=== PATIENT | male | born 1945 | race Caucasian/White ===

== ENCOUNTER 2017-06-26 09:18 | Emergency (ER) | payer MEDICARE, OTHER, SELFPAY ==
[2017-06-26 09:19] VITALS: BP 124/71; PULSE 66; RESP 15; TEMP 36.3; O2SAT 97; BMI 23.1
--- NOTE | 2017-06-26 09:29 | RAD_ITS ---
STUDY: X-RAY - LEFT HAND, ATTENTION FOURTH FINGER REASON FOR EXAM: Male, 72 years old. Laceration injury. TECHNIQUE: 3 view(s) of the finger were obtained. COMPARISON: None. FINDINGS: Normal metacarpal head. Normal metacarpophalangeal joint. Normal proximal phalanx. Normal middle phalanx. Normal distal phalanx. Normal proximal interphalangeal joint. Normal distal interphalangeal joint. Soft tissue laceration overlying the distal phalanx of the fourth digit. RAD/Finger(s) Min 2 Views IMPRESSION: Soft tissue laceration overlying the distal phalanx of the fourth digit. No fracture is seen. Electronically Signed: Chidi Monroy MD at 10:18 EDT Tel [phone], Service support ,
[2017-06-26] MEDS: Cephalexin 250 MG Capsule 500 MG PO (09:53)
--- NOTE | 2017-06-26 09:53 | ED.DCSUM_ITS ---
- ER Visit Summary Date of Service: 06/26/17 Chief Complaint: [Laceration left index finger patient] History of Present Illness: The patient is a 72 M [presents with a laceration to his left index finger that occurred approximately 10:30 AM yesterday morning. Patient states that he irrigated it with water and peroxide however he can get the bleeding to stop as patient is on Plavix. Patient has a history of a cardiac stent which is the reason for the Plavix. Patient is right-hand dominant and he is up-to-date on tetanus.] Patient was cutting a piece of wood with a band saw when he injured his finger. Physical Examination: [Right index finger-there is a 2.5 cm laceration to the distal pulp of the distal phalanx inferior to the nail with just minimal nicking of the lateral edge of the nail. Patient neurovascular intact distally. Small amount of oozing noted from the lateral edge of the laceration. Patient has normal range of motion flexion extension at the DIP and PIP joints.] Test Results: [X-ray of the left index finger obtained read by myself as no acute fractures or foreign bodies noted.] Emergency Department Course and Treatment: [Due to the fact that the laceration is approximately 24 hours old it is not amenable to any type of repair. Patient did not want any further manipulation of the wound or irrigation. He will have a clean dressing applied with Steri-Strips and a cage splint over the distal phalanx.] Treatment Plan: [Patient was given a dose of Keflex in the emergency department and will be started on Keflex.] Disposition: [Discharged home in stable condition] Impression: [Laceration left index finger 2.5 cm-old not sutured] This note was generated with [employer] dictation software. It may contain incorrect words, spelling, and punctuation that were not noted in review of the chart prior to signing ED Disposition - Plan for ED Patient: Chief Complaint: Laceration Referrals: Constantino Davis DO [Primary Care Provider] -
--- NOTE | 2017-06-26 09:53 | ED.DEP ---
ED Disposition - Plan for ED Patient: Chief Complaint: Laceration Instructions: ED Laceration Old Not Sutr Prescriptions: Cephalexin [Keflex] 500 mg PO Q6 #40 cap Referrals: Constantino Davis DO [Primary Care Provider] - 3-5 Days
[2017-06-26 10:29] VITALS: RESP 16
--- NOTE | 2017-06-26 10:30 | ED.RN ---
REVIEWED D/C INSTRUCTIONS, FOLLOW UP CARE, AND S/S THAT WOULD WARRANT A RETURN TO THE ED WITH PT. PT VERBALIZED AN UNDERSTANDING AND DENIES FURTHER QUESTIONS FOR THIS RN.
== END 2017-06-26 10:30 | disposition home or self-care (01) ==
PROVIDERS: Emergency Provider Emergency Medicine; Family Provider Family Medicine; PCP Family Medicine
DX: S61.311A Laceration without foreign body of left index finger with damage to nail, initial encounter (principal); I25.10 Atherosclerotic heart disease of native coronary artery without angina pectoris; W31.2XXA Contact with powered woodworking and forming machines, initial encounter; Y93.9 Activity, unspecified; Y92.9 Unspecified place or not applicable; Z95.5 Presence of coronary angioplasty implant and graft; Z79.82 Long term (current) use of aspirin; Z79.02 Long term (current) use of antithrombotics/antiplatelets; Z79.899 Other long term (current) drug therapy
CPT/HCPCS: 73140; 99283

== ENCOUNTER 2017-09-26 22:32 | Emergency (ER) | payer MEDICARE, OTHER, SELFPAY ==
[2017-09-26 22:33] VITALS: BP 106/61; PULSE 77; RESP 18; TEMP 37.6; O2SAT 96; BMI 22.4
[2017-09-26 22:42] VITALS: BP 114/69; PULSE 71; RESP 18; O2SAT 96
--- NOTE | 2017-09-26 22:51 | EKG12_ITS ---
Test Reason : LOW BP Blood Pressure : / mmHG Vent. Rate : 071 BPM Atrial Rate : 071 BPM P-R Int : 170 ms QRS Dur : 082 ms QT Int : 398 ms P-R-T Axes : 042 -58 067 degrees QTc Int : 432 ms Normal sinus rhythm Left anterior fascicular block Abnormal ECG Confirmed by LIAN العراقي, GILMA ([id number]), editor index KASSANDRA PASCUAL ([id number]) on 10/02/2017 9:13:58 AM Referred By: LAURA Confirmed By:GILMA BEAL MD
--- NOTE | 2017-09-26 22:52 | ED.VISSUMM ---
- ER Visit Summary Date of Service: 09/26/17 Chief Complaint: [] Weakness with low blood pressures History of Present Illness: The patient is a 72 M patient's been feeling weak for the last 10 days. He just got the hospital 6 days ago for bilateral pneumonia with sepsis. He was admitted for 3 days in [place]. He said his normal blood pressures are 115 systolic but is barely in the low 100s. He finished his antibiotic Levaquin today. He is on aspirin and Plavix. History of CAD with 1 stent in his left anterior descending artery remotely. They discharged him on metoprolol. He was on this approximately 4 years ago and has been stopped since. He is unsure why they restarted it since he had sepsis. His tax representative Dr. Amaro stopped this yesterday. He feels slightly unsteady and generalized weak. No urinary symptoms. No chest pain. No shortness of breath. Physical Examination: [] Vital signs reviewed General: Well-nourished well-developed Head: Normocephalic atraumatic Eyes: Pupils equal round and reactive to light extraocular movements intact ENT: TMs clear no hemotympanum no trauma Neck: Nontender full range of motion Cardiovascular: Regular rate rhythm no murmurs normal S1-S2 Respiratory: No distress clear to auscultation bilaterally chest nontender Abdomen: Soft nontender nondistended normal bowel sounds no masses Back: Nontender no CVA tenderness Extremities: Nontender active range of motion ?4 extremities no trauma Skin: Normal color no trauma Neuro alert oriented cranial nerves II through XII intact normal strength sensation reflexes Test Results: [] Emergency Department Course and Treatment: [] Blood pressure 106 systolic followed by 114 systolic followed by 104 systolic on evaluation. No tachycardia. Pulse ox normal. He appears well. EKG lab work and chest x-ray obtained. Lab work shows nothing significant. Hemoglobin 12.9. No white count. Chemistries normal. Urine normal. Troponin negative. EKG shows sinus rhythm at 71 without ischemia. Chest x-ray shows a pleural plaque without any acute findings. At this time the patient is resting comfortably. Blood pressures have been 90s-100s. I do not think this is causing any symptoms. He will follow-up as an outpatient. Treatment Plan: [] Disposition: [] Impression: [] Generalized weakness This note was generated with [employer] software. It may contain incorrect words, spelling, and punctuation that were not noted in review of the chart prior to signing ED Disposition - Plan for ED Patient: Chief Complaint: Weakness Referrals: Constantino Davis DO [Primary Care Provider] -
[2017-09-26 23:20] LABS: Absolute Lymphocyte Count 1.13 X10^3/ul (0.83-4.51); Absolute Neutrophil Count 6.1 X10^3/uL (2.0-7.7); Basophil# 0.01 X10^3/uL; Basophil% 0.1 % (0-1); Eosinophil# 0.11 X10^3/uL; Eosinophils% 1.4 % (0-5); Hematocrit 39.7 % (40-54); Hemoglobin 12.9 g/dl (13.0-16.5); Lymphocyte # 1.13 X10^3/ul (4.0); Lymphocyte % 13.9 % (19-41); Mean Corp Hgb Conc 32.5 g/gl (32-36); Mean Corpuscular Hgb 29.7 pg (27.0-32.0); Mean Corpuscular Volume 91.5 fL (80-94); Mean Platelet Vol. 8.6 fl (6.2-12.0); Monocyte# 0.71 X10^3/uL; Monocyte% 8.7 % (0-10); Neutrophil # 6.14 X10^3/uL (2.7-7.7); Neutrophil % 75.5 % (47-70); Platelet Count 432 K/mm3 (150-450); RBC Distribution Width SD 46.7 fl (35.1-43.9); Red Blood Count 4.34 M/mm3 (4.6-6.2); White Blood Count 8.1 K/mm3 (4.4-11.0)
--- NOTE | 2017-09-26 23:20 | RAD_ITS ---
STUDY: X-RAY CHEST REASON FOR EXAM: Male, 72 years old. Weakness TECHNIQUE: Frontal and lateral views of the chest. COMPARISON: January 26, 2015 FINDINGS: Patchy ill-defined radiodensity appear unchanged and consistent with pleural plaques. There is no demonstrated pleural abnormality. Normal size heart. Normal mediastinum and colin. Normal visualized pulmonary arteries. Normal visualized aortic arch and descending thoracic aorta. Normal visualized thoracic spine. Multiple old rib fractures noted on the right. There is no demonstrated abnormality of the visualized soft tissue structures of the upper abdomen. RAD/Chest PA and Lateral IMPRESSION: Pleural plaques and old rib fractures. No acute disease. Electronically Signed: Faizan Huerta MD at 23:42 EDT , Service support ,
[2017-09-26 23:28] LABS: POSITIVE COUNT NO; POSITIVE DIFFERENTIAL NO; POSITIVE MORPHOLOGY NO
[2017-09-26 23:40] LABS: Anion Gap 7 (5-15); BUN 15 mg/dL (7-18); BUN/Creat Ratio 18.4 RATIO (10-20); Calcium,Total 8.2 mg/dL (8.5-10.1); Chloride 104 mmol/L (98-107); Creatinine, Serum 0.82 mg/dL (0.70-1.30); EST Glomerular Filtration Rate 99 mL/min (>60); Est Glom Filt Rate - Afr Amer 119 mL/min (>60); Estimated Creatinine Clearance 91.43 ml/min; Glucose 118 mg/dL (74-106); Potassium 3.8 mmol/L (3.5-5.1); Sodium Level 137 mmol/L (136-145)
[2017-09-26 23:53] LABS: Bacteria 0 SEEN /hpf (None Seen); Mucous, Urine 0 SEEN /hpf (<or=2+); Red Blood Cells-Urine 0 SEEN /hpf (0-5); White Blood Cells 0 SEEN /hpf (0-5)
[2017-09-26 23:54] LABS: Color, Urine Yellow (Yellow); Glucose, Dipstick Normal (Normal); Ketone-Dipstick Negative (Negative); Leukocyte Esterase-Dipstick Negative /ul (Negative); Nitrite-Dipstick Negative (Negative); Occult Blood-Urine Negative /ul (Negative); Protein-Dipstick Negative (Negative); Urine Bilirubin Dipstick Negative (Negative); Urine Clarity Sl. Cloudy (Clear); Urine Urobilinogen Normal (Normal)
[2017-09-27 00:28] LABS: Squamous Epithelial Cells - UA 0-5 SEEN /hpf (0-5)
--- NOTE | 2017-09-27 00:37 | ED.DEP ---
ED Disposition - Plan for ED Patient: Disposition: Home or Assisted Living Chief Complaint: Weakness Instructions: ED Weakness [facility] Referrals: Constantino Davis DO [Primary Care Provider] -
[2017-09-27 00:38] VITALS: BP 101/68; PULSE 69; RESP 16; O2SAT 96; O2SAT 98
== END 2017-09-27 00:47 | disposition home or self-care (01) ==
PROVIDERS: Emergency Provider Emergency Medicine; Family Provider Family Medicine; PCP Family Medicine
DX: R53.1 Weakness (principal); I25.10 Atherosclerotic heart disease of native coronary artery without angina pectoris; E78.00 Pure hypercholesterolemia, unspecified; I44.7 Left bundle-branch block, unspecified; Z87.01 Personal history of pneumonia (recurrent); Z86.19 Personal history of other infectious and parasitic diseases; Z87.19 Personal history of other diseases of the digestive system; Z90.89 Acquired absence of other organs; Z90.49 Acquired absence of other specified parts of digestive tract; Z95.5 Presence of coronary angioplasty implant and graft; Z79.82 Long term (current) use of aspirin; Z79.02 Long term (current) use of antithrombotics/antiplatelets; Z79.899 Other long term (current) drug therapy
CPT/HCPCS: 71046; 80048; 81001; 84484; 85025; 93005; 99284; A4216

== ENCOUNTER 2017-09-28 16:15 | Observation (INO) | payer MEDICARE, OTHER, SELFPAY ==
[2017-09-28] VITALS (7 sets, daily range): BP systolic 107–122; BP diastolic 60–85; PULSE 63–89; RESP 16–18; TEMP 37.1–37.3; O2SAT 95–97; BMI 22.3; BMI 23.1
--- NOTE | 2017-09-28 16:31 | EKG12_ITS ---
Test Reason : HYPOTENSION Blood Pressure : / mmHG Vent. Rate : 069 BPM Atrial Rate : 069 BPM P-R Int : 168 ms QRS Dur : 076 ms QT Int : 416 ms P-R-T Axes : 053 -61 070 degrees QTc Int : 445 ms Sinus rhythm with Premature atrial complexes in a pattern of bigeminy Left anterior fascicular block Abnormal ECG Confirmed by LIAN العراقي, GILMA ([id number]), science editor KASSANDRA PASCUAL ([id number]) on 10/01/2017 3:56:05 PM Referred By: YAMINI Confirmed By:GILMA BEAL MD
--- NOTE | 2017-09-28 16:34 | ED.DCSUM_ITS ---
- ER Visit Summary Date of Service: 09/28/17 Chief Complaint: Weakness, low blood pressure History of Present Illness: The patient is a 72 M who was recently admitted in [facility] to the ICU with septic shock from bilateral pneumonia. The patient was in the ICU for 3 days. He was discharged home. Upon discharge, he was resumed on metoprolol. He states he was on this 5 years ago after having a stent. He states that he was taking it, at that time, he was having low blood pressures. He called Dr. Amaro his transactional attorney upon discharge. He was told to stop the medication. The patient has since stopped, but is still having low blood pressures. Today, he had 2 blood pressures in the 80 systolic. When he stood and it was repeated by his , it was in the 70 systolic. He has been mildly lightheaded. He denies any fevers or chills. He denies any cough. He said no chest pain. He is still urinating without issue. The patient is unsure if he was placed on steroids at all during his hospitalization. Physical Examination: Vital signs reviewed General: Well-nourished, well-developed Head: Normocephalic, atraumatic Eyes: Pupils equal and reactive, extraocular muscles intact Neck, supple, no lymphadenopathy Heart: Regular rate and rhythm Respiratory: No distress, clear bilaterally Abdomen: Soft, nontender, nondistended, no peritoneal signs Back: Nontender Extremities: Nontender, no edema, no cords Skin: Normal color no rash Neuro: Alert and oriented, no focal or lateralizing deficits Test Results: [] Emergency Department Course and Treatment: Patient presents with low blood pressure. Studies were obtained were negative. I did obtain a chest x-ray. There is scant infiltrate, but I do not feel that this is likely new. The patient has already been treated with antibiotics. He has not had cough or dyspnea. Lactate was normal. Kidney functions normal. EKG is unremarkable. I do have concern that the patient is presyncopal with his hypotension. I am unsure if this is related to an adrenal insufficiency. I did order cortisol level which is pending. The patient has had blood pressures about 100 systolic. As long as he is laying, he is asymptomatic. Given his recurrent hypotension and presyncope, I do for the patient would benefit from admission for further evaluation. Patient was discussed with the hospitalist. Treatment Plan: [] Disposition: [place] Impression: 1. Hypotension 2. Near syncope This note was generated with [employer] dictation software. It may contain incorrect words, spelling, and punctuation that were not noted in review of the chart prior to signing ED Disposition - Plan for ED Patient: Chief Complaint: Hypotension Referrals: Constantino Davis DO [Primary Care Provider] -
--- NOTE | 2017-09-28 16:35 | RAD_ITS ---
STUDY: X-RAY CHEST REASON FOR EXAM: Male, 72 years old. Cough TECHNIQUE: Single AP portable view of the chest. COMPARISON: September 26, 2017 FINDINGS: There is new mild hazy opacity of the left perihilar region which could represent mild infiltrate. There is stable calcified left pleural plaque. Normal size heart. Normal mediastinum and colin. Normal visualized pulmonary arteries. Normal visualized aortic arch and descending thoracic aorta. Normal visualized thoracic spine. There are stable old bilateral rib fractures. There is no demonstrated abnormality of the visualized soft tissue structures of the upper abdomen. RAD/Chest 1 View (Portable) IMPRESSION: There is new mild hazy opacity of the left perihilar region which could represent mild infiltrate. Electronically Signed: Mima Davison MD at 17:26 EDT , Service support ,
[2017-09-28 17:12] LABS: Absolute Lymphocyte Count 1.02 X10^3/ul (0.83-4.51); Absolute Neutrophil Count 4.5 X10^3/uL (2.0-7.7); Basophil# 0.01 X10^3/uL; Basophil% 0.2 % (0-1); Eosinophil# 0.14 X10^3/uL; Eosinophils% 2.2 % (0-5); Hemoglobin 13.2 g/dl (13.0-16.5); Lymphocyte # 1.02 X10^3/ul (4.0); Lymphocyte % 15.8 % (19-41); Mean Corpuscular Hgb 30.1 pg (27.0-32.0); Mean Corpuscular Volume 91.1 fL (80-94); Mean Platelet Vol. 8.3 fl (6.2-12.0); Monocyte# 0.81 X10^3/uL; Monocyte% 12.6 % (0-10); Neutrophil # 4.46 X10^3/uL (2.7-7.7); Platelet Count 448 K/mm3 (150-450); RBC Distribution Width SD 45.9 fl (35.1-43.9); Red Blood Count 4.39 M/mm3 (4.6-6.2); White Blood Count 6.5 K/mm3 (4.4-11.0)
[2017-09-28 17:13] LABS: POSITIVE COUNT NO; POSITIVE DIFFERENTIAL NO; POSITIVE MORPHOLOGY NO
[2017-09-28] MEDS: 0.9% Normal Saline 1,000 ML 1000 ML IV (17:17)
[2017-09-28 17:18] LABS: Mucous, Urine 0 SEEN /hpf (<or=2+); Red Blood Cells-Urine 0 SEEN /hpf (0-5); Squamous Epithelial Cells - UA 0 SEEN /hpf (0-5)
[2017-09-28 17:19] LABS: Color, Urine Yellow (Yellow); Glucose, Dipstick Normal (Normal); Ketone-Dipstick Negative (Negative); Leukocyte Esterase-Dipstick Negative /ul (Negative); Nitrite-Dipstick Negative (Negative); Occult Blood-Urine Negative /ul (Negative); Protein-Dipstick Negative (Negative); Specific Gravity, Urine 1.015 (1.002-1.030); Urine Bilirubin Dipstick Negative (Negative); Urine Clarity Clear (Clear); Urine Urobilinogen Normal (Normal); Urine pH 6.5 (5.0 - 8.0)
[2017-09-28 17:33] LABS: Bacteria RARE /hpf (None Seen); White Blood Cells 0-5 SEEN /hpf (0-5)
[2017-09-28 17:38] LABS: ALB/GLOB Ratio 0.6 RATIO (0.9-2.4); AST(SGOT) 10 U/L (15-37); Alanine Aminotransfer ALT/SGPT 14 U/L (16-61); Albumin, Serum 2.9 g/dL (3.2-5.0); Alkaline Phosphatase 68 U/L (45-117); Anion Gap 4 (5-15); BUN 12 mg/dL (7-18); BUN/Creat Ratio 12.6 RATIO (10-20); Chloride 105 mmol/L (98-107); Creatinine, Serum 0.95 mg/dL (0.70-1.30); EST Glomerular Filtration Rate 83 mL/min (>60); Est Glom Filt Rate - Afr Amer 100 mL/min (>60); Estimated Creatinine Clearance 78.46 ml/min; Globulin 4.5 g/dL (2.2-4.2); Glucose 88 mg/dL (74-106); Potassium 3.8 mmol/L (3.5-5.1); Protein, Total 7.4 g/dL (6.4-8.2); Sodium Level 138 mmol/L (136-145); Thyroid Stim Hormone (TSH) 1.01 uIU/mL (0.358-3.74)
[2017-09-28 18:10] LABS: Lactic Acid 1.1 mmol/L (0.4-2.0)
--- NOTE | 2017-09-28 21:14 | PCM.HP.STD ---
Problem List (1) Near syncope Status: Acute (2) Hypotension Status: Acute (3) Atrial premature contractions Status: Chronic (4) Atherosclerotic heart disease of [place] coronary artery without angina pectoris Status: Chronic Qualifiers: [place] vs. transplanted heart: [place] heart Qualified Code(s): I25.10 - Atherosclerotic heart disease of [place] coronary artery without angina pectoris; I25.10 - Atherosclerotic heart disease of [place] coronary artery without angina pectoris; I25.10 - Atherosclerotic heart disease of [place] coronary artery without angina pectoris (5) Abnormal chest sounds Status: Chronic (6) HLD (hyperlipidemia) Status: Chronic Qualifiers: Hyperlipidemia type: pure hypercholesterolemia Qualified Code(s): E78.00 - Pure hypercholesterolemia, unspecified; E78.00 - Pure hypercholesterolemia, unspecified; E78.00 - Pure hypercholesterolemia, unspecified; E78.0 - Pure hypercholesterolemia (7) History of PTCA Status: Chronic Comment: PTCA and GAETANO to mid LAD (8) Diverticulitis Status: Acute History of Present Illness Date of Admission: 09/28/17 Chief Complaint: Near syncope The patient is a 72 year old male w/ h/o CAD, lipidemia and sepsis admitted for near syncope. He was recently admitted to the ICU at [facility] for septic shock from bilateral pneumonia. He was discharged and he resume metoprolol. However, he called his cardiology because he was experiencing hypotension. His cardiology told him to stop metoprolol 3 days prior to admission. However, he still feels fatigue and generalized weakness. Nothing appeared to make it better or worse. His SBP was in the 80s. His weakness is not associated with any other symptoms. Past Medical History Past Medical History (Chronic Problems): Chronic Problems (Last Updated 04/01/17 @ 09:56 by [employer]) Left anterior fascicular block (LAFB) (Chronic) Atrial premature contractions (Chronic) Atherosclerotic heart disease of [place] coronary artery without angina pectoris (Chronic) Abnormal chest sounds (Chronic) HLD (hyperlipidemia) (Chronic) History of PTCA (Chronic 03/02/13) PTCA and GAETANO to mid LAD Medical History: Medical History (Last Updated 04/01/17 @ 10:00 by [employer]) Left anterior fascicular block (LAFB) (Chronic) I44.4 Atrial premature contractions (Chronic) I49.1 Atherosclerotic heart disease of [place] coronary artery without angina pectoris (Chronic) I25.10 Abnormal chest sounds (Chronic) R09.89 HLD (hyperlipidemia) (Chronic) E78.5 Allergies No Known Allergies Allergy (Verified 09/28/17 16:21) Home Medications: Ambulatory Orders Medication Instructions Recorded Nitroglycerin [Nitrostat] 0.4 mg SUBLINGUAL Q5M PRN 04/12/13 Pravastatin Sodium [Pravachol] 10 mg PO QHS 01/03/15 Clopidogrel Bisulfate [Plavix] 75 mg PO DAILY #0 01/10/15 Aspirin [Aspirin, Baby] 81 mg PO DAILY@0800 06/26/17 Albuterol Sulfate [Ventolin Hfa] 1 puff IH Q4H 09/28/17 Benzonatate [Tessalon Perle] 100 mg PO TID PRN PRN 09/28/17 Surgical History: Surgical History (Last Updated 04/01/17 @ 09:56 by Sheridan Farooq) History of PTCA (Chronic) Onset Date: 03/02/13 Z98.61 PTCA and GAETANO to mid LAD H/O vasectomy Z98.52 History of appendectomy Z98.890, Z90.49 History of cholecystectomy Z98.890, Z90.49 Lives: Spouse/ Significant Other Smoking Status: Never smoker Alcohol: None Drugs: None Review of Systems Constitutional: Denies: Chills, Fever, Weight Change HEENT: Denies: Head Aches, Sinus Congestion, Sinus Drainage Cardiovascular: Denies: Chest Pain, Palpitations Respiratory: Denies: Cough, Shortness of breath at rest, Sputum production Gastrointestinal: Denies: Abdominal Pain, Nausea, Vomiting Genitourinary: Denies: Dysuria Musculoskeletal: Denies: Joint Pain, Joint Tenderness Skin: Denies: Rash, Wounds Neurological: Denies: Numbness, Tingling, Focal weakness Psychiatric: Denies: Anxiety, Depression, Homicidal Ideations, Suicidal Ideations Hematologic/ Lymphatic: Denies: Easy Bruising, Easy Bleeding VTE Information - Inpt Only VTE Present on Admission: No VTE Mechan Device Prophylaxis: SCD's VTE Pharm Prophylaxis ordered?: Yes Patient Problems: Active and Suspected Problems (Last Updated 04/01/17 @ 10:00 by Sheridan Farooq) Near syncope (Acute) Hypotension (Acute) - Physical Exam General: Alert, Oriented x3, Cooperative HEENT: Atraumatic, PERRLA, EOMI, Normocephalic Neck: Supple, No JVD, Negative Carotid Bruits Lungs: Clear to auscultation, Normal air movement Cardiovascular: Regular rate, No murmurs Abdomen: Bowel Sounds Present, Soft, Non Tender Extremities: No edema, Capillary Refill Less than 3 Seconds Skin: No rashes, No breakdown Musculoskeletal: No Tenderness to Palpation of Joints or Extremities Neurological: Cranial nerves II-XII grossly intact Psych/Mental Status: Normal Affect, Appropriate Vital Signs Temp Pulse Resp BP Pulse Ox 98.8 F 67 16 122/85 H 97 09/28/17 20:26 09/28/17 20:26 09/28/17 20:26 09/28/17 20:26 09/28/17 20:26 Oxygen Delivery Method Room Air Weight: 81.7 kg Body Mass Index (BMI) 23.1 Assessment/Plan All Active Problems (Last Updated 04/01/17 @ 10:00 by Sheridan Farooq) Near syncope (Acute) Hypotension (Acute) Diverticulitis (Acute) 72 year old male w/ h/o CAD, lipidemia and sepsis admitted for near syncope. 1) Near syncope: Probably orthostatic. Pt has generalized weakness. Hydration. Will get carotid US and ECHO. Will get trops. 2) Hypotension: Improved with hydration. No e/o sepsis. Hydration. Hold betablocker. 3) CAD: Resume home meds. Monitor. 4) Prophylaxis: SCD / heparin.
[2017-09-28] MEDS: Heparin Injection (Vial) 5,000 UNIT/ML VIAL 5000 UNIT SC (22:09)
[2017-09-28] MEDS: 0.9% Normal Saline 1,000 ML 125 ML IV (22:09)
[2017-09-29] VITALS (15 sets, daily range): BP systolic 98–123; BP diastolic 42–78; PULSE 51–80; RESP 14–18; TEMP 36.7–37.3; O2SAT 93–97
[2017-09-29] MEDS: Benzonatate 100 MG Capsule PO ×2 (00:41→22:52)
[2017-09-29] MEDS: Albuterol 2.5 MG/3 ML VIAL.NEB. INHALATION ×4 (01:04→21:29)
[2017-09-29] MEDS: 0.9% Normal Saline 1,000 ML 125 ML IV ×3 (03:26→19:32)
[2017-09-29 03:52] LABS: Absolute Lymphocyte Count 1.13 X10^3/ul (0.83-4.51); Basophil# 0.02 X10^3/uL; Basophil% 0.2 % (0-1); Eosinophil# 0.14 X10^3/uL; Eosinophils% 1.7 % (0-5); Hematocrit 37.1 % (40-54); Hemoglobin 12.3 g/dl (13.0-16.5); Lymphocyte # 1.13 X10^3/ul (4.0); Lymphocyte % 13.9 % (19-41); Mean Corp Hgb Conc 33.2 g/gl (32-36); Mean Corpuscular Hgb 30.1 pg (27.0-32.0); Mean Corpuscular Volume 90.9 fL (80-94); Mean Platelet Vol. 8.4 fl (6.2-12.0); Monocyte# 0.85 X10^3/uL; Monocyte% 10.4 % (0-10); Neutrophil # 5.99 X10^3/uL (2.7-7.7); Neutrophil % 73.6 % (47-70); Platelet Count 406 K/mm3 (150-450); RBC Distribution Width CV 13.9 % (11.6-14.6); RBC Distribution Width SD 46.1 fl (35.1-43.9); Red Blood Count 4.08 M/mm3 (4.6-6.2); White Blood Count 8.2 K/mm3 (4.4-11.0)
[2017-09-29 04:02] LABS: ALB/GLOB Ratio 0.6 RATIO (0.9-2.4); AST(SGOT) 9 U/L (15-37); Alanine Aminotransfer ALT/SGPT 12 U/L (16-61); Albumin, Serum 2.5 g/dL (3.2-5.0); Alkaline Phosphatase 60 U/L (45-117); Anion Gap 6 (5-15); BUN 11 mg/dL (7-18); Calcium,Total 7.6 mg/dL (8.5-10.1); Chloride 110 mmol/L (98-107); Creatinine, Serum 0.69 mg/dL (0.70-1.30); EST Glomerular Filtration Rate 120 mL/min (>60); Est Glom Filt Rate - Afr Amer 145 mL/min (>60); Estimated Creatinine Clearance 77.16 ml/min; Globulin 4.1 g/dL (2.2-4.2); Glucose 116 mg/dL (74-106); Potassium 3.8 mmol/L (3.5-5.1); Protein, Total 6.6 g/dL (6.4-8.2); Sodium Level 141 mmol/L (136-145)
[2017-09-29 04:16] LABS: POSITIVE COUNT NO; POSITIVE DIFFERENTIAL NO; POSITIVE MORPHOLOGY NO
[2017-09-29] MEDS: Heparin Injection (Vial) 5,000 UNIT/ML VIAL 5000 UNIT SC ×3 (06:08→21:08)
[2017-09-29] MEDS: Aspirin 81 MG TAB.CHEW PO (09:04)
[2017-09-29] MEDS: Clopidogrel Bisulfate 75 MG Tablet PO (09:04)
--- NOTE | 2017-09-29 09:56 | CDU_ITS ---
Reason For Study: SYNCOPE Rt. Velocities/BP Lt. Velocities/BP Prox CCA 104.0/15.2 cm/sec. Prox CCA 165.0/26.7 cm/sec. Mid CCA 111.0/18.8 cm/sec. Mid CCA 123.0/22.9 cm/sec. Dist CCA 111.0/24.6 cm/sec. Dist CCA 128.0/23.6 cm/sec. Prox ICA 89.7/22.9 cm/sec. Prox ICA 61.6/20.5 cm/sec. Mid ICA 85.0/25.8 cm/sec. Mid ICA 113.0/34.0 cm/sec. Dist ICA 89.1/22.3 cm/sec. Dist ICA 92.8/29.1 cm/sec. Rt. ICA/CCA = 89.7/111.0=0.80. Lt. ICA/CCA = 113.0/123.0=0.94. Prox ECA 120.0/18.2 cm/sec. Prox ECA 105.0/18.9 cm/sec. Rt. Vert. 63.9/18.2 cm/sec. Lt. Vert. 57.4/140.2 cm/sec. Right Extracranial There is homogeneous, smooth atherosclerotic plaque noted in the right common carotid artery. There is homogeneous, smooth atherosclerotic plaque noted in the right internal carotid artery. There is intimal thickening but no significant atherosclerotic plaque noted in the right external carotid artery. Antegrade flow is noted in the right vertebral artery. Left Extracranial There is intimal thickening but no significant atherosclerotic plaque noted in the left common carotid artery. There is homogeneous, smooth atherosclerotic plaque noted in the left internal carotid artery. There is intimal thickening but no significant atherosclerotic plaque noted in the left external carotid artery. Antegrade flow is noted in the left vertebral artery. Procedure Carotid Duplex [id number]. The exam was diagnostic. Exam performed in department. Interpretation Summary Mild (<50%) stenosis right extracranial internal carotid. Mild (<50%) stenosis left extracranial internal carotid. Flow within the vertebral arteries is antegrade bilaterally. Ordering Physician: Allan Bhat Referring Physician: Constantino Davis Performed By: Eva Hunter RDCS, RVT
[2017-09-29 10:10] LABS: D-Dimer Quantitative (DVT/PE) 1.24 FEU/ug/m (0.27-0.49)
--- NOTE | 2017-09-29 10:40 | CT_ITS ---
STUDY: CTA CHEST REASON FOR EXAM: Male, 72 years old. Elevated d-dimer. Near syncopal episode and hypotension. Recent septic shock. RADIATION DOSAGE (If Supplied By Facility): CTDIvol = ( 14.58 ) mGy, DLP = ( 473.96 ) mGycm TECHNIQUE: The examination was performed with the intravenous administration of 75mL ml of Isovue 370 contrast material. Post-processing of the angiographic images was performed, with multiplanar reformation and 3D reconstruction. Individualized dose optimization techniques were used for this CT. COMPARISON: Comparison is made with prior CT scan of the chest dated February 02, 2015. FINDINGS: Normal enhancement of the main pulmonary artery and right and left pulmonary arteries. Normal enhancement of the bilateral peripheral pulmonary arteries. There is no demonstrated pulmonary embolism. Normal thoracic aorta and visualized great vessels. There is no demonstrated aortic dissection. Normal heart and pericardium. There are visualized mediastinal lymph nodes, which are within normal size limits, and with normal morphology. Normal hilar regions. Normal visualized trachea and bronchi. The lungs are well expanded. Mild degree of increased linear markings at the lung bases worse on the right side suggestive of mild scarring and/or atelectasis. Focal calcified left pleural plaques. Normal chest wall structures. There are degenerative changes of thoracic spine. There is a there is a 4.4 cm x 4.1 cm cyst in the upper pole of the left kidney. Cyst in the upper pole of the left kidney. The patient is status post cholecystectomy. CT/CTA Chest W/WO Contrast IMPRESSION: No evidence of pulmonary embolism. Increased markings at the lung bases worse on the right side. Electronically Signed: Chidi Monroy MD at 12:30 EDT Tel [phone], Service support ,
--- NOTE | 2017-09-29 11:09 | PCM.PROGNOTE ---
Patient Problems: Active and Suspected Problems (Last Updated 09/29/17 @ 18:18 by Araceli Chu) Near syncope (Acute) Hypotension (Acute) Subjective: The patient is a 72-year-old male who presented to [facility] emergency room on 09/28/2017 complaining of lightheadedness, generalized weakness and low blood pressures at home. He recently was in a hospital in [facility] and treated for septic shock secondary to bilateral pneumonia. He was in the intensive care unit for 3 days. After the shock resolved he was started on metoprolol. He had previously been on metoprolol which was discontinued by Dr. Amaro for low blood pressures associated with weakness, lightheadedness and slurred speech. He had been in contact with Dr. Amaro since returning home from the hospital in [place] and the metoprolol was discontinued by Dr. Amaro 3 days prior to presenting to the emergency room. Signs of presentation to the emergency room 99.1, pulse rate 78, blood pressure 107/60, respiratory rate 16 and he was 95% saturated on room air. Orthostatic vital signs in the emergency room were negative. CBC was unremarkable at admission. BMP showed normal electrolytes and the BUN was 12 with a creatinine of 0.95. Telemetry shows - - Physical Exam General: Alert, Oriented x3, Cooperative, No apparent distress, Well developed, Well nourished HEENT: Atraumatic, PERRLA, EOMI, Normocephalic Oral: Dry Mucosa Neck: Supple, No JVD Lungs: Clear to auscultation, Normal air movement, No rhonchi, No wheeze, No rales Cardiovascular: Regular rate, Regular Rhythm, Normal S1, Normal S2, No murmurs, No Ectopic Activity, No rub noted, No Gallop Abdomen: Bowel Sounds Present, Soft, Non Tender, Non-Distended Extremities: No clubbing, No cyanosis, No edema, No Calf Tenderness Skin: No rashes, No breakdown Neurological: Cranial nerves II-XII grossly intact, Neuro grossly intact Vital Signs Temp Pulse Resp BP Pulse Ox 98.3 F 70 14 109/60 97 09/29/17 09:02 09/29/17 10:54 09/29/17 09:02 09/29/17 09:02 09/29/17 09:02 Oxygen Delivery Method Room Air Weight: 180 lb 1.883 oz Body Mass Index (BMI) 23.1 Orthostatic Vital Signs Start: 09/29/17 05:02 Freq: q24h Status: Active Protocol: Activity Type Activity Date Activity User E-Sign Co-Sign Detail Recorded Client Recorded Date Recorded By Document 09/29/17 06:19 [facility] [id number] 09/29/17 06:23 [facility] 09/29/17 06:19 Orthostatic Vitals Standing -Blood Pressure (90/60-120/80 mm Hg) 98/58 L -Extremity Use Left Arm -Pulse Rate (60-100 beats/min) 80 Sitting -Blood Pressure (90/60-120/80 mm Hg) 98/59 L -Extremity Use Left Arm -Pulse Rate (60-100 beats/min) 69 Lying -Blood Pressure (90/60-120/80 mm Hg) 113/56 L -Extremity Use Left Arm -Pulse Rate (60-100 beats/min) 51 L Intake and Output for Last 24 Hours 09/27/17 09/28/17 09/29/17 23:59 23:59 23:59 Intake Total 987 / 987 Output Total 975 / 975 Balance Laboratory Tests Past 24 Hrs 09/28/17 09/29/17 09/29/17 21:55 00:30 03:40 WBC 8.2 RBC 4.08 L Hgb 12.3 L Hct 37.1 L MCV 90.9 MCH 30.1 MCHC 33.2 RDW 13.9 RDW Differential 46.1 H Plt Count 406 MPV 8.4 Immature Gran % (Auto) 0.200 Neut % (Auto) 73.6 H Lymph % (Auto) 13.9 L [place] % (Auto) 10.4 H Eos % (Auto) 1.7 Baso % (Auto) 0.2 Absolute Neuts (auto) 6.0 Absolute Lymphs (auto) 1.13 Total Counted Not Reportable D-Dimer Quant (PE/DVT) Sodium Potassium Chloride Carbon Dioxide Anion Gap BUN Creatinine Estim Creat Clear Calc Est GFR (MDRD) Af Amer Est GFR (MDRD) Non-Af BUN/Creatinine Ratio Glucose Calcium Total Bilirubin AST ALT Alkaline Phosphatase Troponin I < 0.015 < 0.015 Total Protein Albumin Globulin Albumin/Globulin Ratio 09/29/17 09/29/17 09/29/17 03:40 03:40 09:25 WBC RBC Hgb Hct MCV MCH MCHC RDW RDW Differential Plt Count MPV Immature Gran % (Auto) Neut % (Auto) Lymph % (Auto) [place] % (Auto) Eos % (Auto) Baso % (Auto) Absolute Neuts (auto) Absolute Lymphs (auto) Total Counted D-Dimer Quant (PE/DVT) 1.24 H* Sodium 141 Potassium 3.8 Chloride 110 H Carbon Dioxide 25.0 Anion Gap 6 BUN 11 Creatinine 0.69 L Estim Creat Clear Calc 77.16 Est GFR (MDRD) Af Amer 145 Est GFR (MDRD) Non-Af 120 BUN/Creatinine Ratio 16.0 Glucose 116 H Calcium 7.6 L Total Bilirubin 0.20 AST 9 L ALT 12 L Alkaline Phosphatase 60 Troponin I < 0.015 Total Protein 6.6 Albumin 2.5 L Globulin 4.1 Albumin/Globulin Ratio 0.6 L Medical Necessity - Tobacco Use Smoking Status: Never smoker Assessment/Plan All Active Problems (Last Updated 09/29/17 @ 18:18 by Araceli Chu) History of recent pneumonia (Acute) Near syncope (Acute) Hypotension (Acute) Diverticulitis (Acute) Septic shock (Resolved) Impressions 1. Near syncope secondary to orthostatic hypotension secondary to dehydration plus beta-blockade 2. Recent septic shock secondary to bilateral pneumonia 3. Coronary artery disease The patient is still mildly symptomatic with positive orthostatic vital signs. Continue IV hydration and recheck orthostatics in the a.m.
--- NOTE | 2017-09-29 11:15 | PN_ITS ---
Patient Problems: Active and Suspected Problems (Last Updated 09/29/17 @ 18:18 by Araceli Chu) Near syncope (Acute) Hypotension (Acute) Subjective: The patient is a 72-year-old male who presented to [facility] emergency room on 09/28/2017 complaining of lightheadedness, generalized weakness and low blood pressures at home. He recently was in a hospital in [facility] and treated for septic shock secondary to bilateral pneumonia. He was in the intensive care unit for 3 days. After the shock resolved he was started on metoprolol. He had previously been on metoprolol which was discontinued by Dr. Amaro for low blood pressures associated with weakness, lightheadedness and slurred speech. He had been in contact with Dr. Amaro since returning home from the hospital in [place] and the metoprolol was discontinued by Dr. Amaro 3 days prior to presenting to the emergency room. Signs of presentation to the emergency room 99.1, pulse rate 78, blood pressure 107/60, respiratory rate 16 and he was 95% saturated on room air. Orthostatic vital signs in the emergency room were negative. CBC was unremarkable at admission. BMP showed normal electrolytes and the BUN was 12 with a creatinine of 0.95. Telemetry shows - - Physical Exam General: Alert, Oriented x3, Cooperative, No apparent distress, Well developed, Well nourished HEENT: Atraumatic, PERRLA, EOMI, Normocephalic Oral: Dry Mucosa Neck: Supple, No JVD Lungs: Clear to auscultation, Normal air movement, No rhonchi, No wheeze, No rales Cardiovascular: Regular rate, Regular Rhythm, Normal S1, Normal S2, No murmurs, No Ectopic Activity, No rub noted, No Gallop Abdomen: Bowel Sounds Present, Soft, Non Tender, Non-Distended Extremities: No clubbing, No cyanosis, No edema, No Calf Tenderness Skin: No rashes, No breakdown Neurological: Cranial nerves II-XII grossly intact, Neuro grossly intact Vital Signs Temp Pulse Resp BP Pulse Ox 98.3 F 70 14 109/60 97 09/29/17 09:02 09/29/17 10:54 09/29/17 09:02 09/29/17 09:02 09/29/17 09:02 Oxygen Delivery Method Room Air Weight: 180 lb 1.883 oz Body Mass Index (BMI) 23.1 Orthostatic Vital Signs Start: 09/29/17 05:02 Freq: q24h Status: Active Protocol: Activity Type Activity Date Activity User E-Sign Co-Sign Detail Recorded Client Recorded Date Recorded By Document 09/29/17 06:19 [facility] [id number] 09/29/17 06:23 [facility] 09/29/17 06:19 Orthostatic Vitals Standing -Blood Pressure (90/60-120/80 mm Hg) 98/58 L -Extremity Use Left Arm -Pulse Rate (60-100 beats/min) 80 Sitting -Blood Pressure (90/60-120/80 mm Hg) 98/59 L -Extremity Use Left Arm -Pulse Rate (60-100 beats/min) 69 Lying -Blood Pressure (90/60-120/80 mm Hg) 113/56 L -Extremity Use Left Arm -Pulse Rate (60-100 beats/min) 51 L Intake and Output for Last 24 Hours 09/27/17 09/28/17 09/29/17 23:59 23:59 23:59 Intake Total 987 / 987 Output Total 975 / 975 Balance Laboratory Tests Past 24 Hrs 09/28/17 09/29/17 09/29/17 21:55 00:30 03:40 WBC 8.2 RBC 4.08 L Hgb 12.3 L Hct 37.1 L MCV 90.9 MCH 30.1 MCHC 33.2 RDW 13.9 RDW Differential 46.1 H Plt Count 406 MPV 8.4 Immature Gran % (Auto) 0.200 Neut % (Auto) 73.6 H Lymph % (Auto) 13.9 L [place] % (Auto) 10.4 H Eos % (Auto) 1.7 Baso % (Auto) 0.2 Absolute Neuts (auto) 6.0 Absolute Lymphs (auto) 1.13 Total Counted Not Reportable D-Dimer Quant (PE/DVT) Sodium Potassium Chloride Carbon Dioxide Anion Gap BUN Creatinine Estim Creat Clear Calc Est GFR (MDRD) Af Amer Est GFR (MDRD) Non-Af BUN/Creatinine Ratio Glucose Calcium Total Bilirubin AST ALT Alkaline Phosphatase Troponin I < 0.015 < 0.015 Total Protein Albumin Globulin Albumin/Globulin Ratio 09/29/17 09/29/17 09/29/17 03:40 03:40 09:25 WBC RBC Hgb Hct MCV MCH MCHC RDW RDW Differential Plt Count MPV Immature Gran % (Auto) Neut % (Auto) Lymph % (Auto) [place] % (Auto) Eos % (Auto) Baso % (Auto) Absolute Neuts (auto) Absolute Lymphs (auto) Total Counted D-Dimer Quant (PE/DVT) 1.24 H* Sodium 141 Potassium 3.8 Chloride 110 H Carbon Dioxide 25.0 Anion Gap 6 BUN 11 Creatinine 0.69 L Estim Creat Clear Calc 77.16 Est GFR (MDRD) Af Amer 145 Est GFR (MDRD) Non-Af 120 BUN/Creatinine Ratio 16.0 Glucose 116 H Calcium 7.6 L Total Bilirubin 0.20 AST 9 L ALT 12 L Alkaline Phosphatase 60 Troponin I < 0.015 Total Protein 6.6 Albumin 2.5 L Globulin 4.1 Albumin/Globulin Ratio 0.6 L Medical Necessity - Tobacco Use Smoking Status: Never smoker Assessment/Plan All Active Problems (Last Updated 09/29/17 @ 18:18 by Araceli Chu) History of recent pneumonia (Acute) Near syncope (Acute) Hypotension (Acute) Diverticulitis (Acute) Septic shock (Resolved) Impressions 1. Near syncope secondary to orthostatic hypotension secondary to dehydration plus beta-blockade 2. Recent septic shock secondary to bilateral pneumonia 3. Coronary artery disease The patient is still mildly symptomatic with positive orthostatic vital signs. Continue IV hydration and recheck orthostatics in the a.m.
[2017-09-29] MEDS: Pravastatin 20 MG Tablet 10 MG PO (21:08)
[2017-09-30] VITALS (11 sets, daily range): BP systolic 97–133; BP diastolic 56–71; PULSE 56–82; RESP 12–19; TEMP 36.7–36.8; O2SAT 96–98
[2017-09-30] MEDS: 0.9% Normal Saline 1,000 ML 125 ML IV ×2 (03:31→10:42)
[2017-09-30] MEDS: Heparin Injection (Vial) 5,000 UNIT/ML VIAL 5000 UNIT SC (05:57)
[2017-09-30] MEDS: Benzonatate 100 MG Capsule PO (05:57)
[2017-09-30] MEDS: Albuterol 2.5 MG/3 ML VIAL.NEB. INHALATION ×2 (07:23→13:43)
[2017-09-30] MEDS: Clopidogrel Bisulfate 75 MG Tablet PO (09:18)
[2017-09-30] MEDS: Aspirin 81 MG TAB.CHEW PO (09:18)
--- NOTE | 2017-09-30 13:12 | CASEMGMT ---
Intro role of CM to patient in room. DIAS form explained, pt signed, copy to chart. Questions answered. Rissa OLMOSN RN ACM
--- NOTE | 2017-09-30 15:19 | DCINST_ITS ---
- Discharge Diagnoses Current Active Problems: Current Active and Chronic Problems (Last Updated 09/29/17 @ 18:18 by Araceli Chu ) Near syncope (Acute) Hypotension (Acute) You will use the following diet at home:: Other - resume previous diet Your food should be the consistency of: Regular Your liquids should be the consistency of: Regular/Thin Discharge Activity: Return to Normal Activity May resume sexual activity in: No Restrictions Weight Bearing Status: Full weight bearing Call your doctor if you observe: Fever of 101 or Higher, Shortness of breath, Dizziness, Fainting spells, Chest pain Additional Instructions: 1. You do not have any wheezing. You can use the inhaler every 4 hours as needed for shortness of breath and/or wheezing. 2. There were no blood clots in the lungs on the CT scan. 3. There has been no problem with the rhythm of the heart on the heart monitor. 4. The problem with the low blood pressure was a combination of the Atenolol and mild dehydration. Atenolol is a beta aleida. You should list beta blockers as an allergy in the future and list the reaction as syncope. 5. The ultrasound examination of the carotid arteries showed less than 50% stenosis on the right and less than 50% stenosis on the left. 6. You should drinnk enough water or non-caffeinated beverages daily to keep the urine a pale yellow. If the urine is orange or has a ammonia odor to it then you need to drink more. Allergies/Adverse Reactions: Allergies No Known Allergies Allergy (Verified 09/29/17 18:02) Medications to take at Discharge Nitroglycerin [Nitrostat] 0.4 mg SUBLINGUAL Q5M PRN 04/12/13 Pravastatin Sodium [Pravachol] 10 mg PO QHS 01/03/15 Clopidogrel Bisulfate [Plavix] 75 mg PO DAILY #0 01/10/15 Aspirin [Aspirin, Baby] 81 mg PO DAILY@0800 06/26/17 Albuterol Sulfate [Ventolin Hfa] 1 puff IH Q4H 09/28/17 Benzonatate [Tessalon Perle] 100 mg PO TID PRN PRN 09/28/17 Primary Care Physician: Constantino Davis DO [Primary Care Provider] - Please follow up with your Primary Care Physician in: 1-2 weeks Please Follow Up With: Thai Amaro MD When: As previously arranged Proposed Discharge Date: 09/30/17
--- NOTE | 2017-09-30 15:29 | PCM.DC.SUM ---
Discharge Date and Diagnosis - Problem List Patient Problems: Active and Suspected Problems (Last Updated 09/29/17 @ 18:18 by Araceli Chu) Near syncope (Acute) Hypotension (Acute) Date of Admission: 09/28/17 Date of Discharge: 09/30/17 - Primary Discharge Diagnosis Active and Suspected Problems (Last Updated 09/29/17 @ 18:18 by Araceli Chu) Near syncope (Acute) Orthostatic Hypotension (Acute) - Secondary Discharge Diagnosis Chronic Problems (Last Reviewed 09/29/17 @ 18:17 by Araceli Chu) Obstructive sleep apnea (Chronic) Left anterior fascicular block (LAFB) (Chronic) Atrial premature contractions (Chronic) Premature ventricular contractions 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 Electronically Signed: Mima Davison MD at 17:26 EDT cf, Service support , Chest CTA 09/29/17 10:40 IMPRESSION: No evidence of pulmonary embolism. Increased markings at the lung bases worse on the right side. Electronically Signed: Chidi Monroy MD at 12:30 EDT Tel [phone], Service support , Laboratory Tests 09/28/17 09/28/17 09/28/17 17:00 17:00 17:00 WBC 6.5 RBC 4.39 L Hgb 13.2 Hct 40.0 MCV 91.1 MCH 30.1 MCHC 33.0 RDW 14.0 RDW Differential 45.9 H Plt Count 448 MPV 8.3 Immature Gran % (Auto) 0.200 Neut % (Auto) 69.0 Lymph % (Auto) 15.8 L [place] % (Auto) 12.6 H Eos % (Auto) 2.2 Baso % (Auto) 0.2 Absolute Neuts (auto) 4.5 Absolute Lymphs (auto) 1.02 Total Counted Not Reportable D-Dimer Quant (PE/DVT) Sodium 138 Potassium 3.8 Chloride 105 Carbon Dioxide 29.0 Anion Gap 4 L BUN 12 Creatinine 0.95 Estim Creat Clear Calc 78.46 Est GFR (MDRD) Af Amer 100 Est GFR (MDRD) Non-Af 83 BUN/Creatinine Ratio 12.6 Glucose 88 Lactic Acid 1.1 Calcium 8.0 L Total Bilirubin 0.40 AST 10 L ALT 14 L Alkaline Phosphatase 68 Troponin I < 0.015 Total Protein 7.4 Albumin 2.9 L Globulin 4.5 H Albumin/Globulin Ratio 0.6 L TSH 1.01 Cortisol Urine Color Urine Clarity Urine pH Ur Specific [place] Urine Protein Urine Glucose (UA) Urine Ketones Urine Occult Blood Urine Nitrite Urine Bilirubin Urine Urobilinogen Ur Leukocyte Esterase Urine RBC Urine WBC Ur Squamous Epith Cells Urine Bacteria Urine Mucus 09/28/17 09/28/17 09/28/17 17:00 17:11 21:55 WBC RBC Hgb Hct MCV MCH MCHC RDW RDW Differential Plt Count MPV Immature Gran % (Auto) Neut % (Auto) Lymph % (Auto) [place] % (Auto) Eos % (Auto) Baso % (Auto) Absolute Neuts (auto) Absolute Lymphs (auto) Total Counted D-Dimer Quant (PE/DVT) Sodium Potassium Chloride Carbon Dioxide Anion Gap BUN Creatinine Estim Creat Clear Calc Est GFR (MDRD) Af Amer Est GFR (MDRD) Non-Af BUN/Creatinine Ratio Glucose Lactic Acid Calcium Total Bilirubin AST ALT Alkaline Phosphatase Troponin I < 0.015 Total Protein Albumin Globulin Albumin/Globulin Ratio TSH Cortisol 7.90 Urine Color Yellow Urine Clarity Clear Urine pH 6.5 Ur Specific [place] 1.015 Urine Protein Negative Urine Glucose (UA) Normal Urine Ketones Negative Urine Occult Blood Negative Urine Nitrite Negative Urine Bilirubin Negative Urine Urobilinogen Normal Ur Leukocyte Esterase Negative Urine RBC 0 SEEN Urine WBC 0-5 SEEN Ur Squamous Epith Cells 0 SEEN Urine Bacteria RARE Urine Mucus 0 SEEN 09/29/17 09/29/17 09/29/17 00:30 03:40 03:40 WBC 8.2 RBC 4.08 L Hgb 12.3 L Hct 37.1 L MCV 90.9 MCH 30.1 MCHC 33.2 RDW 13.9 RDW Differential 46.1 H Plt Count 406 MPV 8.4 Immature Gran % (Auto) 0.200 Neut % (Auto) 73.6 H Lymph % (Auto) 13.9 L [place] % (Auto) 10.4 H Eos % (Auto) 1.7 Baso % (Auto) 0.2 Absolute Neuts (auto) 6.0 Absolute Lymphs (auto) 1.13 Total Counted Not Reportable D-Dimer Quant (PE/DVT) Sodium 141 Potassium 3.8 Chloride 110 H Carbon Dioxide 25.0 Anion Gap 6 BUN 11 Creatinine 0.69 L Estim Creat Clear Calc 77.16 Est GFR (MDRD) Af Amer 145 Est GFR (MDRD) Non-Af 120 BUN/Creatinine Ratio 16.0 Glucose 116 H Lactic Acid Calcium 7.6 L Total Bilirubin 0.20 AST 9 L ALT 12 L Alkaline Phosphatase 60 Troponin I < 0.015 Total Protein 6.6 Albumin 2.5 L Globulin 4.1 Albumin/Globulin Ratio 0.6 L TSH Cortisol Urine Color Urine Clarity Urine pH Ur Specific [place] Urine Protein Urine Glucose (UA) Urine Ketones Urine Occult Blood Urine Nitrite Urine Bilirubin Urine Urobilinogen Ur Leukocyte Esterase Urine RBC Urine WBC Ur Squamous Epith Cells Urine Bacteria Urine Mucus 09/29/17 09/29/17 03:40 09:25 WBC RBC Hgb Hct MCV MCH MCHC RDW RDW Differential Plt Count MPV Immature Gran % (Auto) Neut % (Auto) Lymph % (Auto) [place] % (Auto) Eos % (Auto) Baso % (Auto) Absolute Neuts (auto) Absolute Lymphs (auto) Total Counted D-Dimer Quant (PE/DVT) 1.24 H* Sodium Potassium Chloride Carbon Dioxide Anion Gap BUN Creatinine Estim Creat Clear Calc Est GFR (MDRD) Af Amer Est GFR (MDRD) Non-Af BUN/Creatinine Ratio Glucose Lactic Acid Calcium Total Bilirubin AST ALT Alkaline Phosphatase Troponin I < 0.015 Total Protein Albumin Globulin Albumin/Globulin Ratio TSH Cortisol Urine Color Urine Clarity Urine pH Ur Specific [place] Urine Protein Urine Glucose (UA) Urine Ketones Urine Occult Blood Urine Nitrite Urine Bilirubin Urine Urobilinogen Ur Leukocyte Esterase Urine RBC Urine WBC Ur Squamous Epith Cells Urine Bacteria Urine Mucus none Operations: None Procedures: 2-D Echocardiogram Summary of Care Provided: The patient is a 72-year-old male who presented to [facility] emergency room on 09/28/2017 complaining of lightheadedness, generalized weakness and low blood pressures at home. He recently was in a hospital in [facility] and treated for septic shock secondary to bilateral pneumonia. He was in the intensive care unit for 3 days. After the shock resolved he was started on metoprolol. He had previously been on metoprolol which was discontinued by Dr. Amaro for low blood pressures associated with weakness, lightheadedness and slurred speech. He had been in contact with Dr. Amaro since returning home from the hospital in [place] and the metoprolol was discontinued by Dr. Amaro 3 days prior to presenting to the emergency room. Vital Signs at presentation to the emergency room were temp 99.1, pulse rate 78, blood pressure 107/60, respiratory rate 16 and he was 95% saturated on room air. Orthostatic vital signs in the emergency room were negative but + when taken on PCU. CBC was unremarkable at admission. BMP showed normal electrolytes and the BUN was 12 with a creatinine of 0.95. Since he had recently been in the hospital and had been mostly sedentary for the preceding 5-7 days a d-dimer was checked and was elevated at 1.24. CTA of the chest was negative for pulmonary emboli. He was admitted to the hospital with orthostatic hypotension and intravenous fluids were administered. On the morning of 09/29/2017 the pulse rate lying in bed was 51 and increased to 80 when standing. The lying blood pressure was 113/56 and decreased to 98/58 with standing. He continued to complain of some mild lightheadedness. Intravenous fluids were continued and orthostatic vital signs done on 09/30/2017 were negative. Carotid ultrasound showed less than 50% stenosis in the right and left carotids. Echocardiogram showed a normal left ventricular ejection fraction of 60% with no evidence of diastolic dysfunction. There was +1 TR. Telemetry showed normal sinus rhythm with occasional PACs and PVCs and no malignant dysrhythmias. Was discharged home on 09/30/2017 with a diagnosis of orthostatic hypotension secondary to mild dehydration and beta blockade. He has a follow-up appointment with Dr. Amaro on 10/02/2017 and will follow up with Dr. Davis in 1-2 weeks in the office. - Physical Exam General: Alert, Oriented x3, Cooperative, No apparent distress, Well developed, Well nourished HEENT: Atraumatic, PERRLA, EOMI, Normocephalic Oral: moist mucosa Neck: Supple, No JVD Lungs: Clear to auscultation, Normal air movement, No rhonchi, No wheeze, he had a few coarse crackles in the bases that resolved with several deep breaths. Cardiovascular: Regular rate, Regular Rhythm, Normal S1, Normal S2, No murmurs, No Ectopic Activity, No rub noted, No Gallop Abdomen: Bowel Sounds Present, Soft, Non Tender, Non-Distended Extremities: No clubbing, No cyanosis, No edema, No Calf Tenderness Skin: No rashes, No breakdown Neurological: Cranial nerves II-XII grossly intact, Neuro grossly intact Discharge Activity: Return to Normal Activity May resume sexual activity in: No Restrictions Weight Bearing Status: Full weight bearing Call your doctor if you observe: Fever of 101 or Higher, Shortness of breath, Dizziness, Fainting spells, Chest pain Home Medications: Medications to take at Discharge Nitroglycerin [Nitrostat] 0.4 mg SUBLINGUAL Q5M PRN 04/12/13 Pravastatin Sodium [Pravachol] 10 mg PO QHS 01/03/15 Clopidogrel Bisulfate [Plavix] 75 mg PO DAILY #0 01/10/15 Aspirin [Aspirin, Baby] 81 mg PO DAILY@0800 06/26/17 Albuterol Sulfate [Ventolin Hfa] 1 puff IH Q4H 09/28/17 Benzonatate [Tessalon Perle] 100 mg PO TID PRN PRN 09/28/17 Primary Care Physician: Constantino Davis DO [Primary Care Provider] - Please follow up with your Primary Care Physician in: 1-2 weeks Please Follow Up With: Thai Amaro MD When: As previously arranged Disposition: Home Minutes spent on discharge:: 30 Patient Condition:: Good Medical Necessity - Tobacco Use Smoking Status: Never smoker Meaningful Use Info Meaningful Use Diagnoses (Choose all that apply): None applicable Code Visit OBSV E&M: 85845 Observation care discharge
--- NOTE | 2017-09-30 15:42 | DS.PCM_ITS ---
Discharge Date and Diagnosis - Problem List Patient Problems: Active and Suspected Problems (Last Updated 09/29/17 @ 18:18 by Araceli Chu) Near syncope (Acute) Hypotension (Acute) Date of Admission: 09/28/17 Date of Discharge: 09/30/17 - Primary Discharge Diagnosis Active and Suspected Problems (Last Updated 09/29/17 @ 18:18 by Araceli Chu) Near syncope (Acute) Orthostatic Hypotension (Acute) - Secondary Discharge Diagnosis Chronic Problems (Last Reviewed 09/29/17 @ 18:17 by Araceli Chu) Obstructive sleep apnea (Chronic) Left anterior fascicular block (LAFB) (Chronic) Atrial premature contractions (Chronic) Premature ventricular contractions Atherosclerotic heart disease of [place] coronary artery without angina pectoris (Chronic) HLD (hyperlipidemia) (Chronic) History of PTCA (Chronic 03/02/13) PTCA and GAETANO to mid LAD Recent admission to a hospital in [facility] for septic shock secondary to pneumonia Hospital Course and Treatment Imaging Results: Clinical Impression(s) from Imaging Studies Chest X-Ray 09/28/17 16:35 IMPRESSION: There is new mild hazy opacity of the left perihilar region which could represent mild infiltrate. Electronically Signed: Mima Davison MD at 17:26 EDT cf, Service support , Chest CTA 09/29/17 10:40 IMPRESSION: No evidence of pulmonary embolism. Increased markings at the lung bases worse on the right side. Electronically Signed: Chidi Monroy MD at 12:30 EDT Tel [phone], Service support , Laboratory Tests 09/28/17 09/28/17 09/28/17 17:00 17:00 17:00 WBC 6.5 RBC 4.39 L Hgb 13.2 Hct 40.0 MCV 91.1 MCH 30.1 MCHC 33.0 RDW 14.0 RDW Differential 45.9 H Plt Count 448 MPV 8.3 Immature Gran % (Auto) 0.200 Neut % (Auto) 69.0 Lymph % (Auto) 15.8 L Gaines % (Auto) 12.6 H Eos % (Auto) 2.2 Baso % (Auto) 0.2 Absolute Neuts (auto) 4.5 Absolute Lymphs (auto) 1.02 Total Counted Not Reportable D-Dimer Quant (PE/DVT) Sodium 138 Potassium 3.8 Chloride 105 Carbon Dioxide 29.0 Anion Gap 4 L BUN 12 Creatinine 0.95 Estim Creat Clear Calc 78.46 Est GFR (MDRD) Af Amer 100 Est GFR (MDRD) Non-Af 83 BUN/Creatinine Ratio 12.6 Glucose 88 Lactic Acid 1.1 Calcium 8.0 L Total Bilirubin 0.40 AST 10 L ALT 14 L Alkaline Phosphatase 68 Troponin I < 0.015 Total Protein 7.4 Albumin 2.9 L Globulin 4.5 H Albumin/Globulin Ratio 0.6 L TSH 1.01 Cortisol Urine Color Urine Clarity Urine pH Ur Specific [place] Urine Protein Urine Glucose (UA) Urine Ketones Urine Occult Blood Urine Nitrite Urine Bilirubin Urine Urobilinogen Ur Leukocyte Esterase Urine RBC Urine WBC Ur Squamous Epith Cells Urine Bacteria Urine Mucus 09/28/17 09/28/17 09/28/17 17:00 17:11 21:55 WBC RBC Hgb Hct MCV MCH MCHC RDW RDW Differential Plt Count MPV Immature Gran % (Auto) Neut % (Auto) Lymph % (Auto) Gaines % (Auto) Eos % (Auto) Baso % (Auto) Absolute Neuts (auto) Absolute Lymphs (auto) Total Counted D-Dimer Quant (PE/DVT) Sodium Potassium Chloride Carbon Dioxide Anion Gap BUN Creatinine Estim Creat Clear Calc Est GFR (MDRD) Af Amer Est GFR (MDRD) Non-Af BUN/Creatinine Ratio Glucose Lactic Acid Calcium Total Bilirubin AST ALT Alkaline Phosphatase Troponin I < 0.015 Total Protein Albumin Globulin Albumin/Globulin Ratio TSH Cortisol 7.90 Urine Color Yellow Urine Clarity Clear Urine pH 6.5 Ur Specific [place] 1.015 Urine Protein Negative Urine Glucose (UA) Normal Urine Ketones Negative Urine Occult Blood Negative Urine Nitrite Negative Urine Bilirubin Negative Urine Urobilinogen Normal Ur Leukocyte Esterase Negative Urine RBC 0 SEEN Urine WBC 0-5 SEEN Ur Squamous Epith Cells 0 SEEN Urine Bacteria RARE Urine Mucus 0 SEEN 09/29/17 09/29/17 09/29/17 00:30 03:40 03:40 WBC 8.2 RBC 4.08 L Hgb 12.3 L Hct 37.1 L MCV 90.9 MCH 30.1 MCHC 33.2 RDW 13.9 RDW Differential 46.1 H Plt Count 406 MPV 8.4 Immature Gran % (Auto) 0.200 Neut % (Auto) 73.6 H Lymph % (Auto) 13.9 L Gaines % (Auto) 10.4 H Eos % (Auto) 1.7 Baso % (Auto) 0.2 Absolute Neuts (auto) 6.0 Absolute Lymphs (auto) 1.13 Total Counted Not Reportable D-Dimer Quant (PE/DVT) Sodium 141 Potassium 3.8 Chloride 110 H Carbon Dioxide 25.0 Anion Gap 6 BUN 11 Creatinine 0.69 L Estim Creat Clear Calc 77.16 Est GFR (MDRD) Af Amer 145 Est GFR (MDRD) Non-Af 120 BUN/Creatinine Ratio 16.0 Glucose 116 H Lactic Acid Calcium 7.6 L Total Bilirubin 0.20 AST 9 L ALT 12 L Alkaline Phosphatase 60 Troponin I < 0.015 Total Protein 6.6 Albumin 2.5 L Globulin 4.1 Albumin/Globulin Ratio 0.6 L TSH Cortisol Urine Color Urine Clarity Urine pH Ur Specific [place] Urine Protein Urine Glucose (UA) Urine Ketones Urine Occult Blood Urine Nitrite Urine Bilirubin Urine Urobilinogen Ur Leukocyte Esterase Urine RBC Urine WBC Ur Squamous Epith Cells Urine Bacteria Urine Mucus 09/29/17 09/29/17 03:40 09:25 WBC RBC Hgb Hct MCV MCH MCHC RDW RDW Differential Plt Count MPV Immature Gran % (Auto) Neut % (Auto) Lymph % (Auto) Gaines % (Auto) Eos % (Auto) Baso % (Auto) Absolute Neuts (auto) Absolute Lymphs (auto) Total Counted D-Dimer Quant (PE/DVT) 1.24 H* Sodium Potassium Chloride Carbon Dioxide Anion Gap BUN Creatinine Estim Creat Clear Calc Est GFR (MDRD) Af Amer Est GFR (MDRD) Non-Af BUN/Creatinine Ratio Glucose Lactic Acid Calcium Total Bilirubin AST ALT Alkaline Phosphatase Troponin I < 0.015 Total Protein Albumin Globulin Albumin/Globulin Ratio TSH Cortisol Urine Color Urine Clarity Urine pH Ur Specific [place] Urine Protein Urine Glucose (UA) Urine Ketones Urine Occult Blood Urine Nitrite Urine Bilirubin Urine Urobilinogen Ur Leukocyte Esterase Urine RBC Urine WBC Ur Squamous Epith Cells Urine Bacteria Urine Mucus none Operations: None Procedures: 2-D Echocardiogram Summary of Care Provided: The patient is a 72-year-old male who presented to [facility] emergency room on 09/28/2017 complaining of lightheadedness, generalized weakness and low blood pressures at home. He recently was in a hospital in [facility] and treated for septic shock secondary to bilateral pneumonia. He was in the intensive care unit for 3 days. After the shock resolved he was started on metoprolol. He had previously been on metoprolol which was discontinued by Dr. Amaro for low blood pressures associated with weakness, lightheadedness and slurred speech. He had been in contact with Dr. Amaro since returning home from the hospital in [place] and the metoprolol was discontinued by Dr. Amaro 3 days prior to presenting to the emergency room. Vital Signs at presentation to the emergency room were temp 99.1, pulse rate 78 , blood pressure 107/60, respiratory rate 16 and he was 95% saturated on room air. Orthostatic vital signs in the emergency room were negative but + when taken on PCU. CBC was unremarkable at admission. BMP showed normal electrolytes and the BUN was 12 with a creatinine of 0.95. Since he had recently been in the hospital and had been mostly sedentary for the preceding 5- 7 days a d-dimer was checked and was elevated at 1.24. CTA of the chest was negative for pulmonary emboli. He was admitted to the hospital with orthostatic hypotension and intravenous fluids were administered. On the morning of 09/29/2017 the pulse rate lying in bed was 51 and increased to 80 when standing. The lying blood pressure was 113/56 and decreased to 98/58 with standing. He continued to complain of some mild lightheadedness. Intravenous fluids were continued and orthostatic vital signs done on 09/30/2017 were negative. Carotid ultrasound showed less than 50% stenosis in the right and left carotids. Echocardiogram showed a normal left ventricular ejection fraction of 60% with no evidence of diastolic dysfunction. There was +1 TR. Telemetry showed normal sinus rhythm with occasional PACs and PVCs and no malignant dysrhythmias. Was discharged home on 09/30/2017 with a diagnosis of orthostatic hypotension secondary to mild dehydration and beta blockade. He has a follow-up appointment with Dr. Amaro on 10/02/2017 and will follow up with Dr. Davis in 1-2 weeks in the office. - Physical Exam General: Alert, Oriented x3, Cooperative, No apparent distress, Well developed, Well nourished HEENT: Atraumatic, PERRLA, EOMI, Normocephalic Oral: moist mucosa Neck: Supple, No JVD Lungs: Clear to auscultation, Normal air movement, No rhonchi, No wheeze, he had a few coarse crackles in the bases that resolved with several deep breaths. Cardiovascular: Regular rate, Regular Rhythm, Normal S1, Normal S2, No murmurs, No Ectopic Activity, No rub noted, No Gallop Abdomen: Bowel Sounds Present, Soft, Non Tender, Non-Distended Extremities: No clubbing, No cyanosis, No edema, No Calf Tenderness Skin: No rashes, No breakdown Neurological: Cranial nerves II-XII grossly intact, Neuro grossly intact Discharge Activity: Return to Normal Activity May resume sexual activity in: No Restrictions Weight Bearing Status: Full weight bearing Call your doctor if you observe: Fever of 101 or Higher, Shortness of breath, Dizziness, Fainting spells, Chest pain Home Medications: Medications to take at Discharge Nitroglycerin [Nitrostat] 0.4 mg SUBLINGUAL Q5M PRN 04/12/13 Pravastatin Sodium [Pravachol] 10 mg PO QHS 01/03/15 Clopidogrel Bisulfate [Plavix] 75 mg PO DAILY #0 01/10/15 Aspirin [Aspirin, Baby] 81 mg PO DAILY@0800 06/26/17 Albuterol Sulfate [Ventolin Hfa] 1 puff IH Q4H 09/28/17 Benzonatate [Tessalon Perle] 100 mg PO TID PRN PRN 09/28/17 Primary Care Physician: Constantino Davis DO [Primary Care Provider] - Please follow up with your Primary Care Physician in: 1-2 weeks Please Follow Up With: Thai Amaro MD When: As previously arranged Disposition: Home Minutes spent on discharge:: 30 Patient Condition:: Good Medical Necessity - Tobacco Use Smoking Status: Never smoker Meaningful Use Info Meaningful Use Diagnoses (Choose all that apply): None applicable Code Visit OBSV E&M: 82126 Observation care discharge
== END 2017-09-30 15:21 | disposition home or self-care (01) ==
LOC: ED 18:38 → PCU 19:42
PROVIDERS: Admitting Provider Internal Medicine; Emergency Provider Emergency Medicine; Family Provider Family Medicine; PCP Family Medicine; Visit Provider Internal Medicine
DX: I95.1 Orthostatic hypotension (principal); E86.0 Dehydration; I25.10 Atherosclerotic heart disease of native coronary artery without angina pectoris; E78.5 Hyperlipidemia, unspecified; Z95.5 Presence of coronary angioplasty implant and graft; Z79.02 Long term (current) use of antithrombotics/antiplatelets; Z79.899 Other long term (current) drug therapy; Z79.82 Long term (current) use of aspirin; G47.33 Obstructive sleep apnea (adult) (pediatric)
CPT/HCPCS: 36415; 71045; 71275; 80053; 81001; 82533; 83605; 84443; 84484; 85025; 85379; 93005; 93306; 93880; 94640; 96360; 96361; 96372; 99218; 99285; J7030; Q9967; A4216; G0378

== ENCOUNTER → 2018-01-05 07:25 | Outpatient (CLI) | payer MEDICARE, OTHER, SELFPAY ==
--- NOTE | 2018-01-05 07:27 | CT_ITS ---
STUDY: CT ABDOMEN AND PELVIS WITH CONTRAST REASON FOR EXAM: Male, 72 years old. 2 month history of left lower quadrant pain. RADIATION DOSAGE (If Supplied By Facility): CTDIvol = ( 14.86 ) mGy, DLP = ( 903.52 ) mGycm TECHNIQUE: Transaxial images were obtained from the dome of the diaphragm to the symphysis pubis with oral contrast. 100CC ml of Isovue 300 contrast was administered. Sagittal and coronal images were reconstructed. Individualized dose optimization techniques were used for this CT. COMPARISON: Comparison is made with prior examination dated February 19, 2013. FINDINGS: Calcified pleural plaques on the left side. Minimal increased markings at the lung bases suggestive of scarring. Coronary artery calcification. Normal liver. There are surgical clips in the gallbladder fossa consistent with a prior cholecystectomy. Normal spleen. Normal pancreas. There is symmetric enlargement of the adrenal glands suggesting adrenal hyperplasia. Normal right kidney. Stable 3.9 cm x 3.9 cm cyst in the upper pole of the left kidney. There is a retroaortic left renal vein. Normal visualized stomach. Normal small intestine. Large amount of fecal material is seen in the rectum and colon down to the midportion of the sigmoid. Focal narrowing is seen in the sigmoid colon distal to the large amount of fecal material. A neoplastic process should be ruled out. Scattered diverticula are also seen at that site. There is non-visualization of the appendix. Normal abdominal aorta. Normal inferior vena cava. Normal retroperitoneum. Normal urinary bladder. Normal abdominal wall. There are mild degenerative changes of the visualized lumbar spine. CT/Abdomen/Pelvis WITH Contrast IMPRESSION: Large amount of fecal material is seen in the colon down to a focal area of narrowing in the sigmoid colon. A neoplastic process should be ruled out. Scattered sigmoid diverticula. Electronically Signed: Chidi Monroy MD at 14:31 EDT Tel [phone], Service support ,
[2018-01-05 07:40] LABS: CREATININE FINGERSTICK 0.6 mg/dL (0.70-1.30); EGFR FINGERSTICK > 60.0000 mL/min (>60)
== END ==
PROVIDERS: Family Provider Family Medicine; PCP Family Medicine; Visit Provider Family Medicine
DX: R10.32 Left lower quadrant pain (principal)
CPT/HCPCS: 74177; Q9967

== ENCOUNTER 2018-01-05 13:37 | Emergency (ER) | payer MEDICARE, OTHER, SELFPAY ==
[2018-01-05 13:38] VITALS: BP 86/52; PULSE 69; RESP 14; TEMP 36.8; O2SAT 98; BMI 21.9
[2018-01-05 13:44] VITALS: BP 108/58; PULSE 73
[2018-01-05] MEDS: 0.9% Normal Saline 1,000 ML 1000 ML IV (14:27)
[2018-01-05] MEDS: Ondansetron 4 MG/2 ML Vial IV (14:27)
[2018-01-05] MEDS: Morphine 4 MG/ML Syringe IV (14:28)
[2018-01-05 14:41] LABS: Absolute Lymphocyte Count 0.88 X10^3/ul (0.83-4.51); Absolute Neutrophil Count 4.2 X10^3/uL (2.0-7.7); Basophil# 0.01 X10^3/uL; Basophil% 0.2 % (0-1); Eosinophil# 0.13 X10^3/uL; Eosinophils% 2.1 % (0-5); Hematocrit 39.4 % (40-54); Hemoglobin 12.6 g/dl (13.0-16.5); Lymphocyte # 0.88 X10^3/ul (4.0); Lymphocyte % 14.2 % (19-41); Mean Corpuscular Hgb 29.4 pg (27.0-32.0); Mean Corpuscular Volume 92.1 fL (80-94); Mean Platelet Vol. 8.9 fl (6.2-12.0); Monocyte# 0.96 X10^3/uL; Monocyte% 15.5 % (0-10); Neutrophil # 4.23 X10^3/uL (2.7-7.7); POSITIVE COUNT NO; POSITIVE DIFFERENTIAL NO; POSITIVE MORPHOLOGY NO; Platelet Count 267 K/mm3 (150-450); RBC Distribution Width CV 13.9 % (11.6-14.6); RBC Distribution Width SD 46.3 fl (35.1-43.9); Red Blood Count 4.28 M/mm3 (4.6-6.2); White Blood Count 6.2 K/mm3 (4.4-11.0)
[2018-01-05 14:52] LABS: Anion Gap 6 (5-15); BUN 9 mg/dL (7-18); BUN/Creat Ratio 11.3 RATIO (10-20); Chloride 106 mmol/L (98-107); EST Glomerular Filtration Rate 101 mL/min (>60); Est Glom Filt Rate - Afr Amer 123 mL/min (>60); Estimated Creatinine Clearance 91.57 ml/min; Glucose 107 mg/dL (74-106); Potassium 3.5 mmol/L (3.5-5.1); Sodium Level 140 mmol/L (136-145)
--- NOTE | 2018-01-05 14:58 | ED.VISSUMM ---
- ER Visit Summary Date of Service: 01/05/18 Chief Complaint: Abdominal pain History of Present Illness: The patient is a [address] Byers, Dr. Davis, and Dr. Amaro. He reports that he has had left lower quadrant abdominal pain intermittently for approximately 2 months. Reports pain comes on lasts 2-3 minutes. It is a cramping pain that is 8 out of 10 at worst and 3-10 currently. Is worsened by nothing. Is relieved by holding my breath. He denies any nausea or vomiting. No diarrhea. His last bowel was today. He has had no melena or hematochezia. He does report that typically he has 2-3 loose stools per day. No dysuria or frequency. Patient believes he may have had a colonoscopy approximately 1 year ago, but does not know this for certain. Physical Examination: Vitals: Stable. Afebrile. General: Well-nourished and well-developed. Head: Normocephalic atraumatic. Neck: Supple, no lymphadenopathy. No JVD. Nontender. Cardiovascular: Regular rate and rhythm. No murmurs. Respiratory: No respiratory distress. Clear to auscultation bilaterally. Abdominal: Soft, mild tenderness palpation left lower quadrant, nondistended, normal bowel sounds. No guarding, rebound, or peritoneal signs. Back: Nontender. Extremities: Nontender, no edema. Skin: Normal color, no rash. Neurologic: Alert and oriented ?3. Cranial nerves II through XII are intact. Normal strength and sensation. Psych: Normal affect. Test Results: CBC is remarkable for an H&H 12.6 39.4, lymphocytes 14, monocytes 16. Chem-7 is more for glucose [address] abdomen pelvis which was performed before he came over the emergency department shows a large amount of fecal material in the colon down to a focal area of narrowing in the sigmoid colon. Neoplastic process should be ruled out. Scattered sigmoid diverticuli. No diverticulitis. Emergency Department Course and Treatment: Patient was treated the dose of Zofran and morphine IV and is resting comfortably. Treatment Plan: Had a prolonged discussion with the patient and family about the results of the labs and CT scan. He understands that he needs to follow-up to have a colonoscopy soon as possible. He would like to see Dr. Byers, whom he seen in the past, for this. He is instructed to follow-up with him as soon as possible. I also had a prolonged discussion the patient that taking pain medications is not a good idea with this. In fact, he will be placed on Colace. Return to the emergency department for any worsening symptoms. Disposition: To home in improved and stable condition. Impression: 1. Sigmoid colon narrowing. This note was generated with [employer] dictation software. It may contain incorrect words, spelling, and punctuation that were not noted in review of the chart prior to signing ED Disposition - Plan for ED Patient: Disposition: Home or Assisted Living Chief Complaint: Abd Pain Instructions: Anatomy of the Digestive System Prescriptions: Docusate Sodium [Colace] 100 mg PO DAILY #30 cap Referrals: Gaston Byers MD [STAFF PHYSICIAN] - As soon as possible
[2018-01-05 15:24] VITALS: BP 110/74; PULSE 81; RESP 16; O2SAT 98
== END 2018-01-05 15:24 | disposition home or self-care (01) ==
PROVIDERS: Emergency Provider Emergency Medicine; Family Provider Family Medicine; PCP Family Medicine
DX: K56.699 Other intestinal obstruction unspecified as to partial versus complete obstruction (principal); K57.30 Diverticulosis of large intestine without perforation or abscess without bleeding; I25.10 Atherosclerotic heart disease of native coronary artery without angina pectoris; Z90.49 Acquired absence of other specified parts of digestive tract; Z95.5 Presence of coronary angioplasty implant and graft; Z79.82 Long term (current) use of aspirin; Z79.02 Long term (current) use of antithrombotics/antiplatelets; Z79.899 Other long term (current) drug therapy
CPT/HCPCS: 74177; 80048; 85025; 96361; 96374; 96375; 99283; J7030; Q9967; J2405

== ENCOUNTER 2018-01-18 15:23 | Emergency (ER) | payer MEDICARE, OTHER, SELFPAY ==
[2018-01-18] VITALS (8 sets, daily range): BP systolic 90–134; BP diastolic 52–84; PULSE 40–75; RESP 14–19; TEMP 37; O2SAT 95–98; BMI 21.8
--- NOTE | 2018-01-18 15:44 | RAD_ITS ---
STUDY: X-RAY - ACUTE ABDOMINAL SERIES REASON FOR EXAM: Male, 72 years old. Left lower quadrant pain. History of diverticulitis TECHNIQUE: Single view of the chest. Supine, 3 view(s) of the abdomen were obtained. COMPARISON: None. FINDINGS: No evidence for lung consolidation or pneumothorax. Slightly elevated right hemidiaphragm. There are likely pleural-based calcifications present. Chronic deformities of the right-sided posterior ribs. There are likely chronic deformities of the left-sided present. Mild dextro convex lumbar curvature. Prior cholecystectomy clips. Bowel gas pattern is nonobstructive and nonspecific. Fecal loading of colonic loops. IMPRESSION: No definite evidence for small bowel obstruction. No lung consolidation or pneumothorax. Electronically Signed: Lobito Butt, at 17:22 EDT Tel , Service support , RAD/Acute Abdomen Inc Chest
--- NOTE | 2018-01-18 15:48 | ED.DCSUM_ITS ---
- ER Visit Summary Date of Service: 01/18/18 Chief Complaint: Abdominal pain History of Present Illness: The patient is a 72 M who presents with left lower quadrant abdominal pain that has been off and on for the past couple weeks but became worse today. Patient states the pain is cramping and waxes and wanes. Patient states the pain is over the left lower quadrant. Patient denies any nausea or vomiting. Patient denies any melena or hematochezia. Patient states his last bowel movement was 2 days ago. Patient denies any dysuria, urgency, or frequency. Patient states his urine has been dark however. Patient denies any radiation of the pain. Patient denies any fevers or chills. Patient denies any other symptoms. Physical Examination: Vital signs are stable except for a mildly low blood pressure of 90/52. Patient is bradycardic at 40. Patient is in no acute distress. Oral mucosa is pink and moist. Neck is supple. Trachea is midline. There is no JVD noted. Heart was regular rate and rhythm. Lungs are clear and equal bilaterally. There is good respiratory effort noted. Abdomen is soft. Bowel sounds are normal. There is left lower quadrant tenderness. There is no rebound or guarding noted. Cranial nerves II through XII are intact. There are no focal motor or sensory deficits noted. The remaining physical exam is within normal limits. Test Results: CBC showed a normal white blood cell count. Hemoglobin was 12.4 and hematocrit 38.4. Comprehensive metabolic profile was essentially within normal limits. Urinalysis was normal. Abdominal x-ray showed nonspecific bowel gas pattern. There is a large amount of stool noted. Emergency Department Course and Treatment: Case was discussed with Dr. Byers. He recommended obtaining a CT scan of the abdomen and pelvis with oral and IV contrast. This was obtained. Again there is some luminal narrowing and focal thickening of the proximal sigmoid colon. This was unchanged compared to previous CT. Dr. Byers was in to evaluate the patient he recommended giving the patient a soapsuds enema. Patient felt better after this. Patient was instructed to follow-up with Dr. Byers as scheduled. Patient and his understood and were agreeable with the plan. All questions were answered. Disposition: Discharge home Impression: Left lower quadrant abdominal pain This note was generated with [employer] software. It may contain incorrect words, spelling, and punctuation that were not noted in review of the chart prior to signing ED Disposition - Plan for ED Patient: Disposition: Home or Assisted Living Chief Complaint: Abd Pain Diagnosis: Intermittent left lower quadrant abdominal pain Instructions: ED Abdominal Pain Unkn Cause Referrals: Constantino Davis DO [Primary Care Provider] -
[2018-01-18 16:08] LABS: Absolute Lymphocyte Count 1.13 X10^3/ul (0.83-4.51); Absolute Neutrophil Count 2.8 X10^3/uL (2.0-7.7); Basophil# 0.01 X10^3/uL; Basophil% 0.2 % (0-1); Eosinophils% 2.1 % (0-5); Hematocrit 38.4 % (40-54); Hemoglobin 12.4 g/dl (13.0-16.5); Lymphocyte # 1.13 X10^3/ul (4.0); Lymphocyte % 23.5 % (19-41); Mean Corp Hgb Conc 32.3 g/gl (32-36); Mean Corpuscular Volume 92.8 fL (80-94); Mean Platelet Vol. 8.8 fl (6.2-12.0); Monocyte# 0.77 X10^3/uL; Neutrophil # 2.79 X10^3/uL (2.7-7.7); Neutrophil % 58.2 % (47-70); Platelet Count 288 K/mm3 (150-450); RBC Distribution Width CV 14.4 % (11.6-14.6); RBC Distribution Width SD 49.1 fl (35.1-43.9); Red Blood Count 4.14 M/mm3 (4.6-6.2); White Blood Count 4.8 K/mm3 (4.4-11.0)
[2018-01-18] MEDS: 0.9% Normal Saline 1,000 ML 1000 ML IV (16:08)
[2018-01-18 16:10] LABS: POSITIVE COUNT NO; POSITIVE DIFFERENTIAL NO; POSITIVE MORPHOLOGY NO
[2018-01-18 16:23] LABS: ALB/GLOB Ratio 0.7 RATIO (0.9-2.4); AST(SGOT) 18 U/L (15-37); Alanine Aminotransfer ALT/SGPT 22 U/L (16-61); Albumin, Serum 2.9 g/dL (3.2-5.0); Alkaline Phosphatase 66 U/L (45-117); Anion Gap 7 (5-15); BUN 15 mg/dL (7-18); BUN/Creat Ratio 18.1 RATIO (10-20); Calcium,Total 7.9 mg/dL (8.5-10.1); Chloride 110 mmol/L (98-107); Creatinine, Serum 0.83 mg/dL (0.70-1.30); EST Glomerular Filtration Rate 97 mL/min (>60); Est Glom Filt Rate - Afr Amer 117 mL/min (>60); Estimated Creatinine Clearance 87.74 ml/min; Globulin 4.1 g/dL (2.2-4.2); Glucose 95 mg/dL (74-106); Lipase 173 U/L (73-393); Potassium 3.9 mmol/L (3.5-5.1); Sodium Level 141 mmol/L (136-145)
--- NOTE | 2018-01-18 18:29 | CT_ITS ---
STUDY: CT ABDOMEN AND PELVIS WITH CONTRAST REASON FOR EXAM: Male, 72 years old. Left lower quadrant pain, known stricture in the sigmoid RADIATION DOSAGE (If Supplied By Facility): CTDIvol = ( 17.06 ) mGy, DLP = ( 951.22 ) mGycm TECHNIQUE: Transaxial images were obtained from the lower chest to the upper thighs with oral contrast. 100 ml of Isovue 300 contrast was administered. Sagittal and coronal images were reconstructed. Individualized dose optimization techniques were used for this CT. COMPARISON: January 05, 2018 FINDINGS: There is minimal dependent atelectasis in both lung bases. There is no pleural effusion. The heart is normal in size. There are coronary artery calcifications. There are pleural plaques bilaterally. The liver is unremarkable. There are surgical clips in the gallbladder fossa consistent with a prior cholecystectomy. The spleen is unremarkable. The pancreas is unremarkable. The adrenal glands are unremarkable. The right kidney is unremarkable. There is no dilatation of the collecting system in the right kidney. There is a stable benign 4 cm cyst in the upper pole of the left kidney. There is no dilatation of the collecting system in the left kidney. The stomach is unremarkable. The small bowel is unremarkable. There are diverticula scattered throughout the colon without adjacent stranding. There is marked stool again seen throughout the colon. Again seen is severe luminal narrowing in the proximal sigmoid with surrounding wall thickening. There is focal fluid and air in the wall of the proximal sigmoid with the fluid collection measuring up to 3 cm in size. There is marked stool in the rectum. There is non-visualization of the appendix. There are minimal vascular calcifications. The inferior vena cava is unremarkable. The retroperitoneum is unremarkable. There is no free fluid in the abdomen. The urinary bladder is unremarkable. The prostate is normal in appearance. There are small phleboliths scattered in the lower pelvis. There is a small umbilical hernia containing fat. There are moderate degenerative changes in the visualized spine. CT/Abdomen/Pelvis WITH Contrast IMPRESSION: Again seen is marked luminal narrowing with focal wall thickening in the proximal sigmoid. The patient has a known stricture, however a mass is still not excluded based on the CT images. There is marked stool throughout the colon including within the rectum. A small amount of fluid and air have dissected into the inferior wall of the proximal sigmoid measuring up to 3 cm in size. There is no free ascites or free air. There is no abscess formation. There is diffuse diverticulosis of the colon. There is no significant lymphadenopathy. Electronically Signed: Alyssa Abarca MD at 21:33 EDT Tel Direct: [phone], Service support ,
[2018-01-18 18:47] LABS: Mucous, Urine 0 SEEN /hpf (<or=2+); White Blood Cells 0 SEEN /hpf (0-5)
[2018-01-18 18:53] LABS: Color, Urine Yellow (Yellow); Glucose, Dipstick Normal (Normal); Ketone-Dipstick Negative (Negative); Leukocyte Esterase-Dipstick Negative /ul (Negative); Nitrite-Dipstick Negative (Negative); Occult Blood-Urine Negative /ul (Negative); Protein-Dipstick 15 mg/dl (Negative); Urine Bilirubin Dipstick Negative (Negative); Urine Clarity Clear (Clear); Urine Urobilinogen 1 mg/dl (Normal)
[2018-01-18 19:04] LABS: Bacteria RARE /hpf (None Seen); Red Blood Cells-Urine 0-5 SEEN /hpf (0-5); Squamous Epithelial Cells - UA 0-5 SEEN /hpf (0-5)
--- NOTE | 2018-01-18 20:54 | PCM.CONS.GEN ---
Problem List (1) Sigmoid stricture Status: Acute (2) LLQ abdominal pain Status: Acute (3) Obstipation Status: Acute Reason for Consult Date of Consultation: 01/18/18 History of Present Illness: CAMRON OBRIEN, is a 72 M who I saw in the office last week for evaluation of left lower quadrant abdominal pain. The patient is well-known to me the last time I saw him was in September 2015. We were treating him conservatively for his diverticulitis that he had had and he had been doing quite well on a bland diet with no nuts and seeds. Over the last 2 months patient has developed intermittent left lower quadrant abdominal pain that is now on a daily basis. There are times that the cramping pain is an 8 out of 10 at its worse and most of the time resides right around a 3 out of 10. He has not noticed any melena or hematochezia. He reports typically 2-3 loose stools per day. He is not having any dysuria or frequency. CAT scan of the abdomen and pelvis was obtained on 01/05/2018. There is a large amount of fecal material seen in the rectum and colon down to the midportion of the sigmoid. At this area there was some focal narrowing seen in the sigmoid distal to the large amount of fecal material. His last colonoscopy was on 10/18/2013 which showed multiple medium mouth diverticula found in the sigmoid colon as well as some congested mucosa. Back in 2015 we seriously consider doing a laparoscopic sigmoid colectomy with the patient thought that he might be able to manage his symptoms by diet alone. And until recently he is done quite well but at this point his pain and discomfort are on a daily basis and he realizes that surgery is probably in his best interest. The patient did not have a bowel movement yesterday. Started to get significant left lower quadrant and lower abdominal crampy pain. And severe gurgling of his abdomen. He presented to the emergency department where he was noted to have a normal white count urinalysis was negative and most recently a CAT scan tonight that showed similar findings to his previous CAT scan with narrowing of the sigmoid colon as well as significant amount of stool throughout the colon as well as into the rectum. Patient is also been complaining of dark urine. Past Medical History Past Medical History (Chronic Problems): Chronic Problems (Last Reviewed 01/18/18 @ 20:58 by Gaston Byers MD) Atherosclerosis of coronary artery of [place] heart without angina pectoris (Chronic) PCI/GAETANO-LAD w/ 3.0 x 28 mm Promus Element Plus Rx 03/02/13 Personal history of skin cancer (Chronic) Neoplasm of unspecified behavior of bone, soft tissue, and skin (Chronic) 15 mm lesion right superomedial chest wall 3 mm lesion left volar distal forearm by wrist 1 cm lesion left mid dorsal ulnar forearm 5 mm pigmented lesion right outer arm 7 mm lesion left middle medial back Actinic keratosis (Chronic) actinic lesion left nasal tip actinic lesion left shoulder Benign keratosis (Chronic) 1 cm benign keratosis left lateral back 5 mm benign keratosis left outer arm 6 mm benign keratosis left lateral forehead 5 mm benign keratosis left outer shoulder Obstructive sleep apnea (Chronic) Left anterior fascicular block (LAFB) (Chronic) Atrial premature contractions (Chronic) HLD (hyperlipidemia) (Chronic) Medical History: Medical History (Last Reviewed 01/18/18 @ 20:58 by Gaston Byers MD) Obstructive sleep apnea (Chronic) G47.33 Left anterior fascicular block (LAFB) (Chronic) I44.4 Atrial premature contractions (Chronic) I49.1 HLD (hyperlipidemia) (Chronic) E78.5 Diverticulitis (Acute) K57.92 Abdominal pain R10.9 History of recent pneumonia (Resolved) Z87.01 Septic shock (Resolved) A41.9, R65.21 Allergies metoprolol Adverse Reaction (Verified 01/07/18 08:17) Other SYNCOPE Home Medications: Ambulatory Orders Medication Instructions Recorded Nitroglycerin [Nitrostat] 0.4 mg SUBLINGUAL Q5M PRN 04/12/13 Pravastatin Sodium [Pravachol] 5 mg PO QHS 01/03/15 Clopidogrel Bisulfate [Plavix] 75 mg PO DAILY #0 01/10/15 Aspirin [Aspirin, Baby] 81 mg PO DAILY 06/26/17 Albuterol Sulfate [Ventolin Hfa] 1 puff IH Q4H PRN 09/28/17 Docusate Sodium [Colace] 100 mg PO DAILY #30 cap 01/05/18 Surgical History: Surgical History (Last Reviewed 01/18/18 @ 20:58 by Gaston Byers MD) History of coronary artery stent placement (Resolved) Onset Date: 11/19/13 Z95.5 PCI/GAETANO-LAD w/ 3.0 x 28 mm Promus Element Plus Rx 03/02/13 History of colonoscopy Onset Date: ~2013 Z98.890 H/O vasectomy Z98.52 History of appendectomy Z98.890, Z90.49 History of cholecystectomy Z98.890, Z90.49 Smoking Status: Never smoker - *Family History Maternal Family History: Family History (Last Updated 01/13/18 @ 16:01 by Nanette Gardner) Father CVA (cerebral vascular accident) Hypertension HLD (hyperlipidemia) Cancer Mother HLD (hyperlipidemia) Hypertension Other Family history of skin cancer History Items: No pertinent history Review of Systems Constitutional: Denies: Chills, Fever, Weight Change Cardiovascular: Denies: Chest Pain, Chest Pressure, Chest Tightness, Palpitations Respiratory: Denies: Cough, Hemoptysis, Shortness of breath at rest, Shortness of breath upon exertion, Wheezing Gastrointestinal: Reports: Abdominal Pain, Constipation Genitourinary: Denies: Dysuria, Frequency, Hematuria, Urgency Musculoskeletal: Denies: Joint Pain Patient Problems: Active and Suspected Problems (Last Reviewed 01/18/18 @ 20:58 by Gaston Byers MD) Sigmoid stricture (Acute) LLQ abdominal pain (Acute) Obstipation (Acute) - Physical Exam General: Alert, Oriented x3 HEENT: Atraumatic, PERRLA, EOMI, Normocephalic Neck: Supple, No JVD Lungs: Clear to auscultation Cardiovascular: Regular rate, Regular Rhythm, No murmurs Abdomen: Bowel Sounds Present, Soft, Non Tender, Non-Distended Extremities: No clubbing, No cyanosis, No edema Skin: No rashes, No breakdown Musculoskeletal: No Tenderness to Palpation of Joints or Extremities Vital Signs Temp Pulse Resp BP Pulse Ox 98.6 F 55 L 19 H 105/65 95 01/18/18 15:24 01/18/18 19:41 01/18/18 19:41 01/18/18 17:05 01/18/18 19:41 Oxygen Delivery Method Room Air Weight: 170 lb Body Mass Index (BMI) 21.8 Laboratory Tests Past 24 Hrs 01/18/18 01/18/18 01/18/18 16:01 16:01 18:40 WBC 4.8 RBC 4.14 L Hgb 12.4 L Hct 38.4 L MCV 92.8 MCH 30.0 MCHC 32.3 RDW 14.4 RDW Differential 49.1 H Plt Count 288 MPV 8.8 Immature Gran % (Auto) 0.000 Neut % (Auto) 58.2 Lymph % (Auto) 23.5 [place] % (Auto) 16.0 H Eos % (Auto) 2.1 Baso % (Auto) 0.2 Absolute Neuts (auto) 2.8 Absolute Lymphs (auto) 1.13 Total Counted Not Reportable Sodium 141 Potassium 3.9 Chloride 110 H Carbon Dioxide 24.0 Anion Gap 7 BUN 15 Creatinine 0.83 Estim Creat Clear Calc 87.74 Est GFR (MDRD) Af Amer 117 Est GFR (MDRD) Non-Af 97 BUN/Creatinine Ratio 18.1 Glucose 95 Calcium 7.9 L Total Bilirubin 0.30 AST 18 ALT 22 Alkaline Phosphatase 66 Total Protein 7.0 Albumin 2.9 L Globulin 4.1 Albumin/Globulin Ratio 0.7 L Lipase 173 Urine Color Yellow Urine Clarity Clear Urine pH 6.0 Ur Specific [place] 1.020 Urine Protein 15 H Urine Glucose (UA) Normal Urine Ketones Negative Urine Occult Blood Negative Urine Nitrite Negative Urine Bilirubin Negative Urine Urobilinogen 1 H Ur Leukocyte Esterase Negative Urine RBC 0-5 SEEN Urine WBC 0 SEEN Ur Squamous Epith Cells 0-5 SEEN Urine Bacteria RARE Urine Mucus 0 SEEN Assessment/Plan All Active Problems (Last Reviewed 01/18/18 @ 20:58 by Gaston Byers MD) Sigmoid stricture (Acute) LLQ abdominal pain (Acute) Obstipation (Acute) History of coronary artery stent placement (Resolved 03/02/13) Near syncope (Acute) Hypotension (Acute) Diverticulitis (Acute) History of recent pneumonia (Resolved) Septic shock (Resolved) I think he would probably benefit from a enema here in the emergency department to evacuate everything that he has in his rectum. In addition he is already taking Colace I have educated he and his to add mineral oil as well as some magnesium citrate and increase his fluid intake significantly as well as back down on all foods at this point. He is originally scheduled to undergo a laparoscopic sigmoid colectomy on the of this month. Prior to that I was going to obtain a barium enema on him but I think we can forego that given the fact that I have a reasonably good CAT scan on him. I think that he is going to benefit from having that area of the sigmoid colon removed. I am going to see if we can move up his surgery date to alleviate his symptomatology. Will need to get off of his blood thinners which he will stop starting tomorrow
== END 2018-01-18 22:51 | disposition home or self-care (01) ==
PROVIDERS: Emergency Provider Emergency Medicine; Family Provider Family Medicine; PCP Family Medicine
DX: R10.32 Left lower quadrant pain (principal); R82.90 Unspecified abnormal findings in urine; I25.10 Atherosclerotic heart disease of native coronary artery without angina pectoris; E78.00 Pure hypercholesterolemia, unspecified; K57.90 Diverticulosis of intestine, part unspecified, without perforation or abscess without bleeding; Z90.49 Acquired absence of other specified parts of digestive tract; Z95.5 Presence of coronary angioplasty implant and graft; Z79.82 Long term (current) use of aspirin; Z79.899 Other long term (current) drug therapy
CPT/HCPCS: 74022; 74177; 80053; 81001; 83690; 85025; 96360; 96361; 99285; J7030; Q9967; A4216

== ENCOUNTER 2018-01-25 11:40 | Inpatient (IN) | payer MEDICARE, OTHER, SELFPAY ==
[2018-01-25 11:41] VITALS: BP 116/81; PULSE 80; RESP 18; TEMP 36.6; O2SAT 98; BMI 21.5
--- NOTE | 2018-01-25 11:41 | RAD_ITS ---
STUDY: X-RAY - ACUTE ABDOMINAL SERIES REASON FOR EXAM: Male, 72 years old. Preoperative exam for colorectal surgery TECHNIQUE: Single view of the chest. Supine, and erect view(s) of the abdomen were obtained. COMPARISON: 09/28/2017. FINDINGS: There is hyperinflation of the lungs consistent with chronic obstructive lung disease (COPD). No new infiltrate is seen. Normal size heart. Normal mediastinum and colin. Normal visualized pulmonary arteries. Normal visualized aortic arch and descending thoracic aorta. There are dilated small bowel loops and colon with multiple air-fluid levels. The soft tissue structures of the abdomen and pelvis are unremarkable. There are old fractures of the ribs bilaterally. RAD/Acute Abdomen Inc Chest IMPRESSION: 1. Dilated small bowel loops and colon with air-fluid levels spaces for distal colonic obstruction. 2. No active pulmonary disease. Electronically Signed: Attila Edmondson MD at 13:10 EDT Tel , Service support ,
--- NOTE | 2018-01-25 11:41 | EKG12_ITS ---
Test Reason : Blood Pressure : / mmHG Vent. Rate : 074 BPM Atrial Rate : 074 BPM P-R Int : 170 ms QRS Dur : 074 ms QT Int : 396 ms P-R-T Axes : -07 -55 060 degrees QTc Int : 439 ms Normal sinus rhythm Left anterior fascicular block Poor R wave progression Abnormal ECG Confirmed by JODI العراقي, ARLEN ([id number]), commissioning editor KASSANDRA PASCUAL ([id number]) on 01/29/2018 10:15:04 AM Referred By: JAQUAN Confirmed By:ARLEN ZAPATA MD
--- NOTE | 2018-01-25 11:53 | ED.DCSUM_ITS ---
- ER Visit Summary Date of Service: 01/25/18 Chief Complaint: Nausea and vomiting History of Present Illness: The patient is a 72 M nausea vomiting for 2 days, total of 5 emesis, no hematemesis. Last time was last evening. Reports had a distended belly yesterday, burping throughout the night, distention improved, his pain has improved. Patient sent in here by general surgery Dr. Salazar for IV fluids lab studies image studies and admission. Patient has plan for colectomy tomorrow by Dr. Byers for a sigmoid stricture. Diverticulitis in the past. Seen in the ED on the seventh for left lower quadrant pain and constipation. Denies fever. Urine has been dark in color. No chest pains or shortness of breath. Patient has history of coronary disease with stenting. Denies heart failure history. Denies any swelling the legs. No dyspnea. Physical Examination: General: Alert and oriented ?3, no acute distress HEENT: Normocephalic, atraumatic. Moist mucosa membranes Neck: supple, nontender. Cardiovascular: Regular rate and rhythm, no murmurs Respiratory: Normal breath sounds, symmetric, no distress Abdomen: Soft, nontender, nondistended, normal bowel sounds Extremities: Nontender, no edema, pulses intact ?4 Neuro: no focal neurological deficits. Test Results: WBC 9.2. Hemoglobin 14.3. Creatinine 0.96. Sodium 135, potassium 3.7. Liver and lipase normal. Abdominal series: Multiple dilated loops of small bowel with distended stomach. Emergency Department Course and Treatment: Patient had fluids started. Abdominal labs are stable. Given Zofran. Abdominal series reviewed discussed with surgeon Dr. Salazar notes there is dilated small bowel loops, will place NG tube. Will admit under surgery service. Treatment Plan: [] Disposition: Admission Impression: 1. Small bowel obstruction 2. Nausea and vomiting This note was generated with kooaba dictation software. It may contain incorrect words, spelling, and punctuation that were not noted in review of the chart prior to signing ED Disposition - Plan for ED Patient: Disposition: Acute Care Hospital [facility] Chief Complaint: Nausea/Vomiting Diagnosis: Small bowel obstruction, Nausea and vomiting Referrals: Constantino Davis DO [Primary Care Provider] -
[2018-01-25] MEDS: Lactated Ringers 2,000 ML 999 ML IV (12:14)
[2018-01-25] MEDS: Ondansetron 4 MG/2 ML Vial IV ×2 (12:14→20:30)
[2018-01-25 12:17] LABS: Absolute Lymphocyte Count 1.21 X10^3/ul (0.83-4.51); Absolute Neutrophil Count 6.9 X10^3/uL (2.0-7.7); Basophil# 0.01 X10^3/uL; Basophil% 0.1 % (0-1); Eosinophil# 0.07 X10^3/uL; Eosinophils% 0.8 % (0-5); Hematocrit 43.5 % (40-54); Hemoglobin 14.3 g/dl (13.0-16.5); Lymphocyte # 1.21 X10^3/ul (4.0); Lymphocyte % 13.2 % (19-41); Mean Corp Hgb Conc 32.9 g/gl (32-36); Mean Corpuscular Hgb 30.5 pg (27.0-32.0); Mean Corpuscular Volume 92.8 fL (80-94); Mean Platelet Vol. 8.9 fl (6.2-12.0); Monocyte# 0.98 X10^3/uL; Monocyte% 10.7 % (0-10); Neutrophil # 6.88 X10^3/uL (2.7-7.7); Neutrophil % 75.1 % (47-70); POSITIVE COUNT NO; POSITIVE DIFFERENTIAL NO; POSITIVE MORPHOLOGY NO; Platelet Count 363 K/mm3 (150-450); RBC Distribution Width CV 14.5 % (11.6-14.6); RBC Distribution Width SD 48.9 fl (35.1-43.9); Red Blood Count 4.69 M/mm3 (4.6-6.2); White Blood Count 9.2 K/mm3 (4.4-11.0)
[2018-01-25 12:22] LABS: International Normalized Ratio 1.1; Prothrombin Time (Protime)PT. 14.5 SECONDS (11.7-14.9)
[2018-01-25 12:23] LABS: Partial Thromboplast Time 30.4 Seconds (24.1-36.2)
[2018-01-25 12:41] LABS: ALB/GLOB Ratio 0.6 RATIO (0.9-2.4); AST(SGOT) 14 U/L (15-37); Alanine Aminotransfer ALT/SGPT 24 U/L (16-61); Alkaline Phosphatase 82 U/L (45-117); Anion Gap 7 (5-15); BUN 16 mg/dL (7-18); BUN/Creat Ratio 16.6 RATIO (10-20); Calcium,Total 8.1 mg/dL (8.5-10.1); Chloride 98 mmol/L (98-107); Creatinine, Serum 0.96 mg/dL (0.70-1.30); EST Glomerular Filtration Rate 82 mL/min (>60); Est Glom Filt Rate - Afr Amer 99 mL/min (>60); Estimated Creatinine Clearance 74.97 ml/min; Globulin 4.8 g/dL (2.2-4.2); Glucose 124 mg/dL (74-106); Lipase 69 U/L (73-393); Potassium 3.7 mmol/L (3.5-5.1); Protein, Total 7.8 g/dL (6.4-8.2); Sodium Level 135 mmol/L (136-145)
--- NOTE | 2018-01-25 12:56 | RAD_ITS ---
STUDY: X-RAY - ABDOMEN/PELVIS REASON FOR EXAM: Male, 72 years old. NG tube placement TECHNIQUE: Single view COMPARISON: None. FINDINGS: Pleural-based calcifications overlie the left hemidiaphragm. There is mild diffuse ileus pattern. There is no demonstrated free abdominal air. Surgical clips in the right upper quadrant. Discogenic tube extends into the stomach. Moderate degenerative vertebral changes. Degenerative vertebral changes. RAD/Abdomen Single View (Portable) IMPRESSION: Probable diffuse ileus. Nasogastric tube in the stomach. Electronically Signed: Todd Tomas DO at 14:03 EDT Tel [phone], Service support ,
[2018-01-25 13:22] VITALS: BP 142/70; PULSE 69; RESP 16; O2SAT 95
[2018-01-25 13:40] VITALS: BP 126/70; PULSE 74; RESP 16; O2SAT 96
--- NOTE | 2018-01-25 14:23 | PCM.HP.STD ---
History of Present Illness Date of Admission: 01/25/18 The patient is a 72 year old M presented to the ER due to nausea vomiting and unable to tolerate bowel prep. Patient has stricture in his sigmoid colon. He presented to the ER last week due to abdominal pain and he was able to be DC'd and his planned surgery for sigmoid colectomy was moved up from the to 26 of January. Patient was attempting to do a bowel prep as well as antibiotics preoperatively for his colectomy however he was unable to keep fluids down and only would have some flatus no bowel movements. Patient's acute abdominal series in the ER does show dilated large and small bowel with likely distal large bowel obstruction due to the stricture. Labs are within normal limits. Patient admits to passing a lot of gas on Friday a little bit on Friday and a little bit today but no bowel movement since where he took several enemas. He has had nausea and vomiting Friday and today. Past Medical History Past Medical History (Chronic Problems): Chronic Problems (Last Reviewed 01/22/18 @ 10:34 by Gaston Byers MD) Atherosclerosis of coronary artery of [place] heart without angina pectoris (Chronic) PCI/GAETANO-LAD w/ 3.0 x 28 mm Promus Element Plus Rx 03/02/13 Personal history of skin cancer (Chronic) Neoplasm of unspecified behavior of bone, soft tissue, and skin (Chronic) 15 mm lesion right superomedial chest wall 3 mm lesion left volar distal forearm by wrist 1 cm lesion left mid dorsal ulnar forearm 5 mm pigmented lesion right outer arm 7 mm lesion left middle medial back Actinic keratosis (Chronic) actinic lesion left nasal tip actinic lesion left shoulder Benign keratosis (Chronic) 1 cm benign keratosis left lateral back 5 mm benign keratosis left outer arm 6 mm benign keratosis left lateral forehead 5 mm benign keratosis left outer shoulder Obstructive sleep apnea (Chronic) Left anterior fascicular block (LAFB) (Chronic) Atrial premature contractions (Chronic) HLD (hyperlipidemia) (Chronic) Medical History: Medical History (Last Reviewed 01/22/18 @ 10:34 by Gaston Byers MD) Obstructive sleep apnea (Chronic) G47.33 Left anterior fascicular block (LAFB) (Chronic) I44.4 Atrial premature contractions (Chronic) I49.1 HLD (hyperlipidemia) (Chronic) E78.5 Diverticulitis (Acute) K57.92 Abdominal pain R10.9 History of recent pneumonia (Resolved) Z87.01 Septic shock (Resolved) A41.9, R65.21 Allergies metoprolol Adverse Reaction (Verified 01/25/18 11:40) Other SYNCOPE Home Medications: Ambulatory Orders Medication Instructions Recorded Nitroglycerin [Nitrostat] 0.4 mg SUBLINGUAL Q5M PRN 04/12/13 Aspirin [Aspirin, Baby] 81 mg PO DAILY 06/26/17 oxycodone-acetaminophen 5 mg-325 1 tab PO Q6H PRN 5 Days #30 tab 01/22/18 mg tablet Ciprofloxacin HCl 500 mg PO BID 01/23/18 Clopidogrel Bisulfate [Plavix] 75 mg PO DAILY 01/23/18 Docusate Sodium [Colace] 100 mg PO DAILY 01/23/18 Surgical History: Surgical History (Last Reviewed 01/22/18 @ 10:34 by Gaston Byers MD) History of coronary artery stent placement (Resolved) Onset Date: 03/02/13 Z95.5 PCI/GAETANO-LAD w/ 3.0 x 28 mm Promus Element Plus Rx 03/02/13 History of colonoscopy Onset Date: ~2013 Z98.890 H/O vasectomy Z98.52 History of appendectomy Z98.890, Z90.49 History of cholecystectomy Z98.890, Z90.49 Smoking Status: Never smoker - *Family History Maternal Family History: Family History (Last Reviewed 01/22/18 @ 10:34 by Gaston Byers MD) Father CVA (cerebral vascular accident) Hypertension HLD (hyperlipidemia) Cancer Mother HLD (hyperlipidemia) Hypertension Other Family history of skin cancer History Items: No pertinent history Review of Systems Constitutional: Reports: Anorexia. Denies: Fever Eyes: Denies: Blurred vision HEENT: Denies: Difficulty Swallowing Cardiovascular: Denies: Chest Pain Respiratory: Denies: Shortness of Breath Gastrointestinal: Reports: Nausea, Vomiting. Denies: Abdominal Pain Psychiatric: Denies: Anxiety, Depression VTE Information - Inpt Only VTE Present on Admission: Yes VTE Mechan Device Prophylaxis: SCD's VTE Pharm Prophylaxis ordered?: No Reason prophylaxis not ordered:: Medical Contraindication - Plan colectomy tomorrow Patient Problems: Active and Suspected Problems (Last Reviewed 01/22/18 @ 10:34 by Gaston Byers MD) Small bowel obstruction (Acute) Nausea and vomiting (Acute) - Physical Exam General: Alert, Oriented x3, Cooperative, No apparent distress HEENT: Atraumatic Lungs: Normal air movement Cardiovascular: Regular rate, Regular Rhythm Abdomen: Soft, Distended, Tender - Minimally tender in the right mid abdomen, no peritoneal signs Extremities: No clubbing, No cyanosis, No edema Neurological: Cranial nerves II-XII grossly intact Psych/Mental Status: Normal Affect Vital Signs Temp Pulse Resp BP Pulse Ox 97.9 F 74 16 126/70 H 96 01/25/18 11:41 01/25/18 13:40 01/25/18 13:40 01/25/18 13:40 01/25/18 13:40 Oxygen Delivery Method Room Air Weight: 168 lb Body Mass Index (BMI) 21.5 Laboratory Tests Past 24 Hrs 01/25/18 01/25/18 01/25/18 12:05 12:05 12:05 WBC 9.2 RBC 4.69 Hgb 14.3 Hct 43.5 MCV 92.8 MCH 30.5 MCHC 32.9 RDW 14.5 RDW Differential 48.9 H Plt Count 363 MPV 8.9 Immature Gran % (Auto) 0.100 Neut % (Auto) 75.1 H Lymph % (Auto) 13.2 L [place] % (Auto) 10.7 H Eos % (Auto) 0.8 Baso % (Auto) 0.1 Absolute Neuts (auto) 6.9 Absolute Lymphs (auto) 1.21 Total Counted Not Reportable PT 14.5 INR 1.1 APTT 30.4 Sodium 135 L Potassium 3.7 Chloride 98 Carbon Dioxide 30.0 Anion Gap 7 BUN 16 Creatinine 0.96 Estim Creat Clear Calc 74.97 Est GFR (MDRD) Af Amer 99 Est GFR (MDRD) Non-Af 82 BUN/Creatinine Ratio 16.6 Glucose 124 H Calcium 8.1 L Total Bilirubin 0.50 AST 14 L ALT 24 Alkaline Phosphatase 82 Total Protein 7.8 Albumin 3.0 L Globulin 4.8 H Albumin/Globulin Ratio 0.6 L Lipase 69 L Blood Type Antibody Screen 01/25/18 12:05 WBC RBC Hgb Hct MCV MCH MCHC RDW RDW Differential Plt Count MPV Immature Gran % (Auto) Neut % (Auto) Lymph % (Auto) [place] % (Auto) Eos % (Auto) Baso % (Auto) Absolute Neuts (auto) Absolute Lymphs (auto) Total Counted PT INR APTT Sodium Potassium Chloride Carbon Dioxide Anion Gap BUN Creatinine Estim Creat Clear Calc Est GFR (MDRD) Af Amer Est GFR (MDRD) Non-Af BUN/Creatinine Ratio Glucose Calcium Total Bilirubin AST ALT Alkaline Phosphatase Total Protein Albumin Globulin Albumin/Globulin Ratio Lipase Blood Type A POSITIVE Antibody Screen NEGATIVE Assessment/Plan All Active Problems (Last Reviewed 01/22/18 @ 10:34 by Gaston Byers MD) Sigmoid stricture (Acute) LLQ abdominal pain (Acute) Obstipation (Acute) Small bowel obstruction (Acute) Nausea and vomiting (Acute) History of coronary artery stent placement (Resolved 03/02/13) Near syncope (Acute) Hypotension (Acute) Diverticulitis (Acute) History of recent pneumonia (Resolved) Septic shock (Resolved) 72-year-old male with a history of sigmoid colon stricture causing distal large bowel obstruction, nausea and vomiting 1. Patient will be kept n.p.o. with IV fluids and NG to low intermittent wall suction. He has a planned colectomy tomorrow with Dr. Byers. Patient was given 2 L bolus in the ER and will continue IV fluids to rehydrate him. Did discuss with patient that due to his obstruction he would more likely require open versus laparoscopic surgery however Dr. Byers would decide at the time of surgery. Dr. Byers to see in the morning. Kenisha Salazar M.D. Pager: [phone] [facility] [address] [place] [address], [facility], [address] [place] [address] Office: [phone]
--- NOTE | 2018-01-25 14:28 | HP.PCM_ITS ---
History of Present Illness Date of Admission: 01/25/18 The patient is a 72 year old M presented to the ER due to nausea vomiting and unable to tolerate bowel prep. Patient has stricture in his sigmoid colon. He presented to the ER last week due to abdominal pain and he was able to be DC'd and his planned surgery for sigmoid colectomy was moved up from the to 26 of January. Patient was attempting to do a bowel prep as well as antibiotics preoperatively for his colectomy however he was unable to keep fluids down and only would have some flatus no bowel movements. Patient's acute abdominal series in the ER does show dilated large and small bowel with likely distal large bowel obstruction due to the stricture. Labs are within normal limits. Patient admits to passing a lot of gas on Friday a little bit on Friday and a little bit today but no bowel movement since where he took several enemas. He has had nausea and vomiting Friday and today. Past Medical History Past Medical History (Chronic Problems): Chronic Problems (Last Reviewed 01/22/18 @ 10:34 by Gaston Byers MD) Atherosclerosis of coronary artery of [place] heart without angina pectoris (Chronic) PCI/GAETANO-LAD w/ 3.0 x 28 mm Promus Element Plus Rx 03/02/13 Personal history of skin cancer (Chronic) Neoplasm of unspecified behavior of bone, soft tissue, and skin (Chronic) 15 mm lesion right superomedial chest wall 3 mm lesion left volar distal forearm by wrist 1 cm lesion left mid dorsal ulnar forearm 5 mm pigmented lesion right outer arm 7 mm lesion left middle medial back Actinic keratosis (Chronic) actinic lesion left nasal tip actinic lesion left shoulder Benign keratosis (Chronic) 1 cm benign keratosis left lateral back 5 mm benign keratosis left outer arm 6 mm benign keratosis left lateral forehead 5 mm benign keratosis left outer shoulder Obstructive sleep apnea (Chronic) Left anterior fascicular block (LAFB) (Chronic) Atrial premature contractions (Chronic) HLD (hyperlipidemia) (Chronic) Medical History: Medical History (Last Reviewed 01/22/18 @ 10:34 by Gaston Byers MD) Obstructive sleep apnea (Chronic) G47.33 Left anterior fascicular block (LAFB) (Chronic) I44.4 Atrial premature contractions (Chronic) I49.1 HLD (hyperlipidemia) (Chronic) E78.5 Diverticulitis (Acute) K57.92 Abdominal pain R10.9 History of recent pneumonia (Resolved) Z87.01 Septic shock (Resolved) A41.9, R65.21 Allergies metoprolol Adverse Reaction (Verified 01/25/18 11:40) Other SYNCOPE Home Medications: Ambulatory Orders Medication Instructions Recorded Nitroglycerin [Nitrostat] 0.4 mg SUBLINGUAL Q5M PRN 04/12/13 Aspirin [Aspirin, Baby] 81 mg PO DAILY 06/26/17 oxycodone-acetaminophen 5 mg-325 1 tab PO Q6H PRN 5 Days #30 tab 01/22/18 mg tablet Ciprofloxacin HCl 500 mg PO BID 01/23/18 Clopidogrel Bisulfate [Plavix] 75 mg PO DAILY 01/23/18 Docusate Sodium [Colace] 100 mg PO DAILY 01/23/18 Surgical History: Surgical History (Last Reviewed 01/22/18 @ 10:34 by Gaston Byers MD) History of coronary artery stent placement (Resolved) Onset Date: 03/02/13 Z95.5 PCI/GAETANO-LAD w/ 3.0 x 28 mm Promus Element Plus Rx 03/02/13 History of colonoscopy Onset Date: ~2013 Z98.890 H/O vasectomy Z98.52 History of appendectomy Z98.890, Z90.49 History of cholecystectomy Z98.890, Z90.49 Smoking Status: Never smoker - *Family History Maternal Family History: Family History (Last Reviewed 01/22/18 @ 10:34 by Gaston Byers MD) Father CVA (cerebral vascular accident) Hypertension HLD (hyperlipidemia) Cancer Mother HLD (hyperlipidemia) Hypertension Other Family history of skin cancer History Items: No pertinent history Review of Systems Constitutional: Reports: Anorexia. Denies: Fever Eyes: Denies: Blurred vision HEENT: Denies: Difficulty Swallowing Cardiovascular: Denies: Chest Pain Respiratory: Denies: Shortness of Breath Gastrointestinal: Reports: Nausea, Vomiting. Denies: Abdominal Pain Psychiatric: Denies: Anxiety, Depression VTE Information - Inpt Only VTE Present on Admission: Yes VTE Mechan Device Prophylaxis: SCD's VTE Pharm Prophylaxis ordered?: No Reason prophylaxis not ordered:: Medical Contraindication - Plan colectomy tomorrow Patient Problems: Active and Suspected Problems (Last Reviewed 01/22/18 @ 10:34 by Gaston Byers MD) Small bowel obstruction (Acute) Nausea and vomiting (Acute) - Physical Exam General: Alert, Oriented x3, Cooperative, No apparent distress HEENT: Atraumatic Lungs: Normal air movement Cardiovascular: Regular rate, Regular Rhythm Abdomen: Soft, Distended, Tender - Minimally tender in the right mid abdomen, no peritoneal signs Extremities: No clubbing, No cyanosis, No edema Neurological: Cranial nerves II-XII grossly intact Psych/Mental Status: Normal Affect Vital Signs Temp Pulse Resp BP Pulse Ox 97.9 F 74 16 126/70 H 96 01/25/18 11:41 01/25/18 13:40 01/25/18 13:40 01/25/18 13:40 01/25/18 13:40 Oxygen Delivery Method Room Air Weight: 168 lb Body Mass Index (BMI) 21.5 Laboratory Tests Past 24 Hrs 01/25/18 01/25/18 01/25/18 12:05 12:05 12:05 WBC 9.2 RBC 4.69 Hgb 14.3 Hct 43.5 MCV 92.8 MCH 30.5 MCHC 32.9 RDW 14.5 RDW Differential 48.9 H Plt Count 363 MPV 8.9 Immature Gran % (Auto) 0.100 Neut % (Auto) 75.1 H Lymph % (Auto) 13.2 L [place] % (Auto) 10.7 H Eos % (Auto) 0.8 Baso % (Auto) 0.1 Absolute Neuts (auto) 6.9 Absolute Lymphs (auto) 1.21 Total Counted Not Reportable PT 14.5 INR 1.1 APTT 30.4 Sodium 135 L Potassium 3.7 Chloride 98 Carbon Dioxide 30.0 Anion Gap 7 BUN 16 Creatinine 0.96 Estim Creat Clear Calc 74.97 Est GFR (MDRD) Af Amer 99 Est GFR (MDRD) Non-Af 82 BUN/Creatinine Ratio 16.6 Glucose 124 H Calcium 8.1 L Total Bilirubin 0.50 AST 14 L ALT 24 Alkaline Phosphatase 82 Total Protein 7.8 Albumin 3.0 L Globulin 4.8 H Albumin/Globulin Ratio 0.6 L Lipase 69 L Blood Type Antibody Screen 01/25/18 12:05 WBC RBC Hgb Hct MCV MCH MCHC RDW RDW Differential Plt Count MPV Immature Gran % (Auto) Neut % (Auto) Lymph % (Auto) [place] % (Auto) Eos % (Auto) Baso % (Auto) Absolute Neuts (auto) Absolute Lymphs (auto) Total Counted PT INR APTT Sodium Potassium Chloride Carbon Dioxide Anion Gap BUN Creatinine Estim Creat Clear Calc Est GFR (MDRD) Af Amer Est GFR (MDRD) Non-Af BUN/Creatinine Ratio Glucose Calcium Total Bilirubin AST ALT Alkaline Phosphatase Total Protein Albumin Globulin Albumin/Globulin Ratio Lipase Blood Type A POSITIVE Antibody Screen NEGATIVE Assessment/Plan All Active Problems (Last Reviewed 01/22/18 @ 10:34 by Gaston Byers MD) Sigmoid stricture (Acute) LLQ abdominal pain (Acute) Obstipation (Acute) Small bowel obstruction (Acute) Nausea and vomiting (Acute) History of coronary artery stent placement (Resolved 03/02/13) Near syncope (Acute) Hypotension (Acute) Diverticulitis (Acute) History of recent pneumonia (Resolved) Septic shock (Resolved) 72-year-old male with a history of sigmoid colon stricture causing distal large bowel obstruction, nausea and vomiting 1. Patient will be kept n.p.o. with IV fluids and NG to low intermittent wall suction. He has a planned colectomy tomorrow with Dr. Byers. Patient was given 2 L bolus in the ER and will continue IV fluids to rehydrate him. Did discuss with patient that due to his obstruction he would more likely require open versus laparoscopic surgery however Dr. Byers would decide at the time of surgery. Dr. Byers to see in the morning. Kenisha Salazar M.D. Pager: [phone] [facility] [address] [place] [address], [facility], [address] [place] [address] Office: [phone]
[2018-01-25 14:36] VITALS: BP 122/70; PULSE 73; RESP 16; TEMP 36.7; O2SAT 96; BMI 22.4; BMI 22.5
[2018-01-25] MEDS: BENZOCAINE/MENTHOL 1 LOZENGE MUCOUS MEM ×3 (15:16→19:10)
[2018-01-25 16:01] LABS: Bacteria 0 SEEN /hpf (None Seen); Mucous, Urine 0 SEEN /hpf (<or=2+); Red Blood Cells-Urine 0 SEEN /hpf (0-5); Squamous Epithelial Cells - UA 0 SEEN /hpf (0-5); White Blood Cells 0 SEEN /hpf (0-5)
[2018-01-25 16:02] LABS: Color, Urine Yellow (Yellow); Glucose, Dipstick Normal (Normal); Ketone-Dipstick Negative (Negative); Leukocyte Esterase-Dipstick Negative /ul (Negative); Nitrite-Dipstick Negative (Negative); Occult Blood-Urine Negative /ul (Negative); Protein-Dipstick 15 mg/dl (Negative); Urine Bilirubin Dipstick Negative (Negative); Urine Clarity Cloudy (Clear); Urine Urobilinogen Normal (Normal)
[2018-01-25 16:14] LABS: Amorphous Sediment 1+ PHOS
[2018-01-25 18:23] VITALS: BP 128/64; PULSE 69; RESP 16; TEMP 36.8; O2SAT 93
[2018-01-25] MEDS: Morphine 2 MG/ML Syringe IV ×2 (20:30→22:37)
[2018-01-25 22:00] VITALS: BP 140/78; PULSE 73; RESP 16; TEMP 38.1; O2SAT 97
[2018-01-26] VITALS (19 sets, daily range): BP systolic 102–136; BP diastolic 56–96; PULSE 63–104; RESP 15–22; TEMP 36.5–37.7; O2SAT 2–100; BMI 22.4; BMI 22.5
--- NOTE | 2018-01-26 | COL_PTH ---
PATIENT: CAMRON OBRIEN LOC: PCU U#:[id number] AGE/SX: 72/M ROOM: [facility] RE01/25/[address]: Dr. Saima Valverde MD : 1945 BED: 1 DIS: 02/04/2018 SPEC #: [id number] RECD: 01/26/18 14:38 STATUS: GERONIMO REQ #: [id number] PEMA: 01/26/18 00:[address]: Gaston Byers DEPT: SURGICAL PATHOLOGY RECD BY: Marlo Gong ENTERED: 01/26/18 14:39 SP TYPE: COLON OTHR DR: DO Dr. Kenisha Olmstead MD Tissues: A - Colon, NOS B - Colon Donuts C - Colon Donuts Procedures: Surgery Specimen Level III Surgery Specimen Level V HEADER OPERATION: Sigmoid colectomy, low anterior resection PRE-OP DIAGNOSIS: Sigmoid colon stricture TISSUE SUBMITTED: A - Sigmoid colon, B - Proximal donut, C - Distal donut MICROSCOPIC DIAGNOSIS A. Sigmoid colon, colectomy: Diverticulosis and diverticulitis. B. Proximal donut: Colonic donut, no pathologic diagnosis. C. Distal donut: Colonic donut, no pathologic diagnosis.. HANNAH:destiney 01/28/18 MICROSCOPIC DESCRIPTION Slides are reviewed. GROSS DESCRIPTION A - Received in fixative is one container labeled with the patient's name and designated sigmoid colon. The specimen consists of a segment of colon with attached pericolonic adipose tissue measuring 11 cm in length. The serosa shows a ragged area in the middle portion and inked black and both resection margins are stapled. No mucosal lesion is identified. Sections reveal multiple diverticula. A few of the diverticula appear to be ruptured. Some of the diverticula are filled with fecal material. Also present in the container is a piece of adipose tissue consistent with omentum measuring 15 x 3 x 0.3 cm. Also present in the container is a small segment of colon measuring 3 cm in length. Sections will be submitted after overnight fixation. / HANNAH:destiney 01/26/18 Also present in the container is a donut-shaped piece of colonic tissue measuring 3 x 0.6 x 0.6 cm. Multiple arely are noted. Sections of the omentum do not reveal any mass lesion. Sections of the smaller segment of colon also reveal multiple diverticula. Sections of pericolonic adipose tissue do not reveal any obviously large lymph node. Marketing Assistant Manager sections are submitted in ten cassettes as follows: 1 - donut-shaped tissue, 2 & 3 - smaller segment of colon, 4-10 - largest segment of colon (4 - resection margin, 5-7 - diverticula, 8 & 9 - stricture area of colon, 10 - pericolonic adipose tissue). / : 01/27/18 B - Received in fixative is one container labeled with the patient's name and designated proximal donut. The specimen consists of a donut-shaped piece of colonic tissue previously opened measuring 2 x 2 x 0.5 cm. Multiple sutures and a few arely are noted. Marketing Assistant Manager sections are submitted in one cassette. / :rg 01/26/18 C - Received in fixative is one container labeled with the patient's name and designated distal donut. The specimen consists of a donut-shaped piece of colonic tissue measuring 1.5 x 1.5 x 0.5 cm. Multiple arely are noted. Marketing Assistant Manager sections are submitted in one cassette. / : 01/26/18 TC:5 CPT: 99005, 52110 x2
[2018-01-26] MEDS: Morphine 2 MG/ML Syringe IV ×3 (01:09→07:38)
--- NOTE | 2018-01-26 03:37 | NURSING ---
pt c/o abd pain, prn morphine given. 08/21.
[2018-01-26 06:27] LABS: Absolute Lymphocyte Count 0.85 X10^3/ul (0.83-4.51); Absolute Neutrophil Count 5.4 X10^3/uL (2.0-7.7); Basophil# 0.01 X10^3/uL; Basophil% 0.1 % (0-1); Eosinophil# 0.08 X10^3/uL; Hematocrit 38.6 % (40-54); Hemoglobin 12.3 g/dl (13.0-16.5); Lymphocyte # 0.85 X10^3/ul (4.0); Lymphocyte % 10.9 % (19-41); Mean Corp Hgb Conc 31.9 g/gl (32-36); Mean Corpuscular Volume 94.1 fL (80-94); Mean Platelet Vol. 9.5 fl (6.2-12.0); Monocyte# 1.46 X10^3/uL; Monocyte% 18.7 % (0-10); Neutrophil % 69.2 % (47-70); Platelet Count 336 K/mm3 (150-450); RBC Distribution Width CV 14.4 % (11.6-14.6); RBC Distribution Width SD 47.4 fl (35.1-43.9); White Blood Count 7.8 K/mm3 (4.4-11.0)
[2018-01-26 06:43] LABS: Anion Gap 7 (5-15); BUN 11 mg/dL (7-18); BUN/Creat Ratio 16.9 RATIO (10-20); Calcium,Total 7.8 mg/dL (8.5-10.1); Chloride 105 mmol/L (98-107); Creatinine, Serum 0.65 mg/dL (0.70-1.30); EST Glomerular Filtration Rate 128 mL/min (>60); Est Glom Filt Rate - Afr Amer 154 mL/min (>60); Estimated Creatinine Clearance 75.08 ml/min; Glucose 90 mg/dL (74-106); Potassium 4.5 mmol/L (3.5-5.1); Sodium Level 140 mmol/L (136-145)
[2018-01-26 07:00] LABS: POSITIVE COUNT NO; POSITIVE DIFFERENTIAL NO; POSITIVE MORPHOLOGY NO
--- NOTE | 2018-01-26 07:43 | PCM.PN.SRG ---
Patient Problems: Active and Suspected Problems (Last Reviewed 01/22/18 @ 10:34 by Gaston Byers MD) Small bowel obstruction (Acute) Nausea and vomiting (Acute) Subjective: NG output 1400, denies n/v w NG, abd pain controlled with morphine - Physical Exam General: Alert, Oriented x3, Cooperative, No apparent distress HEENT: Atraumatic Lungs: Normal air movement Cardiovascular: Regular rate Abdomen: Soft, Distended, Tender - right abd and llq, no PS Extremities: No clubbing, No cyanosis, No edema Vital Signs Temp Pulse Resp BP Pulse Ox 98.7 F 74 16 124/70 H 96 01/26/18 01:15 01/26/18 04:00 01/26/18 04:00 01/26/18 01:15 01/26/18 04:00 Oxygen Flow Rate (L/min) 2 Oxygen Delivery Method Nasal Cannula Weight: 175 lb 4.28 oz Body Mass Index (BMI) 22.4 Intake and Output for Last 24 Hours 01/24/18 01/25/18 01/26/18 23:59 23:59 23:59 Intake Total 2236 / 2236 2108 / 2108 Output Total 470 / 470 1770 / 1770 Balance 1766 / 1766 338 / 338 Laboratory Tests Past 24 Hrs 01/25/18 01/25/18 01/25/18 12:05 12:05 12:05 WBC 9.2 RBC 4.69 Hgb 14.3 Hct 43.5 MCV 92.8 MCH 30.5 MCHC 32.9 RDW 14.5 RDW Differential 48.9 H Plt Count 363 MPV 8.9 Immature Gran % (Auto) 0.100 Neut % (Auto) 75.1 H Lymph % (Auto) 13.2 L [place] % (Auto) 10.7 H Eos % (Auto) 0.8 Baso % (Auto) 0.1 Absolute Neuts (auto) 6.9 Absolute Lymphs (auto) 1.21 Total Counted Not Reportable PT 14.5 INR 1.1 APTT 30.4 Sodium 135 L Potassium 3.7 Chloride 98 Carbon Dioxide 30.0 Anion Gap 7 BUN 16 Creatinine 0.96 Estim Creat Clear Calc 74.97 Est GFR (MDRD) Af Amer 99 Est GFR (MDRD) Non-Af 82 BUN/Creatinine Ratio 16.6 Glucose 124 H Calcium 8.1 L Total Bilirubin 0.50 AST 14 L ALT 24 Alkaline Phosphatase 82 Total Protein 7.8 Albumin 3.0 L Globulin 4.8 H Albumin/Globulin Ratio 0.6 L Lipase 69 L Urine Color Urine Clarity Urine pH Ur Specific [place] Urine Protein Urine Glucose (UA) Urine Ketones Urine Occult Blood Urine Nitrite Urine Bilirubin Urine Urobilinogen Ur Leukocyte Esterase Urine RBC Urine WBC Ur Squamous Epith Cells Amorphous Sediment Urine Bacteria Urine Mucus Blood Type Antibody Screen 01/25/18 01/25/18 01/26/18 12:05 15:50 05:34 WBC 7.8 RBC 4.10 L Hgb 12.3 L Hct 38.6 L MCV 94.1 H MCH 30.0 MCHC 31.9 L RDW 14.4 RDW Differential 47.4 H Plt Count 336 MPV 9.5 Immature Gran % (Auto) 0.100 Neut % (Auto) 69.2 Lymph % (Auto) 10.9 L [place] % (Auto) 18.7 H Eos % (Auto) 1.0 Baso % (Auto) 0.1 Absolute Neuts (auto) 5.4 Absolute Lymphs (auto) 0.85 Total Counted Not Reportable PT INR APTT Sodium Potassium Chloride Carbon Dioxide Anion Gap BUN Creatinine Estim Creat Clear Calc Est GFR (MDRD) Af Amer Est GFR (MDRD) Non-Af BUN/Creatinine Ratio Glucose Calcium Total Bilirubin AST ALT Alkaline Phosphatase Total Protein Albumin Globulin Albumin/Globulin Ratio Lipase Urine Color Yellow Urine Clarity Cloudy Urine pH 7.0 Ur Specific [place] 1.010 Urine Protein 15 H Urine Glucose (UA) Normal Urine Ketones Negative Urine Occult Blood Negative Urine Nitrite Negative Urine Bilirubin Negative Urine Urobilinogen Normal Ur Leukocyte Esterase Negative Urine RBC 0 SEEN Urine WBC 0 SEEN Ur Squamous Epith Cells 0 SEEN Amorphous Sediment 1+ PHOS Urine Bacteria 0 SEEN Urine Mucus 0 SEEN Blood Type A POSITIVE Antibody Screen NEGATIVE 01/26/18 05:34 WBC RBC Hgb Hct MCV MCH MCHC RDW RDW Differential Plt Count MPV Immature Gran % (Auto) Neut % (Auto) Lymph % (Auto) [place] % (Auto) Eos % (Auto) Baso % (Auto) Absolute Neuts (auto) Absolute Lymphs (auto) Total Counted PT INR APTT Sodium 140 Potassium 4.5 Chloride 105 Carbon Dioxide 28.0 Anion Gap 7 BUN 11 Creatinine 0.65 L Estim Creat Clear Calc 75.08 Est GFR (MDRD) Af Amer 154 Est GFR (MDRD) Non-Af 128 BUN/Creatinine Ratio 16.9 Glucose 90 Calcium 7.8 L Total Bilirubin AST ALT Alkaline Phosphatase Total Protein Albumin Globulin Albumin/Globulin Ratio Lipase Urine Color Urine Clarity Urine pH Ur Specific [place] Urine Protein Urine Glucose (UA) Urine Ketones Urine Occult Blood Urine Nitrite Urine Bilirubin Urine Urobilinogen Ur Leukocyte Esterase Urine RBC Urine WBC Ur Squamous Epith Cells Amorphous Sediment Urine Bacteria Urine Mucus Blood Type Antibody Screen Medical Necessity - Tobacco Use Smoking Status: Never smoker Assessment/Plan All Active Problems (Last Reviewed 01/22/18 @ 10:34 by Gaston Byers MD) Sigmoid stricture (Acute) LLQ abdominal pain (Acute) Obstipation (Acute) Small bowel obstruction (Acute) Nausea and vomiting (Acute) History of coronary artery stent placement (Resolved 03/02/13) Near syncope (Acute) Hypotension (Acute) Diverticulitis (Acute) History of recent pneumonia (Resolved) Septic shock (Resolved) 72-year-old male with a history of sigmoid colon stricture causing distal large bowel obstruction, nausea and vomiting 1. continue NPO/NG/IVF. OR today at 11:[address] Byers for sigmoid colectomy. Kenisha Salazar M.D. Pager: [phone] [facility] [address] [place] [address], [facility], [address] [place] [id number] Office: [phone]
--- NOTE | 2018-01-26 07:46 | PN.SURG_ITS ---
Patient Problems: Active and Suspected Problems (Last Reviewed 01/22/18 @ 10:34 by Gaston Byers MD) Small bowel obstruction (Acute) Nausea and vomiting (Acute) Subjective: NG output 1400, denies n/v w NG, abd pain controlled with morphine - Physical Exam General: Alert, Oriented x3, Cooperative, No apparent distress HEENT: Atraumatic Lungs: Normal air movement Cardiovascular: Regular rate Abdomen: Soft, Distended, Tender - right abd and llq, no PS Extremities: No clubbing, No cyanosis, No edema Vital Signs Temp Pulse Resp BP Pulse Ox 98.7 F 74 16 124/70 H 96 01/26/18 01:15 01/26/18 04:00 01/26/18 04:00 01/26/18 01:15 01/26/18 04:00 Oxygen Flow Rate (L/min) 2 Oxygen Delivery Method Nasal Cannula Weight: 175 lb 4.28 oz Body Mass Index (BMI) 22.4 Intake and Output for Last 24 Hours 01/24/18 01/25/18 01/26/18 23:59 23:59 23:59 Intake Total 2236 / 2236 2108 / 2108 Output Total 470 / 470 1770 / 1770 Balance 1766 / 1766 338 / 338 Laboratory Tests Past 24 Hrs 01/25/18 01/25/18 01/25/18 12:05 12:05 12:05 WBC 9.2 RBC 4.69 Hgb 14.3 Hct 43.5 MCV 92.8 MCH 30.5 MCHC 32.9 RDW 14.5 RDW Differential 48.9 H Plt Count 363 MPV 8.9 Immature Gran % (Auto) 0.100 Neut % (Auto) 75.1 H Lymph % (Auto) 13.2 L [place] % (Auto) 10.7 H Eos % (Auto) 0.8 Baso % (Auto) 0.1 Absolute Neuts (auto) 6.9 Absolute Lymphs (auto) 1.21 Total Counted Not Reportable PT 14.5 INR 1.1 APTT 30.4 Sodium 135 L Potassium 3.7 Chloride 98 Carbon Dioxide 30.0 Anion Gap 7 BUN 16 Creatinine 0.96 Estim Creat Clear Calc 74.97 Est GFR (MDRD) Af Amer 99 Est GFR (MDRD) Non-Af 82 BUN/Creatinine Ratio 16.6 Glucose 124 H Calcium 8.1 L Total Bilirubin 0.50 AST 14 L ALT 24 Alkaline Phosphatase 82 Total Protein 7.8 Albumin 3.0 L Globulin 4.8 H Albumin/Globulin Ratio 0.6 L Lipase 69 L Urine Color Urine Clarity Urine pH Ur Specific [place] Urine Protein Urine Glucose (UA) Urine Ketones Urine Occult Blood Urine Nitrite Urine Bilirubin Urine Urobilinogen Ur Leukocyte Esterase Urine RBC Urine WBC Ur Squamous Epith Cells Amorphous Sediment Urine Bacteria Urine Mucus Blood Type Antibody Screen 01/25/18 01/25/18 01/26/18 12:05 15:50 05:34 WBC 7.8 RBC 4.10 L Hgb 12.3 L Hct 38.6 L MCV 94.1 H MCH 30.0 MCHC 31.9 L RDW 14.4 RDW Differential 47.4 H Plt Count 336 MPV 9.5 Immature Gran % (Auto) 0.100 Neut % (Auto) 69.2 Lymph % (Auto) 10.9 L [place] % (Auto) 18.7 H Eos % (Auto) 1.0 Baso % (Auto) 0.1 Absolute Neuts (auto) 5.4 Absolute Lymphs (auto) 0.85 Total Counted Not Reportable PT INR APTT Sodium Potassium Chloride Carbon Dioxide Anion Gap BUN Creatinine Estim Creat Clear Calc Est GFR (MDRD) Af Amer Est GFR (MDRD) Non-Af BUN/Creatinine Ratio Glucose Calcium Total Bilirubin AST ALT Alkaline Phosphatase Total Protein Albumin Globulin Albumin/Globulin Ratio Lipase Urine Color Yellow Urine Clarity Cloudy Urine pH 7.0 Ur Specific [place] 1.010 Urine Protein 15 H Urine Glucose (UA) Normal Urine Ketones Negative Urine Occult Blood Negative Urine Nitrite Negative Urine Bilirubin Negative Urine Urobilinogen Normal Ur Leukocyte Esterase Negative Urine RBC 0 SEEN Urine WBC 0 SEEN Ur Squamous Epith Cells 0 SEEN Amorphous Sediment 1+ PHOS Urine Bacteria 0 SEEN Urine Mucus 0 SEEN Blood Type A POSITIVE Antibody Screen NEGATIVE 01/26/18 05:34 WBC RBC Hgb Hct MCV MCH MCHC RDW RDW Differential Plt Count MPV Immature Gran % (Auto) Neut % (Auto) Lymph % (Auto) [place] % (Auto) Eos % (Auto) Baso % (Auto) Absolute Neuts (auto) Absolute Lymphs (auto) Total Counted PT INR APTT Sodium 140 Potassium 4.5 Chloride 105 Carbon Dioxide 28.0 Anion Gap 7 BUN 11 Creatinine 0.65 L Estim Creat Clear Calc 75.08 Est GFR (MDRD) Af Amer 154 Est GFR (MDRD) Non-Af 128 BUN/Creatinine Ratio 16.9 Glucose 90 Calcium 7.8 L Total Bilirubin AST ALT Alkaline Phosphatase Total Protein Albumin Globulin Albumin/Globulin Ratio Lipase Urine Color Urine Clarity Urine pH Ur Specific [place] Urine Protein Urine Glucose (UA) Urine Ketones Urine Occult Blood Urine Nitrite Urine Bilirubin Urine Urobilinogen Ur Leukocyte Esterase Urine RBC Urine WBC Ur Squamous Epith Cells Amorphous Sediment Urine Bacteria Urine Mucus Blood Type Antibody Screen Medical Necessity - Tobacco Use Smoking Status: Never smoker Assessment/Plan All Active Problems (Last Reviewed 01/22/18 @ 10:34 by Gaston Byers MD) Sigmoid stricture (Acute) LLQ abdominal pain (Acute) Obstipation (Acute) Small bowel obstruction (Acute) Nausea and vomiting (Acute) History of coronary artery stent placement (Resolved 03/02/13) Near syncope (Acute) Hypotension (Acute) Diverticulitis (Acute) History of recent pneumonia (Resolved) Septic shock (Resolved) 72-year-old male with a history of sigmoid colon stricture causing distal large bowel obstruction, nausea and vomiting 1. continue NPO/NG/IVF. OR today at 11:[address] Byers for sigmoid colectomy. Kenisha Salazar M.D. Pager: [phone] [facility] [address] [place] [address], [facility], [address] [place] [id number] Office: [phone]
--- NOTE | 2018-01-26 10:17 | NURSING ---
PT DOWN TO SURGERY, FAMILY AT BEDSIDE. REPORT CALLED TO PATO MALCOLM
--- NOTE | 2018-01-26 11:39 | PCM.OPRPT ---
Problem List (1) Sigmoid stricture Status: Acute Report of Operation Date of Procedure: 01/26/18 Pre-Operative Diagnosis: sigmoid stricture Post-Operative Diagnosis: same Surgery/Procedure Performed:: Low anterior resection sigmoid and rectosigmoid junction Type of Anesthesia:: General Anesthesiologist: Richy Evans Drains: #15 round Estimated Blood Loss (mL): 100 cc Fluids Replaced: 2.5 L LR Description of Procedure: Patient was brought into the operating room. Placed in the supine position. Under excellent general endotracheal intubation [place] catheter was placed his legs were placed up in stirrups and the abdomen was sterilely prepped and draped in the usual fashion. A lower midline incision was made. Electric. Large wound protector was placed into the wound. I packed the small bowel into the upper abdomen. Patient was noted to have a significant diverticular stricture at the sigmoid colon. I sharply dissected the white line of [place] and it took quite a bit of time to mobilize the entire sigmoid colon and descending colon. Once I had this completely dissected free I created a window in the mesentery and transected the rectosigmoid junction with a 75 linear cutter. I came down on the mesentery with the committee and monopolar device. I had excellent hemostasis. Once I got to the proximal sigmoid colon I transected this with a 75 linear cutter. There was significant swelling of the sigmoid colon as well as the rectum for that matter. I cut the sigmoid colon on a Fior clamp to ensure that everything was properly padded so that I would not lose any stool. Placed a pursestring suture around the sigmoid colon and then a 29 anvil into this tying the pursestring suture down. We irrigated out the rectum. We sequentially dilated the rectum. The 29 EEA stapler was then placed up to the distal stump. The spike came out anterior to the suture line. I placed the anvil onto the spike and then brought the 2 down. We fired the stapler and then checked and we had an airtight anastomosis. I irrigated out the pelvis quite extensively. Given that this was a diverticular stricture I felt that it was important to place a 15 round Alfred-Min drain into the wound. Sutured to the skin with a 3-0 nylon. I got an accurate needle and sponge count. I injected Exparel L into the muscle. And then brought the fascia together with #1 PDS. Subcu was brought together with deep dermal stitches of 3-0 Vicryl in a running 4-0 Monocryl. Steri-Strips were applied sterile dressings were applied and the patient tolerated the procedure well. At the end he had probably made roughly about 175 cc of urine it was not bloody. - Admit VTE Documentation VTE Present on Admission: No VTE Mechan Device Prophylaxis: None VTE Pharm Prophylaxis ordered?: No Reason prophylaxis not ordered:: Treatment Not Indicated
[2018-01-26] MEDS: BUPIVACAINE LIPOSOME/PF 20 ML VIAL OPERA.SITE (13:45)
[2018-01-26] MEDS: HYDROmorphone PCA 0.2 MG/ML 100 ML BAG 20 MG IV (15:43)
[2018-01-26] MEDS: Lactated Ringers 1,000 ML 100 ML IV (16:48)
[2018-01-27] VITALS (29 sets, daily range): BP systolic 94–135; BP diastolic 56–74; PULSE 88–115; RESP 16–28; TEMP 36.7–38.6; O2SAT 90–100
[2018-01-27] MEDS: Lactated Ringers 1,000 ML 100 ML IV ×2 (01:47→11:01)
--- NOTE | 2018-01-27 08:38 | PN.SURG_ITS ---
Patient Problems: Active and Suspected Problems (Last Reviewed 01/22/18 @ 10:34 by Gaston Byers MD) Small bowel obstruction (Acute) Nausea and vomiting (Acute) Subjective: Patient evaluated resting comfortably in bed. He noted to be lethargic this morning. He denies nausea, vomiting. He denies flatus. He notes minimal amount o f abdominal discomfort. He was diaphoretic this morning. - Physical Exam General: Alert, Oriented x3, Cooperative Abdomen: Hypoactive Bowel Sounds, Tender - generalized mild tenderness Vital Signs Temp Pulse Resp BP Pulse Ox 99.3 F H 90 20 H 112/67 90 01/27/18 07:45 01/27/18 07:45 01/27/18 07:45 01/27/18 07:45 01/27/18 07:45 Oxygen Flow Rate (L/min) 1 Oxygen Delivery Method Nasal Cannula Weight: 175 lb 4.28 oz Body Mass Index (BMI) 22.4 Intake and Output for Last 24 Hours 01/25/18 01/26/18 01/27/18 23:59 23:59 23:59 Intake Total 2236 / 2236 5735 / 5735 817 / 817 Output Total 470 / 470 4010 / 4010 600 / 600 Balance 1766 / 1766 1725 / 1725 217 / 217 Medical Necessity - Tobacco Use Smoking Status: Never smoker Assessment/Plan All Active Problems (Last Reviewed 01/22/18 @ 10:34 by Gaston Byers MD) Sigmoid stricture (Acute) LLQ abdominal pain (Acute) Obstipation (Acute) Small bowel obstruction (Acute) Nausea and vomiting (Acute) History of coronary artery stent placement (Resolved 03/02/13) Near syncope (Acute) Hypotension (Acute) Diverticulitis (Acute) History of recent pneumonia (Resolved) Septic shock (Resolved) I am following this patient in conjunction with Dr. Byers S/p open sigmoid colectomy Labs reviewed Encourage ambulation and I.S. Sips and chips Continue NG tube Continue antibiotics Hold PO medication We will continue to monitor this patient Code Visit Inpatient E&M: 52874 Subs Hosp L1 - POST-OP
--- NOTE | 2018-01-27 08:50 | NURSING ---
Dilaudid MAINTENANCE PLUMBER dose decreased to 0.1 mg/ml as ordered.
[2018-01-27 10:04] LABS: Absolute Lymphocyte Count 0.63 X10^3/ul (0.83-4.51); Basophil# 0.01 X10^3/uL; Basophil% 0.1 % (0-1); Differential Indicated SCAN CRITERIA MET; Hematocrit 40.6 % (40-54); Hemoglobin 13.1 g/dl (13.0-16.5); Lymphocyte # 0.63 X10^3/ul (4.0); Lymphocyte % 6.5 % (19-41); Mean Corp Hgb Conc 32.3 g/gl (32-36); Mean Corpuscular Volume 92.9 fL (80-94); Mean Platelet Vol. 8.8 fl (6.2-12.0); Monocyte# 1.08 X10^3/uL; Monocyte% 11.2 % (0-10); Neutrophil # 7.95 X10^3/uL (2.7-7.7); Neutrophil % 82.1 % (47-70); POSITIVE COUNT NO; POSITIVE DIFFERENTIAL NO; POSITIVE MORPHOLOGY YES; Platelet Count 298 K/mm3 (150-450); RBC Distribution Width CV 14.4 % (11.6-14.6); RBC Distribution Width SD 49.2 fl (35.1-43.9); Red Blood Count 4.37 M/mm3 (4.6-6.2); White Blood Count 9.7 K/mm3 (4.4-11.0)
--- NOTE | 2018-01-27 10:35 | CASEMGMT ---
YUN JACKSON Face to Face with patient for initial transition planning/care coordination assessment. RN MANUEL introduced self and role at [facility]. Patient sitting in chair, alert and oriented. Patient willing to participate in assessment and is able to answer all questions appropriately. Care providers, pharmacy, and demographics verified. Patient wishes to discharge home with possible HHC if needed. Patient states he has no further needs or concerns at this time. CM to follow for discharge planning needs that may arise. PCP: Dr. Constantino Davis Specialists: Prem, route salesperson Preferred Pharmacy: [facility] Insurance: [employer] [facility] supplement Prescription Benefit: [employer] Living Will/HPOA: Yes, Paloma Cedeno HPOA LNOK: Paloma Cedeno Living Arrangements: Currently living in home, but will be selling at [employer] Feb 12 then pruchasing new home. Have class A motor home that can stay in while transitioning to new home. Transportation: DME/HHC: Patient has WC and raised toilet. Will monitor for need for FWW. PT/OT to be ordered. May possibly need HHC with preferred HHC with [facility]. Has had [facility] HHC in the past Disposition Plan: Patient to discharge home with family support and follow-up plans in place. Will monitor for need for HHC. Liliana HILLIARD, RN, CM
[2018-01-27 10:43] LABS: Anion Gap 8 (5-15); BUN 12 mg/dL (7-18); BUN/Creat Ratio 17.2 RATIO (10-20); Calcium,Total 7.9 mg/dL (8.5-10.1); Chloride 100 mmol/L (98-107); EST Glomerular Filtration Rate 118 mL/min (>60); Est Glom Filt Rate - Afr Amer 143 mL/min (>60); Estimated Creatinine Clearance 75.08 ml/min; Glucose 108 mg/dL (74-106); Potassium 4.3 mmol/L (3.5-5.1); Sodium Level 136 mmol/L (136-145)
--- NOTE | 2018-01-27 11:00 | COL_PTH ---
PATIENT: CAMRON OBRIEN LOC: PCU U#:[id number] AGE/SX: 72/M ROOM: [facility] RE01/25/[address]: Dr. Saima Valverde MD : 1945 BED: 1 DIS: 02/04/2018 SPEC #: [id number] RECD: 01/28/18 09:27 STATUS: GERONIMO REHaile #: [id number] PEMA: 01/27/18 11:[address]: Gaston Byers DEPT: SURGICAL PATHOLOGY RECD BY: Jaleel Ortiz ENTERED: 01/28/18 09:51 SP TYPE: COLON OTHR DR: DO Dr. Kenisha Olmstead MD Tissues: Colon, NOS Procedures: Surgery Specimen Level V HEADER OPERATION: Exploratory laparotomy, revision of colonic anastomosis PRE-OP DIAGNOSIS: Anastomosis leak TISSUE SUBMITTED: Proximal distal remnants colon MICROSCOPIC DIAGNOSIS Proximal and distal remnants, revision of colonic anastomosis: Pieces of colonic tissue with focal ulceration, associated acute and chronic inflammation, mucosal congestion and hemorrhage. Two pericolonic lymph nodes with reactive changes. HANNAH:destiney 01/29/18 MICROSCOPIC DESCRIPTION Slides are reviewed. GROSS DESCRIPTION Received in fixative is one container labeled with the patient's name and designated proximal distal remnants colon. The specimen consists of a donut-shaped piece of colonic tissue measuring 5.5 x 4 x 2 cm. Also present in the container are two detached pieces of colonic tissue measuring 2.5 x 1.5 x 1 cm and 2 x 1 x 0.5 cm. Multiple arely are noted in all three pieces. No mass lesion is identified. Gas Furnace Installer sections are submitted in four cassettes as follows: 1 - smaller and intermediate size piece of tissue, 2-4 - largest piece of tissue. / Catie 01/28/18 TC:5 CPT: 38865
--- NOTE | 2018-01-27 13:46 | PCM.PN.SRG ---
Patient Problems: Active and Suspected Problems (Last Reviewed 01/22/18 @ 10:34 by Gaston Byers MD) Small bowel obstruction (Acute) Nausea and vomiting (Acute) Subjective: Pain has been controlled with his AUTHORIZATION REPRESENTATIVE. RODRIGUEZ drainage has significantly decreased however the color of it has significantly changed. Objective: Appropriately distended. - Physical Exam Vital Signs Temp Pulse Resp BP Pulse Ox 99.2 F H 102 H 16 135/74 H 94 01/27/18 13:44 01/27/18 13:44 01/27/18 13:44 01/27/18 13:44 01/27/18 13:44 Oxygen Flow Rate (L/min) 2 Oxygen Delivery Method Nasal Cannula Weight: 175 lb 4.28 oz Body Mass Index (BMI) 22.4 Intake and Output for Last 24 Hours 01/25/18 01/26/18 01/27/18 23:59 23:59 23:59 Intake Total 2236 / 2236 5735 / 5735 1660 / 1660 Output Total 470 / 470 4010 / 4010 750 / 750 Balance 1766 / 1766 1725 / 1725 910 / 910 Laboratory Tests Past 24 Hrs 01/27/18 01/27/18 09:43 09:43 WBC 9.7 RBC 4.37 L Hgb 13.1 Hct 40.6 MCV 92.9 MCH 30.0 MCHC 32.3 RDW 14.4 RDW Differential 49.2 H Plt Count 298 MPV 8.8 Immature Gran % (Auto) 0.100 Neut % (Auto) 82.1 H Lymph % (Auto) 6.5 L [place] % (Auto) 11.2 H Eos % (Auto) 0.0 Baso % (Auto) 0.1 Absolute Neuts (auto) 8.0 H Absolute Lymphs (auto) 0.63 L Total Counted Not Reportable Sodium 136 Potassium 4.3 Chloride 100 Carbon Dioxide 28.0 Anion Gap 8 BUN 12 Creatinine 0.70 Estim Creat Clear Calc 75.08 Est GFR (MDRD) Af Amer 143 Est GFR (MDRD) Non-Af 118 BUN/Creatinine Ratio 17.2 Glucose 108 H Calcium 7.9 L Medical Necessity - Tobacco Use Smoking Status: Never smoker Assessment/Plan All Active Problems (Last Reviewed 01/22/18 @ 10:34 by Gaston Byers MD) Sigmoid stricture (Acute) LLQ abdominal pain (Acute) Obstipation (Acute) Small bowel obstruction (Acute) Nausea and vomiting (Acute) History of coronary artery stent placement (Resolved 03/02/13) Near syncope (Acute) Hypotension (Acute) Diverticulitis (Acute) History of recent pneumonia (Resolved) Septic shock (Resolved) I believe his RODRIGUEZ drainage smells like stool. I am concerned that there is a leak. I am going to take him back to surgery and retest the anastomosis and possibly redo the anastomosis.
--- NOTE | 2018-01-27 13:58 | NURSING ---
Report called to YUN Borja, in [place] at [phone]. Pt. transported to A.. via hospital bed on heart monitor with NG clamped and on 2 l/min oxygen via NC. Alert and oriented x3. at bedside.
[2018-01-27] MEDS: Lubricating Jelly 60 GM Tube 30 GM TOPICAL (15:35)
--- NOTE | 2018-01-27 16:48 | PCM.OPRPT ---
Problem List (1) Anastomotic leak of intestine Status: Acute Report of Operation Date of Procedure: 01/26/18 Pre-Operative Diagnosis: k91.81 anastomotic leak of the colorectal juncture Post-Operative Diagnosis: same Surgery/Procedure Performed:: Revision of anastomotic leak of the colorectal junction with a handsewn end-to-end anastomosis Type of Anesthesia:: General Anesthesiologist: Daniel Whitley Drains: #15 round Estimated Blood Loss (mL): <25cc Fluids Replaced: 2.0 L LR Description of Procedure: Patient was brought in the operating room. Placed in the supine position. Under excellent general endotracheal sedation a Hernandez catheter was placed in the legs were placed up in the stirrups. The abdomen and perineum were sterilely prepped and draped in the usual fashion. I opened the midline incision came down to the fascia The PDS suture gain access into the abdominal cavity. I walled off the small intestine came down to the anastomosis as I rotated it from a lateral to medial standpoint identified the leak. The leak was on the posterior aspect of the bowel here look as if it had necrosis at the suture line and I did have some local spillage in this area. I was able to place a shotted clamp and walled off the area. I cut the Alfred-Min drain and removed it. It was clear that I was going to have to redo this anastomosis completely. I lengthen my incision proximally mobilized the colon at the splenic flexure to give me a little bit more room so I could do a handsewn anastomosis. I cut the anastomosis completely free removing all of the arely that had been previously been in the area. I then trimmed the proximal bowel to I had excellent bleeding. The rectal stump had superb bleeding. I cleaned out as much of the stools I could see both the rectum and the descending colon. After this was done I did a handsewn 2 layer anastomosis with 3-0 silk. This was done in an interrupted fashion. The bowel was under no tension. Once I had completed the anastomosis we checked for airtightness by placing water into the pelvis and air was inserted into the rectum via a rigid sigmoidoscope he air went all the way through the anastomosis there was absolutely no air bubbles. We then irrigated out the rectum with some Betadine. Once this was completed I got an accurate needle and sponge count. I then irrigated the entire abdomen with 9 L of irrigation focusing on the left upper quadrant and in the pelvis. Once this was completed I irrigated out where the RODRIGUEZ drain had been placed and placed a new 15 round Alfred-Min drain in the right lower quadrant down to the anastomosis and extending up along the left gutter.. Once again obtained an accurate sponge count I then closed the fascia with #1 PDS irrigated out the subcu incision was then closed with interrupted 3-0 Vicryl then arely in the skin. Iodoform wick was then placed into the previous RODRIGUEZ site in an interrupted fashion along the entire incision. Sterile dressings were applied the patient tolerated the procedure well. At the end of the case he made approximately 125 cc of urine. And he was given approximately 2 L of fluid.
[2018-01-27 17:41] LABS: Absolute Lymphocyte Count 0.38 X10^3/ul (0.83-4.51); Absolute Neutrophil Count 1.8 X10^3/uL (2.0-7.7); Hematocrit 42.2 % (40-54); Hemoglobin 13.8 g/dl (13.0-16.5); Lymphocyte # 0.38 X10^3/ul (4.0); Lymphocyte % 15.8 % (19-41); Mean Corp Hgb Conc 32.7 g/gl (32-36); Mean Corpuscular Hgb 30.4 pg (27.0-32.0); Mean Platelet Vol. 8.7 fl (6.2-12.0); Monocyte# 0.27 X10^3/uL; Monocyte% 11.2 % (0-10); Neutrophil # 1.76 X10^3/uL (2.7-7.7); Platelet Count 367 K/mm3 (150-450); RBC Distribution Width CV 14.6 % (11.6-14.6); RBC Distribution Width SD 47.7 fl (35.1-43.9); Red Blood Count 4.54 M/mm3 (4.6-6.2); White Blood Count 2.4 K/mm3 (4.4-11.0)
[2018-01-27 17:42] LABS: Differential Indicated SCAN CRITERIA MET; POSITIVE COUNT NO; POSITIVE DIFFERENTIAL YES; POSITIVE MORPHOLOGY YES
[2018-01-27 18:00] LABS: Differential Comment SCANNED
[2018-01-27] MEDS: Ciprofloxacin 400 MG/200 ML BAG 200 MG IV (18:24)
[2018-01-27 18:26] LABS: ALB/GLOB Ratio 0.4 RATIO (0.9-2.4); AST(SGOT) 8 U/L (15-37); Alanine Aminotransfer ALT/SGPT 12 U/L (16-61); Albumin, Serum 1.7 g/dL (3.2-5.0); Alkaline Phosphatase 51 U/L (45-117); Anion Gap 6 (5-15); BUN 14 mg/dL (7-18); BUN/Creat Ratio 13.5 RATIO (10-20); Calcium,Total 7.5 mg/dL (8.5-10.1); Chloride 103 mmol/L (98-107); Creatinine, Serum 1.04 mg/dL (0.70-1.30); EST Glomerular Filtration Rate 74 mL/min (>60); Est Glom Filt Rate - Afr Amer 90 mL/min (>60); Globulin 3.8 g/dL (2.2-4.2); Glucose 132 mg/dL (74-106); Potassium 3.9 mmol/L (3.5-5.1); Protein, Total 5.5 g/dL (6.4-8.2); Sodium Level 136 mmol/L (136-145)
[2018-01-27] MEDS: Lactated Ringers 1,000 ML 150 ML IV (18:26)
[2018-01-27] MEDS: 0.9% Normal Saline 1,000 ML 999 ML IV (19:52)
[2018-01-28] VITALS (25 sets, daily range): BP systolic 94–110; BP diastolic 57–72; PULSE 77–112; RESP 18–25; TEMP 36.4–37.1; O2SAT 92–95
[2018-01-28] MEDS: Lactated Ringers 1,000 ML 150 ML IV ×4 (02:00→23:10)
[2018-01-28 06:41] LABS: Hematocrit 39.2 % (40-54); Hemoglobin 12.6 g/dl (13.0-16.5); Mean Corp Hgb Conc 32.1 g/gl (32-36); Mean Corpuscular Hgb 29.7 pg (27.0-32.0); Mean Corpuscular Volume 92.5 fL (80-94); Mean Platelet Vol. 9.4 fl (6.2-12.0); POSITIVE COUNT NO; POSITIVE DIFFERENTIAL YES; POSITIVE MORPHOLOGY YES; Platelet Count 278 K/mm3 (150-450); RBC Distribution Width CV 14.6 % (11.6-14.6); RBC Distribution Width SD 49.6 fl (35.1-43.9); Red Blood Count 4.24 M/mm3 (4.6-6.2); White Blood Count 11.5 K/mm3 (4.4-11.0)
[2018-01-28 06:56] LABS: ALB/GLOB Ratio 0.4 RATIO (0.9-2.4); AST(SGOT) 8 U/L (15-37); Alanine Aminotransfer ALT/SGPT 10 U/L (16-61); Albumin, Serum 1.4 g/dL (3.2-5.0); Alkaline Phosphatase 40 U/L (45-117); Anion Gap 9 (5-15); BUN 17 mg/dL (7-18); BUN/Creat Ratio 22.5 RATIO (10-20); Calcium,Total 7.6 mg/dL (8.5-10.1); Chloride 105 mmol/L (98-107); Creatinine, Serum 0.76 mg/dL (0.70-1.30); EST Glomerular Filtration Rate 107 mL/min (>60); Est Glom Filt Rate - Afr Amer 130 mL/min (>60); Estimated Creatinine Clearance 75.08 ml/min; Globulin 3.6 g/dL (2.2-4.2); Glucose 114 mg/dL (74-106); Potassium 4.3 mmol/L (3.5-5.1); Sodium Level 139 mmol/L (136-145)
[2018-01-28 07:07] LABS: Blast 1 % (0-0); Lymphocyte 1 % (19-41); Monocyte 9 % (0-10); Neutrophil-Band 25 % (0-5); Neutrophil-Segmented 64 % (47-70)
[2018-01-28 07:08] LABS: Differential Indicated MANUAL DIFF; Platelet Estimate ADEQUATE (ADEQ); Red Cell Morphology NORM C+C NORMAL (NORM C&C); Scan Smear per Review Criteria MANUAL DIFF
[2018-01-28 07:09] LABS: Absolute Lymphocyte Count 0.12 X10^3/ul (0.83-4.51); Absolute Neutrophil Count 10.2 X10^3/uL (2.0-7.7); Lymphocyte # 0.12 X10^3/ul (4.0); Neutrophil # 10.24 X10^3/uL (2.7-7.7)
--- NOTE | 2018-01-28 07:50 | PCM.PN.SRG ---
Patient Problems: Active and Suspected Problems (Last Reviewed 01/22/18 @ 10:34 by Gaston Byers MD) Small bowel obstruction (Acute) Nausea and vomiting (Acute) Anastomotic leak of intestine (Acute) Subjective: Patient evaluated resting comfortably in bed. He notes generalized abdominal discomfort. He denies ines pain. He denies nausea, vomiting, fever. Negative flatus, BM. NG drain has been little to none output. RODRIGUEZ drain with SA fluid/clear fluid. Hernandez catheter intact. Patient returned to surgery yesterday for anastomotic leak. Stool noted in RODRIGUEZ drain yesterday afternoon. Patient became tachycardiac. Patient had a revision of the anastomosis. - Physical Exam General: Alert, Oriented x3, Cooperative Lungs: Clear to auscultation, Normal air movement Cardiovascular: Regular rate, No murmurs Abdomen: Soft, Hypoactive Bowel Sounds, Distended - slightly, Tender - generalized, - - Incisions with dressing intact. RODRIGUEZ drain intact with SA fluid Vital Signs Temp Pulse Resp BP Pulse Ox 98.8 F 95 20 H 104/60 93 01/28/18 06:00 01/28/18 06:00 01/28/18 06:00 01/28/18 06:00 01/28/18 07:16 Oxygen Flow Rate (L/min) 2 Oxygen Delivery Method Nasal Cannula Weight: 175 lb 4.28 oz Body Mass Index (BMI) 22.4 Intake and Output for Last 24 Hours 01/26/18 01/27/18 01/28/18 23:59 23:59 23:59 Intake Total 5735 / 5735 4597 / 4597 1469.5 / 1469.5 Output Total 4010 / 4010 1670 / 1670 350 / 350 Balance 1725 / 1725 2927 / 2927 1119.5 / 1119.5 Laboratory Tests Past 24 Hrs 01/27/18 01/27/18 01/27/18 09:43 09:43 17:30 WBC 9.7 2.4 L RBC 4.37 L 4.54 L Hgb 13.1 13.8 Hct 40.6 42.2 MCV 92.9 93.0 MCH 30.0 30.4 MCHC 32.3 32.7 RDW 14.4 14.6 RDW Differential 49.2 H 47.7 H Plt Count 298 367 MPV 8.8 8.7 Immature Gran % (Auto) 0.100 0.000 Neut % (Auto) 82.1 H 73.0 H Lymph % (Auto) 6.[address] [place] % (Auto) 11.2 H 11.2 H Eos % (Auto) 0.0 0.0 Baso % (Auto) 0.1 0.0 Absolute Neuts (auto) 8.0 H 1.8 L Absolute Lymphs (auto) 0.63 L 0.38 L Total Counted Not Reportable Not Reportable Neutrophils % (Manual) Band Neutrophils % Lymphocytes % (Manual) Monocytes % (Manual) Blast Cells % Differential Comment SCANNED Diff Path Review Platelet Estimate RBC Morphology Sodium 136 Potassium 4.3 Chloride 100 Carbon Dioxide 28.0 Anion Gap 8 BUN 12 Creatinine 0.70 Estim Creat Clear Calc 75.08 Est GFR (MDRD) Af Amer 143 Est GFR (MDRD) Non-Af 118 BUN/Creatinine Ratio 17.2 Glucose 108 H Calcium 7.9 L Total Bilirubin AST ALT Alkaline Phosphatase Total Protein Albumin Globulin Albumin/Globulin Ratio 01/27/18 01/28/18 01/28/18 17:30 05:12 05:12 WBC 11.5 H RBC 4.24 L Hgb 12.6 L Hct 39.2 L MCV 92.5 MCH 29.7 MCHC 32.1 RDW 14.6 RDW Differential 49.6 H Plt Count 278 MPV 9.4 Immature Gran % (Auto) FINE ARTIST Neut % (Auto) FINE ARTIST Lymph % (Auto) FINE ARTIST [place] % (Auto) FINE ARTIST Eos % (Auto) FINE ARTIST Baso % (Auto) FINE ARTIST Absolute Neuts (auto) 10.2 H Absolute Lymphs (auto) 0.12 L Total Counted Not Reportable Neutrophils % (Manual) 64 Band Neutrophils % 25 H Lymphocytes % (Manual) 1 L Monocytes % (Manual) 9 Blast Cells % 1 H* Differential Comment Diff Path Review May foll Platelet Estimate ADEQUATE RBC Morphology NORM C+C Sodium 136 139 Potassium 3.9 4.3 Chloride 103 105 Carbon Dioxide 27.0 25.0 Anion Gap 6 9 BUN 14 17 Creatinine 1.04 0.76 Estim Creat Clear Calc 72.20 75.08 Est GFR (MDRD) Af Amer 90 130 Est GFR (MDRD) Non-Af 74 107 BUN/Creatinine Ratio 13.5 22.5 H Glucose 132 H 114 H Calcium 7.5 L 7.6 L Total Bilirubin 0.70 0.50 AST 8 L 8 L ALT 12 L 10 L Alkaline Phosphatase 51 40 L Total Protein 5.5 L 5.0 L Albumin 1.7 L 1.4 L Globulin 3.8 3.6 Albumin/Globulin Ratio 0.4 L 0.4 L Medical Necessity - Tobacco Use Smoking Status: Never smoker Assessment/Plan All Active Problems (Last Reviewed 01/22/18 @ 10:34 by Gaston Byers MD) Sigmoid stricture (Acute) LLQ abdominal pain (Acute) Obstipation (Acute) Small bowel obstruction (Acute) Nausea and vomiting (Acute) Anastomotic leak of intestine (Acute) History of coronary artery stent placement (Resolved 03/02/13) Near syncope (Acute) Hypotension (Acute) Diverticulitis (Acute) History of recent pneumonia (Resolved) Septic shock (Resolved) I am following this patient in conjunction with Dr. Byers S/p open sigmoid colectomy Labs reviewed Encourage ambulation and I.S. Continue NG tube Continue antibiotics PT/OT ordered Hold PO medication We will continue to monitor this patient Code Visit Inpatient E&M: 70574 Subs Hosp L1 - POST-OP
--- NOTE | 2018-01-28 07:54 | PN.SURG_ITS ---
Patient Problems: Active and Suspected Problems (Last Reviewed 01/22/18 @ 10:34 by Gaston Byers MD) Small bowel obstruction (Acute) Nausea and vomiting (Acute) Anastomotic leak of intestine (Acute) Subjective: Patient evaluated resting comfortably in bed. He notes generalized abdominal discomfort. He denies ines pain. He denies nausea, vomiting, fever. Negative flatus, BM. NG drain has been little to none output. RODRIGUEZ drain with SA fluid/clear fluid. Hernandez catheter intact. Patient returned to surgery yesterday for anastomotic leak. Stool noted in RODRIGUEZ drain yesterday afternoon. Patient became tachycardiac. Patient had a revision of the anastomosis. - Physical Exam General: Alert, Oriented x3, Cooperative Lungs: Clear to auscultation, Normal air movement Cardiovascular: Regular rate, No murmurs Abdomen: Soft, Hypoactive Bowel Sounds, Distended - slightly, Tender - generalized, - - Incisions with dressing intact. RODRIGUEZ drain intact with SA fluid Vital Signs Temp Pulse Resp BP Pulse Ox 98.8 F 95 20 H 104/60 93 01/28/18 06:00 01/28/18 06:00 01/28/18 06:00 01/28/18 06:00 01/28/18 07:16 Oxygen Flow Rate (L/min) 2 Oxygen Delivery Method Nasal Cannula Weight: 175 lb 4.28 oz Body Mass Index (BMI) 22.4 Intake and Output for Last 24 Hours 01/26/18 01/27/18 01/28/18 23:59 23:59 23:59 Intake Total 5735 / 5735 4597 / 4597 1469.5 / 1469.5 Output Total 4010 / 4010 1670 / 1670 350 / 350 Balance 1725 / 1725 2927 / 2927 1119.5 / 1119.5 Laboratory Tests Past 24 Hrs 01/27/18 01/27/18 01/27/18 09:43 09:43 17:30 WBC 9.7 2.4 L RBC 4.37 L 4.54 L Hgb 13.1 13.8 Hct 40.6 42.2 MCV 92.9 93.0 MCH 30.0 30.4 MCHC 32.3 32.7 RDW 14.4 14.6 RDW Differential 49.2 H 47.7 H Plt Count 298 367 MPV 8.8 8.7 Immature Gran % (Auto) 0.100 0.000 Neut % (Auto) 82.1 H 73.0 H Lymph % (Auto) 6.5 L 15.8 L [place] % (Auto) 11.2 H 11.2 H Eos % (Auto) 0.0 0.0 Baso % (Auto) 0.1 0.0 Absolute Neuts (auto) 8.0 H 1.8 L Absolute Lymphs (auto) 0.63 L 0.38 L Total Counted Not Reportable Not Reportable Neutrophils % (Manual) Band Neutrophils % Lymphocytes % (Manual) Monocytes % (Manual) Blast Cells % Differential Comment SCANNED Diff Path Review Platelet Estimate RBC Morphology Sodium 136 Potassium 4.3 Chloride 100 Carbon Dioxide 28.0 Anion Gap 8 BUN 12 Creatinine 0.70 Estim Creat Clear Calc 75.08 Est GFR (MDRD) Af Amer 143 Est GFR (MDRD) Non-Af 118 BUN/Creatinine Ratio 17.2 Glucose 108 H Calcium 7.9 L Total Bilirubin AST ALT Alkaline Phosphatase Total Protein Albumin Globulin Albumin/Globulin Ratio 01/27/18 01/28/18 01/28/18 17:30 05:12 05:12 WBC 11.5 H RBC 4.24 L Hgb 12.6 L Hct 39.2 L MCV 92.5 MCH 29.7 MCHC 32.1 RDW 14.6 RDW Differential 49.6 H Plt Count 278 MPV 9.4 Immature Gran % (Auto) STAFF DEVELOPER Neut % (Auto) STAFF DEVELOPER Lymph % (Auto) STAFF DEVELOPER [place] % (Auto) STAFF DEVELOPER Eos % (Auto) STAFF DEVELOPER Baso % (Auto) STAFF DEVELOPER Absolute Neuts (auto) 10.2 H Absolute Lymphs (auto) 0.12 L Total Counted Not Reportable Neutrophils % (Manual) 64 Band Neutrophils % 25 H Lymphocytes % (Manual) 1 L Monocytes % (Manual) 9 Blast Cells % 1 H* Differential Comment Diff Path Review May foll Platelet Estimate ADEQUATE RBC Morphology NORM C+C Sodium 136 139 Potassium 3.9 4.3 Chloride 103 105 Carbon Dioxide 27.0 25.0 Anion Gap 6 9 BUN 14 17 Creatinine 1.04 0.76 Estim Creat Clear Calc 72.20 75.08 Est GFR (MDRD) Af Amer 90 130 Est GFR (MDRD) Non-Af 74 107 BUN/Creatinine Ratio 13.5 22.5 H Glucose 132 H 114 H Calcium 7.5 L 7.6 L Total Bilirubin 0.70 0.50 AST 8 L 8 L ALT 12 L 10 L Alkaline Phosphatase 51 40 L Total Protein 5.5 L 5.0 L Albumin 1.7 L 1.4 L Globulin 3.8 3.6 Albumin/Globulin Ratio 0.4 L 0.4 L Medical Necessity - Tobacco Use Smoking Status: Never smoker Assessment/Plan All Active Problems (Last Reviewed 01/22/18 @ 10:34 by Gaston Byers MD) Sigmoid stricture (Acute) LLQ abdominal pain (Acute) Obstipation (Acute) Small bowel obstruction (Acute) Nausea and vomiting (Acute) Anastomotic leak of intestine (Acute) History of coronary artery stent placement (Resolved 03/02/13) Near syncope (Acute) Hypotension (Acute) Diverticulitis (Acute) History of recent pneumonia (Resolved) Septic shock (Resolved) I am following this patient in conjunction with Dr. Byers S/p open sigmoid colectomy Labs reviewed Encourage ambulation and I.S. Continue NG tube Continue antibiotics PT/OT ordered Hold PO medication We will continue to monitor this patient Code Visit Inpatient E&M: 17464 Subs Hosp L1 - POST-OP
[2018-01-28] MEDS: Ciprofloxacin 400 MG/200 ML BAG 200 MG IV ×2 (10:15→21:02)
[2018-01-28] MEDS: BENZOCAINE/MENTHOL 1 LOZENGE MUCOUS MEM ×2 (10:15→23:02)
[2018-01-28] MEDS: Ondansetron 4 MG/2 ML Vial IV (12:19)
[2018-01-28 12:38] LABS: Pathologist Review Reviewed
[2018-01-29] VITALS (11 sets, daily range): BP systolic 104–118; BP diastolic 59–69; PULSE 74–95; RESP 16–18; TEMP 36.6–37.2; O2SAT 93–95
--- NOTE | 2018-01-29 06:35 | PCM.PN.SRG ---
Patient Problems: Active and Suspected Problems (Last Reviewed 01/22/18 @ 10:34 by Gaston Byers MD) Small bowel obstruction (Acute) Nausea and vomiting (Acute) Anastomotic leak of intestine (Acute) Subjective: Patient evaluated resting comfortably in bed. He notes feeling much improved. He had stated there was someone eating cereal behind him. He denies nausea, vomiting. He noted drinking Dr. Pepper yesterday evening. He stated he was up in the chair for 2 hours. He noted passing multiple bouts of flatus. No BM. - Physical Exam General: Alert, Oriented x3, Cooperative Abdomen: Bowel Sounds Present, Distended - slightly, Tender - generalized, - - Incision- c/d/i. No erythema or infection noted. Vital Signs Temp Pulse Resp BP Pulse Ox 98.5 F 80 17 104/59 L 95 01/29/18 04:10 01/29/18 04:10 01/29/18 05:32 01/29/18 04:10 01/29/18 05:32 Oxygen Flow Rate (L/min) 2 Oxygen Delivery Method Nasal Cannula Weight: 175 lb 4.28 oz Body Mass Index (BMI) 22.4 Intake and Output for Last 24 Hours 01/27/18 01/28/18 01/29/18 23:59 23:59 23:59 Intake Total 4597 / 4597 4688.5 / 4688.5 800 / 800 Output Total 1670 / 1670 1410 / 1410 352 / 352 Balance 2927 / 2927 3278.5 / 3278.5 448 / 448 Laboratory Tests Past 24 Hrs 01/28/18 01/28/18 05:12 05:12 WBC 11.5 H RBC 4.24 L Hgb 12.6 L Hct 39.2 L MCV 92.5 MCH 29.7 MCHC 32.1 RDW 14.6 RDW Differential 49.6 H Plt Count 278 MPV 9.4 Immature Gran % (Auto) ULTRASONIC SEAMING MACHINE OPERATOR Neut % (Auto) ULTRASONIC SEAMING MACHINE OPERATOR Lymph % (Auto) ULTRASONIC SEAMING MACHINE OPERATOR [place] % (Auto) ULTRASONIC SEAMING MACHINE OPERATOR Eos % (Auto) ULTRASONIC SEAMING MACHINE OPERATOR Baso % (Auto) ULTRASONIC SEAMING MACHINE OPERATOR Absolute Neuts (auto) 10.2 H Absolute Lymphs (auto) 0.12 L Total Counted Not Reportable Neutrophils % (Manual) 64 Band Neutrophils % 25 H Lymphocytes % (Manual) 1 L Monocytes % (Manual) 9 Blast Cells % 1 H* Diff Path Review Reviewed Platelet Estimate ADEQUATE RBC Morphology NORM C+C Sodium 139 Potassium 4.3 Chloride 105 Carbon Dioxide 25.0 Anion Gap 9 BUN 17 Creatinine 0.76 Estim Creat Clear Calc 75.08 Est GFR (MDRD) Af Amer 130 Est GFR (MDRD) Non-Af 107 BUN/Creatinine Ratio 22.5 H Glucose 114 H Calcium 7.6 L Total Bilirubin 0.50 AST 8 L ALT 10 L Alkaline Phosphatase 40 L Total Protein 5.0 L Albumin 1.4 L Globulin 3.6 Albumin/Globulin Ratio 0.4 L Medical Necessity - Tobacco Use Smoking Status: Never smoker Assessment/Plan All Active Problems (Last Reviewed 01/22/18 @ 10:34 by Gaston Byers MD) Sigmoid stricture (Acute) LLQ abdominal pain (Acute) Obstipation (Acute) Small bowel obstruction (Acute) Nausea and vomiting (Acute) Anastomotic leak of intestine (Acute) History of coronary artery stent placement (Resolved 03/02/13) Near syncope (Acute) Hypotension (Acute) Diverticulitis (Acute) History of recent pneumonia (Resolved) Septic shock (Resolved) I am following this patient in conjunction with Dr. Byers S/p open sigmoid colectomy Labs reviewed Encourage ambulation and I.S. Continue antibiotics Possible removal of NG tube and mireles catheter later today We will continue to monitor this patient. Code Visit Inpatient E&M: 20021 Subs Hosp L1 - POST-OP
[2018-01-29] MEDS: Lactated Ringers 1,000 ML 150 ML IV (07:08)
[2018-01-29 08:00] LABS: Hematocrit 32.2 % (40-54); Hemoglobin 10.4 g/dl (13.0-16.5); Mean Corp Hgb Conc 32.3 g/gl (32-36); Mean Corpuscular Hgb 30.3 pg (27.0-32.0); Mean Corpuscular Volume 93.9 fL (80-94); Mean Platelet Vol. 9.1 fl (6.2-12.0); Platelet Count 249 K/mm3 (150-450); RBC Distribution Width CV 14.6 % (11.6-14.6); RBC Distribution Width SD 47.8 fl (35.1-43.9); Red Blood Count 3.43 M/mm3 (4.6-6.2); Scan Indicated on CBC? Y/N NO; White Blood Count 13.3 K/mm3 (4.4-11.0)
[2018-01-29 08:12] LABS: BUN 15 mg/dL (7-18); BUN/Creat Ratio 31.6 RATIO (10-20); Calcium,Total 7.8 mg/dL (8.5-10.1); Chloride 105 mmol/L (98-107); Creatinine, Serum 0.47 mg/dL (0.70-1.30); EST Glomerular Filtration Rate 184 mL/min (>60); Est Glom Filt Rate - Afr Amer 223 mL/min (>60); Estimated Creatinine Clearance 75.08 ml/min; Glucose 119 mg/dL (74-106); Potassium 4.1 mmol/L (3.5-5.1); Sodium Level 140 mmol/L (136-145)
[2018-01-29 08:13] LABS: Anion Gap 3 (5-15)
[2018-01-29] MEDS: Ciprofloxacin 400 MG/200 ML BAG 200 MG IV ×2 (10:02→21:44)
--- NOTE | 2018-01-29 10:20 | NURSING ---
RAE REMOVED, PT TOLERATED WELL. AUTOMATION OPERATOR D/C'D, WASTED WITH DANITZA RN. NG TUBE ALSO D/C'D.
[2018-01-29] MEDS: Morphine 2 MG/ML Syringe 1 MG IV ×2 (12:48→21:43)
--- NOTE | 2018-01-29 20:19 | NURSING ---
Pt's came to desk a short while ago and stated that her had quit breathing for a very short time. Her nurse and I went back to see pt and he has been having hiccups for most of the day. When this situation happens it almost seems as if his hiccups are occasionally interfering when he tries to take a breath. His pulse ox was 88-89% on 2L and we increased his oxygen to 3L. This RN also called CPS for an evaluation and she checked the pt out as well with no acute findings. Pt has been placed on a continuous pulse ox so that we can more closely monitor him. At the current time, he does not appear to be in any distress.
[2018-01-29] MEDS: Lactated Ringers 1,000 ML 75 ML IV ×2 (20:32→22:30)
[2018-01-29] MEDS: Pravastatin 20 MG Tablet 10 MG PO (21:42)
[2018-01-29] MEDS: Senna/Docusate Sodium 1 Tablet 2 TABLET PO (21:42)
--- NOTE | 2018-01-29 23:13 | NURSING ---
Georgie TELEVISION SERVICER advised me that when they got pt up to side of the bed his RODRIGUEZ drain was just laying on the bed and was no longer attached to the pt. This RN removed the dressings around the RODRIGUEZ site and noted that the suture was still in place and there was no active drainage. 2x2s placed over the site and secured with medipore tape.
[2018-01-29] MEDS: LORazepam 2 MG/ML Syringe 1 MG IV (23:39)
[2018-01-30] VITALS (8 sets, daily range): BP systolic 102–128; BP diastolic 52–81; PULSE 77–94; RESP 16–24; TEMP 36.4–37.2; O2SAT 90–98
--- NOTE | 2018-01-30 01:57 | NURSING ---
When entering room pt was attempting to get OOB. sleeping in chair. Pt appeared more confused and restless. This nurse gave a dose of Ativan at 2339, pt was A&Ox3 prior to administering. On this round pt was A&Ox2 to self and year and wasn't able to put into sentence what he was attempting to do in getting OOB. Informed charge nurse Demetria of pts change in behavior. She came in to assess, r/o any visible signs of a stroke which included facial paralysis, hand drift and bilateral strength x4 extremities. No visible signs present. VS wnl's. O2 still satting around 89-90%, Increased O2 up to 4L NC from 3L. Will continue to monitor.
--- NOTE | 2018-01-30 03:23 | NURSING ---
Pt had removed his oxygen as well as his finger probe. Both were reapplied. asleep in the room.
[2018-01-30 06:24] LABS: Hematocrit 29.9 % (40-54); Hemoglobin 9.7 g/dl (13.0-16.5); Mean Corp Hgb Conc 32.4 g/gl (32-36); Mean Corpuscular Hgb 29.7 pg (27.0-32.0); Mean Corpuscular Volume 91.4 fL (80-94); Mean Platelet Vol. 8.7 fl (6.2-12.0); Platelet Count 242 K/mm3 (150-450); RBC Distribution Width CV 14.8 % (11.6-14.6); RBC Distribution Width SD 49.5 fl (35.1-43.9); Red Blood Count 3.27 M/mm3 (4.6-6.2); White Blood Count 14.3 K/mm3 (4.4-11.0)
[2018-01-30 06:25] LABS: Scan Indicated on CBC? Y/N NO
[2018-01-30 06:42] LABS: Anion Gap 5 (5-15); BUN 12 mg/dL (7-18); BUN/Creat Ratio 24.7 RATIO (10-20); Chloride 105 mmol/L (98-107); Creatinine, Serum 0.48 mg/dL (0.70-1.30); EST Glomerular Filtration Rate 180 mL/min (>60); Est Glom Filt Rate - Afr Amer 217 mL/min (>60); Estimated Creatinine Clearance 75.08 ml/min; Glucose 102 mg/dL (74-106); Potassium 3.4 mmol/L (3.5-5.1); Sodium Level 139 mmol/L (136-145)
[2018-01-30] MEDS: Ciprofloxacin 400 MG/200 ML BAG 200 MG IV ×2 (10:07→21:58)
--- NOTE | 2018-01-30 11:14 | PCM.PN.SRG ---
Patient Problems: Active and Suspected Problems (Last Reviewed 01/22/18 @ 10:34 by Gaston Byers MD) Small bowel obstruction (Acute) Nausea and vomiting (Acute) Anastomotic leak of intestine (Acute) Subjective: Patient was able to get into the shower this morning. He is having bowel movements. He is remarkably weak and his diet is extremely poor at this point. Patient pulled out his RODRIGUEZ drain last night. He is not complaining of any nausea or vomiting. Objective: All of the addi are out of his incision. His incision does look clean. - Physical Exam Vital Signs Temp Pulse Resp BP Pulse Ox 98.8 F 80 18 113/67 93 01/30/18 09:27 01/30/18 09:27 01/30/18 09:27 01/30/18 09:27 01/30/18 09:27 Oxygen Flow Rate (L/min) 4 Oxygen Delivery Method Nasal Cannula Weight: 175 lb 4.28 oz Body Mass Index (BMI) 22.4 Intake and Output for Last 24 Hours 01/28/18 01/29/18 01/30/18 23:59 23:59 23:59 Intake Total 4688.5 / 4688.5 1248 / 1248 2660 / 2660 Output Total 1410 / 1410 969 / 969 500 / 500 Balance 3278.5 / 3278.5 279 / 279 2160 / 2160 Laboratory Tests Past 24 Hrs 01/30/18 01/30/18 05:50 05:50 WBC 14.3 H RBC 3.27 L Hgb 9.7 L Hct 29.9 L MCV 91.4 MCH 29.7 MCHC 32.4 RDW 14.8 H RDW Differential 49.5 H Plt Count 242 MPV 8.7 Sodium 139 Potassium 3.4 L Chloride 105 Carbon Dioxide 29.0 Anion Gap 5 BUN 12 Creatinine 0.48 L Estim Creat Clear Calc 75.08 Est GFR (MDRD) Af Amer 217 Est GFR (MDRD) Non-Af 180 BUN/Creatinine Ratio 24.7 H Glucose 102 Calcium 7.0 L Medical Necessity - Tobacco Use Smoking Status: Never smoker Assessment/Plan All Active Problems (Last Reviewed 01/22/18 @ 10:34 by Gaston Byers MD) Sigmoid stricture (Acute) LLQ abdominal pain (Acute) Obstipation (Acute) Small bowel obstruction (Acute) Nausea and vomiting (Acute) Anastomotic leak of intestine (Acute) History of coronary artery stent placement (Resolved 03/02/13) Near syncope (Acute) Hypotension (Acute) Diverticulitis (Acute) History of recent pneumonia (Resolved) Septic shock (Resolved) At this point we are going to try to advance his diet. I believe are going to have to get him to a rehab facility for some extended rehab. In working up his white count as we speak he will remain on antibiotics and if it continues to elevate I will need to start to obtain some cultures of both his blood urine and possibly sputum.
[2018-01-30] MEDS: Morphine 2 MG/ML Syringe 1 MG IV ×2 (11:47→16:34)
[2018-01-30] MEDS: Lactated Ringers 1,000 ML 75 ML IV (11:53)
--- NOTE | 2018-01-30 11:55 | CASEMGMT ---
Social Work Note RN MANUEL Bennett informed this worker that pt's is interested in sending referrals to either [facility] or [facility] [place] [place] for pt. Pt's states she will be visiting the facilities today and informing this worker which facility she would like pt to go to at discharge. SW lloyd Scott, quality management to send referrals to both [facility] and [facility] and to let both facilities know the will be visiting multiple facilities and making a decision. Plan: SNF pending acceptance and medically cleared Liliana Beltran WING SCORER, RIPRAP PLACER
--- NOTE | 2018-01-30 12:16 | CASEMGMT ---
Per TANA Aj, referral needs sent to [facility] and [facility]. Called and left a voicemail for Laura at [facility] and left a voicemail for Khushbu at [facility] letting them know that the referral would be faxed. Meg Scott LPN Clinical Support
--- NOTE | 2018-01-30 14:07 | CASEMGMT ---
Addendum entered by Liliana Beltran 01/30/18 15:22: SW placed a call to Laura at [facility] [place] and informed her that pt's has decided on pt going to [facility]. Original Note: Social Work Note Machine Setup Operator Bob updated this worker that pt's is running late but has decided on [facility] and has begun admission paperwork with [facility]. TANA placed a call to Khushbu at [facility] and she is able to accept pt. SW completed convalescent [facility] in [facility]. Original in pt's chart. Green sheet on pt's chart in the event pt is medically cleared to be discharged over the weekend. Transfer to extended care facility form on pt's chart. Plan: Discharge to [facility] when medically cleared Liliana Beltran DIRECTOR OF PRODUCT MARKETING, AUTOMATION ENGINEERING TECHNICIAN
[2018-01-30] MEDS: Senna/Docusate Sodium 1 Tablet 2 TABLET PO (21:58)
[2018-01-30] MEDS: Pravastatin 20 MG Tablet 10 MG PO (21:58)
[2018-01-30] MEDS: oxyCODONE 5 MG Tablet PO (22:00)
[2018-01-31] VITALS (37 sets, daily range): BP systolic 91–123; BP diastolic 60–79; PULSE 70–113; RESP 16–36; TEMP 36.8–37.4; O2SAT 90–97
[2018-01-31] MEDS: Morphine 2 MG/ML Syringe 1 MG IV (01:26)
--- NOTE | 2018-01-31 02:15 | RAD_ITS ---
STUDY: X-RAY CHEST REASON FOR EXAM: Male, 72 years old. Tachypnea TECHNIQUE: Single AP portable view of the chest. # of Images: 1 COMPARISON: None. FINDINGS: Ill-defined airspace opacities are seen in the right and left lung bases suggesting bilateral pneumonia. There is a small left pleural effusion. Normal size heart. Normal mediastinum and colin. Normal visualized pulmonary arteries. Normal visualized aortic arch and descending thoracic aorta. Normal visualized thoracic spine. 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 There is no demonstrated abnormality of the visualized soft tissue structures of the upper abdomen. RAD/Chest 1 View (Portable) IMPRESSION: Bilateral pneumonia. Electronically Signed: Marion Vargas MD at 3:00 EDT Tel , Service support ,
--- NOTE | 2018-01-31 04:06 | ECHOD_ITS ---
Reason For Study: Dyspnea/SOB Procedure This was a 2D Doppler, Color Flow transthoracic echocardiogram. Patient was unable to tolerate probe for subcostal images. The study was technically difficult. Exam performed portable in patient room. Left Ventricle Normal LV size. Left ventricular systolic function is normal. The estimated ejection fraction is 55 %. Diastolic function is indeterminate. No regional wall motion abnormalities noted. Right Ventricle Normal RV size. Normal systolic function. Atria Normal left atrium. Normal right atrium. No doppler evidence for ASD. Mitral Valve There is no mitral annular calcification. Normal mitral valve. Mild (1+) mitral valve insufficiency. Tricuspid Valve Normal tricuspid valve. Mild tricuspid valve insufficiency. Right ventricular systolic pressure estimated to be 34 mmHg. Aortic Valve Trisinus/trileaflet aortic valve. Normal aortic valve. Trivial aortic valve insufficiency. Pulmonic Valve The pulmonic valve is not well visualized. Trivial pulmonic valve insufficiency. Great Vessels Borderline enlarged aortic root. Pericardium/Pleural No pericardial effusion. MMode/2D Measurements & Calculations LVIDd: 4.3 cm IVSd: 0.91 cm Ao root diam: 3.7 cm LVIDs: 3.0 cm LVPWd: 1.0 cm LA dimension: 3.9 cm RVDd: 3.8 cm FS: 30.4 % RA A4 area: 16.7 cm2 Time Measurements MV dec time: 0.30 sec Doppler Measurements & Calculations MV E max nathan: 57.9 cm/sec Lat Peak E' Nathan: 10.2 cm/sec Med Peak E' Nathan: 8.6 cm/sec MV A max nathan: 80.5 cm/sec E/E' lat: 5.7 E/E' med: 6.7 MV E/A: 0.72 MV V2 max: 106.9 cm/sec MV P1/2t max nathan: 78.0 cm/sec PA V2 max: 99.2 cm/sec MV max P.6 mmHg MV P1/2t: 103.2 msec MV V2 mean: 57.5 cm/sec MV dec slope: 221.3 cm/sec2 MV mean P.5 mmHg MVA(P1/2t): 2.1 cm2 MV V2 VTI: 25.0 cm TR max nathan: 277.8 cm/sec TR max P.9 mmHg Interpretation Summary The study was technically difficult. Left ventricular systolic function is normal. The estimated ejection fraction is 55 %. Mild (1+) mitral valve insufficiency. Mild tricuspid valve insufficiency. Trivial aortic valve insufficiency. Trivial pulmonic valve insufficiency. Borderline enlarged aortic root. Right ventricular systolic pressure estimated to be 34 mmHg. Diastolic function is indeterminate. Ordering Physician: Theodore Pastrana Referring Physician: Gaston Byers Performed By: Rod Tinajero RCS
[2018-01-31] MEDS: Piperacil/Tazobactam 3.375 GM/50 ML ML IV ×3 (04:38→21:14)
[2018-01-31] MEDS: Lactated Ringers 1,000 ML 75 ML IV (04:38)
--- NOTE | 2018-01-31 04:58 | PCM.RX.CS ---
Consult Pharmacy has been consulted to manage selected antiobiotic: Vancomycin Type of Consult: New start Suspected Infection: Other Prior Doses of Antibiotics Received/Current Regimen: Medications Vancomycin HCl (Vancomycin) 1,000 mg in 200 mls @ 200 mls/hr IV Q12H MERRICK Vancomycin HCl 1,250 mg/ (Sodium Chloride) 275 mls @ 167 mls/hr IV X1 ONE Stop: 01/31/18 06:08 Last Admin: 01/31/18 04:38 Dose: 167 mls/hr Labs: Sodium 139 mmol/L (136-145) 01/30/18 05:50 Potassium 3.4 mmol/L (3.5-5.1) L 01/30/18 05:50 Chloride 105 mmol/L (98-107) 01/30/18 05:50 Carbon Dioxide 29.0 mmol/L (21.0-32.0) 01/30/18 05:50 Anion Gap 5 (5-15) 01/30/18 05:50 BUN 12 mg/dL (7-18) 01/30/18 05:50 Creatinine 0.48 mg/dL (0.70-1.30) L 01/30/18 05:50 Est GFR (MDRD) Af Amer 217 mL/min (>60) 01/30/18 05:50 Est GFR (MDRD) Non-Af 180 mL/min (>60) 01/30/18 05:50 BUN/Creatinine Ratio 24.7 RATIO (10-20) H 01/30/18 05:50 Glucose 102 mg/dL (74-106) 01/30/18 05:50 Weight used for dosin.5 kg Estimated Creatinine Clearance: 75 Goal Trough: 15-20 mcg/mL Pharmacy Plan for Drug Dosing: Pharmacy Service will continue to monitor and adjust dosing as required. Follow-Up Labs: Trough Vancomycin Labs to be done on [date and time ordered]: 02/01/18 @1600
[2018-01-31] MEDS: Ondansetron 4 MG/2 ML Vial IV (05:06)
--- NOTE | 2018-01-31 05:28 | PCM.PN.HOSP ---
Patient Problems: Active and Suspected Problems (Last Reviewed 01/22/18 @ 10:34 by Gaston Byers MD) Small bowel obstruction (Acute) Nausea and vomiting (Acute) Anastomotic leak of intestine (Acute) Subjective: Internal medicine consult note Patient with a history of CAD status post stent; hyperlipidemia; previous history of traumatic brain injury about 20 years ago who was admitted for nausea and vomiting and found to have a sigmoid structure for which reason a colectomy was done. Internal medicine was consulted because patient was having acute respiratory distress requiring increased amounts of oxygen prompting a chest x-ray which showed bilateral infiltrates. Patient to be placed on 4 L of nasal cannula. And on the 4 L his oxygen saturation was around 91%. The patient reports shortness of breath. He denies any cough, subjective fever or chills. Next reported low-grade fever of 99.3 which subsided by itself to 98.5. Patient reports hiccups times 2 days. Patient complain of bilateral pain at the lateral sides of his abdomen. Importantly, patient and family thinks he has undiagnosed sleep apnea. Patient could not follow through with outpatient sleep study. Surgical history: Before this colectomy on this admission the patient had appendectomy and cholecystectomy. Social history: patient denies ever smoking. He denies any alcohol use. Family history; His father had prostate cancer, hypertension and hyperlipidemia. His mother had hypertension and hyperlipidemia. Vitals/I&O's: Vital Signs Temp Pulse Resp BP Pulse Ox 98.9 F 80 24 H 111/61 90 01/31/18 04:42 01/31/18 04:42 01/31/18 04:42 01/31/18 04:42 01/31/18 04:42 Oxygen Flow Rate (L/min) 4 Oxygen Delivery Method Nasal Cannula Weight: 79.5 kg Body Mass Index (BMI) 22.4 Intake and Output for Last 24 Hours 01/29/18 01/30/18 01/31/18 23:59 23:59 23:59 Intake Total 1248 / 1248 3759 / 3759 980 / 980 Output Total 969 / 969 1250 / 1250 403 / 403 Balance 279 / 279 2509 / 2509 577 / 577 General: Alert, Oriented x3, Cooperative HEENT: Atraumatic, PERRLA, EOMI, Normocephalic Neck: Supple, No JVD, Negative Carotid Bruits Lungs: Clear to auscultation, Diminished Cardiovascular: Regular rate, No murmurs Abdomen: Bowel Sounds Present - Hypoactive, Distended, Tender, - - Midline incision dry and intact Extremities: Capillary Refill Less than 3 Seconds, Edema - 2+ lateral sides of bilateral legs. Skin: No rashes, No breakdown Musculoskeletal: No Tenderness to Palpation of Joints or Extremities Neurological: Cranial nerves II-XII grossly intact Psych/Mental Status: Normal Affect, Appropriate Laboratory Results 01/30/18 05:50: WBC 14.3 H, RBC 3.27 L, Hgb 9.7 L, Hct 29.9 L, MCV 91.4, MCH 29.7, MCHC 32.4, RDW 14.8 H, RDW Differential 49.5 H, Plt Count 242, MPV 8.7 01/30/18 05:50: Sodium 139, Potassium 3.4 L, Chloride 105, Carbon Dioxide 29.0, Anion Gap 5, BUN 12, Creatinine 0.48 L, Estim Creat Clear Calc 75.08, Est GFR (MDRD) Af Amer 217, Est GFR (MDRD) Non-Af 180, BUN/Creatinine Ratio 24.7 H, Glucose 102, Calcium 7.0 L Current Medications Bisacodyl (Dulcolax) 10 mg RECTAL .X1 PRN PRN PRN Reason: See label comments Bisacodyl (Dulcolax) 10 mg PO .X1 PRN PRN PRN Reason: See label comments Diphenhydramine HCl (Benadryl) 12.5 - 25 mg IV Q6H PRN PRN PRN Reason: ITCHING Naloxone HCl 4 mg/ Dextrose 504 mls @ 0 mls/hr IV .Q0M PRN; Protocol PRN Reason: To maintain Resp. rate >10 Lactated Ringer's () 1,000 mls @ 75 mls/hr IV .[id number] [facility] Last Admin: 01/31/18 04:38 Dose: 75 mls/hr Piperacillin Sod/Tazobactam Sod (Zosyn) 3.375 gm in 50 mls @ 12.5 mls/hr IV Q8 [facility] Last Admin: 01/31/18 04:38 Dose: 12.5 mls/hr Vancomycin IV Pharmacy to Dose (1,250 ea/ Sodium Chloride) 500 mls @ 250 mls/hr IV PRN PRN; Protocol Vancomycin HCl 1,250 mg/ (Sodium Chloride) 275 mls @ 167 mls/hr IV X1 ONE Stop: 01/31/18 06:08 Last Admin: 01/31/18 04:38 Dose: 167 mls/hr Vancomycin HCl (Vancomycin) 1,000 mg in 200 mls @ 200 mls/hr IV Q12H [facility] Ibuprofen (Motrin) 800 mg PO BID PRN PRN PRN Reason: FEVER Morphine Sulfate () 1 mg IV Q3H PRN PRN PRN Reason: SEVERE PAIN (6-10/10) Last Admin: 01/31/18 01:26 Dose: 1 mg Naloxone HCl (Narcan) 0.02 mg IV Q1M PRN PRN Reason: RR <10 and pt unresponsive Nitroglycerin (Nitrostat) 0.4 mg SUBLINGUAL Q5M PRN PRN Reason: Chest Pain Nutritional Formula (Lactose Free) (Ensure Clear) 120 ml PO 4X/DAY [facility] Last Admin: 01/30/18 21:59 Dose: Not Given Ondansetron HCl (Zofran) 4 mg IV Q6H PRN PRN PRN Reason: NAUSEA/VOMITING Last Admin: 01/31/18 05:06 Dose: 4 mg Oxycodone HCl (Oxyir) 5 mg PO Q6H PRN PRN PRN Reason: SEVERE PAIN (6-10/10) Last Admin: 01/30/18 22:00 Dose: 5 mg Pravastatin Sodium (Pravachol) 10 mg PO QHS [facility] Last Admin: 01/30/18 21:58 Dose: 10 mg Senna/Docusate Sodium (Senokot-S, Emily-Colace) 2 tablet PO QHS [facility] Last Admin: 01/30/18 21:58 Dose: 2 tablet Throat Lozenges (Cepacol Sore Throat Lozenge) 1 lozenge MUCOUS MEM Q2H PRN PRN PRN Reason: SORE THROAT Last Admin: 01/28/18 23:02 Dose: 1 lozenge Medical Necessity - Tobacco Use Smoking Status: Never smoker Assessment/Plan All Active Problems (Last Reviewed 01/22/18 @ 10:34 by Gaston Byers MD) Sigmoid stricture (Acute) LLQ abdominal pain (Acute) Obstipation (Acute) Small bowel obstruction (Acute) Nausea and vomiting (Acute) Anastomotic leak of intestine (Acute) History of coronary artery stent placement (Resolved 03/02/13) Near syncope (Acute) Hypotension (Acute) Diverticulitis (Acute) History of recent pneumonia (Resolved) Septic shock (Resolved) Patient is 72-year-old male who had colectomy for sigmoid stricture now with acute hypoxemic respiratory failure. Acute hypoxemic respiratory failure. His white count has been trending up while on antibiotics (ciprofloxacin; Flagyl). Nurse reported a low-grade temperature of 99.3. Chest x-ray showed bilateral infiltrates. Hospital associated pneumonia is likely. Patient transition from current antibiotics to vancomycin and Zosyn. Patient is not coughing up anything for sputum culture. Blood culture x2 has already been ordered. Patient was encouraged to use incentive spirometer that was already in his room. Acapella ordered. DuoNeb scheduled and as needed albuterol. Chlorpromazine for cups. Zofran discontinued due to increased risk of QTc prolongation with concomitant use of chlorpromazine. Phenergan ordered. Less likely diagnosis is heart failure. BNP and echocardiogram ordered. Trend CBC and BMP. Sigmoid stricture status post colectomy. Surgery is following. DVT prophylaxis Patient with SCD. Code Visit Inpatient E&M: 54137 Init Hosp L3
--- NOTE | 2018-01-31 05:39 | PN_ITS ---
Patient Problems: Active and Suspected Problems (Last Reviewed 01/22/18 @ 10:34 by Gaston Byers MD) Small bowel obstruction (Acute) Nausea and vomiting (Acute) Anastomotic leak of intestine (Acute) Subjective: Internal medicine consult note Patient with a history of CAD status post stent; hyperlipidemia; previous history of traumatic brain injury about 20 years ago who was admitted for nausea and vomiting and found to have a sigmoid structure for which reason a colectomy was done. Internal medicine was consulted because patient was having acute respiratory distress requiring increased amounts of oxygen prompting a chest x- ray which showed bilateral infiltrates. Patient to be placed on 4 L of nasal cannula. And on the 4 L his oxygen saturation was around 91%. The patient reports shortness of breath. He denies any cough, subjective fever or chills. Next reported low-grade fever of 99.3 which subsided by itself to 98.5. Patient reports hiccups times 2 days. Patient complain of bilateral pain at the lateral sides of his abdomen. Importantly, patient and family thinks he has undiagnosed sleep apnea. Patient could not follow through with outpatient sleep study. Surgical history: Before this colectomy on this admission the patient had appendectomy and cholecystectomy. Social history: patient denies ever smoking. He denies any alcohol use. Family history; His father had prostate cancer, hypertension and hyperlipidemia. His mother had hypertension and hyperlipidemia. Vitals/I&O's: Vital Signs Temp Pulse Resp BP Pulse Ox 98.9 F 80 24 H 111/61 90 01/31/18 04:42 01/31/18 04:42 01/31/18 04:42 01/31/18 04:42 01/31/18 04:42 Oxygen Flow Rate (L/min) 4 Oxygen Delivery Method Nasal Cannula Weight: 79.5 kg Body Mass Index (BMI) 22.4 Intake and Output for Last 24 Hours 01/29/18 01/30/18 01/31/18 23:59 23:59 23:59 Intake Total 1248 / 1248 3759 / 3759 980 / 980 Output Total 969 / 969 1250 / 1250 403 / 403 Balance 279 / 279 2509 / 2509 577 / 577 General: Alert, Oriented x3, Cooperative HEENT: Atraumatic, PERRLA, EOMI, Normocephalic Neck: Supple, No JVD, Negative Carotid Bruits Lungs: Clear to auscultation, Diminished Cardiovascular: Regular rate, No murmurs Abdomen: Bowel Sounds Present - Hypoactive, Distended, Tender, - - Midline incision dry and intact Extremities: Capillary Refill Less than 3 Seconds, Edema - 2+ lateral sides of bilateral legs. Skin: No rashes, No breakdown Musculoskeletal: No Tenderness to Palpation of Joints or Extremities Neurological: Cranial nerves II-XII grossly intact Psych/Mental Status: Normal Affect, Appropriate Laboratory Results 01/30/18 05:50: WBC 14.3 H, RBC 3.27 L, Hgb 9.7 L, Hct 29.9 L, MCV 91.4, MCH 29.7, MCHC 32.4, RDW 14.8 H, RDW Differential 49.5 H, Plt Count 242, MPV 8.7 01/30/18 05:50: Sodium 139, Potassium 3.4 L, Chloride 105, Carbon Dioxide 29.0, Anion Gap 5, BUN 12, Creatinine 0.48 L, Estim Creat Clear Calc 75.08, Est GFR (MDRD) Af Amer 217, Est GFR (MDRD) Non-Af 180, BUN/Creatinine Ratio 24.7 H, Glucose 102, Calcium 7.0 L Current Medications Bisacodyl (Dulcolax) 10 mg RECTAL .X1 PRN PRN PRN Reason: See label comments Bisacodyl (Dulcolax) 10 mg PO .X1 PRN PRN PRN Reason: See label comments Diphenhydramine HCl (Benadryl) 12.5 - 25 mg IV Q6H PRN PRN PRN Reason: ITCHING Naloxone HCl 4 mg/ Dextrose 504 mls @ 0 mls/hr IV .Q0M PRN; Protocol PRN Reason: To maintain Resp. rate >10 Lactated Ringer's () 1,000 mls @ 75 mls/hr IV .[id number] [facility] Last Admin: 01/31/18 04:38 Dose: 75 mls/hr Piperacillin Sod/Tazobactam Sod (Zosyn) 3.375 gm in 50 mls @ 12.5 mls/hr IV Q8 [facility] Last Admin: 01/31/18 04:38 Dose: 12.5 mls/hr Vancomycin IV Pharmacy to Dose (1,250 ea/ Sodium Chloride) 500 mls @ 250 mls/hr IV PRN PRN; Protocol Vancomycin HCl 1,250 mg/ (Sodium Chloride) 275 mls @ 167 mls/hr IV X1 ONE Stop: 01/31/18 06:08 Last Admin: 01/31/18 04:38 Dose: 167 mls/hr Vancomycin HCl (Vancomycin) 1,000 mg in 200 mls @ 200 mls/hr IV Q12H [facility] Ibuprofen (Motrin) 800 mg PO BID PRN PRN PRN Reason: FEVER Morphine Sulfate () 1 mg IV Q3H PRN PRN PRN Reason: SEVERE PAIN (6-10/10) Last Admin: 01/31/18 01:26 Dose: 1 mg Naloxone HCl (Narcan) 0.02 mg IV Q1M PRN PRN Reason: RR <10 and pt unresponsive Nitroglycerin (Nitrostat) 0.4 mg SUBLINGUAL Q5M PRN PRN Reason: Chest Pain Nutritional Formula (Lactose Free) (Ensure Clear) 120 ml PO 4X/DAY [facility] Last Admin: 01/30/18 21:59 Dose: Not Given Ondansetron HCl (Zofran) 4 mg IV Q6H PRN PRN PRN Reason: NAUSEA/VOMITING Last Admin: 01/31/18 05:06 Dose: 4 mg Oxycodone HCl (Oxyir) 5 mg PO Q6H PRN PRN PRN Reason: SEVERE PAIN (6-10/10) Last Admin: 01/30/18 22:00 Dose: 5 mg Pravastatin Sodium (Pravachol) 10 mg PO QHS [facility] Last Admin: 01/30/18 21:58 Dose: 10 mg Senna/Docusate Sodium (Senokot-S, Emily-Colace) 2 tablet PO QHS [facility] Last Admin: 01/30/18 21:58 Dose: 2 tablet Throat Lozenges (Cepacol Sore Throat Lozenge) 1 lozenge MUCOUS MEM Q2H PRN PRN PRN Reason: SORE THROAT Last Admin: 01/28/18 23:02 Dose: 1 lozenge Medical Necessity - Tobacco Use Smoking Status: Never smoker Assessment/Plan All Active Problems (Last Reviewed 01/22/18 @ 10:34 by Gaston Byers MD) Sigmoid stricture (Acute) LLQ abdominal pain (Acute) Obstipation (Acute) Small bowel obstruction (Acute) Nausea and vomiting (Acute) Anastomotic leak of intestine (Acute) History of coronary artery stent placement (Resolved 03/02/13) Near syncope (Acute) Hypotension (Acute) Diverticulitis (Acute) History of recent pneumonia (Resolved) Septic shock (Resolved) Patient is 72-year-old male who had colectomy for sigmoid stricture now with acute hypoxemic respiratory failure. Acute hypoxemic respiratory failure. His white count has been trending up while on antibiotics (ciprofloxacin; Flagyl). Nurse reported a low-grade temperature of 99.3. Chest x-ray showed bilateral infiltrates. Hospital associated pneumonia is likely. Patient transition from current antibiotics to vancomycin and Zosyn. Patient is not coughing up anything for sputum culture. Blood culture x2 has already been ordered. Patient was encouraged to use incentive spirometer that was already in his room. Acapella ordered. DuoNeb scheduled and as needed albuterol. Chlorpromazine for cups. Zofran discontinued due to increased risk of QTc prolongation with concomitant use of chlorpromazine. Phenergan ordered. Less likely diagnosis is heart failure. BNP and echocardiogram ordered. Trend CBC and BMP. Sigmoid stricture status post colectomy. Surgery is following. DVT prophylaxis Patient with SCD. Code Visit Inpatient E&M: 68231 Init Hosp L3
[2018-01-31 06:28] LABS: Hematocrit 32.1 % (40-54); Hemoglobin 10.5 g/dl (13.0-16.5); Mean Corp Hgb Conc 32.7 g/gl (32-36); Mean Corpuscular Hgb 30.1 pg (27.0-32.0); Platelet Count 288 K/mm3 (150-450); RBC Distribution Width CV 14.9 % (11.6-14.6); RBC Distribution Width SD 48.6 fl (35.1-43.9); Red Blood Count 3.49 M/mm3 (4.6-6.2); White Blood Count 13.5 K/mm3 (4.4-11.0)
[2018-01-31 06:29] LABS: Scan Indicated on CBC? Y/N NO
[2018-01-31 06:52] LABS: Anion Gap 5 (5-15); BUN 11 mg/dL (7-18); BUN/Creat Ratio 26.9 RATIO (10-20); Calcium,Total 7.4 mg/dL (8.5-10.1); Chloride 106 mmol/L (98-107); Creatinine, Serum 0.41 mg/dL (0.70-1.30); EST Glomerular Filtration Rate 219 mL/min (>60); Est Glom Filt Rate - Afr Amer 265 mL/min (>60); Estimated Creatinine Clearance 75.08 ml/min; Glucose 117 mg/dL (74-106); Potassium 3.4 mmol/L (3.5-5.1); Sodium Level 141 mmol/L (136-145)
[2018-01-31] MEDS: Ipratropium/Albuterol Sulfate 3 ML AMPUL.NEB INHALATION ×3 (07:10→18:51)
--- NOTE | 2018-01-31 07:40 | NURSING ---
Report called to Mohit in ICU
--- NOTE | 2018-01-31 07:45 | PCM.CON.CC ---
Problem List (1) Acute respiratory failure with hypoxia Status: Acute (2) Sigmoid stricture Status: Acute (3) Anastomotic leak of intestine Status: Acute (4) Atherosclerosis of coronary artery of [place] heart without angina pectoris Status: Chronic Comment: PCI/GAETANO-LAD w/ 3.0 x 28 mm Promus Element Plus Rx 03/02/13 (5) History of coronary artery stent placement Status: Resolved Comment: PCI/GAETANO-LAD w/ 3.0 x 28 mm Promus Element Plus Rx 03/02/13 (6) Personal history of skin cancer Status: Chronic (7) Neoplasm of unspecified behavior of bone, soft tissue, and skin Status: Chronic Comment: 15 mm lesion right superomedial chest wall 3 mm lesion left volar distal forearm by wrist 1 cm lesion left mid dorsal ulnar forearm 5 mm pigmented lesion right outer arm 7 mm lesion left middle medial back (8) Actinic keratosis Status: Chronic Comment: actinic lesion left nasal tip actinic lesion left shoulder (9) Obstructive sleep apnea Status: Chronic (10) Left anterior fascicular block (LAFB) Status: Chronic (11) HLD (hyperlipidemia) Status: Chronic Qualifiers: Hyperlipidemia type: pure hypercholesterolemia Qualified Code(s): E78.00 - Pure hypercholesterolemia, unspecified; E78.00 - Pure hypercholesterolemia, unspecified; E78.00 - Pure hypercholesterolemia, unspecified; E78.0 - Pure hypercholesterolemia Reason for Consult Date of Consultation: 01/31/18 Reason for Consultation: Acute hypoxic respiratory failure History of Present Illness: The patient is a 72 year old M with past medical history listed below, who presented to [facility] on 01/25/2018 secondary to nausea and vomiting with an inability to tolerate bowel prep. Patient had a known stricture of the sigmoid colon and had a planned surgery for a sigmoid colectomy. Patient has had a complicated surgical course with a leaking anastomosis requiring repeat surgery. Patient has been on the medical surgical floor and doing okay over the last 3 days on antibiotics for anastomotic leak. However, patient's respiratory status has continued to decline, requiring increased FiO2 to maintain saturations, so patient will be transferred to the intensive care unit. On evaluation, patient reports hiccups as his major complaint. Patient has noted some conversational dyspnea, but believes his abdominal pain is improving. Patient did have a bowel movement overnight and has tolerated p.o. No emesis has been reported. Patient denies any history of respiratory complaints. 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 Patient denies any history of smoking and is never seen a manager statistical or required inhalers previously. Patient does have a history of coronary artery disease with a stent placed to his LAD. Patient had an echocardiogram in September showing preserved ejection fraction of 60% with mild TR and a pulmonary artery systolic pressure of 30 mmHg. Patient follows with Dr. Amaro at baseline. Did discuss with patient's at the bedside. She reports of relatively good health prior to surgery. Patient does have a history of skin cancer and actinic keratosis. Review of systems otherwise negative x10 systems. Past Medical History Past Medical History (Chronic Problems): Chronic Problems (Last Reviewed 01/22/18 @ 10:34 by Gaston Byers MD) Atherosclerosis of coronary artery of [place] heart without angina pectoris (Chronic) PCI/GAETANO-LAD w/ 3.0 x 28 mm Promus Element Plus Rx 03/02/13 Personal history of skin cancer (Chronic) Neoplasm of unspecified behavior of bone, soft tissue, and skin (Chronic) 15 mm lesion right superomedial chest wall 3 mm lesion left volar distal forearm by wrist 1 cm lesion left mid dorsal ulnar forearm 5 mm pigmented lesion right outer arm 7 mm lesion left middle medial back Actinic keratosis (Chronic) actinic lesion left nasal tip actinic lesion left shoulder Benign keratosis (Chronic) 1 cm benign keratosis left lateral back 5 mm benign keratosis left outer arm 6 mm benign keratosis left lateral forehead 5 mm benign keratosis left outer shoulder Obstructive sleep apnea (Chronic) Left anterior fascicular block (LAFB) (Chronic) Atrial premature contractions (Chronic) HLD (hyperlipidemia) (Chronic) Medical History: Medical History (Last Reviewed 01/22/18 @ 10:34 by Gaston Byers MD) Obstructive sleep apnea (Chronic) G47.33 Left anterior fascicular block (LAFB) (Chronic) I44.4 Atrial premature contractions (Chronic) I49.1 HLD (hyperlipidemia) (Chronic) E78.5 Diverticulitis (Acute) K57.92 Abdominal pain R10.9 History of recent pneumonia (Resolved) Z87.01 Septic shock (Resolved) A41.9, R65.21 Allergies metoprolol Adverse Reaction (Verified 01/25/18 11:40) Other SYNCOPE Home Medications: Ambulatory Orders Medication Instructions Recorded Nitroglycerin [Nitrostat] 0.4 mg SUBLINGUAL Q5M PRN 04/12/13 Aspirin [Aspirin, Baby] 81 mg PO DAILY 06/26/17 Ciprofloxacin HCl 500 mg PO BID 01/23/18 Clopidogrel Bisulfate [Plavix] 75 mg PO DAILY 01/23/18 Docusate Sodium [Colace] 100 mg PO DAILY 01/23/18 Cyanocobalamin (Vitamin B-12) 2,000 mcg PO DAILY 01/25/18 [Vitamin B-12] Pravastatin Sodium [Pravachol] 10 mg PO DAILY 01/25/18 Surgical History: Surgical History (Last Reviewed 01/22/18 @ 10:34 by Gaston Byers MD) History of coronary artery stent placement (Resolved) Onset Date: 03/02/13 Z95.5 PCI/GAETANO-LAD w/ 3.0 x 28 mm Promus Element Plus Rx 03/02/13 History of colonoscopy Onset Date: ~2013 Z98.890 H/O vasectomy Z98.52 History of appendectomy Z98.890, Z90.49 History of cholecystectomy Z98.890, Z90.49 Smoking Status: Never smoker - *Family History Maternal Family History: Family History (Last Reviewed 01/22/18 @ 10:34 by Gaston Byers MD) Father CVA (cerebral vascular accident) Hypertension HLD (hyperlipidemia) Cancer Mother HLD (hyperlipidemia) Hypertension Other Family history of skin cancer History Items: No pertinent history Review of Systems Comment: See HPI Patient Problems: Active and Suspected Problems (Last Reviewed 01/22/18 @ 10:34 by Gaston Byers MD) Small bowel obstruction (Acute) Nausea and vomiting (Acute) Anastomotic leak of intestine (Acute) Acute respiratory failure with hypoxia (Acute) Objective: Imaging was personally reviewed. Chest x-ray completed this morning shows bilateral alveolar infiltrates with fluid in the fissure. KUB on 01/25/2018 showed significant bowel gas, but only a small air bubble is noted on chest x-ray. CT scan from September showed no hilar lymphadenopathy with mild scarring and/or atelectasis at the lung bases. Left-sided pleural plaques appreciated. Previous echocardiogram described in HPI - Physical Exam General: Alert, Oriented x3, Cooperative, - - Mild to moderate respiratory distress. Appears stated age. HEENT: Atraumatic, PERRLA, EOMI, Normocephalic, - - No scleral icterus or injection noted. Oral: Moist Mucosa, No Gingival or Mucosal Lesions/ Ulcerations Neck: Supple, No Nodes, Trachea Midline, JVD, Right Lungs: No rhonchi, No wheeze, Rales - Left greater than right, - - Symmetric expansion. No dullness to percussion. Cardiovascular: Regular rate, Regular Rhythm, Normal S1, Normal S2, No murmurs, No rub noted, No Gallop Abdomen: Bowel Sounds Present, Soft, Distended - Mildly, Tender - Only to deep palpation Extremities: No clubbing, No cyanosis, Capillary Refill Less than 3 Seconds, Edema - Trace to 1+ lower extremity Skin: Incision - Healing well. Musculoskeletal: No Tenderness to Palpation of Joints or Extremities, No Muscle Wasting Lymphatic: No Cervical, Supraclavicular, or Inguinal Adenopathy Neurological: Cranial nerves II-XII grossly intact, Neuro grossly intact, Motor Exam 5/5 strength throughout Psych/Mental Status: Alert and oriented to time, place, person, mood and affect Vital Signs Temp Pulse Resp BP Pulse Ox 36.8 C 76 18 112/60 94 01/31/18 06:45 01/31/18 07:11 01/31/18 07:11 01/31/18 06:45 01/31/18 07:11 Oxygen Flow Rate (L/min) 4 Oxygen Delivery Method Nasal Cannula Weight: 79.5 kg Body Mass Index (BMI) 22.4 Intake and Output for Last 24 Hours 01/29/18 01/30/18 01/31/18 23:59 23:59 23:59 Intake Total 1248 / 1248 3759 / 3759 1588 / 1588 Output Total 969 / 969 1250 / 1250 703 / 703 Balance 279 / 279 2509 / 2509 885 / 885 Laboratory Tests Past 24 Hrs 01/31/18 01/31/18 01/31/18 05:29 05:29 05:29 WBC 13.5 H RBC 3.49 L Hgb 10.5 L Hct 32.1 L MCV 92.0 MCH 30.1 MCHC 32.7 RDW 14.9 H RDW Differential 48.6 H Plt Count 288 MPV 9.0 Sodium 141 Potassium 3.4 L Chloride 106 Carbon Dioxide 30.0 Anion Gap 5 BUN 11 Creatinine 0.41 L Estim Creat Clear Calc 75.08 Est GFR (MDRD) Af Amer 265 Est GFR (MDRD) Non-Af 219 BUN/Creatinine Ratio 26.9 H Glucose 117 H Calcium 7.4 L B-Natriuretic Peptide Pending Clinical Impression(s) from Imaging Studies Acute Abdomen Series 01/25/18 11:41 IMPRESSION: 1. Dilated small bowel loops and colon with air-fluid levels spaces for distal colonic obstruction. 2. No active pulmonary disease. Electronically Signed: Attila Edmondson MD at 13:10 EDT Tel , Service support , KUB X-Ray 01/25/18 12:56 IMPRESSION: Probable diffuse ileus. Nasogastric tube in the stomach. Electronically Signed: Todd Tomas DO at 14:03 EDT Tel [phone], Service support , Chest X-Ray 01/31/18 02:15 IMPRESSION: Bilateral pneumonia. Electronically Signed: Marion Vargas MD at 3:00 EDT Tel , Service support , Assessment/Plan Active and Suspected Problems (Last Reviewed 01/22/18 @ 10:34 by Gaston Byers MD) Small bowel obstruction (Acute) Nausea and vomiting (Acute) Anastomotic leak of intestine (Acute) Acute respiratory failure with hypoxia (Acute) RECOMMENDATIONS: 1. Discontinue IV fluids 2. Add Lasix therapy 3. Agree with empiric antibiotics for now 4. Obtain nasal MRSA swab, discontinue vancomycin if negative 5. Wean oxygen as tolerated, continue incentive spirometer IMPRESSIONS: 1. Acute hypoxic respiratory failure secondary to suspected acute diastolic CHF Patient is +13 L over the course of the hospitalization. Hypoxemia has developed slowly over the past 3 days. Patient does have an elevated white blood cell count, but is postsurgical. Patient is not reporting any productive cough at this time. Patient does have a history of diastolic dysfunction and coronary artery disease. We will treat empirically with antibiotics for 48 hours. Sputum culture will be ordered. Patient will also receive diuretic therapy and have IV fluids discontinued. Wean oxygen as tolerated. Stressed to the patient that continued use of incentive spirometer is important. 2. 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 Anastomosis appears normal at this time. Patient does continue to have a persistent elevation of WBC. Sputum culture blood cultures have been ordered. Patient has tolerated p.o. diet and respiratory rate should not restrict this from continuing. Okay to continue diet from a respiratory standpoint, but defer to surgery. 3. History of skin cancer/coronary artery disease/hyperlipidemia/left anterior fascicular block/advanced age Complicates care, management, recovery and prognosis. Okay to continue with baseline medications from my perspective. Code Visit Inpatient E&M: 17371 Init Hosp L3
--- NOTE | 2018-01-31 07:52 | CON.PCM_ITS ---
Problem List (1) Acute respiratory failure with hypoxia Status: Acute (2) Sigmoid stricture Status: Acute (3) Anastomotic leak of intestine Status: Acute (4) Atherosclerosis of coronary artery of [place] heart without angina pectoris Status: Chronic Comment: PCI/GAETANO-LAD w/ 3.0 x 28 mm Promus Element Plus Rx 03/02/13 (5) History of coronary artery stent placement Status: Resolved Comment: PCI/GAETANO-LAD w/ 3.0 x 28 mm Promus Element Plus Rx 03/02/13 (6) Personal history of skin cancer Status: Chronic (7) Neoplasm of unspecified behavior of bone, soft tissue, and skin Status: Chronic Comment: 15 mm lesion right superomedial chest wall 3 mm lesion left volar distal forearm by wrist 1 cm lesion left mid dorsal ulnar forearm 5 mm pigmented lesion right outer arm 7 mm lesion left middle medial back (8) Actinic keratosis Status: Chronic Comment: actinic lesion left nasal tip actinic lesion left shoulder (9) Obstructive sleep apnea Status: Chronic (10) Left anterior fascicular block (LAFB) Status: Chronic (11) HLD (hyperlipidemia) Status: Chronic Qualifiers: Hyperlipidemia type: pure hypercholesterolemia Qualified Code(s): E78.00 - Pure hypercholesterolemia, unspecified; E78.00 - Pure hypercholesterolemia, unspecified; E78.00 - Pure hypercholesterolemia, unspecified; E78.0 - Pure hypercholesterolemia Reason for Consult Date of Consultation: 01/31/18 Reason for Consultation: Acute hypoxic respiratory failure History of Present Illness: The patient is a 72 year old M with past medical history listed below, who presented to [facility] on 01/25/2018 secondary to nausea and vomiting with an inability to tolerate bowel prep. Patient had a known stricture of the sigmoid colon and had a planned surgery for a sigmoid colectomy. Patient has had a complicated surgical course with a leaking anastomosis requiring repeat surgery. Patient has been on the medical surgical floor and doing okay over the last 3 days on antibiotics for anastomotic leak. However, patient's respiratory status has continued to decline, requiring increased FiO2 to maintain saturations, so patient will be transferred to the intensive care unit. On evaluation, patient reports hiccups as his major complaint. Patient has noted some conversational dyspnea, but believes his abdominal pain is improving. Patient did have a bowel movement overnight and has tolerated p.o. No emesis has been reported. Patient denies any history of respiratory complaints. 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 Patient denies any history of smoking and is never seen a director case management or required inhalers previously. Patient does have a history of coronary artery disease with a stent placed to his LAD. Patient had an echocardiogram in September showing preserved ejection fraction of 60% with mild TR and a pulmonary artery systolic pressure of 30 mmHg. Patient follows with Dr. Amaro at baseline. Did discuss with patient's at the bedside. She reports of relatively good health prior to surgery. Patient does have a history of skin cancer and actinic keratosis. Review of systems otherwise negative x10 systems. Past Medical History Past Medical History (Chronic Problems): Chronic Problems (Last Reviewed 01/22/18 @ 10:34 by Gaston Byers MD) Atherosclerosis of coronary artery of [place] heart without angina pectoris (Chronic) PCI/GAETANO-LAD w/ 3.0 x 28 mm Promus Element Plus Rx 03/02/13 Personal history of skin cancer (Chronic) Neoplasm of unspecified behavior of bone, soft tissue, and skin (Chronic) 15 mm lesion right superomedial chest wall 3 mm lesion left volar distal forearm by wrist 1 cm lesion left mid dorsal ulnar forearm 5 mm pigmented lesion right outer arm 7 mm lesion left middle medial back Actinic keratosis (Chronic) actinic lesion left nasal tip actinic lesion left shoulder Benign keratosis (Chronic) 1 cm benign keratosis left lateral back 5 mm benign keratosis left outer arm 6 mm benign keratosis left lateral forehead 5 mm benign keratosis left outer shoulder Obstructive sleep apnea (Chronic) Left anterior fascicular block (LAFB) (Chronic) Atrial premature contractions (Chronic) HLD (hyperlipidemia) (Chronic) Medical History: Medical History (Last Reviewed 01/22/18 @ 10:34 by Gaston Byers MD) Obstructive sleep apnea (Chronic) G47.33 Left anterior fascicular block (LAFB) (Chronic) I44.4 Atrial premature contractions (Chronic) I49.1 HLD (hyperlipidemia) (Chronic) E78.5 Diverticulitis (Acute) K57.92 Abdominal pain R10.9 History of recent pneumonia (Resolved) Z87.01 Septic shock (Resolved) A41.9, R65.21 Allergies metoprolol Adverse Reaction (Verified 01/25/18 11:40) Other [facility] Home Medications: Ambulatory Orders Medication Instructions Recorded Nitroglycerin [Nitrostat] 0.4 mg SUBLINGUAL Q5M PRN 04/12/13 Aspirin [Aspirin, Baby] 81 mg PO DAILY 06/26/17 Ciprofloxacin HCl 500 mg PO BID 01/23/18 Clopidogrel Bisulfate [Plavix] 75 mg PO DAILY 01/23/18 Docusate Sodium [Colace] 100 mg PO DAILY 01/23/18 Cyanocobalamin (Vitamin B-12) 2,000 mcg PO DAILY 01/25/18 [Vitamin B-12] Pravastatin Sodium [Pravachol] 10 mg PO DAILY 01/25/18 Surgical History: Surgical History (Last Reviewed 01/22/18 @ 10:34 by Gaston Byers MD) History of coronary artery stent placement (Resolved) Onset Date: 03/02/13 Z95.5 PCI/GAETANO-LAD w/ 3.0 x 28 mm Promus Element Plus Rx 03/02/13 History of colonoscopy Onset Date: ~2013 Z98.890 H/O vasectomy Z98.52 History of appendectomy Z98.890, Z90.49 History of cholecystectomy Z98.890, Z90.49 Smoking Status: Never smoker - *Family History Maternal Family History: Family History (Last Reviewed 01/22/18 @ 10:34 by Gaston Byers MD) Father CVA (cerebral vascular accident) Hypertension HLD (hyperlipidemia) Cancer Mother HLD (hyperlipidemia) Hypertension Other Family history of skin cancer History Items: No pertinent history Review of Systems Comment: See HPI Patient Problems: Active and Suspected Problems (Last Reviewed 01/22/18 @ 10:34 by Gaston Byers MD) Small bowel obstruction (Acute) Nausea and vomiting (Acute) Anastomotic leak of intestine (Acute) Acute respiratory failure with hypoxia (Acute) Objective: Imaging was personally reviewed. Chest x-ray completed this morning shows bilateral alveolar infiltrates with fluid in the fissure. KUB on 01/25/2018 showed significant bowel gas, but only a small air bubble is noted on chest x- ray. CT scan from September showed no hilar lymphadenopathy with mild scarring and/or atelectasis at the lung bases. Left-sided pleural plaques appreciated. Previous echocardiogram described in HPI - Physical Exam General: Alert, Oriented x3, Cooperative, - - Mild to moderate respiratory distress. Appears stated age. HEENT: Atraumatic, PERRLA, EOMI, Normocephalic, - - No scleral icterus or injection noted. Oral: Moist Mucosa, No Gingival or Mucosal Lesions/ Ulcerations Neck: Supple, No Nodes, Trachea Midline, JVD, Right Lungs: No rhonchi, No wheeze, Rales - Left greater than right, - - Symmetric expansion. No dullness to percussion. Cardiovascular: Regular rate, Regular Rhythm, Normal S1, Normal S2, No murmurs, No rub noted, No Gallop Abdomen: Bowel Sounds Present, Soft, Distended - Mildly, Tender - Only to deep palpation Extremities: No clubbing, No cyanosis, Capillary Refill Less than 3 Seconds, Edema - Trace to 1+ lower extremity Skin: Incision - Healing well. Musculoskeletal: No Tenderness to Palpation of Joints or Extremities, No Muscle Wasting Lymphatic: No Cervical, Supraclavicular, or Inguinal Adenopathy Neurological: Cranial nerves II-XII grossly intact, Neuro grossly intact, Motor Exam 5/5 strength throughout Psych/Mental Status: Alert and oriented to time, place, person, mood and affect Vital Signs Temp Pulse Resp BP Pulse Ox 36.8 C 76 18 112/60 94 01/31/18 06:45 01/31/18 07:11 01/31/18 07:11 01/31/18 06:45 01/31/18 07:11 Oxygen Flow Rate (L/min) 4 Oxygen Delivery Method Nasal Cannula Weight: 79.5 kg Body Mass Index (BMI) 22.4 Intake and Output for Last 24 Hours 01/29/18 01/30/18 01/31/18 23:59 23:59 23:59 Intake Total 1248 / 1248 3759 / 3759 1588 / 1588 Output Total 969 / 969 1250 / 1250 703 / 703 Balance 279 / 279 2509 / 2509 885 / 885 Laboratory Tests Past 24 Hrs 01/31/18 01/31/18 01/31/18 05:29 05:29 05:29 WBC 13.5 H RBC 3.49 L Hgb 10.5 L Hct 32.1 L MCV 92.0 MCH 30.1 MCHC 32.7 RDW 14.9 H RDW Differential 48.6 H Plt Count 288 MPV 9.0 Sodium 141 Potassium 3.4 L Chloride 106 Carbon Dioxide 30.0 Anion Gap 5 BUN 11 Creatinine 0.41 L Estim Creat Clear Calc 75.08 Est GFR (MDRD) Af Amer 265 Est GFR (MDRD) Non-Af 219 BUN/Creatinine Ratio 26.9 H Glucose 117 H Calcium 7.4 L B-Natriuretic Peptide Pending Clinical Impression(s) from Imaging Studies Acute Abdomen Series 01/25/18 11:41 IMPRESSION: 1. Dilated small bowel loops and colon with air-fluid levels spaces for distal colonic obstruction. 2. No active pulmonary disease. Electronically Signed: Attila Edmondson MD at 13:10 EDT Tel , Service support , KUB X-Ray 01/25/18 12:56 IMPRESSION: Probable diffuse ileus. Nasogastric tube in the stomach. Electronically Signed: Todd Tomas DO at 14:03 EDT Tel [phone], Service support , Chest X-Ray 01/31/18 02:15 IMPRESSION: Bilateral pneumonia. Electronically Signed: Marion Vargas MD at 3:00 EDT Tel , Service support , Assessment/Plan Active and Suspected Problems (Last Reviewed 01/22/18 @ 10:34 by Gaston Byers MD) Small bowel obstruction (Acute) Nausea and vomiting (Acute) Anastomotic leak of intestine (Acute) Acute respiratory failure with hypoxia (Acute) RECOMMENDATIONS: 1. Discontinue IV fluids 2. Add Lasix therapy 3. Agree with empiric antibiotics for now 4. Obtain nasal MRSA swab, discontinue vancomycin if negative 5. Wean oxygen as tolerated, continue incentive spirometer IMPRESSIONS: 1. Acute hypoxic respiratory failure secondary to suspected acute diastolic CHF Patient is +13 L over the course of the hospitalization. Hypoxemia has developed slowly over the past 3 days. Patient does have an elevated white blood cell count, but is postsurgical. Patient is not reporting any productive cough at this time. Patient does have a history of diastolic dysfunction and coronary artery disease. We will treat empirically with antibiotics for 48 hours. Sputum culture will be ordered. Patient will also receive diuretic therapy and have IV fluids discontinued. Wean oxygen as tolerated. Stressed to the patient that continued use of incentive spirometer is important. 2. 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 Anastomosis appears normal at this time. Patient does continue to have a persistent elevation of WBC. Sputum culture blood cultures have been ordered. Patient has tolerated p.o. diet and respiratory rate should not restrict this from continuing. Okay to continue diet from a respiratory standpoint, but defer to surgery. 3. History of skin cancer/coronary artery disease/hyperlipidemia/left anterior fascicular block/advanced age Complicates care, management, recovery and prognosis. Okay to continue with baseline medications from my perspective. Code Visit Inpatient E&M: 97230 Init Hosp L3
--- NOTE | 2018-01-31 07:57 | PN.SURG_ITS ---
Patient Problems: Active and Suspected Problems (Last Reviewed 01/22/18 @ 10:34 by Gaston Byers MD) Small bowel obstruction (Acute) Nausea and vomiting (Acute) Anastomotic leak of intestine (Acute) Subjective: Patient developed a fever early this morning. Chest x-ray was obtained which showed possible bilateral pneumonias. I consulted the hospitalist. Patient is still complaining of intractable hiccups. In speaking to the he did not have any hiccups at all when he was eating but they came on at night and they just persisted throughout the night. As I speak to him this morning while he is laying down is pretty clear that the hiccups probably are causing some form of regurgitation as well. Patient was able to cough and really was not complaining of significant abdominal pain. Overall though he looks very ill! Objective: His abdomen is soft it is distended he has hypoactive bowel sounds. The incisions particularly the drain sites as well as his midline incision look relatively clean. There is some redness identified. But not a significant amount of discharge and nothing that looks purulent. He has no peritoneal signs identified. - Physical Exam Vital Signs Temp Pulse Resp BP Pulse Ox 98.2 F 76 18 112/60 94 01/31/18 06:45 01/31/18 07:11 01/31/18 07:11 01/31/18 06:45 01/31/18 07:11 Oxygen Flow Rate (L/min) 4 Oxygen Delivery Method Nasal Cannula Weight: 175 lb 4.28 oz Body Mass Index (BMI) 22.4 Intake and Output for Last 24 Hours 01/29/18 01/30/18 01/31/18 23:59 23:59 23:59 Intake Total 1248 / 1248 3759 / 3759 1588 / 1588 Output Total 969 / 969 1250 / 1250 703 / 703 Balance 279 / 279 2509 / 2509 885 / 885 Laboratory Tests Past 24 Hrs 01/31/18 01/31/18 01/31/18 05:29 05:29 05:29 WBC 13.5 H RBC 3.49 L Hgb 10.5 L Hct 32.1 L MCV 92.0 MCH 30.1 MCHC 32.7 RDW 14.9 H RDW Differential 48.6 H Plt Count 288 MPV 9.0 Sodium 141 Potassium 3.4 L Chloride 106 Carbon Dioxide 30.0 Anion Gap 5 BUN 11 Creatinine 0.41 L Estim Creat Clear Calc 75.08 Est GFR (MDRD) Af Amer 265 Est GFR (MDRD) Non-Af 219 BUN/Creatinine Ratio 26.9 H Glucose 117 H Calcium 7.4 L B-Natriuretic Peptide Pending Medical Necessity - Tobacco Use Smoking Status: Never smoker Assessment/Plan All Active Problems (Last Reviewed 01/22/18 @ 10:34 by Gaston Byers MD) Sigmoid stricture (Acute) LLQ abdominal pain (Acute) Obstipation (Acute) Small bowel obstruction (Acute) Nausea and vomiting (Acute) Anastomotic leak of intestine (Acute) History of coronary artery stent placement (Resolved 03/02/13) Near syncope (Acute) Hypotension (Acute) Diverticulitis (Acute) History of recent pneumonia (Resolved) Septic shock (Resolved) With the development of the bilateral pneumonias and the fact that he is going to need a significant amount of attention I believe it is in the best interest of the patient to transfer him down to the intensive care unit. I have spoken to Dr. Ahn who is going to see the patient in consultation. Initially the patient was going to be given IV Thorazine and I am reluctant to give a significant dose of Thorazine at this time. I would like to just try 12- 1/2 mg p.o. to see if this works. His antibiotics have been changed to vancomycin and Zosyn. He is expected to obtain an echo of the heart today. And he may require a Hernandez catheter to be placed again so that we can diurese him to get a significant amount of the fluid off of him.
[2018-01-31] MEDS: Furosemide 40 MG/4 ML Vial IV ×3 (08:16→21:01)
[2018-01-31] MEDS: ChlorproMAZINE 25 MG Tablet 12.5 MG PO (08:41)
[2018-01-31] MEDS: 0.9% NaCl Peripheral Flush Adult/Peds IV ×4 (09:00→21:01)
[2018-01-31 09:10] LABS: BNP,B-Type NATRIURETIC PEPTIDE 291.2 pg/mL (0-100)
[2018-01-31] MEDS: proMETHazine 25 MG/ML Syringe 12.5 MG IV (11:25)
[2018-01-31] MEDS: Albuterol 2.5 MG/3 ML VIAL.NEB. INHALATION (12:05)
--- NOTE | 2018-01-31 12:12 | PN_ITS ---
Patient Problems: Active and Suspected Problems (Last Reviewed 01/22/18 @ 10:34 by Gaston Byers MD) Anastomotic leak of intestine (Acute) Acute respiratory failure with hypoxia (Acute) Subjective: Patient was seen and examined today in the ICU, he appears comfortable and does not appear dyspneic. Pulmonary medicine feels that the patient's acute respiratory failure was probably secondary to acute diastolic CHF. Patient remains on vancomycin and Zosyn for now for coverage of possible healthcare- acquired pneumonia - Physical Exam General: Alert, Oriented x3, Cooperative, No apparent distress, Well developed HEENT: Atraumatic, PERRLA, EOMI, Normocephalic Oral: Moist Mucosa Neck: Supple, No Nuchal Rigidity, Trachea Midline, Thyroid Normal Size and Texture Lungs: Clear to auscultation, Normal air movement, No rhonchi, No wheeze, No rales Cardiovascular: Regular rate, Regular Rhythm, Normal S1, No murmurs Abdomen: Bowel Sounds Present, Soft Extremities: No edema, Capillary Refill Less than 3 Seconds Skin: No rashes, No breakdown Neurological: Cranial nerves II-XII grossly intact, Neuro grossly intact, Sensory exam intact to light touch and pain, Coordination normal Psych/Mental Status: Normal Affect, Appropriate, Alert and oriented to time, place, person, mood and affect Vital Signs Temp Pulse Resp BP Pulse Ox 98.7 F 90 28 H 123/79 H 96 01/31/18 11:00 01/31/18 12:05 01/31/18 12:05 01/31/18 12:00 01/31/18 12:05 Oxygen Flow Rate (L/min) 4 Oxygen Delivery Method Nasal Cannula Weight: 79.5 kg Body Mass Index (BMI) 22.4 Intake and Output for Last 24 Hours 01/29/18 01/30/18 01/31/18 23:59 23:59 23:59 Intake Total 1248 / 1248 3759 / 3759 2151.4 / 2151.4 Output Total 969 / 969 1250 / 1250 2553 / 2553 Balance 279 / 279 2509 / 2509 -401.6 / -401.6 Laboratory Tests Past 24 Hrs 01/31/18 01/31/18 01/31/18 05:29 05:29 05:29 WBC 13.5 H RBC 3.49 L Hgb 10.5 L Hct 32.1 L MCV 92.0 MCH 30.1 MCHC 32.7 RDW 14.9 H RDW Differential 48.6 H Plt Count 288 MPV 9.0 Sodium 141 Potassium 3.4 L Chloride 106 Carbon Dioxide 30.0 Anion Gap 5 BUN 11 Creatinine 0.41 L Estim Creat Clear Calc 75.08 Est GFR (MDRD) Af Amer 265 Est GFR (MDRD) Non-Af 219 BUN/Creatinine Ratio 26.9 H Glucose 117 H Calcium 7.4 L B-Natriuretic Peptide 291.2 H Medical Necessity - Tobacco Use Smoking Status: Never smoker Assessment/Plan All Active Problems (Last Reviewed 01/22/18 @ 10:34 by Gaston Byers MD) Sigmoid stricture (Acute) LLQ abdominal pain (Acute) Obstipation (Resolved) Small bowel obstruction (Resolved) Nausea and vomiting (Resolved) Anastomotic leak of intestine (Acute) Acute respiratory failure with hypoxia (Acute) History of coronary artery stent placement (Resolved 03/02/13) Near syncope (Resolved) Hypotension (Resolved) Diverticulitis (Resolved) History of recent pneumonia (Resolved) Septic shock (Resolved) #1 acute hypoxic respiratory failure probably secondary to diastolic congestive heart failure, patient will continue on IV diuresis, patient is currently on 4 L via nasal cannula #2 acute on chronic diastolic congestive heart failure-ejection fraction 55% #3 bilateral pulmonary infiltrates-possible pneumonia, continue IV Zosyn and vancomycin, pulmonary medicine has ordered a nasal swab for MRSA and if it is negative pulmonary medicine recommends discontinuing vancomycin. Patient is also on antibiotics due to anastomotic leak in the colon. #4 hypokalemia-replacement potassium was ordered by pulmonary medicine #5 coronary artery disease #6 postop day #5 low anterior resection sigmoid and rectosigmoid junction, postop day #4 revision of anastomotic leak of the colorectal region Code Visit Inpatient E&M: 68088 Subs Hosp L2
[2018-01-31] MEDS: Ketorolac 15 MG/ML Vial IV ×2 (13:10→21:01)
[2018-01-31] MEDS: BENZOCAINE/MENTHOL 1 LOZENGE MUCOUS MEM (13:17)
[2018-01-31 14:48] LABS: M R Staph aureus DNA By PCR POSITIVE (Negative); Probe Check PASS
[2018-01-31] MEDS: oxyCODONE 5 MG Tablet PO (15:19)
[2018-01-31] MEDS: Lidocaine Jelly 2% 20 ML Syringe (URO-JET) 20 APPLIC TOPICAL (15:20)
[2018-01-31] MEDS: Vancomycin IV 1,000 MG/200 ML BAG 200 MG IV (16:02)
--- NOTE | 2018-01-31 16:19 | CPS ---
Patient just vomited, did not have patient work on PEP therapy at this time.
--- NOTE | 2018-01-31 16:20 | CPS ---
Patient resting quietly, PEP therapy not done.
[2018-01-31 16:32] LABS: Anion Gap 7 (5-15); BUN 11 mg/dL (7-18); BUN/Creat Ratio 25.3 RATIO (10-20); Calcium,Total 6.5 mg/dL (8.5-10.1); Chloride 107 mmol/L (98-107); Creatinine, Serum 0.44 mg/dL (0.70-1.30); EST Glomerular Filtration Rate 204 mL/min (>60); Est Glom Filt Rate - Afr Amer 246 mL/min (>60); Estimated Creatinine Clearance 77.63 ml/min; Glucose 108 mg/dL (74-106); Magnesium 1.7 mg/dL (1.6-2.6); Sodium Level 142 mmol/L (136-145)
[2018-01-31] MEDS: Pravastatin 20 MG Tablet 10 MG PO (21:00)
[2018-01-31] MEDS: Menthol/Lanolin/Calamine/Znox 113 GM Tube 1 APPLIC TOPICAL (22:29)
[2018-02-01] VITALS (30 sets, daily range): BP systolic 92–120; BP diastolic 53–77; PULSE 76–119; RESP 17–26; TEMP 36.6–38.4; O2SAT 91–97
[2018-02-01] MEDS: Ipratropium/Albuterol Sulfate 3 ML AMPUL.NEB INHALATION ×4 (00:41→18:52)
[2018-02-01] MEDS: oxyCODONE 5 MG Tablet PO ×3 (02:30→22:00)
[2018-02-01] MEDS: CHLORHEXIDINE GLUC 2% CLOTH 1 EACH TOWELETTE TOPICAL (02:44)
[2018-02-01 04:43] LABS: Absolute Lymphocyte Count 0.57 X10^3/ul (0.83-4.51); Basophil# 0.02 X10^3/uL; Basophil% 0.2 % (0-1); Eosinophil# 0.05 X10^3/uL; Eosinophils% 0.4 % (0-5); Hematocrit 34.6 % (40-54); Hemoglobin 11.7 g/dl (13.0-16.5); Lymphocyte # 0.57 X10^3/ul (4.0); Lymphocyte % 4.5 % (19-41); Mean Corp Hgb Conc 33.8 g/gl (32-36); Mean Corpuscular Hgb 30.5 pg (27.0-32.0); Mean Corpuscular Volume 90.1 fL (80-94); Monocyte% 7.9 % (0-10); Neutrophil # 10.96 X10^3/uL (2.7-7.7); Neutrophil % 86.1 % (47-70); Platelet Count 339 K/mm3 (150-450); RBC Distribution Width CV 14.9 % (11.6-14.6); RBC Distribution Width SD 48.4 fl (35.1-43.9); Red Blood Count 3.84 M/mm3 (4.6-6.2); White Blood Count 12.7 K/mm3 (4.4-11.0)
[2018-02-01] MEDS: Vancomycin IV 1,000 MG/200 ML BAG 200 MG IV ×2 (04:50→16:20)
[2018-02-01] MEDS: 0.9% NaCl Peripheral Flush Adult/Peds IV ×5 (04:51→21:59)
[2018-02-01 05:22] LABS: ALB/GLOB Ratio 0.4 RATIO (0.9-2.4); AST(SGOT) 15 U/L (15-37); Alanine Aminotransfer ALT/SGPT 13 U/L (16-61); Albumin, Serum 1.6 g/dL (3.2-5.0); Alkaline Phosphatase 51 U/L (45-117); Anion Gap 8 (5-15); BUN 14 mg/dL (7-18); BUN/Creat Ratio 26.5 RATIO (10-20); Calcium,Total 7.5 mg/dL (8.5-10.1); Chloride 103 mmol/L (98-107); Creatinine, Serum 0.53 mg/dL (0.70-1.30); EST Glomerular Filtration Rate 162 mL/min (>60); Est Glom Filt Rate - Afr Amer 197 mL/min (>60); Estimated Creatinine Clearance 77.63 ml/min; Globulin 4.2 g/dL (2.2-4.2); Glucose 108 mg/dL (74-106); Phosphorus 2.6 mg/dL (2.5-4.9); Potassium 4.5 mmol/L (3.5-5.1); Protein, Total 5.8 g/dL (6.4-8.2); Sodium Level 139 mmol/L (136-145)
[2018-02-01] MEDS: Ketorolac 15 MG/ML Vial IV ×3 (05:30→21:57)
[2018-02-01] MEDS: Furosemide 40 MG/4 ML Vial IV ×3 (05:30→21:40)
[2018-02-01] MEDS: Ibuprofen 400 MG Tablet 800 MG PO (05:46)
[2018-02-01 06:07] LABS: Differential Indicated SCAN CRITERIA MET; POSITIVE COUNT NO; POSITIVE DIFFERENTIAL YES; POSITIVE MORPHOLOGY NO
[2018-02-01] MEDS: Piperacil/Tazobactam 3.375 GM/50 ML ML IV ×3 (06:07→21:40)
[2018-02-01] MEDS: proMETHazine 25 MG/ML Syringe 12.5 MG IV (06:16)
[2018-02-01 06:30] LABS: Differential Comment SCANNED
--- NOTE | 2018-02-01 06:54 | CPS ---
Patient states he can't now does not feel well enough.
--- NOTE | 2018-02-01 07:36 | PCM.PN.INT ---
Subjective: Patient did well overnight. No acute issues were reported for much of the evening, however this morning patient was noted to have a fever and tachycardia. Patient has continued to have hiccups despite Thorazine therapy. Patient has had good urine output, but overall fluid balance was minimal secondary to potassium repletion. Patient is reporting some nausea this morning. General: Alert, Oriented x3, Cooperative, - - No conversational dyspnea appreciated. Pickups noted. HEENT: Atraumatic, PERRLA, EOMI, Normocephalic, - - No scleral icterus or injection noted. Oral: Moist Mucosa, No Gingival or Mucosal Lesions/ Ulcerations Neck: Supple, No Nodes, No Nuchal Rigidity, Trachea Midline, JVD, Right Lungs: No rhonchi, No wheeze, Diminished, Rales, - Cardiovascular: Normal S1, Normal S2, No murmurs, No rub noted, No Gallop, Tachycardic Abdomen: Bowel Sounds Present, Soft, Tender - Mild, - - Incision is clean, dry and intact. Extremities: No clubbing, No cyanosis, Edema Skin: Incision - Clean, dry and intact. Musculoskeletal: No Tenderness to Palpation of Joints or Extremities, No Muscle Wasting Lymphatic: No Cervical, Supraclavicular, or Inguinal Adenopathy Neurological: Cranial nerves II-XII grossly intact, Neuro grossly intact, Motor Exam 5/5 strength throughout Psych/Mental Status: Alert and oriented to time, place, person, mood and affect Vital Signs Temp Pulse Resp BP Pulse Ox 38.4 C H 109 H 25 H 107/62 93 02/01/18 05:56 02/01/18 07:26 02/01/18 07:00 02/01/18 07:00 02/01/18 07:00 Oxygen Flow Rate (L/min) 2 Oxygen Delivery Method Nasal Cannula Weight: 81.5 kg Body Mass Index (BMI) 22.4 Intake and Output for Last 24 Hours 01/30/18 01/31/18 02/01/18 23:59 23:59 23:59 Intake Total 3759 / 3759 3447.5 / 3447.5 966.7 / 966.7 Output Total 1250 / 1250 4303 / 4303 550 / 550 Balance 2509 / 2509 -855.5 / -855.5 416.7 / 416.7 Labs (Last 48 Hours) 01/31/18 01/31/18 01/31/18 05:29 05:29 05:29 WBC 13.5 H RBC 3.49 L Hgb 10.5 L Hct 32.1 L MCV 92.0 MCH 30.1 MCHC 32.7 RDW 14.9 H RDW Differential 48.6 H Plt Count 288 MPV 9.0 Immature Gran % (Auto) Neut % (Auto) Lymph % (Auto) [place] % (Auto) Eos % (Auto) Baso % (Auto) Absolute Neuts (auto) Absolute Lymphs (auto) Total Counted Differential Comment Sodium 141 Potassium 3.4 L Chloride 106 Carbon Dioxide 30.0 Anion Gap 5 BUN 11 Creatinine 0.41 L Estim Creat Clear Calc 75.08 Est GFR (MDRD) Af Amer 265 Est GFR (MDRD) Non-Af 219 BUN/Creatinine Ratio 26.9 H Glucose 117 H Calcium 7.4 L Phosphorus Magnesium Total Bilirubin AST ALT Alkaline Phosphatase B-Natriuretic Peptide 291.2 H Total Protein Albumin Globulin Albumin/Globulin Ratio MRSA (PCR) 01/31/18 01/31/18 02/01/18 13:10 16:00 04:32 WBC 12.7 H RBC 3.84 L Hgb 11.7 L Hct 34.6 L MCV 90.1 MCH 30.5 MCHC 33.8 RDW 14.9 H RDW Differential 48.4 H Plt Count 339 MPV 9.0 Immature Gran % (Auto) 0.900 Neut % (Auto) 86.1 H Lymph % (Auto) 4.5 L [place] % (Auto) 7.9 Eos % (Auto) 0.4 Baso % (Auto) 0.2 Absolute Neuts (auto) 11.0 H Absolute Lymphs (auto) 0.57 L Total Counted Not Reportable Differential Comment SCANNED Sodium 142 Potassium 3.0 L Chloride 107 Carbon Dioxide 28.0 Anion Gap 7 BUN 11 Creatinine 0.44 L Estim Creat Clear Calc 77.63 Est GFR (MDRD) Af Amer 246 Est GFR (MDRD) Non-Af 204 BUN/Creatinine Ratio 25.3 H Glucose 108 H Calcium 6.5 L* Phosphorus Magnesium 1.7 Total Bilirubin AST ALT Alkaline Phosphatase B-Natriuretic Peptide Total Protein Albumin Globulin Albumin/Globulin Ratio MRSA (PCR) POSITIVE H 02/01/18 04:32 WBC RBC Hgb Hct MCV MCH MCHC RDW RDW Differential Plt Count MPV Immature Gran % (Auto) Neut % (Auto) Lymph % (Auto) [place] % (Auto) Eos % (Auto) Baso % (Auto) Absolute Neuts (auto) Absolute Lymphs (auto) Total Counted Differential Comment Sodium 139 Potassium 4.5 Chloride 103 Carbon Dioxide 28.0 Anion Gap 8 BUN 14 Creatinine 0.53 L Estim Creat Clear Calc 77.63 Est GFR (MDRD) Af Amer 197 Est GFR (MDRD) Non-Af 162 BUN/Creatinine Ratio 26.5 H Glucose 108 H Calcium 7.5 L Phosphorus 2.6 Magnesium 2.0 Total Bilirubin 0.50 AST 15 ALT 13 L Alkaline Phosphatase 51 B-Natriuretic Peptide Total Protein 5.8 L Albumin 1.6 L Globulin 4.2 Albumin/Globulin Ratio 0.4 L MRSA (PCR) Medical Necessity - Tobacco Use Smoking Status: Never smoker Assessment/Plan All Active Problems (Last Updated 01/31/18 @ 12:14 by Teodoro Suazo DO) Sigmoid stricture (Acute) LLQ abdominal pain (Acute) Obstipation (Resolved) Small bowel obstruction (Resolved) Nausea and vomiting (Resolved) Anastomotic leak of intestine (Acute) Acute respiratory failure with hypoxia (Acute) History of coronary artery stent placement (Resolved 03/02/13) Near syncope (Resolved) Hypotension (Resolved) Diverticulitis (Resolved) History of recent pneumonia (Resolved) Septic shock (Resolved) RECOMMENDATIONS: 1. Continue diuretic and antibiotic therapy 2. Repeat blood cultures 3. Reinitiate Zofran therapy 4. Consider discontinuation of Thorazine 5. Wean oxygen as tolerated, continue incentive spirometer IMPRESSIONS: 1. Acute hypoxic respiratory failure secondary to suspected acute diastolic CHF Patient is +13 L over the course of the hospitalization. Hypoxemia has developed slowly over the past 3 days. Attempts to diurese yesterday were marginally effective given patient's significant need for potassium repletion. Patient will be continued on diuretic and antibiotic therapy. Will repeat blood cultures. Possibility of drug fever secondary to Thorazine. Consider discontinuation of Thorazine. Patient has remained hemodynamically stable otherwise. 2. 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 Anastomosis appears normal at this time. Patient does continue to have a persistent elevation of WBC. Sputum culture blood cultures have been ordered. Patient has tolerated p.o. diet and respiratory rate should not restrict this from continuing. Okay to continue diet from a respiratory standpoint, but defer to surgery. 3. History of skin cancer/coronary artery disease/hyperlipidemia/left anterior fascicular block/advanced age Complicates care, management, recovery and prognosis. Okay to continue with baseline medications from my perspective. Code Visit Inpatient E&M: 64803 [facility] Hosp L3
[2018-02-01] MEDS: BENZOCAINE/MENTHOL 1 LOZENGE MUCOUS MEM (08:35)
[2018-02-01] MEDS: Ondansetron 4 MG/2 ML Vial IV (09:37)
[2018-02-01] MEDS: Menthol/Lanolin/Calamine/Znox 113 GM Tube 1 APPLIC TOPICAL ×4 (09:40→21:48)
--- NOTE | 2018-02-01 10:08 | PN.SURG_ITS ---
Patient Problems: Active and Suspected Problems (Last Updated 01/31/18 @ 12:14 by Teodoro Suazo DO) Anastomotic leak of intestine (Acute) Acute respiratory failure with hypoxia (Acute) Subjective: Slightly nauseated this morning. Still having bowel movements. Complaining of pain on his costal margins bilaterally which I think is probably related to his hiccups. Had a spike in temperature today. Objective: Abdomen is slightly distended bowel sounds are present incision looks clean slight serous discharge from the center of the wound but there is no redness associated with it. Slightly distended. - Physical Exam Vital Signs Temp Pulse Resp BP Pulse Ox 101.1 F H 109 H 25 H 107/62 93 02/01/18 05:56 02/01/18 07:26 02/01/18 07:00 02/01/18 07:00 02/01/18 07:00 Oxygen Flow Rate (L/min) 2 Oxygen Delivery Method Nasal Cannula Weight: 179 lb 10.828 oz Body Mass Index (BMI) 22.4 Intake and Output for Last 24 Hours 01/30/18 01/31/18 02/01/18 23:59 23:59 23:59 Intake Total 3759 / 3759 3447.5 / 3447.5 966.7 / 966.7 Output Total 1250 / 1250 4303 / 4303 550 / 550 Balance 2509 / 2509 -855.5 / -855.5 416.7 / 416.7 Laboratory Tests Past 24 Hrs 01/31/18 01/31/18 02/01/18 13:10 16:00 04:32 WBC 12.7 H RBC 3.84 L Hgb 11.7 L Hct 34.6 L MCV 90.1 MCH 30.5 MCHC 33.8 RDW 14.9 H RDW Differential 48.4 H Plt Count 339 MPV 9.0 Immature Gran % (Auto) 0.900 Neut % (Auto) 86.1 H Lymph % (Auto) 4.5 L [place] % (Auto) 7.9 Eos % (Auto) 0.4 Baso % (Auto) 0.2 Absolute Neuts (auto) 11.0 H Absolute Lymphs (auto) 0.57 L Total Counted Not Reportable Differential Comment SCANNED Sodium 142 Potassium 3.0 L Chloride 107 Carbon Dioxide 28.0 Anion Gap 7 BUN 11 Creatinine 0.44 L Estim Creat Clear Calc 77.63 Est GFR (MDRD) Af Amer 246 Est GFR (MDRD) Non-Af 204 BUN/Creatinine Ratio 25.3 H Glucose 108 H Calcium 6.5 L* Phosphorus Magnesium 1.7 Total Bilirubin AST ALT Alkaline Phosphatase Total Protein Albumin Globulin Albumin/Globulin Ratio MRSA (PCR) POSITIVE H 02/01/18 04:32 WBC RBC Hgb Hct MCV MCH MCHC RDW RDW Differential Plt Count MPV Immature Gran % (Auto) Neut % (Auto) Lymph % (Auto) [place] % (Auto) Eos % (Auto) Baso % (Auto) Absolute Neuts (auto) Absolute Lymphs (auto) Total Counted Differential Comment Sodium 139 Potassium 4.5 Chloride 103 Carbon Dioxide 28.0 Anion Gap 8 BUN 14 Creatinine 0.53 L Estim Creat Clear Calc 77.63 Est GFR (MDRD) Af Amer 197 Est GFR (MDRD) Non-Af 162 BUN/Creatinine Ratio 26.5 H Glucose 108 H Calcium 7.5 L Phosphorus 2.6 Magnesium 2.0 Total Bilirubin 0.50 AST 15 ALT 13 L Alkaline Phosphatase 51 Total Protein 5.8 L Albumin 1.6 L Globulin 4.2 Albumin/Globulin Ratio 0.4 L MRSA (PCR) Medical Necessity - Tobacco Use Smoking Status: Never smoker Assessment/Plan All Active Problems (Last Updated 01/31/18 @ 12:14 by Teodoro Suazo DO) Sigmoid stricture (Acute) LLQ abdominal pain (Acute) Obstipation (Resolved) Small bowel obstruction (Resolved) Nausea and vomiting (Resolved) Anastomotic leak of intestine (Acute) Acute respiratory failure with hypoxia (Acute) History of coronary artery stent placement (Resolved 03/02/13) Near syncope (Resolved) Hypotension (Resolved) Diverticulitis (Resolved) History of recent pneumonia (Resolved) Septic shock (Resolved) Will probably need a PICC line today. If still nauseated tomorrow more more and likely initiate TPN therapy. Abdomen does not seem to be the source of the infection at this time. But if he has further spikes in temperature he will need a CAT scan of his abdomen and pelvis.
[2018-02-01 16:39] LABS: Vancomycin, Trough Level 6.4 ug/mL (5.0-15.0)
--- NOTE | 2018-02-01 17:09 | PCM.PROGNOTE ---
Patient Problems: Active and Suspected Problems (Last Updated 01/31/18 @ 12:14 by Teodoro Suazo DO) Anastomotic leak of intestine (Acute) Acute respiratory failure with hypoxia (Acute) Subjective: Patient was seen and examined today in the ICU, he is currently on nasal cannula oxygen, patient's white blood cell count today was 12.7, he appears in no respiratory distress at this time. Patient spiked a temp of 101.1 early this morning. - Physical Exam General: Alert, Oriented x3, Cooperative, No apparent distress, Well developed HEENT: Atraumatic, PERRLA, EOMI, Normocephalic Oral: Moist Mucosa Neck: Supple, No Nuchal Rigidity, Trachea Midline, Thyroid Normal Size and Texture Lungs: Clear to auscultation, Normal air movement, No rhonchi, No wheeze, No rales Cardiovascular: Regular rate, Regular Rhythm, Normal S1, Normal S2, No murmurs, No Ectopic Activity, PMI Normal, No rub noted, No Gallop Abdomen: Bowel Sounds Present, Soft, Non-Distended Extremities: No edema, Capillary Refill Less than 3 Seconds Skin: No rashes, No breakdown Neurological: Cranial nerves II-XII grossly intact, Neuro grossly intact, Sensory exam intact to light touch and pain, Coordination normal Psych/Mental Status: Normal Affect, Appropriate, Alert and oriented to time, place, person, mood and affect Vital Signs Temp Pulse Resp BP Pulse Ox 98.5 F 86 20 H 109/64 97 02/01/18 15:00 02/01/18 16:00 02/01/18 16:00 02/01/18 16:00 02/01/18 16:00 Oxygen Flow Rate (L/min) 2 Oxygen Delivery Method Nasal Cannula Weight: 81.5 kg Body Mass Index (BMI) 22.4 Intake and Output for Last 24 Hours 01/30/18 01/31/18 02/01/18 23:59 23:59 23:59 Intake Total 3759 / 3759 3447.5 / 3447.5 1266.7 / 1266.7 Output Total 1250 / 1250 4303 / 4303 1300 / 1300 Balance 2509 / 2509 -855.5 / -855.5 -33.3 / -33.3 Laboratory Tests Past 24 Hrs 02/01/18 02/01/18 02/01/18 04:32 04:32 16:00 WBC 12.7 H RBC 3.84 L Hgb 11.7 L Hct 34.6 L MCV 90.1 MCH 30.5 MCHC 33.8 RDW 14.9 H RDW Differential 48.4 H Plt Count 339 MPV 9.0 Immature Gran % (Auto) 0.900 Neut % (Auto) 86.1 H Lymph % (Auto) 4.5 L [place] % (Auto) 7.9 Eos % (Auto) 0.4 Baso % (Auto) 0.2 Absolute Neuts (auto) 11.0 H Absolute Lymphs (auto) 0.57 L Total Counted Not Reportable Differential Comment SCANNED Sodium 139 Potassium 4.5 Chloride 103 Carbon Dioxide 28.0 Anion Gap 8 BUN 14 Creatinine 0.53 L Estim Creat Clear Calc 77.63 Est GFR (MDRD) Af Amer 197 Est GFR (MDRD) Non-Af 162 BUN/Creatinine Ratio 26.5 H Glucose 108 H Calcium 7.5 L Phosphorus 2.6 Magnesium 2.0 Total Bilirubin 0.50 AST 15 ALT 13 L Alkaline Phosphatase 51 Total Protein 5.8 L Albumin 1.6 L Globulin 4.2 Albumin/Globulin Ratio 0.4 L Vancomycin Trough 6.4 Medical Necessity - Tobacco Use Smoking Status: Never smoker Assessment/Plan All Active Problems (Last Updated 01/31/18 @ 12:14 by Teodoro Suazo DO) Sigmoid stricture (Acute) LLQ abdominal pain (Acute) Obstipation (Resolved) Small bowel obstruction (Resolved) Nausea and vomiting (Resolved) Anastomotic leak of intestine (Acute) Acute respiratory failure with hypoxia (Acute) History of coronary artery stent placement (Resolved 03/02/13) Near syncope (Resolved) Hypotension (Resolved) Diverticulitis (Resolved) History of recent pneumonia (Resolved) Septic shock (Resolved) #1 acute hypoxic respiratory failure probably secondary to diastolic congestive heart failure, patient will continue on IV diuresis, patient is currently on 2 L via nasal cannula, I will repeat a chest x-ray in the morning. Patient appears stable for transfer to PCU, he will remain in ICU for the present time under PCU status. #2 acute on chronic diastolic congestive heart failure-ejection fraction 55% #3 bilateral pulmonary infiltrates-possible pneumonia, continue IV Zosyn and vancomycin #4 hypokalemia-corrected at this time #5 coronary artery disease #6 postop day #6 low anterior resection sigmoid and rectosigmoid junction, postop day #5 revision of anastomotic leak of the colorectal region Code Visit Inpatient E&M: 46080 Subs Hosp L2
--- NOTE | 2018-02-01 19:46 | PCM.RX.CS ---
Consult Pharmacy has been consulted to manage selected antiobiotic: Vancomycin Type of Consult: Follow-up Suspected Infection: Pneumonia Prior Doses of Antibiotics Received/Current Regimen: Medications Vancomycin HCl 1,250 mg/ (Sodium Chloride) 275 mls @ 167 mls/hr IV Q8H MERRICK Discontinued Medications Vancomycin HCl (Vancomycin) 1,000 mg in 200 mls @ 200 mls/hr IV Q12H MERRCIK Last Admin: 02/01/18 16:20 Dose: 200 mls/hr Labs: Sodium 139 mmol/L (136-145) 02/01/18 04:32 Potassium 4.5 mmol/L (3.5-5.1) 02/01/18 04:32 Chloride 103 mmol/L (98-107) 02/01/18 04:32 Carbon Dioxide 28.0 mmol/L (21.0-32.0) 02/01/18 04:32 Anion Gap 8 (5-15) 02/01/18 04:32 BUN 14 mg/dL (7-18) 02/01/18 04:32 Creatinine 0.53 mg/dL (0.70-1.30) L 02/01/18 04:32 Est GFR (MDRD) Af Amer 197 mL/min (>60) 02/01/18 04:32 Est GFR (MDRD) Non-Af 162 mL/min (>60) 02/01/18 04:32 BUN/Creatinine Ratio 26.5 RATIO (10-20) H 02/01/18 04:32 Glucose 108 mg/dL (74-106) H 02/01/18 04:32 Vancomycin Trough 6.4 ug/mL (5.0-15.0) 02/01/18 16:00 Weight used for dosin.5 kg Estimated Creatinine Clearance: 78 Goal Trough: 15-20 mcg/mL Pharmacy Plan for Drug Dosing: Trough level of 6.4 was received. Target range is 15-20, so dosing was increased. Dosing calculators indicated that q 12 hour dosing would still be insufficient, so new regimen of 1250mg q 8 hours was added. Trough will again be measured with fourth dose. Pharmacy Service will continue to monitor and adjust dosing as required. Follow-Up Labs: Trough Vancomycin Labs to be done on [date and time ordered]: 02/03/18 @0000.
[2018-02-01] MEDS: Pravastatin 20 MG Tablet 10 MG PO (21:40)
[2018-02-01] MEDS: Senna/Docusate Sodium 1 Tablet 2 TABLET PO (21:40)
[2018-02-02] VITALS (21 sets, daily range): BP systolic 91–133; BP diastolic 50–75; PULSE 67–190; RESP 13–22; TEMP 36.6–37.2; O2SAT 93–98
[2018-02-02] MEDS: Ipratropium/Albuterol Sulfate 3 ML AMPUL.NEB INHALATION ×4 (00:47→18:24)
[2018-02-02 04:43] LABS: Absolute Lymphocyte Count 0.94 X10^3/ul (0.83-4.51); Absolute Neutrophil Count 9.6 X10^3/uL (2.0-7.7); Basophil# 0.02 X10^3/uL; Basophil% 0.2 % (0-1); Eosinophils% 1.7 % (0-5); Hemoglobin 9.4 g/dl (13.0-16.5); Lymphocyte # 0.94 X10^3/ul (4.0); Lymphocyte % 7.9 % (19-41); Mean Corp Hgb Conc 32.4 g/gl (32-36); Mean Corpuscular Hgb 29.4 pg (27.0-32.0); Mean Corpuscular Volume 90.6 fL (80-94); Mean Platelet Vol. 8.7 fl (6.2-12.0); Monocyte# 1.03 X10^3/uL; Monocyte% 8.7 % (0-10); Neutrophil # 9.57 X10^3/uL (2.7-7.7); Neutrophil % 80.8 % (47-70); Platelet Count 328 K/mm3 (150-450); RBC Distribution Width CV 14.9 % (11.6-14.6); White Blood Count 11.8 K/mm3 (4.4-11.0)
[2018-02-02 04:44] LABS: POSITIVE COUNT NO; POSITIVE DIFFERENTIAL NO; POSITIVE MORPHOLOGY NO
[2018-02-02 04:53] LABS: Anion Gap 6 (5-15); BUN 15 mg/dL (7-18); BUN/Creat Ratio 29.5 RATIO (10-20); Calcium,Total 7.3 mg/dL (8.5-10.1); Chloride 102 mmol/L (98-107); Creatinine, Serum 0.51 mg/dL (0.70-1.30); EST Glomerular Filtration Rate 170 mL/min (>60); Est Glom Filt Rate - Afr Amer 206 mL/min (>60); Estimated Creatinine Clearance 75.74 ml/min; Glucose 117 mg/dL (74-106); Potassium 3.8 mmol/L (3.5-5.1); Sodium Level 141 mmol/L (136-145)
[2018-02-02] MEDS: Piperacil/Tazobactam 3.375 GM/50 ML ML IV (05:17)
[2018-02-02] MEDS: Furosemide 40 MG/4 ML Vial IV ×2 (05:18→14:02)
[2018-02-02] MEDS: 0.9% NaCl Peripheral Flush Adult/Peds IV ×12 (05:22→22:49)
[2018-02-02] MEDS: oxyCODONE 5 MG Tablet PO ×3 (06:30→20:59)
[2018-02-02] MEDS: Ketorolac 15 MG/ML Vial IV ×2 (06:30→18:54)
--- NOTE | 2018-02-02 06:41 | PCM.PN.INT ---
Subjective: The patient was seen and examined at the bedside this morning. Events from the last 24 hours have been reviewed. The patient is currently afebrile, hemodynamically stable and maintaining appropriate oxygen saturations on 2 L/min via nasal cannula. The patient is currently overall net +11 L for the admission. He remains on scheduled Lasix every 8 hours. The patient was overall net -873 mL's yesterday. He remains on broad-spectrum antibiotics with vancomycin and Zosyn. Main complaint this morning is for that of continued hiccups. Objective: The patient's most recent lab work, culture data and imaging studies have all been personally reviewed. Blood and urine cultures are currently pending. Surface echocardiogram dated January 31 revealed normal LV size and function with an ejection fraction of 55% and indeterminate diastolic dysfunction. Right ventricular systolic pressure was estimated to be 34 mmHg. General: Alert, Cooperative, No apparent distress HEENT: Atraumatic, PERRLA, Normocephalic Oral: No Gingival or Mucosal Lesions/ Ulcerations Neck: Supple, No Nodes, Trachea Midline Lungs: No rhonchi, No wheeze, No rales, Diminished Cardiovascular: Regular rate, Regular Rhythm, Normal S1, Normal S2, No murmurs Abdomen: Bowel Sounds Present, Soft Extremities: No clubbing, No cyanosis, No edema Skin: Incision - C/D/I Musculoskeletal: No Tenderness to Palpation of Joints or Extremities Lymphatic: No Cervical, Supraclavicular, or Inguinal Adenopathy Neurological: Neuro grossly intact Psych/Mental Status: Normal Affect, Appropriate Vital Signs Temp Pulse Resp BP Pulse Ox 98.4 F 72 13 91/57 L 98 02/02/18 04:00 02/02/18 04:00 02/02/18 04:00 02/02/18 04:00 02/02/18 04:00 Oxygen Flow Rate (L/min) 2 Oxygen Delivery Method Nasal Cannula Weight: 176 lb 12.972 oz Body Mass Index (BMI) 22.4 Intake and Output for Last 24 Hours 01/31/18 02/01/18 02/02/18 23:59 23:59 23:59 Intake Total 3447.5 / 3447.5 2276.1 / 2276.1 467.5 / 467.5 Output Total 4303 / 4303 3150 / 3150 275 / 275 Balance -855.5 / -855.5 -873.9 / -873.9 192.5 / 192.5 Labs (Last 48 Hours) 01/31/18 01/31/18 01/31/18 05:29 05:29 13:10 WBC RBC Hgb Hct MCV MCH MCHC RDW RDW Differential Plt Count MPV Immature Gran % (Auto) Neut % (Auto) Lymph % (Auto) [place] % (Auto) Eos % (Auto) Baso % (Auto) Absolute Neuts (auto) Absolute Lymphs (auto) Total Counted Differential Comment Sodium 141 Potassium 3.4 L Chloride 106 Carbon Dioxide 30.0 Anion Gap 5 BUN 11 Creatinine 0.41 L Estim Creat Clear Calc 75.08 Est GFR (MDRD) Af Amer 265 Est GFR (MDRD) Non-Af 219 BUN/Creatinine Ratio 26.9 H Glucose 117 H Calcium 7.4 L Phosphorus Magnesium Total Bilirubin AST ALT Alkaline Phosphatase B-Natriuretic Peptide 291.2 H Total Protein Albumin Globulin Albumin/Globulin Ratio Vancomycin Trough MRSA (PCR) POSITIVE H 01/31/18 02/01/18 02/01/18 16:00 04:32 04:32 WBC 12.7 H RBC 3.84 L Hgb 11.7 L Hct 34.6 L MCV 90.1 MCH 30.5 MCHC 33.8 RDW 14.9 H RDW Differential 48.4 H Plt Count 339 MPV 9.0 Immature Gran % (Auto) 0.900 Neut % (Auto) 86.1 H Lymph % (Auto) 4.5 L [place] % (Auto) 7.9 Eos % (Auto) 0.4 Baso % (Auto) 0.2 Absolute Neuts (auto) 11.0 H Absolute Lymphs (auto) 0.57 L Total Counted Not Reportable Differential Comment SCANNED Sodium 142 139 Potassium 3.0 L 4.5 Chloride 107 103 Carbon Dioxide 28.0 28.0 Anion Gap 7 8 BUN 11 14 Creatinine 0.44 L 0.53 L Estim Creat Clear Calc 77.63 77.63 Est GFR (MDRD) Af Amer 246 197 Est GFR (MDRD) Non-Af 204 162 BUN/Creatinine Ratio 25.3 H 26.5 H Glucose 108 H 108 H Calcium 6.5 L* 7.5 L Phosphorus 2.6 Magnesium 1.7 2.0 Total Bilirubin 0.50 AST 15 ALT 13 L Alkaline Phosphatase 51 B-Natriuretic Peptide Total Protein 5.8 L Albumin 1.6 L Globulin 4.2 Albumin/Globulin Ratio 0.4 L Vancomycin Trough MRSA (PCR) 02/01/18 02/02/18 02/02/18 16:00 04:30 04:30 WBC 11.8 H RBC 3.20 L Hgb 9.4 L Hct 29.0 L MCV 90.6 MCH 29.4 MCHC 32.4 RDW 14.9 H RDW Differential 49.0 H Plt Count 328 MPV 8.7 Immature Gran % (Auto) 0.700 Neut % (Auto) 80.8 H Lymph % (Auto) 7.9 L [place] % (Auto) 8.7 Eos % (Auto) 1.7 Baso % (Auto) 0.2 Absolute Neuts (auto) 9.6 H Absolute Lymphs (auto) 0.94 Total Counted Not Reportable Differential Comment Sodium 141 Potassium 3.8 Chloride 102 Carbon Dioxide 33.0 H Anion Gap 6 BUN 15 Creatinine 0.51 L Estim Creat Clear Calc 75.74 Est GFR (MDRD) Af Amer 206 Est GFR (MDRD) Non-Af 170 BUN/Creatinine Ratio 29.5 H Glucose 117 H Calcium 7.3 L Phosphorus Magnesium Total Bilirubin AST ALT Alkaline Phosphatase B-Natriuretic Peptide Total Protein Albumin Globulin Albumin/Globulin Ratio Vancomycin Trough 6.4 MRSA (PCR) Clinical Impression(s) from Imaging Studies Acute Abdomen Series 01/25/18 11:41 IMPRESSION: 1. Dilated small bowel loops and colon with air-fluid levels spaces for distal colonic obstruction. 2. No active pulmonary disease. Electronically Signed: Attila Edmnodson MD at 13:10 EDT Tel , Service support , KUB X-Ray 01/25/18 12:56 IMPRESSION: Probable diffuse ileus. Nasogastric tube in the stomach. Electronically Signed: Todd Tomas DO at 14:03 EDT Tel [phone], Service support , Chest X-Ray 01/31/18 02:15 IMPRESSION: Bilateral pneumonia. Electronically Signed: Marion Vargas MD at 3:00 EDT Tel , Service support , Medical Necessity - Tobacco Use Smoking Status: Never smoker Assessment/Plan All Active Problems (Last Updated 01/31/18 @ 12:14 by Teodoro Suazo, ) Sigmoid stricture (Acute) LLQ abdominal pain (Acute) Obstipation (Resolved) Small bowel obstruction (Resolved) Nausea and vomiting (Resolved) Anastomotic leak of intestine (Acute) Acute respiratory failure with hypoxia (Acute) History of coronary artery stent placement (Resolved 03/02/13) Near syncope (Resolved) Hypotension (Resolved) Diverticulitis (Resolved) History of recent pneumonia (Resolved) Septic shock (Resolved) RECOMMENDATIONS: 1. Continue Antibiotics 2. Continue Lasix as ordered. 3. Wean supplemental oxygen to maintain saturations at or above 90%. 4. Encourage incentive spirometer use and mobilize patient as tolerated. IMPRESSIONS: 1. Acute hypoxic respiratory failure secondary to suspected acute diastolic CHF The patient remains overall net positive for the hospitalization. The patient's oxygenation appears to be slowing improving with attempts at volume optimization with diuretics, which will be continued. Antibiotics can be continued, pending finalized infectious workup. Patient has remained hemodynamically stable otherwise. Wean supplemental oxygen as tolerated and encourage IS use. 2. 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 Anastomosis appears normal at this time. Okay to continue diet from a respiratory standpoint, but defer to surgery. 3. History of skin cancer/coronary artery disease/hyperlipidemia/left anterior fascicular block/advanced age Complicates care, management, recovery and prognosis. Okay to continue with baseline medications from my perspective. This note was generated with [employer] software. It may contain incorrect words, spelling, and punctuation that were not noted in checking the note before signing. Code Visit Inpatient E&M: 15435 Subs Hosp L3
--- NOTE | 2018-02-02 06:46 | PN_ITS ---
Subjective: The patient was seen and examined at the bedside this morning. Events from the last 24 hours have been reviewed. The patient is currently afebrile, hemodynamically stable and maintaining appropriate oxygen saturations on 2 L/min via nasal cannula. The patient is currently overall net +11 L for the admission. He remains on scheduled Lasix every 8 hours. The patient was overall net -873 mL's yesterday. He remains on broad-spectrum antibiotics with vancomycin and Zosyn. Main complaint this morning is for that of continued hiccups. Objective: The patient's most recent lab work, culture data and imaging studies have all been personally reviewed. Blood and urine cultures are currently pending. Surface echocardiogram dated January 31 revealed normal LV size and function with an ejection fraction of 55% and indeterminate diastolic dysfunction. Right ventricular systolic pressure was estimated to be 34 mmHg. General: Alert, Cooperative, No apparent distress HEENT: Atraumatic, PERRLA, Normocephalic Oral: No Gingival or Mucosal Lesions/ Ulcerations Neck: Supple, No Nodes, Trachea Midline Lungs: No rhonchi, No wheeze, No rales, Diminished Cardiovascular: Regular rate, Regular Rhythm, Normal S1, Normal S2, No murmurs Abdomen: Bowel Sounds Present, Soft Extremities: No clubbing, No cyanosis, No edema Skin: Incision - C/D/I Musculoskeletal: No Tenderness to Palpation of Joints or Extremities Lymphatic: No Cervical, Supraclavicular, or Inguinal Adenopathy Neurological: Neuro grossly intact Psych/Mental Status: Normal Affect, Appropriate Vital Signs Temp Pulse Resp BP Pulse Ox 98.4 F 72 13 91/57 L 98 02/02/18 04:00 02/02/18 04:00 02/02/18 04:00 02/02/18 04:00 02/02/18 04:00 Oxygen Flow Rate (L/min) 2 Oxygen Delivery Method Nasal Cannula Weight: 176 lb 12.972 oz Body Mass Index (BMI) 22.4 Intake and Output for Last 24 Hours 01/31/18 02/01/18 02/02/18 23:59 23:59 23:59 Intake Total 3447.5 / 3447.5 2276.1 / 2276.1 467.5 / 467.5 Output Total 4303 / 4303 3150 / 3150 275 / 275 Balance -855.5 / -855.5 -873.9 / -873.9 192.5 / 192.5 Labs (Last 48 Hours) 01/31/18 01/31/18 01/31/18 05:29 05:29 13:10 WBC RBC Hgb Hct MCV MCH MCHC RDW RDW Differential Plt Count MPV Immature Gran % (Auto) Neut % (Auto) Lymph % (Auto) [place] % (Auto) Eos % (Auto) Baso % (Auto) Absolute Neuts (auto) Absolute Lymphs (auto) Total Counted Differential Comment Sodium 141 Potassium 3.4 L Chloride 106 Carbon Dioxide 30.0 Anion Gap 5 BUN 11 Creatinine 0.41 L Estim Creat Clear Calc 75.08 Est GFR (MDRD) Af Amer 265 Est GFR (MDRD) Non-Af 219 BUN/Creatinine Ratio 26.9 H Glucose 117 H Calcium 7.4 L Phosphorus Magnesium Total Bilirubin AST ALT Alkaline Phosphatase B-Natriuretic Peptide 291.2 H Total Protein Albumin Globulin Albumin/Globulin Ratio Vancomycin Trough MRSA (PCR) POSITIVE H 01/31/18 02/01/18 02/01/18 16:00 04:32 04:32 WBC 12.7 H RBC 3.84 L Hgb 11.7 L Hct 34.6 L MCV 90.1 MCH 30.5 MCHC 33.8 RDW 14.9 H RDW Differential 48.4 H Plt Count 339 MPV 9.0 Immature Gran % (Auto) 0.900 Neut % (Auto) 86.1 H Lymph % (Auto) 4.5 L [place] % (Auto) 7.9 Eos % (Auto) 0.4 Baso % (Auto) 0.2 Absolute Neuts (auto) 11.0 H Absolute Lymphs (auto) 0.57 L Total Counted Not Reportable Differential Comment SCANNED Sodium 142 139 Potassium 3.0 L 4.5 Chloride 107 103 Carbon Dioxide 28.0 28.0 Anion Gap 7 8 BUN 11 14 Creatinine 0.44 L 0.53 L Estim Creat Clear Calc 77.63 77.63 Est GFR (MDRD) Af Amer 246 197 Est GFR (MDRD) Non-Af 204 162 BUN/Creatinine Ratio 25.3 H 26.5 H Glucose 108 H 108 H Calcium 6.5 L* 7.5 L Phosphorus 2.6 Magnesium 1.7 2.0 Total Bilirubin 0.50 AST 15 ALT 13 L Alkaline Phosphatase 51 B-Natriuretic Peptide Total Protein 5.8 L Albumin 1.6 L Globulin 4.2 Albumin/Globulin Ratio 0.4 L Vancomycin Trough MRSA (PCR) 02/01/18 02/02/18 02/02/18 16:00 04:30 04:30 WBC 11.8 H RBC 3.20 L Hgb 9.4 L Hct 29.0 L MCV 90.6 MCH 29.4 MCHC 32.4 RDW 14.9 H RDW Differential 49.0 H Plt Count 328 MPV 8.7 Immature Gran % (Auto) 0.700 Neut % (Auto) 80.8 H Lymph % (Auto) 7.9 L [place] % (Auto) 8.7 Eos % (Auto) 1.7 Baso % (Auto) 0.2 Absolute Neuts (auto) 9.6 H Absolute Lymphs (auto) 0.94 Total Counted Not Reportable Differential Comment Sodium 141 Potassium 3.8 Chloride 102 Carbon Dioxide 33.0 H Anion Gap 6 BUN 15 Creatinine 0.51 L Estim Creat Clear Calc 75.74 Est GFR (MDRD) Af Amer 206 Est GFR (MDRD) Non-Af 170 BUN/Creatinine Ratio 29.5 H Glucose 117 H Calcium 7.3 L Phosphorus Magnesium Total Bilirubin AST ALT Alkaline Phosphatase B-Natriuretic Peptide Total Protein Albumin Globulin Albumin/Globulin Ratio Vancomycin Trough 6.4 MRSA (PCR) Clinical Impression(s) from Imaging Studies Acute Abdomen Series 01/25/18 11:41 IMPRESSION: 1. Dilated small bowel loops and colon with air-fluid levels spaces for distal colonic obstruction. 2. No active pulmonary disease. Electronically Signed: Attila Edmondson MD at 13:10 EDT Tel , Service support , KUB X-Ray 01/25/18 12:56 IMPRESSION: Probable diffuse ileus. Nasogastric tube in the stomach. Electronically Signed: Todd Tomas DO at 14:03 EDT Tel [phone], Service support , Chest X-Ray 01/31/18 02:15 IMPRESSION: Bilateral pneumonia. Electronically Signed: Marion Vargas MD at 3:00 EDT Tel , Service support , Medical Necessity - Tobacco Use Smoking Status: Never smoker Assessment/Plan All Active Problems (Last Updated 01/31/18 @ 12:14 by Teodoro Suazo, ) Sigmoid stricture (Acute) LLQ abdominal pain (Acute) Obstipation (Resolved) Small bowel obstruction (Resolved) Nausea and vomiting (Resolved) Anastomotic leak of intestine (Acute) Acute respiratory failure with hypoxia (Acute) History of coronary artery stent placement (Resolved 03/02/13) Near syncope (Resolved) Hypotension (Resolved) Diverticulitis (Resolved) History of recent pneumonia (Resolved) Septic shock (Resolved) RECOMMENDATIONS: 1. Continue Antibiotics 2. Continue Lasix as ordered. 3. Wean supplemental oxygen to maintain saturations at or above 90%. 4. Encourage incentive spirometer use and mobilize patient as tolerated. IMPRESSIONS: 1. Acute hypoxic respiratory failure secondary to suspected acute diastolic CHF The patient remains overall net positive for the hospitalization. The patient's oxygenation appears to be slowing improving with attempts at volume optimization with diuretics, which will be continued. Antibiotics can be continued, pending finalized infectious workup. Patient has remained hemodynamically stable otherwise. Wean supplemental oxygen as tolerated and encourage IS use. 2. 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 Anastomosis appears normal at this time. Okay to continue diet from a respiratory standpoint, but defer to surgery. 3. History of skin cancer/coronary artery disease/hyperlipidemia/left anterior fascicular block/advanced age Complicates care, management, recovery and prognosis. Okay to continue with baseline medications from my perspective. This note was generated with [employer] software. It may contain incorrect words, spelling, and punctuation that were not noted in checking the note before signing. Code Visit Inpatient E&M: 56217 Subs Hosp L3
--- NOTE | 2018-02-02 08:53 | PCM.PN.SRG ---
Patient Problems: Active and Suspected Problems (Last Updated 01/31/18 @ 12:14 by Teodoro Suazo DO) Anastomotic leak of intestine (Acute) Acute respiratory failure with hypoxia (Acute) Subjective: Patient evaluated resting comfortably in bed. He is not lethargic or confused this morning. He is answering questions appropriately. He notes very minimal abdominal discomfort. He notes flatus and loose BM's. He is tolerating solid food well. He has clear/light yellowish urine. He denies nausea, vomiting. He continues to note hiccups. - Physical Exam General: Alert, Oriented x3, Cooperative Lungs: Clear to auscultation, Normal air movement Cardiovascular: Regular rate, No murmurs Abdomen: Soft, Distended - slightly, Tender - generalized mild tenderness, - - Incision c/d/i. No erythema or infection noted. Judith intact Vital Signs Temp Pulse Resp BP Pulse Ox 98.1 F 79 18 97/59 L 94 02/02/18 07:58 02/02/18 07:58 02/02/18 07:58 02/02/18 07:58 02/02/18 08:00 Oxygen Flow Rate (L/min) 1 Oxygen Delivery Method Nasal Cannula Weight: 176 lb 12.972 oz Body Mass Index (BMI) 22.4 Intake and Output for Last 24 Hours 01/31/18 02/01/18 02/02/18 23:59 23:59 23:59 Intake Total 3447.5 / 3447.5 2276.1 / 2276.1 467.5 / 467.5 Output Total 4303 / 4303 3150 / 3150 275 / 275 Balance -855.5 / -855.5 -873.9 / -873.9 192.5 / 192.5 Microbiology Past 72 Hours 01/31/18 02:35 Blood Culture - Preliminary Blood Culture (Wb) - Right Hand No growth in 48 hours. 01/31/18 02:32 Blood Culture - Preliminary Blood Culture (Wb) - Anticubital Right No growth in 48 hours. Laboratory Tests Past 24 Hrs 02/01/18 02/02/18 02/02/18 16:00 04:30 04:30 WBC 11.8 H RBC 3.20 L Hgb 9.4 L Hct 29.0 L MCV 90.6 MCH 29.4 MCHC 32.4 RDW 14.9 H RDW Differential 49.0 H Plt Count 328 MPV 8.7 Immature Gran % (Auto) 0.700 Neut % (Auto) 80.8 H Lymph % (Auto) 7.9 L [place] % (Auto) 8.7 Eos % (Auto) 1.7 Baso % (Auto) 0.2 Absolute Neuts (auto) 9.6 H Absolute Lymphs (auto) 0.94 Total Counted Not Reportable Sodium 141 Potassium 3.8 Chloride 102 Carbon Dioxide 33.0 H Anion Gap 6 BUN 15 Creatinine 0.51 L Estim Creat Clear Calc 75.74 Est GFR (MDRD) Af Amer 206 Est GFR (MDRD) Non-Af 170 BUN/Creatinine Ratio 29.5 H Glucose 117 H Calcium 7.3 L Vancomycin Trough 6.4 Medical Necessity - Tobacco Use Smoking Status: Never smoker Assessment/Plan All Active Problems (Last Updated 01/31/18 @ 12:14 by Teodoro Suazo DO) Sigmoid stricture (Acute) LLQ abdominal pain (Acute) Obstipation (Resolved) Small bowel obstruction (Resolved) Nausea and vomiting (Resolved) Anastomotic leak of intestine (Acute) Acute respiratory failure with hypoxia (Acute) History of coronary artery stent placement (Resolved 03/02/13) Near syncope (Resolved) Hypotension (Resolved) Diverticulitis (Resolved) History of recent pneumonia (Resolved) Septic shock (Resolved) I am following this patient in conjunction with Dr. Byers S/p open sigmoid colectomy Labs reviewed Encourage ambulation and I.S. Tolerating diet well Plan for short term rehab facility at discharged We will continue to monitor this patient. Code Visit Inpatient E&M: 81334 Subs Hosp L1 - POST-OP
[2018-02-02] MEDS: Morphine 2 MG/ML Syringe 1 MG IV ×3 (09:38→22:46)
--- NOTE | 2018-02-02 10:02 | EKG12_ITS ---
Test Reason : RUN OFSVT ONMONITOR Blood Pressure : / mmHG Vent. Rate : 126 BPM Atrial Rate : 126 BPM P-R Int : 140 ms QRS Dur : 084 ms QT Int : 322 ms P-R-T Axes : 044 -64 058 degrees QTc Int : 466 ms Sinus tachycardia with Premature atrial complexes Left anterior fascicular block Abnormal ECG When compared with ECG of 02-FEB-2018 09:35, MANUAL COMPARISON REQUIRED, DATA IS UNCONFIRMED Confirmed by LUIS MANUEL GAYLE ([id number]), acquisitions editor KASSANDRA PASCUAL ([id number] on 02/10/2018 11:42:52 AM Referred By: Luis Manuel Byers Confirmed By:LUIS MANUEL GAYLE
[2018-02-02] MEDS: Menthol/Lanolin/Calamine/Znox 113 GM Tube 1 APPLIC TOPICAL ×4 (10:28→20:56)
[2018-02-02] MEDS: CHLORHEXIDINE GLUC 2% CLOTH 1 EACH TOWELETTE TOPICAL (10:28)
[2018-02-02] MEDS: Ciprofloxacin 500 MG Tablet PO ×2 (10:29→20:57)
--- NOTE | 2018-02-02 13:08 | NURSING ---
Called pt's [facility] and informed her of transfer to PCU 112. Also given update regarding troponin, EKG, and start of PPI. She verbalizes understanding.
[2018-02-02] MEDS: Pantoprazole Sodium 20 MG Tablet PO (13:53)
[2018-02-02] MEDS: metroNIDAZOLE 500 MG Tablet PO ×2 (14:01→20:57)
[2018-02-02] MEDS: proMETHazine 25 MG/ML Syringe 12.5 MG IV (14:13)
[2018-02-02] MEDS: Ondansetron 4 MG/2 ML Vial IV (15:45)
[2018-02-02] MEDS: Albuterol 2.5 MG/3 ML VIAL.NEB. INHALATION (16:02)
--- NOTE | 2018-02-02 17:28 | EKG12_ITS ---
Test Reason : CHEST PAIN Blood Pressure : / mmHG Vent. Rate : 076 BPM Atrial Rate : 076 BPM P-R Int : 160 ms QRS Dur : 088 ms QT Int : 418 ms P-R-T Axes : 005 -44 064 degrees QTc Int : 470 ms Normal sinus rhythm Left axis deviation Abnormal ECG When compared with ECG of 25-JAN-2018 11:55, No significant change was found Confirmed by LUIS MANUEL GAYLE ([id number]), editor book KASSANDRA PASCUAL ([id number] on 02/10/2018 11:45:26 AM Referred By: Luis Manuel Byers Confirmed By:LUIS MANUEL GAYLE
[2018-02-02] MEDS: Digoxin 250 MCG/ML Ampul 500 MCG IV (17:42)
--- NOTE | 2018-02-02 18:17 | PN_ITS ---
Patient Problems: Active and Suspected Problems (Last Updated 01/31/18 @ 12:14 by Teodoro Suazo DO) Anastomotic leak of intestine (Acute) Acute respiratory failure with hypoxia (Acute) Subjective: Patient seen and examined today, his was at the bedside. He states that he was unable to eat breakfast or lunch today, when I asked him why he is not able to eat, patient held his breath for about 5 seconds and stated he could not breathe. Patient states he will try to eat dinner tonight. It was noted on telemetry late this afternoon if patient had runs of SVT, he was asymptomatic with this but I have decided to place him on medication. I read through his forest fire control officer notes at his last office visit, patient had been on metoprolol at one time but complained of fatigue and tiredness and he was taken off this medication. I decided to place him on Coreg and give him a dose of IV digoxin and place him on digoxin 0.125 mg daily starting tomorrow. Patient had these short episodes of SVT while he was in the ICU. I discussed his care with Dr. Byers-surgery. - Physical Exam General: Alert, Oriented x3, Cooperative, No apparent distress, Well developed HEENT: Atraumatic, PERRLA, EOMI, Normocephalic Oral: Moist Mucosa Neck: Supple, No Nuchal Rigidity, Trachea Midline, Thyroid Normal Size and Texture Lungs: Clear to auscultation, Normal air movement, No rhonchi, No wheeze, No rales Cardiovascular: Regular rate, Regular Rhythm, Normal S1, Normal S2, No murmurs, No Ectopic Activity, PMI Normal, No rub noted, No Gallop Abdomen: Bowel Sounds Present, Soft, Non Tender, Non-Distended Extremities: No edema, Capillary Refill Less than 3 Seconds Neurological: Cranial nerves II-XII grossly intact, Neuro grossly intact, Sensory exam intact to light touch and pain, Coordination normal Psych/Mental Status: Normal Affect, Appropriate, Alert and oriented to time, place, person, mood and affect Vital Signs Temp Pulse Resp BP Pulse Ox 98.9 F 190 H 16 133/75 H 93 02/02/18 13:25 02/02/18 17:42 02/02/18 16:02 02/02/18 13:25 02/02/18 13:25 Oxygen Flow Rate (L/min) 1 Oxygen Delivery Method Nasal Cannula Weight: 80.2 kg Body Mass Index (BMI) 22.4 Intake and Output for Last 24 Hours 01/31/18 02/01/18 02/02/18 23:59 23:59 23:59 Intake Total 3447.5 / 3447.5 2276.1 / 2276.1 798.5 / 798.5 Output Total 4303 / 4303 3150 / 3150 1375 / 1375 Balance -855.5 / -855.5 -873.9 / -873.9 -576.5 / -576.5 Microbiology Past 72 Hours 02/01/18 07:45 Urine Culture - Preliminary Urine Catheter - Hernandez Culture exhibits no growth. 01/31/18 02:35 Blood Culture - Preliminary Blood Culture (Wb) - Right Hand No growth in 48 hours. 01/31/18 02:32 Blood Culture - Preliminary Blood Culture (Wb) - Anticubital Right No growth in 48 hours. Laboratory Tests Past 24 Hrs 02/02/18 02/02/18 02/02/18 04:30 04:30 10:35 WBC 11.8 H RBC 3.20 L Hgb 9.4 L Hct 29.0 L MCV 90.6 MCH 29.4 MCHC 32.4 RDW 14.9 H RDW Differential 49.0 H Plt Count 328 MPV 8.7 Immature Gran % (Auto) 0.700 Neut % (Auto) 80.8 H Lymph % (Auto) 7.9 L [place] % (Auto) 8.7 Eos % (Auto) 1.7 Baso % (Auto) 0.2 Absolute Neuts (auto) 9.6 H Absolute Lymphs (auto) 0.94 Total Counted Not Reportable Sodium 141 Potassium 3.8 Chloride 102 Carbon Dioxide 33.0 H Anion Gap 6 BUN 15 Creatinine 0.51 L Estim Creat Clear Calc 75.74 Est GFR (MDRD) Af Amer 206 Est GFR (MDRD) Non-Af 170 BUN/Creatinine Ratio 29.5 H Glucose 117 H Calcium 7.3 L Magnesium Troponin I < 0.015 02/02/18 02/02/18 17:44 17:44 WBC RBC Hgb Hct MCV MCH MCHC RDW RDW Differential Plt Count MPV Immature Gran % (Auto) Neut % (Auto) Lymph % (Auto) [place] % (Auto) Eos % (Auto) Baso % (Auto) Absolute Neuts (auto) Absolute Lymphs (auto) Total Counted Sodium Potassium Chloride Carbon Dioxide Anion Gap BUN Creatinine Estim Creat Clear Calc Est GFR (MDRD) Af Amer Est GFR (MDRD) Non-Af BUN/Creatinine Ratio Glucose Calcium Magnesium Pending Troponin I Pending Medical Necessity - Tobacco Use Smoking Status: Never smoker Assessment/Plan All Active Problems (Last Updated 01/31/18 @ 12:14 by Teodoro Suazo, ) Sigmoid stricture (Acute) LLQ abdominal pain (Acute) Obstipation (Resolved) Small bowel obstruction (Resolved) Nausea and vomiting (Resolved) Anastomotic leak of intestine (Acute) Acute respiratory failure with hypoxia (Acute) History of coronary artery stent placement (Resolved 03/02/13) Near syncope (Resolved) Hypotension (Resolved) Diverticulitis (Resolved) History of recent pneumonia (Resolved) Septic shock (Resolved) #1 acute hypoxic respiratory failure probably secondary to diastolic congestive heart failure-patient will be converted to oral Lasix starting tomorrow, he has had very little intake orally and I am hesitant to continue IV Lasix on the patient. #2 acute on chronic diastolic congestive heart failure-ejection fraction 55% #3 bilateral pulmonary infiltrates-possible pneumonia, continue Cipro and Flagyl #4 hypokalemia-corrected at this time #5 coronary artery disease #6 postop day #7 low anterior resection sigmoid and rectosigmoid junction, postop day #6 revision of anastomotic leak of the colorectal region #7 SVT-patient is having short runs of SVT, I have given the patient Lanoxin 500 mcg IV today, and magnesium level was drawn, patient will start on Lanoxin 0.125 mg daily starting tomorrow, and I have placed the patient on Coreg 6.25 mg twice daily. If patient continues to have episodes of SVT and they are not controlled with adjustments of these medications, he may need to see cardiology in the hospital. Patient's forest fire control officer is Dr. Amaro Code Visit Inpatient E&M: 67170 Subs Hosp L2
[2018-02-02 18:30] LABS: Magnesium 1.9 mg/dL (1.6-2.6)
[2018-02-02] MEDS: Pravastatin 20 MG Tablet 10 MG PO (20:57)
[2018-02-02] MEDS: Senna/Docusate Sodium 1 Tablet 2 TABLET PO (20:57)
[2018-02-03] VITALS (18 sets, daily range): BP systolic 92–112; BP diastolic 48–61; PULSE 63–92; RESP 16–20; TEMP 36.7–37.4; O2SAT 92–94
[2018-02-03] MEDS: Ipratropium/Albuterol Sulfate 3 ML AMPUL.NEB INHALATION ×4 (01:03→18:38)
[2018-02-03] MEDS: Ketorolac 15 MG/ML Vial IV ×2 (02:55→14:35)
[2018-02-03] MEDS: 0.9% NaCl Peripheral Flush Adult/Peds IV ×7 (02:55→18:20)
[2018-02-03 05:00] LABS: Absolute Lymphocyte Count 0.89 X10^3/ul (0.83-4.51); Absolute Neutrophil Count 10.7 X10^3/uL (2.0-7.7); Basophil# 0.02 X10^3/uL; Basophil% 0.2 % (0-1); Eosinophil# 0.19 X10^3/uL; Eosinophils% 1.5 % (0-5); Hematocrit 30.5 % (40-54); Hemoglobin 9.8 g/dl (13.0-16.5); Lymphocyte # 0.89 X10^3/ul (4.0); Lymphocyte % 6.9 % (19-41); Mean Corp Hgb Conc 32.1 g/gl (32-36); Mean Corpuscular Hgb 29.3 pg (27.0-32.0); Mean Corpuscular Volume 91.3 fL (80-94); Mean Platelet Vol. 8.7 fl (6.2-12.0); Monocyte# 1.04 X10^3/uL; Monocyte% 8.1 % (0-10); Neutrophil # 10.65 X10^3/uL (2.7-7.7); Neutrophil % 82.8 % (47-70); Platelet Count 418 K/mm3 (150-450); RBC Distribution Width SD 49.8 fl (35.1-43.9); Red Blood Count 3.34 M/mm3 (4.6-6.2); White Blood Count 12.9 K/mm3 (4.4-11.0)
[2018-02-03 05:09] LABS: Anion Gap 5 (5-15); BUN 17 mg/dL (7-18); BUN/Creat Ratio 34.2 RATIO (10-20); Calcium,Total 7.4 mg/dL (8.5-10.1); Chloride 104 mmol/L (98-107); EST Glomerular Filtration Rate 175 mL/min (>60); Est Glom Filt Rate - Afr Amer 211 mL/min (>60); Estimated Creatinine Clearance 75.74 ml/min; Glucose 124 mg/dL (74-106); POSITIVE COUNT NO; POSITIVE DIFFERENTIAL NO; POSITIVE MORPHOLOGY NO; Potassium 3.9 mmol/L (3.5-5.1); Sodium Level 142 mmol/L (136-145)
[2018-02-03] MEDS: metroNIDAZOLE 500 MG Tablet PO ×3 (05:47→21:22)
[2018-02-03] MEDS: Metoclopramide 10 MG/2 ML Vial 2.5 MG IV ×3 (05:51→18:19)
--- NOTE | 2018-02-03 07:09 | PCM.PROGNOTE ---
Patient Problems: Active and Suspected Problems (Last Updated 01/31/18 @ 12:14 by Teodoro Suazo DO) Anastomotic leak of intestine (Acute) Acute respiratory failure with hypoxia (Acute) Subjective: The patient was seen and examined at the bedside this morning. Events from the last 24 hours have been reviewed. The patient is currently afebrile, hemodynamically stable and maintaining appropriate oxygen saturations on 1 L/min via nasal cannula. The patient remains on p.o. scheduled Lasix. He has been intermittently confused, but denies shortness of breath or cough. Objective: The patient's most recent lab work, culture data and imaging studies have all been personally reviewed. Blood and urine cultures are currently pending. Surface echocardiogram dated January 31 revealed normal LV size and function with an ejection fraction of 55% and indeterminate diastolic dysfunction. Right ventricular systolic pressure was estimated to be 34 mmHg. - Physical Exam General: Alert, Cooperative, No apparent distress HEENT: Atraumatic, PERRLA, Normocephalic Oral: No Gingival or Mucosal Lesions/ Ulcerations Neck: Supple, No Nodes, Trachea Midline Lungs: No rhonchi, No wheeze, No rales, Diminished Cardiovascular: Regular rate, Regular Rhythm, Normal S1, Normal S2, No murmurs Abdomen: Bowel Sounds Present, Soft, Non Tender Extremities: No clubbing, No cyanosis, No edema Skin: Incision - C/D/I Musculoskeletal: No Tenderness to Palpation of Joints or Extremities Lymphatic: No Cervical, Supraclavicular, or Inguinal Adenopathy Neurological: Neuro grossly intact Psych/Mental Status: Normal Affect, Appropriate Vital Signs Temp Pulse Resp BP Pulse Ox 98.0 F 78 18 100/59 L 94 02/03/18 06:40 02/03/18 06:40 02/03/18 06:40 02/03/18 06:40 02/03/18 06:40 Oxygen Flow Rate (L/min) 1 Oxygen Delivery Method Nasal Cannula Weight: 175 lb 4.28 oz Body Mass Index (BMI) 22.4 Intake and Output for Last 24 Hours 02/01/18 02/02/18 02/03/18 23:59 23:59 23:59 Intake Total 2276.1 / 2276.1 1423.5 / 1423.5 Output Total 3150 / 3150 3400 / 3400 200 / 200 Balance -873.9 / -873.9 -1976.5 / -1976.5 -200 / -200 Microbiology Past 72 Hours 02/01/18 07:45 Urine Culture - Preliminary Urine Catheter - Hernandez Culture exhibits no growth. 01/31/18 02:35 Blood Culture - Preliminary Blood Culture (Wb) - Right Hand No growth in 48 hours. 01/31/18 02:32 Blood Culture - Preliminary Blood Culture (Wb) - Anticubital Right No growth in 48 hours. Laboratory Tests Past 24 Hrs 02/02/18 02/02/18 02/02/18 10:35 17:44 17:44 WBC RBC Hgb Hct MCV MCH MCHC RDW RDW Differential Plt Count MPV Immature Gran % (Auto) Neut % (Auto) Lymph % (Auto) [place] % (Auto) Eos % (Auto) Baso % (Auto) Absolute Neuts (auto) Absolute Lymphs (auto) Total Counted Sodium Potassium Chloride Carbon Dioxide Anion Gap BUN Creatinine Estim Creat Clear Calc Est GFR (MDRD) Af Amer Est GFR (MDRD) Non-Af BUN/Creatinine Ratio Glucose Calcium Magnesium 1.9 Troponin I < 0.015 < 0.015 02/02/18 02/03/18 02/03/18 20:30 04:40 04:40 WBC 12.9 H RBC 3.34 L Hgb 9.8 L Hct 30.5 L MCV 91.3 MCH 29.3 MCHC 32.1 RDW 15.0 H RDW Differential 49.8 H Plt Count 418 MPV 8.7 Immature Gran % (Auto) 0.500 Neut % (Auto) 82.8 H Lymph % (Auto) 6.9 L [place] % (Auto) 8.1 Eos % (Auto) 1.5 Baso % (Auto) 0.2 Absolute Neuts (auto) 10.7 H Absolute Lymphs (auto) 0.89 Total Counted Not Reportable Sodium 142 Potassium 3.9 Chloride 104 Carbon Dioxide 33.0 H Anion Gap 5 BUN 17 Creatinine 0.50 L Estim Creat Clear Calc 75.74 Est GFR (MDRD) Af Amer 211 Est GFR (MDRD) Non-Af 175 BUN/Creatinine Ratio 34.2 H Glucose 124 H Calcium 7.4 L Magnesium Troponin I < 0.015 Clinical Impression(s) from Imaging Studies Acute Abdomen Series 01/25/18 11:41 IMPRESSION: 1. Dilated small bowel loops and colon with air-fluid levels spaces for distal colonic obstruction. 2. No active pulmonary disease. Electronically Signed: Attila Edmondson MD at 13:10 EDT Tel , Service support , KUB X-Ray 01/25/18 12:56 IMPRESSION: Probable diffuse ileus. Nasogastric tube in the stomach. Electronically Signed: Todd Tomas DO at 14:03 EDT Tel [phone], Service support , Chest X-Ray 01/31/18 02:15 IMPRESSION: Bilateral pneumonia. Electronically Signed: Marion Vargas MD at 3:00 EDT Tel , Service support , Medical Necessity - Tobacco Use Smoking Status: Never smoker Assessment/Plan All Active Problems (Last Updated 01/31/18 @ 12:14 by Teodoro Suazo DO) Sigmoid stricture (Acute) LLQ abdominal pain (Acute) Obstipation (Resolved) Small bowel obstruction (Resolved) Nausea and vomiting (Resolved) Anastomotic leak of intestine (Acute) Acute respiratory failure with hypoxia (Acute) History of coronary artery stent placement (Resolved 03/02/13) Near syncope (Resolved) Hypotension (Resolved) Diverticulitis (Resolved) History of recent pneumonia (Resolved) Septic shock (Resolved) RECOMMENDATIONS: 1. Continue Antibiotics per surgery recommendations 2. Continue Lasix as ordered. 3. Wean supplemental oxygen to maintain saturations at or above 90%. 4. Encourage incentive spirometer use and mobilize patient as tolerated. IMPRESSIONS: 1. Acute hypoxic respiratory failure secondary to suspected acute diastolic CHF The patient remains overall net positive for the hospitalization. The patient's oxygenation appears to be slowing improving with attempts at volume optimization with diuretics, which will be continued. Antibiotics can be continued, pending finalized infectious workup. Patient has remained hemodynamically stable otherwise. Wean supplemental oxygen as tolerated and encourage IS use. 2. 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 Anastomosis appears normal at this time. Okay to continue diet from a respiratory standpoint, but defer to surgery. 3. History of skin cancer/coronary artery disease/hyperlipidemia/left anterior fascicular block/advanced age Complicates care, management, recovery and prognosis. Okay to continue with baseline medications from my perspective. This note was generated with [employer] software. It may contain incorrect words, spelling, and punctuation that were not noted in checking the note before signing. DISPOSITION: Given the patient's lack of ongoing ICU/pulmonary needs, will sign off. Please call with any additional questions. Code Visit Inpatient E&M: 55426 Subs Hosp L2
--- NOTE | 2018-02-03 07:17 | PN_ITS ---
Patient Problems: Active and Suspected Problems (Last Updated 01/31/18 @ 12:14 by Teodoro Suazo DO) Anastomotic leak of intestine (Acute) Acute respiratory failure with hypoxia (Acute) Subjective: The patient was seen and examined at the bedside this morning. Events from the last 24 hours have been reviewed. The patient is currently afebrile, hemodynamically stable and maintaining appropriate oxygen saturations on 1 L/min via nasal cannula. The patient remains on p.o. scheduled Lasix. He has been intermittently confused, but denies shortness of breath or cough. Objective: The patient's most recent lab work, culture data and imaging studies have all been personally reviewed. Blood and urine cultures are currently pending. Surface echocardiogram dated January 31 revealed normal LV size and function with an ejection fraction of 55% and indeterminate diastolic dysfunction. Right ventricular systolic pressure was estimated to be 34 mmHg. - Physical Exam General: Alert, Cooperative, No apparent distress HEENT: Atraumatic, PERRLA, Normocephalic Oral: No Gingival or Mucosal Lesions/ Ulcerations Neck: Supple, No Nodes, Trachea Midline Lungs: No rhonchi, No wheeze, No rales, Diminished Cardiovascular: Regular rate, Regular Rhythm, Normal S1, Normal S2, No murmurs Abdomen: Bowel Sounds Present, Soft, Non Tender Extremities: No clubbing, No cyanosis, No edema Skin: Incision - C/D/I Musculoskeletal: No Tenderness to Palpation of Joints or Extremities Lymphatic: No Cervical, Supraclavicular, or Inguinal Adenopathy Neurological: Neuro grossly intact Psych/Mental Status: Normal Affect, Appropriate Vital Signs Temp Pulse Resp BP Pulse Ox 98.0 F 78 18 100/59 L 94 02/03/18 06:40 02/03/18 06:40 02/03/18 06:40 02/03/18 06:40 02/03/18 06:40 Oxygen Flow Rate (L/min) 1 Oxygen Delivery Method Nasal Cannula Weight: 175 lb 4.28 oz Body Mass Index (BMI) 22.4 Intake and Output for Last 24 Hours 02/01/18 02/02/18 02/03/18 23:59 23:59 23:59 Intake Total 2276.1 / 2276.1 1423.5 / 1423.5 Output Total 3150 / 3150 3400 / 3400 200 / 200 Balance -873.9 / -873.9 -1976.5 / -1976.5 -200 / -200 Microbiology Past 72 Hours 02/01/18 07:45 Urine Culture - Preliminary Urine Catheter - Hernandez Culture exhibits no growth. 01/31/18 02:35 Blood Culture - Preliminary Blood Culture (Wb) - Right Hand No growth in 48 hours. 01/31/18 02:32 Blood Culture - Preliminary Blood Culture (Wb) - Anticubital Right No growth in 48 hours. Laboratory Tests Past 24 Hrs 02/02/18 02/02/18 02/02/18 10:35 17:44 17:44 WBC RBC Hgb Hct MCV MCH MCHC RDW RDW Differential Plt Count MPV Immature Gran % (Auto) Neut % (Auto) Lymph % (Auto) [place] % (Auto) Eos % (Auto) Baso % (Auto) Absolute Neuts (auto) Absolute Lymphs (auto) Total Counted Sodium Potassium Chloride Carbon Dioxide Anion Gap BUN Creatinine Estim Creat Clear Calc Est GFR (MDRD) Af Amer Est GFR (MDRD) Non-Af BUN/Creatinine Ratio Glucose Calcium Magnesium 1.9 Troponin I < 0.015 < 0.015 02/02/18 02/03/18 02/03/18 20:30 04:40 04:40 WBC 12.9 H RBC 3.34 L Hgb 9.8 L Hct 30.5 L MCV 91.3 MCH 29.3 MCHC 32.1 RDW 15.0 H RDW Differential 49.8 H Plt Count 418 MPV 8.7 Immature Gran % (Auto) 0.500 Neut % (Auto) 82.8 H Lymph % (Auto) 6.9 L [place] % (Auto) 8.1 Eos % (Auto) 1.5 Baso % (Auto) 0.2 Absolute Neuts (auto) 10.7 H Absolute Lymphs (auto) 0.89 Total Counted Not Reportable Sodium 142 Potassium 3.9 Chloride 104 Carbon Dioxide 33.0 H Anion Gap 5 BUN 17 Creatinine 0.50 L Estim Creat Clear Calc 75.74 Est GFR (MDRD) Af Amer 211 Est GFR (MDRD) Non-Af 175 BUN/Creatinine Ratio 34.2 H Glucose 124 H Calcium 7.4 L Magnesium Troponin I < 0.015 Clinical Impression(s) from Imaging Studies Acute Abdomen Series 01/25/18 11:41 IMPRESSION: 1. Dilated small bowel loops and colon with air-fluid levels spaces for distal colonic obstruction. 2. No active pulmonary disease. Electronically Signed: Attila Edmondson MD at 13:10 EDT Tel , Service support , KUB X-Ray 01/25/18 12:56 IMPRESSION: Probable diffuse ileus. Nasogastric tube in the stomach. Electronically Signed: Todd Tomas DO at 14:03 EDT Tel [phone], Service support , Chest X-Ray 01/31/18 02:15 IMPRESSION: Bilateral pneumonia. Electronically Signed: Marion Vargas MD at 3:00 EDT Tel , Service support , Medical Necessity - Tobacco Use Smoking Status: Never smoker Assessment/Plan All Active Problems (Last Updated 01/31/18 @ 12:14 by Teodoro Suazo DO) Sigmoid stricture (Acute) LLQ abdominal pain (Acute) Obstipation (Resolved) Small bowel obstruction (Resolved) Nausea and vomiting (Resolved) Anastomotic leak of intestine (Acute) Acute respiratory failure with hypoxia (Acute) History of coronary artery stent placement (Resolved 03/02/13) Near syncope (Resolved) Hypotension (Resolved) Diverticulitis (Resolved) History of recent pneumonia (Resolved) Septic shock (Resolved) RECOMMENDATIONS: 1. Continue Antibiotics per surgery recommendations 2. Continue Lasix as ordered. 3. Wean supplemental oxygen to maintain saturations at or above 90%. 4. Encourage incentive spirometer use and mobilize patient as tolerated. IMPRESSIONS: 1. Acute hypoxic respiratory failure secondary to suspected acute diastolic CHF The patient remains overall net positive for the hospitalization. The patient's oxygenation appears to be slowing improving with attempts at volume optimization with diuretics, which will be continued. Antibiotics can be continued, pending finalized infectious workup. Patient has remained hemodynamically stable otherwise. Wean supplemental oxygen as tolerated and encourage IS use. 2. 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 Anastomosis appears normal at this time. Okay to continue diet from a respiratory standpoint, but defer to surgery. 3. History of skin cancer/coronary artery disease/hyperlipidemia/left anterior fascicular block/advanced age Complicates care, management, recovery and prognosis. Okay to continue with baseline medications from my perspective. This note was generated with [employer] software. It may contain incorrect words, spelling, and punctuation that were not noted in checking the note before signing. DISPOSITION: Given the patient's lack of ongoing ICU/pulmonary needs, will sign off. Please call with any additional questions. Code Visit Inpatient E&M: 07373 Subs Hosp L2
--- NOTE | 2018-02-03 08:25 | PN.SURG_ITS ---
Patient Problems: Active and Suspected Problems (Last Updated 01/31/18 @ 12:14 by Teodoro Suazo DO) Anastomotic leak of intestine (Acute) Acute respiratory failure with hypoxia (Acute) Subjective: Patient evaluated resting comfortably in bed. He goes in and out of confusion. Answers questions appropriately. Continues to have loose stools. Positive flatus, Negative nausea, vomiting. No fever. Continue to have hiccups intermittently. Ate dinner late night. He had peaches, half of his mashed potatoes, and milk. Mireles catheter intact. Denies chest pain and shortness of breath. Holds his breath and counts to 9 seconds and then notes he can't breath. New cardiacs medication introduced yesterday. - Physical Exam General: Alert, Cooperative, No apparent distress, Confused - in and out of confusion. Knows day and place of where he is at. Lungs: Clear to auscultation, Normal air movement Cardiovascular: Regular rate, No murmurs Abdomen: Bowel Sounds Present, Soft, Non Tender, Distended - slightly distended. No more than he has been., - - Incision c/d/i. No purulent drainage noted. Wheeler intact. Dried blood noted between the arely. Adaptic in place and ABD over top Extremities: - - Edema of the hands has appeared to resolve Vital Signs Temp Pulse Resp BP Pulse Ox 98.0 F 76 20 H 100/59 L 92 02/03/18 06:40 02/03/18 07:30 02/03/18 06:44 02/03/18 06:40 02/03/18 06:44 Oxygen Flow Rate (L/min) 2 Oxygen Delivery Method Nasal Cannula Weight: 175 lb 4.28 oz Body Mass Index (BMI) 22.4 Intake and Output for Last 24 Hours 02/01/18 02/02/18 02/03/18 23:59 23:59 23:59 Intake Total 2276.1 / 2276.1 1423.5 / 1423.5 Output Total 3150 / 3150 3400 / 3400 200 / 200 Balance -873.9 / -873.9 -1976.5 / -1976.5 -200 / -200 Microbiology Past 72 Hours 02/01/18 07:45 Urine Culture - Final Urine Catheter - Mireles Culture exhibits no growth. 01/31/18 02:35 Blood Culture - Preliminary Blood Culture (Wb) - Right Hand No growth in 48 hours. 01/31/18 02:32 Blood Culture - Preliminary Blood Culture (Wb) - Anticubital Right No growth in 48 hours. Laboratory Tests Past 24 Hrs 02/02/18 02/02/18 02/02/18 10:35 17:44 17:44 WBC RBC Hgb Hct MCV MCH MCHC RDW RDW Differential Plt Count MPV Immature Gran % (Auto) Neut % (Auto) Lymph % (Auto) [place] % (Auto) Eos % (Auto) Baso % (Auto) Absolute Neuts (auto) Absolute Lymphs (auto) Total Counted Sodium Potassium Chloride Carbon Dioxide Anion Gap BUN Creatinine Estim Creat Clear Calc Est GFR (MDRD) Af Amer Est GFR (MDRD) Non-Af BUN/Creatinine Ratio Glucose Calcium Magnesium 1.9 Troponin I < 0.015 < 0.015 02/02/18 02/03/18 02/03/18 20:30 04:40 04:40 WBC 12.9 H RBC 3.34 L Hgb 9.8 L Hct 30.5 L MCV 91.3 MCH 29.3 MCHC 32.1 RDW 15.0 H RDW Differential 49.8 H Plt Count 418 MPV 8.7 Immature Gran % (Auto) 0.500 Neut % (Auto) 82.8 H Lymph % (Auto) 6.9 L [place] % (Auto) 8.1 Eos % (Auto) 1.5 Baso % (Auto) 0.2 Absolute Neuts (auto) 10.7 H Absolute Lymphs (auto) 0.89 Total Counted Not Reportable Sodium 142 Potassium 3.9 Chloride 104 Carbon Dioxide 33.0 H Anion Gap 5 BUN 17 Creatinine 0.50 L Estim Creat Clear Calc 75.74 Est GFR (MDRD) Af Amer 211 Est GFR (MDRD) Non-Af 175 BUN/Creatinine Ratio 34.2 H Glucose 124 H Calcium 7.4 L Magnesium Troponin I < 0.015 Medical Necessity - Tobacco Use Smoking Status: Never smoker Assessment/Plan All Active Problems (Last Updated 01/31/18 @ 12:14 by Teodoro Suazo DO) Sigmoid stricture (Acute) LLQ abdominal pain (Acute) Obstipation (Resolved) Small bowel obstruction (Resolved) Nausea and vomiting (Resolved) Anastomotic leak of intestine (Acute) Acute respiratory failure with hypoxia (Acute) History of coronary artery stent placement (Resolved 11/19/13) Near syncope (Resolved) Hypotension (Resolved) Diverticulitis (Resolved) History of recent pneumonia (Resolved) Septic shock (Resolved) I am following this patient in conjunction with Dr. Byers S/p open sigmoid colectomy Labs reviewed Encourage ambulation and I.S. Patient needs to be up and walking out in the hallway today at least 3 times. Tolerated dinner without concerns. Has ordered well rounded breakfast this morning. Please track to see how much patient is eating. Patient to eat each meal sitting in the chair Hep lock IV D/C mireles catheter. Encourage patient to get up and go to the bathroom Consult cardiology to evaluate low blood pressure/SVT/new cardiac medications started yesterday. Plan for short term rehab facility at discharged. Would like to plan for discharge to residential tomorrow pending medicine and cardiology are on board. Check for C Diff today We will continue to monitor this patient. Code Visit Inpatient E&M: 24453 Subs Hosp L1 - POST-OP
[2018-02-03] MEDS: Ciprofloxacin 500 MG Tablet PO ×2 (09:53→21:21)
[2018-02-03] MEDS: Digoxin 125 MCG Tablet PO (09:53)
[2018-02-03] MEDS: Furosemide 40 MG Tablet PO ×2 (09:54→18:19)
[2018-02-03] MEDS: Pantoprazole Sodium 20 MG Tablet PO (09:54)
[2018-02-03] MEDS: Carvedilol 6.25 MG Tablet PO ×2 (09:54→21:22)
[2018-02-03] MEDS: Menthol/Lanolin/Calamine/Znox 113 GM Tube 1 APPLIC TOPICAL ×2 (09:55→12:40)
[2018-02-03] MEDS: oxyCODONE 5 MG Tablet PO (12:39)
--- NOTE | 2018-02-03 13:33 | PCM.CONS.C ---
Problem List (1) SVT (supraventricular tachycardia) Status: Acute (2) Atherosclerosis of coronary artery of [place] heart without angina pectoris Status: Chronic Comment: PCI/GAETANO-LAD w/ 3.0 x 28 mm Promus Element Plus Rx 03/02/13 (3) S/P PTCA (percutaneous transluminal coronary angioplasty) Status: Chronic (4) HLD (hyperlipidemia) Status: Chronic Qualifiers: Hyperlipidemia type: pure hypercholesterolemia Qualified Code(s): E78.00 - Pure hypercholesterolemia, unspecified; E78.00 - Pure hypercholesterolemia, unspecified; E78.00 - Pure hypercholesterolemia, unspecified; E78.0 - Pure hypercholesterolemia (5) Sigmoid stricture Status: Acute Reason for Consult Date of Consultation: 02/03/18 History of Present Illness: The patient is a 72 year old white male with a past cardiovascular history which has included underlying CAD, PCI, hyperlipidemia, and hypotension who is referred for evaluation of postoperative paroxysmal supraventricular tachycardia. He has been undergoing operative evaluation care for concerns of a sigmoid stricture. He was noted yesterday to have episodes appearing compatible with PSVT with ventricular rates of approximately 180-210 bpm being both narrow complex and wide complex/bundle branch block pattern. He apparently had no acute symptomatic or hemodynamic compromise related to this. He denies the sensation of palpitations or rapid rates. He denies ongoing chest discomfort or worsening shortness of breath or dyspnea. There has been no report of near syncope or syncope. It appears in the past as part of his cardiovascular condition he has been treated with a beta-aleida. Based upon his outpatient cardiovascular records available for review there were concerns of a variety of issues including weakness, lightheadedness, slurred speech, low blood pressures, and orthostasis, and in the around the time of his previous vouf-khdjgto-tccwlpyvac-being discontinued. This was following an episode at an outside hospital where he had been evaluated and cared for for a report of bilateral pneumonia associated septic shock . He apparently was treated during this time with IV hydration and eventually had improvement in his symptoms and hemodynamics. He has not returned to beta-aleida therapy. He is now status post his general surgical procedure. He has been noted to have episodes of the aforementioned PSVT. He was evaluated by internal medicine. It appears he was treated with additional rate limiting therapy including an alternative cyhq-ztlclxi-aoopfsfqzq-as well as digitalis. At the present time he appears to be tolerating the medication without obvious symptoms or adverse hemodynamic response. He has not had recurrent episodes of the PSVT. He is also undergoing evaluation care for frequent loose bowel movements. He is being evaluated for possible C. difficile toxin. According to general surgery the hope is that he will be able to demonstrate improvement/stability and be released to an extended care facility for continued rehabilitation in the near future. [] Past Medical History Allergies/Adverse Reactions: Allergies metoprolol Adverse Reaction (Verified 01/25/18 11:40) Other [facility] Home Medications: Ambulatory Orders Medication Instructions Recorded Nitroglycerin [Nitrostat] 0.4 mg SUBLINGUAL Q5M PRN 04/12/13 Aspirin [Aspirin, Baby] 81 mg PO DAILY 06/26/17 Ciprofloxacin HCl 500 mg PO BID 01/23/18 Clopidogrel Bisulfate [Plavix] 75 mg PO DAILY 01/23/18 Docusate Sodium [Colace] 100 mg PO DAILY 01/23/18 Cyanocobalamin (Vitamin B-12) 2,000 mcg PO DAILY 01/25/18 [Vitamin B-12] Pravastatin Sodium [Pravachol] 10 mg PO DAILY 01/25/18 Past Medical History (Chronic Problems): Chronic Problems (Last Updated 01/31/18 @ 12:14 by Teodoro Suazo DO) S/P PTCA (percutaneous transluminal coronary angioplasty) (Chronic) Atherosclerosis of coronary artery of [place] heart without angina pectoris (Chronic) PCI/GAETANO-LAD w/ 3.0 x 28 mm Promus Element Plus Rx 03/02/13 Personal history of skin cancer (Chronic) Neoplasm of unspecified behavior of bone, soft tissue, and skin (Chronic) 15 mm lesion right superomedial chest wall 3 mm lesion left volar distal forearm by wrist 1 cm lesion left mid dorsal ulnar forearm 5 mm pigmented lesion right outer arm 7 mm lesion left middle medial back Actinic keratosis (Chronic) actinic lesion left nasal tip actinic lesion left shoulder Benign keratosis (Chronic) 1 cm benign keratosis left lateral back 5 mm benign keratosis left outer arm 6 mm benign keratosis left lateral forehead 5 mm benign keratosis left outer shoulder Obstructive sleep apnea (Chronic) Left anterior fascicular block (LAFB) (Chronic) Atrial premature contractions (Chronic) HLD (hyperlipidemia) (Chronic) Surgical History: angioplasty - *Family History Maternal Family History: Family History (Last Reviewed 01/22/18 @ 10:34 by Gaston Byers MD) Father CVA (cerebral vascular accident) Hypertension HLD (hyperlipidemia) Cancer Mother HLD (hyperlipidemia) Hypertension Other Family history of skin cancer History Items: No pertinent history Lives: Spouse/ Significant Other Smoking Status: Never smoker Alcohol: None Drugs: None Review of Systems - Review of Systems General: Denies: Fever, Night Sweats, Fatigue Cardiovascular: Denies: Chest Discomfort, Orthopnea, PND, Peripheral Edema, Palpitations, Lightheadedness, Dizziness, Near Syncope, Syncope Respiratory: Denies: Cough, Sputum Production, Hemoptysis Gastrointestinal: Reports: Abdominal Discomfort, Diarrhea. Denies: Hematemesis, Hematochezia, Melena Genitourinary: Denies: Dysuria, Hematuria Skin: Denies: Rash Subjectve: This is a 72-year-old white male who appears to be resting reasonably comfortably at the moment in no acute distress. Objective: Vital Signs Temp Pulse Resp BP Pulse Ox 99.0 F 81 18 112/61 94 02/03/18 08:31 02/03/18 11:11 02/03/18 08:31 02/03/18 08:31 02/03/18 08:56 Oxygen Flow Rate (L/min) 1 Oxygen Delivery Method Room Air Weight: 175 lb 4.28 oz Body Mass Index (BMI) 22.4 Intake and Output for Last 24 Hours 02/01/18 02/02/18 02/03/18 23:59 23:59 23:59 Intake Total 2276.1 / 2276.1 1423.5 / 1423.5 300 / 300 Output Total 3150 / 3150 3400 / 3400 675 / 675 Balance -873.9 / -873.9 -1976.5 / -1976.5 -375 / -375 General: Awake, Alert, Oriented x 3, Cooperative, No Acute Distress HEENT: Atraumatic, Normocephalic, PERRL, EOMI, Sclera Non Icteric Oral: Moist Mucosa Neck: Supple, Good ROM, No JVD Lungs: - - Diminished inspiratory effort Cardiovascular: Regular Rhythm, Normal S1, Normal S2 Abdomen: Bowel Sounds Present, Soft, - - Positive tenderness to palpation Extremities: No edema Neurological: No Focal Motor or Sensory Deficit Psych/Mental Status: Appropriate, Normal Affect 02/02/18 17:44: Troponin I < 0.015 02/02/18 17:44: Magnesium 1.9 02/02/18 20:30: Troponin I < 0.015 02/03/18 04:40: WBC 12.9 H, RBC 3.34 L, Hgb 9.8 L, Hct 30.5 L, MCV 91.3, MCH 29.3, MCHC 32.1, RDW 15.0 H, RDW Differential 49.8 H, Plt Count 418, MPV 8.7, Immature Gran % (Auto) 0.500, Neut % (Auto) 82.8 H, Lymph % (Auto) 6.9 L, [place] % (Auto) 8.1, Eos % (Auto) 1.5, Baso % (Auto) 0.2, Absolute Neuts (auto) 10.7 H, Total Counted Not Reportable 02/03/18 04:40: Sodium 142, Potassium 3.9, Chloride 104, Carbon Dioxide 33.0 H, Anion Gap 5, BUN 17, Creatinine 0.50 L, Est GFR (MDRD) Af Amer 211, Est GFR (MDRD) Non-Af 175, BUN/Creatinine Ratio 34.2 H, Glucose 124 H, Calcium 7.4 L Rhythm: Sinus rhythm EKG: Sinus rhythm; left axis deviation; low voltage QRS in the limb leads; poor R wave progression; possible left anterior fascicular block ECHO: 01/31/2018 Interpretation Summary The study was technically difficult. Left ventricular systolic function is normal. The estimated ejection fraction is 55 %. Mild (1+) mitral valve insufficiency. Mild tricuspid valve insufficiency. Trivial aortic valve insufficiency. Trivial pulmonic valve insufficiency. Borderline enlarged aortic root. Right ventricular systolic pressure estimated to be 34 mmHg. Diastolic function is indeterminate. Cardiac Cath: According to outpatient cardiovascular records the patient underwent diagnostic cardiac catheterization in 2013 at which time the left main coronary artery is normal, the LAD was stented and patent, the LCx and RCA had no significant disease. Chest x-ray: 01/31/2018: Concern of bilateral infiltrates: Please see official report Assessment/Plan 1. PSVT The patient has had episodes of PSVT. He has had both narrow and wide complex tachycardia dysrhythmias. The wide complex tachydysrhythmia appeared compatible with an underlying bundle branch block pattern. Thus there is concern that this may be a rate related bundle branch block pattern. At the present time he appears to be without recurrent acute symptoms or hemodynamic compromise. He is already been placed on an alternative beta-aleida therapy with carvedilol as well as additional medical therapy with digitalis. He appears to be tolerating these medications well without obvious symptomatic or hemodynamic compromise. Ideally beta-aleida may be beneficial for him with respect to his postoperative state, increased adrenaline levels , that may be driving his PSVT. Hopefully he can tolerate his beta-aleida without obvious adverse events. He may not necessarily need ongoing digitalis therapy. Ideally, based upon the appearance of his PSVT, when he is able, he may need to be considered for EP consultation for EPS/RFA. 2. CAD status post LAD PCI-remote The patient is without acute symptoms. He is without acute enzyme change or elective cardiographic change. Ideally he would continue medications such as aspirin, nitrates as needed, beta-blockers, and lipid-lowering agents. It does not appear he requires further cardiac diagnostic studies or therapeutic intervention, other than medication adjustment, with respect to his CAD status. 3. Hyperlipidemia He should continue risk factor evaluation and care and medical management when able. With respect to medical management this would include his statin therapy. 4. Sigmoid stricture Is status post general surgical evaluation/intervention. He will continue to be followed by internal medicine and general surgery.
--- NOTE | 2018-02-03 16:04 | PCM.PN.HOSP ---
Patient Problems: Active and Suspected Problems (Last Updated 01/31/18 @ 12:14 by Teodoro Suazo DO) SVT (supraventricular tachycardia) (Acute) Anastomotic leak of intestine (Acute) Acute respiratory failure with hypoxia (Acute) Subjective: Patient is a 72-year-old male with a history of CAD, hypertension, dyslipidemia, CHRISTA and remote history of skin cancer who was admitted for intractable nausea and vomiting secondary to sigmoid colon stricture. Patient is status post Low anterior resection sigmoid and rectosigmoid junction and Revision of anastomotic leak of the colorectal junction with a handsewn end-to-end anastomosis (01/26/18, 01/27/18 Respectively). At this time, patient is without any complaints. States he has intermittently had episodes of shortness of breath which only last for a few seconds. Denies any chest pain or palpitations. Currently without any shortness of breath. Denies any PND or orthopnea. With occasional nonproductive cough. Denies any lower extremity swelling or calf tenderness. States he has been able to tolerate a diet without any problems. Has had several bowel movements since yesterday but appears to be slowing down. 2D echocardiogram on 01/31/18: EF 55%, mild mitral/tricuspid/aortic/pulmonary insufficiency. RVSP 34 mmHg. Diastolic dysfunction indeterminate. Vitals/I&O's: Vital Signs Temp Pulse Resp BP Pulse Ox 99.3 F H 76 19 H 108/57 L 92 02/03/18 14:31 02/03/18 14:35 02/03/18 14:35 02/03/18 14:31 02/03/18 14:31 Oxygen Flow Rate (L/min) 1 Oxygen Delivery Method Room Air Weight: 79.5 kg Body Mass Index (BMI) 22.4 Intake and Output for Last 24 Hours 02/01/18 02/02/18 02/03/18 23:59 23:59 23:59 Intake Total 2276.1 / 2276.1 1423.5 / 1423.5 300 / 300 Output Total 3150 / 3150 3400 / 3400 675 / 675 Balance -873.9 / -873.9 -1976.5 / -1976.5 -375 / -375 General: Alert, Oriented x3, Cooperative HEENT: Normocephalic Oral: Moist Mucosa Neck: Supple, No JVD Lungs: Clear to auscultation, No wheeze, Diminished Cardiovascular: Regular rate, No murmurs Abdomen: Bowel Sounds Present, Soft, - - Abdominal dressing noted, nontender Extremities: No edema, Capillary Refill Less than 3 Seconds Skin: No rashes, No breakdown Musculoskeletal: No Tenderness to Palpation of Joints or Extremities Neurological: Cranial nerves II-XII grossly intact Psych/Mental Status: Normal Affect, Appropriate Microbiology Past 72 Hours 02/01/18 08:15 Blood Culture (Wb) - Right Forearm Blood Culture - Preliminary No growth in 48 hours. 02/01/18 07:55 Blood Culture (Wb) - Anticubital Left Blood Culture - Preliminary No growth in 48 hours. 02/03/18 08:45 Stool C. difficile DNA Amplification - Final 02/01/18 07:45 Urine Catheter - Hernandez Urine Culture - Final Culture exhibits no growth. 01/31/18 02:35 Blood Culture (Wb) - Right Hand Blood Culture - Preliminary No growth in 48 hours. 01/31/18 02:32 Blood Culture (Wb) - Anticubital Right Blood Culture - Preliminary No growth in 48 hours. Laboratory Results 02/02/18 17:44: Troponin I < 0.015 02/02/18 17:44: Magnesium 1.9 02/02/18 20:30: Troponin I < 0.015 02/03/18 04:40: WBC 12.9 H, RBC 3.34 L, Hgb 9.8 L, Hct 30.5 L, MCV 91.3, MCH 29.3, MCHC 32.1, RDW 15.0 H, RDW Differential 49.8 H, Plt Count 418, MPV 8.7, Immature Gran % (Auto) 0.500, Neut % (Auto) 82.8 H, Lymph % (Auto) 6.9 L, [place] % (Auto) 8.1, Eos % (Auto) 1.5, Baso % (Auto) 0.2, Absolute Neuts (auto) 10.7 H, Absolute Lymphs (auto) 0.89, Total Counted Not Reportable 02/03/18 04:40: Sodium 142, Potassium 3.9, Chloride 104, Carbon Dioxide 33.0 H, Anion Gap 5, BUN 17, Creatinine 0.50 L, Estim Creat Clear Calc 75.74, Est GFR (MDRD) Af Amer 211, Est GFR (MDRD) Non-Af 175, BUN/Creatinine Ratio 34.2 H, Glucose 124 H, Calcium 7.4 L Current Medications Albuterol Sulfate (Ventolin Aerosols) 2.5 mg INHALATION Q2H PRN PRN PRN Reason: sob/wheezing Last Admin: 02/02/18 16:02 Dose: 2.5 mg Albuterol/Ipratropium (Duoneb) 3 ml INHALATION Q6H.RT [facility] Last Admin: 02/03/18 14:03 Dose: 3 ml Calamine/Phenol (Calmoseptine Ointment) 1 applic TOPICAL 4X/DAY [facility]; Protocol Last Admin: 02/03/18 12:40 Dose: 1 applicatio Carvedilol (Coreg) 6.25 mg PO BID [facility] Last Admin: 02/03/18 09:54 Dose: 6.25 mg Ciprofloxacin HCl (Cipro) 500 mg PO BID [facility] Stop: 02/06/18 10:01 Last Admin: 02/03/18 09:53 Dose: 500 mg Diphenhydramine HCl (Benadryl) 12.5 - 25 mg IV Q6H PRN PRN PRN Reason: ITCHING Furosemide (Lasix) 40 mg PO BID@1000,1800 [facility] Last Admin: 02/03/18 09:54 Dose: 40 mg Ketorolac Tromethamine (Toradol) 15 mg IV Q8H PRN PRN PRN Reason: hiccups Stop: 02/06/18 09:42 Last Admin: 02/03/18 14:35 Dose: 15 mg Metoclopramide HCl (Reglan) 2.5 mg IV Q6 [facility] Last Admin: 02/03/18 12:39 Dose: 2.5 mg Metronidazole (Flagyl) 500 mg PO TID [facility] Stop: 02/06/18 06:01 Last Admin: 02/03/18 12:39 Dose: 500 mg Morphine Sulfate () 1 mg IV Q3H PRN PRN PRN Reason: SEVERE PAIN (6-10/10) Last Admin: 02/02/18 22:46 Dose: 1 mg Nitroglycerin (Nitrostat) 0.4 mg SUBLINGUAL Q5M PRN PRN Reason: Chest Pain Ondansetron HCl (Zofran) 4 mg IV Q6H PRN PRN PRN Reason: NAUSEA Last Admin: 02/02/18 15:45 Dose: 4 mg Oxycodone HCl (Oxyir) 5 mg PO Q6H PRN PRN PRN Reason: SEVERE PAIN (6-1010) Last Admin: 02/03/18 12:39 Dose: 5 mg Pantoprazole Sodium (Protonix) 20 mg PO DAILY [facility] Last Admin: 02/03/18 09:54 Dose: 20 mg Potassium Chloride (K-Dur) 40 meq PO BIDCM [facility] Last Admin: 02/03/18 08:44 Dose: 40 meq Pravastatin Sodium (Pravachol) 10 mg PO QHS [facility] Last Admin: 02/02/18 20:57 Dose: 10 mg Senna/Docusate Sodium (Senokot-S, Emily-Colace) 2 tablet PO QHS [facility] Last Admin: 02/02/18 20:57 Dose: 2 tablet Sodium Chloride () 5 - 30 ml IV UD PRN PRN Reason: SALINE FLUSH Last Admin: 02/03/18 14:35 Dose: 10 ml Throat Lozenges (Cepacol Sore Throat Lozenge) 1 lozenge MUCOUS MEM Q2H PRN PRN PRN Reason: SORE THROAT Last Admin: 02/01/18 08:35 Dose: 1 lozenge Medical Necessity - Tobacco Use Smoking Status: Never smoker Assessment/Plan All Active Problems (Last Updated 01/31/18 @ 12:14 by Teodoro Suazo DO) SVT (supraventricular tachycardia) (Acute) Sigmoid stricture (Acute) LLQ abdominal pain (Acute) Obstipation (Resolved) Small bowel obstruction (Resolved) Nausea and vomiting (Resolved) Anastomotic leak of intestine (Acute) Acute respiratory failure with hypoxia (Acute) History of coronary artery stent placement (Resolved 03/02/13) Near syncope (Resolved) Hypotension (Resolved) Diverticulitis (Resolved) History of recent pneumonia (Resolved) Septic shock (Resolved) Patient is a 72-year-old male with a history of CAD, hypertension, dyslipidemia, CHRISTA and remote history of skin cancer who was admitted for intractable nausea and vomiting secondary to sigmoid colon stricture. Patient is postop day #8 of low anterior resection sigmoid and rectosigmoid junction, postop day #7 revision of anastomotic leak of colorectal region. 1. Sigmoid stricture status post low anterior resection sigmoid and rectosigmoid junction and revision of anastomotic leak of colorectal region Appears to be tolerating a regular diet. Surgery following and appreciate their assistance. 2. PSVT, postop Resolved. Currently on beta-aleida, in sinus rhythm. Was given 1 dose of digoxin yesterday. This is been discontinued. Continue with telemetry monitoring. Optimize electrolytes. 3. Shortness of breath Appear to be paroxysmal and transient, possibly related to PSVT? Reviewed chest x-ray on 01/31/18 with suspicion for possible bilateral infiltrates. Was started empirically on antibiotics with Flagyl and Cipro (?). Blood cultures drawn on 02/01/18 and are noted to be negative. We will recheck chest x-ray, check BNP. If with continued episodes of shortness of breath, evaluate for possible PE, i.e. check a CTA of the chest. D-dimer will be elevated given recent surgery. Patient currently asymptomatic and does not require supplemental O2. Was started empirically on oral Lasix yesterday. 4. Hypertension Blood pressure is adequate at this time, on beta-aleida. 5. Dyslipidemia On statin 6. CAD Aware. Currently asymptomatic. Will need to restart his aspirin, nitrates as needed and continue current statin. 7. Remote history of skin cancer 8. DVT prophylaxis Heparin when okay with surgery. Anticipate likely discharge to rehab later this week. Continue with PT/OT. Await results of chest x-ray, BNP and resolution of transient and paroxysmal shortness of breath. Code Visit Inpatient E&M: 39552 Subs Hosp L3
--- NOTE | 2018-02-03 16:10 | PN_ITS ---
Patient Problems: Active and Suspected Problems (Last Updated 01/31/18 @ 12:14 by Teodoro Suazo DO) SVT (supraventricular tachycardia) (Acute) Anastomotic leak of intestine (Acute) Acute respiratory failure with hypoxia (Acute) Subjective: Patient is a 72-year-old male with a history of CAD, hypertension, dyslipidemia, CHRISTA and remote history of skin cancer who was admitted for intractable nausea and vomiting secondary to sigmoid colon stricture. Patient is status post Low anterior resection sigmoid and rectosigmoid junction and Revision of anastomotic leak of the colorectal junction with a handsewn end-to-end anastomosis (01/26/18, 01/27/18 Respectively). At this time, patient is without any complaints. States he has intermittently had episodes of shortness of breath which only last for a few seconds. Denies any chest pain or palpitations. Currently without any shortness of breath. Denies any PND or orthopnea. With occasional nonproductive cough. Denies any lower extremity swelling or calf tenderness. States he has been able to tolerate a diet without any problems. Has had several bowel movements since yesterday but appears to be slowing down. 2D echocardiogram on 01/31/18: EF 55%, mild mitral/tricuspid/aortic/pulmonary insufficiency. RVSP 34 mmHg. Diastolic dysfunction indeterminate. Vitals/I&O's: Vital Signs Temp Pulse Resp BP Pulse Ox 99.3 F H 76 19 H 108/57 L 92 02/03/18 14:31 02/03/18 14:35 02/03/18 14:35 02/03/18 14:31 02/03/18 14:31 Oxygen Flow Rate (L/min) 1 Oxygen Delivery Method Room Air Weight: 79.5 kg Body Mass Index (BMI) 22.4 Intake and Output for Last 24 Hours 02/01/18 02/02/18 02/03/18 23:59 23:59 23:59 Intake Total 2276.1 / 2276.1 1423.5 / 1423.5 300 / 300 Output Total 3150 / 3150 3400 / 3400 675 / 675 Balance -873.9 / -873.9 -1976.5 / -1976.5 -375 / -375 General: Alert, Oriented x3, Cooperative HEENT: Normocephalic Oral: Moist Mucosa Neck: Supple, No JVD Lungs: Clear to auscultation, No wheeze, Diminished Cardiovascular: Regular rate, No murmurs Abdomen: Bowel Sounds Present, Soft, - - Abdominal dressing noted, nontender Extremities: No edema, Capillary Refill Less than 3 Seconds Skin: No rashes, No breakdown Musculoskeletal: No Tenderness to Palpation of Joints or Extremities Neurological: Cranial nerves II-XII grossly intact Psych/Mental Status: Normal Affect, Appropriate Microbiology Past 72 Hours 02/01/18 08:15 Blood Culture (Wb) - Right Forearm Blood Culture - Preliminary No growth in 48 hours. 02/01/18 07:55 Blood Culture (Wb) - Anticubital Left Blood Culture - Preliminary No growth in 48 hours. 02/03/18 08:45 Stool C. difficile DNA Amplification - Final 02/01/18 07:45 Urine Catheter - Hernandez Urine Culture - Final Culture exhibits no growth. 01/31/18 02:35 Blood Culture (Wb) - Right Hand Blood Culture - Preliminary No growth in 48 hours. 01/31/18 02:32 Blood Culture (Wb) - Anticubital Right Blood Culture - Preliminary No growth in 48 hours. Laboratory Results 02/02/18 17:44: Troponin I < 0.015 02/02/18 17:44: Magnesium 1.9 02/02/18 20:30: Troponin I < 0.015 02/03/18 04:40: WBC 12.9 H, RBC 3.34 L, Hgb 9.8 L, Hct 30.5 L, MCV 91.3, MCH 29.3, MCHC 32.1, RDW 15.0 H, RDW Differential 49.8 H, Plt Count 418, MPV 8.7, Immature Gran % (Auto) 0.500, Neut % (Auto) 82.8 H, Lymph % (Auto) 6.9 L, Evangeline % (Auto) 8.1, Eos % (Auto) 1.5, Baso % (Auto) 0.2, Absolute Neuts (auto) 10.7 H, Absolute Lymphs (auto) 0.89, Total Counted Not Reportable 02/03/18 04:40: Sodium 142, Potassium 3.9, Chloride 104, Carbon Dioxide 33.0 H, Anion Gap 5, BUN 17, Creatinine 0.50 L, Estim Creat Clear Calc 75.74, Est GFR (MDRD) Af Amer 211, Est GFR (MDRD) Non-Af 175, BUN/Creatinine Ratio 34.2 H, Glucose 124 H, Calcium 7.4 L Current Medications Albuterol Sulfate (Ventolin Aerosols) 2.5 mg INHALATION Q2H PRN PRN PRN Reason: sob/wheezing Last Admin: 02/02/18 16:02 Dose: 2.5 mg Albuterol/Ipratropium (Duoneb) 3 ml INHALATION Q6H.RT [facility] Last Admin: 02/03/18 14:03 Dose: 3 ml Calamine/Phenol (Calmoseptine Ointment) 1 applic TOPICAL 4X/DAY [facility]; Protocol Last Admin: 02/03/18 12:40 Dose: 1 applicatio Carvedilol (Coreg) 6.25 mg PO BID [facility] Last Admin: 02/03/18 09:54 Dose: 6.25 mg Ciprofloxacin HCl (Cipro) 500 mg PO BID [facility] Stop: 02/06/18 10:01 Last Admin: 02/03/18 09:53 Dose: 500 mg Diphenhydramine HCl (Benadryl) 12.5 - 25 mg IV Q6H PRN PRN PRN Reason: ITCHING Furosemide (Lasix) 40 mg PO BID@1000,1800 [facility] Last Admin: 02/03/18 09:54 Dose: 40 mg Ketorolac Tromethamine (Toradol) 15 mg IV Q8H PRN PRN PRN Reason: hiccups Stop: 02/06/18 09:42 Last Admin: 02/03/18 14:35 Dose: 15 mg Metoclopramide HCl (Reglan) 2.5 mg IV Q6 [facility] Last Admin: 02/03/18 12:39 Dose: 2.5 mg Metronidazole (Flagyl) 500 mg PO TID [facility] Stop: 02/06/18 06:01 Last Admin: 02/03/18 12:39 Dose: 500 mg Morphine Sulfate () 1 mg IV Q3H PRN PRN PRN Reason: SEVERE PAIN (6-10/10) Last Admin: 02/02/18 22:46 Dose: 1 mg Nitroglycerin (Nitrostat) 0.4 mg SUBLINGUAL Q5M PRN PRN Reason: Chest Pain Ondansetron HCl (Zofran) 4 mg IV Q6H PRN PRN PRN Reason: NAUSEA Last Admin: 02/02/18 15:45 Dose: 4 mg Oxycodone HCl (Oxyir) 5 mg PO Q6H PRN PRN PRN Reason: SEVERE PAIN (6-1010) Last Admin: 02/03/18 12:39 Dose: 5 mg Pantoprazole Sodium (Protonix) 20 mg PO DAILY [facility] Last Admin: 02/03/18 09:54 Dose: 20 mg Potassium Chloride (K-Dur) 40 meq PO BIDCM [facility] Last Admin: 02/03/18 08:44 Dose: 40 meq Pravastatin Sodium (Pravachol) 10 mg PO QHS [facility] Last Admin: 02/02/18 20:57 Dose: 10 mg Senna/Docusate Sodium (Senokot-S, Emily-Colace) 2 tablet PO QHS [facility] Last Admin: 02/02/18 20:57 Dose: 2 tablet Sodium Chloride () 5 - 30 ml IV UD PRN PRN Reason: SALINE FLUSH Last Admin: 02/03/18 14:35 Dose: 10 ml Throat Lozenges (Cepacol Sore Throat Lozenge) 1 lozenge MUCOUS MEM Q2H PRN PRN PRN Reason: SORE THROAT Last Admin: 02/01/18 08:35 Dose: 1 lozenge Medical Necessity - Tobacco Use Smoking Status: Never smoker Assessment/Plan All Active Problems (Last Updated 01/31/18 @ 12:14 by Teodoro Suazo DO) SVT (supraventricular tachycardia) (Acute) Sigmoid stricture (Acute) LLQ abdominal pain (Acute) Obstipation (Resolved) Small bowel obstruction (Resolved) Nausea and vomiting (Resolved) Anastomotic leak of intestine (Acute) Acute respiratory failure with hypoxia (Acute) History of coronary artery stent placement (Resolved 03/02/13) Near syncope (Resolved) Hypotension (Resolved) Diverticulitis (Resolved) History of recent pneumonia (Resolved) Septic shock (Resolved) Patient is a 72-year-old male with a history of CAD, hypertension, dyslipidemia, CHRISTA and remote history of skin cancer who was admitted for intractable nausea and vomiting secondary to sigmoid colon stricture. Patient is postop day #8 of low anterior resection sigmoid and rectosigmoid junction, postop day #7 revision of anastomotic leak of colorectal region. 1. Sigmoid stricture status post low anterior resection sigmoid and rectosigmoid junction and revision of anastomotic leak of colorectal region * Appears to be tolerating a regular diet. Surgery following and appreciate their assistance. 2. PSVT, postop * Resolved. Currently on beta-aleida, in sinus rhythm. Was given 1 dose of digoxin yesterday. This is been discontinued. Continue with telemetry monitoring. Optimize electrolytes. 3. Shortness of breath * Appear to be paroxysmal and transient, possibly related to PSVT? Reviewed chest x-ray on 01/31/18 with suspicion for possible bilateral infiltrates. Was started empirically on antibiotics with Flagyl and Cipro (?). Blood cultures drawn on 02/01/18 and are noted to be negative. We will recheck chest x-ray, check BNP. If with continued episodes of shortness of breath, evaluate for possible PE, i.e. check a CTA of the chest. D-dimer will be elevated given recent surgery. Patient currently asymptomatic and does not require supplemental O2. Was started empirically on oral Lasix yesterday. 4. Hypertension * Blood pressure is adequate at this time, on beta-aleida. 5. Dyslipidemia * On statin 6. CAD * Aware. Currently asymptomatic. Will need to restart his aspirin, nitrates as needed and continue current statin. 7. Remote history of skin cancer 8. DVT prophylaxis * Heparin when okay with surgery. * Anticipate likely discharge to rehab later this week. Continue with PT/OT. Await results of chest x-ray, BNP and resolution of transient and paroxysmal shortness of breath. Code Visit Inpatient E&M: 13425 [facility] Hosp L3
--- NOTE | 2018-02-03 16:45 | RAD_ITS ---
STUDY: X-RAY CHEST REASON FOR EXAM: Male, 72 years old. Shortness of breath, recent abdominal surgery TECHNIQUE: Frontal and lateral views of the chest were obtained. COMPARISON: January 31, 2018 FINDINGS: A right arm PICC is present terminating in the expected location of the distal SVC. There are minimal residual patchy airspace opacities in the right lung base and mid left lung. There are coarse linear opacities in the left lung base. There is minimal blunting of the left costophrenic angle. The cardiac silhouette is normal in size. The mediastinum and hilar regions are unremarkable. Normal visualized pulmonary arteries. There is atherosclerotic calcification of the thoracic aorta. A stent projects over the left heart. There are diffuse degenerative changes of the visualized spine. There are degenerative changes in both shoulders. There are old rib fractures on the right. There is an old fracture in the mid right clavicle. There is air under the right diaphragm. Cholecystectomy clips are present. RAD/Chest PA and Lateral IMPRESSION: There are no significant new findings. There are improved areas of consolidation in the right lung base and mid left lung. There is minimal residual atelectasis in the left lung base. There is a small residual left pleural effusion. There is air under the right diaphragm consistent with the history of recent bowel surgery. Electronically Signed: Alyssa Abarca MD at 19:30 EDT Tel Direct: [phone], Service support ,
[2018-02-03] MEDS: Pravastatin 20 MG Tablet 10 MG PO (21:22)
[2018-02-03] MEDS: Calcium Carbonate 500 MG Tablet 1000 MG PO (21:24)
[2018-02-04] VITALS (12 sets, daily range): BP systolic 80–106; BP diastolic 46–56; PULSE 69–90; RESP 12–18; TEMP 36.9–37.2; O2SAT 89–95
[2018-02-04] MEDS: 0.9% NaCl Peripheral Flush Adult/Peds IV ×9 (00:06→11:20)
[2018-02-04] MEDS: Metoclopramide 10 MG/2 ML Vial 2.5 MG IV ×3 (00:06→11:20)
[2018-02-04] MEDS: Ipratropium/Albuterol Sulfate 3 ML AMPUL.NEB INHALATION ×3 (00:29→13:17)
[2018-02-04 05:30] LABS: Absolute Lymphocyte Count 0.93 X10^3/ul (0.83-4.51); Absolute Neutrophil Count 10.7 X10^3/uL (2.0-7.7); Basophil# 0.02 X10^3/uL; Basophil% 0.2 % (0-1); Eosinophil# 0.18 X10^3/uL; Eosinophils% 1.4 % (0-5); Hematocrit 29.9 % (40-54); Hemoglobin 9.6 g/dl (13.0-16.5); Lymphocyte # 0.93 X10^3/ul (4.0); Lymphocyte % 7.3 % (19-41); Mean Corp Hgb Conc 32.1 g/gl (32-36); Mean Corpuscular Hgb 29.4 pg (27.0-32.0); Mean Corpuscular Volume 91.7 fL (80-94); Mean Platelet Vol. 8.7 fl (6.2-12.0); Monocyte# 0.77 X10^3/uL; Monocyte% 6.1 % (0-10); Neutrophil % 84.5 % (47-70); Platelet Count 501 K/mm3 (150-450); RBC Distribution Width CV 15.2 % (11.6-14.6); RBC Distribution Width SD 50.9 fl (35.1-43.9); Red Blood Count 3.26 M/mm3 (4.6-6.2); White Blood Count 12.7 K/mm3 (4.4-11.0)
[2018-02-04 05:32] LABS: POSITIVE COUNT NO; POSITIVE DIFFERENTIAL NO; POSITIVE MORPHOLOGY NO
[2018-02-04 05:39] LABS: ALB/GLOB Ratio 0.4 RATIO (0.9-2.4); AST(SGOT) 12 U/L (15-37); Alanine Aminotransfer ALT/SGPT 11 U/L (16-61); Albumin, Serum 1.4 g/dL (3.2-5.0); Alkaline Phosphatase 45 U/L (45-117); Anion Gap 7 (5-15); BUN 15 mg/dL (7-18); BUN/Creat Ratio 29.4 RATIO (10-20); Calcium,Total 7.2 mg/dL (8.5-10.1); Chloride 106 mmol/L (98-107); Creatinine, Serum 0.51 mg/dL (0.70-1.30); EST Glomerular Filtration Rate 169 mL/min (>60); Est Glom Filt Rate - Afr Amer 205 mL/min (>60); Estimated Creatinine Clearance 75.08 ml/min; Globulin 3.9 g/dL (2.2-4.2); Glucose 114 mg/dL (74-106); Potassium 3.9 mmol/L (3.5-5.1); Protein, Total 5.3 g/dL (6.4-8.2); Sodium Level 141 mmol/L (136-145)
--- NOTE | 2018-02-04 05:55 | EKG12_ITS ---
Test Reason : AM EKG Blood Pressure : / mmHG Vent. Rate : 068 BPM Atrial Rate : 068 BPM P-R Int : 158 ms QRS Dur : 078 ms QT Int : 410 ms P-R-T Axes : -02 -46 053 degrees QTc Int : 435 ms Normal sinus rhythm Left anterior fascicular block Abnormal ECG When compared with ECG of 02-FEB-2018 17:15, MANUAL COMPARISON REQUIRED, DATA IS UNCONFIRMED Confirmed by LUIS MANUEL GAYLE ([id number]), scientific publications editor KASSANDRA PASCUAL ([id number]) on 02/10/2018 11:39:00 AM Referred By: Luis Manuel Byers Confirmed By:LUIS MANUEL GAYLE
[2018-02-04] MEDS: Calcium Carbonate 500 MG Tablet 1000 MG PO ×2 (06:30→12:48)
[2018-02-04] MEDS: metroNIDAZOLE 500 MG Tablet PO (06:31)
--- NOTE | 2018-02-04 08:38 | PCM.PN.SRG ---
Patient Problems: Active and Suspected Problems (Last Updated 01/31/18 @ 12:14 by Teodoro Suazo DO) SVT (supraventricular tachycardia) (Acute) Anastomotic leak of intestine (Acute) Acute respiratory failure with hypoxia (Acute) Subjective: Patient reports he is doing well this morning. His pain is well controlled. He had a soft bowel movement. He is tolerating a diet. - Physical Exam General: Alert, Oriented x3, Cooperative Lungs: Normal air movement Cardiovascular: Regular rate, Regular Rhythm Abdomen: Soft, Non Tender, Non-Distended, - - Incision is clean dry and intact. Vital Signs Temp Pulse Resp BP Pulse Ox 98.9 F 89 12 80/46 L 93 02/04/18 08:26 02/04/18 08:26 02/04/18 08:26 02/04/18 08:27 02/04/18 08:26 Oxygen Flow Rate (L/min) 1 Oxygen Delivery Method Room Air Weight: 173 lb 15.115 oz Body Mass Index (BMI) 22.4 Intake and Output for Last 24 Hours 02/02/18 02/03/18 02/04/18 23:59 23:59 23:59 Intake Total 1423.5 / 1423.5 780 / 780 Output Total 3400 / 3400 1175 / 1175 500 / 500 Balance -1976.5 / -1976.5 -395 / -395 -500 / -500 Microbiology Past 72 Hours 02/01/18 07:55 Blood Culture - Preliminary Blood Culture (Wb) - Anticubital Left No growth in 48 hours. 02/01/18 08:15 Blood Culture - Preliminary Blood Culture (Wb) - Right Forearm No growth in 48 hours. 02/03/18 08:45 C. difficile DNA Amplification - Final Stool 02/01/18 07:45 Urine Culture - Final Urine Catheter - Hernandez Culture exhibits no growth. 01/31/18 02:35 Blood Culture - Preliminary Blood Culture (Wb) - Right Hand No growth in 48 hours. 01/31/18 02:32 Blood Culture - Preliminary Blood Culture (Wb) - Anticubital Right No growth in 48 hours. Laboratory Tests Past 24 Hrs 02/03/18 02/04/18 02/04/18 04:40 05:00 05:00 WBC 12.7 H RBC 3.26 L Hgb 9.6 L Hct 29.9 L MCV 91.7 MCH 29.4 MCHC 32.1 RDW 15.2 H RDW Differential 50.9 H Plt Count 501 H MPV 8.7 Immature Gran % (Auto) 0.500 Neut % (Auto) 84.5 H Lymph % (Auto) 7.3 L Beadle % (Auto) 6.1 Eos % (Auto) 1.4 Baso % (Auto) 0.2 Absolute Neuts (auto) 10.7 H Absolute Lymphs (auto) 0.93 Total Counted Not Reportable Sodium 141 Potassium 3.9 Chloride 106 Carbon Dioxide 28.0 Anion Gap 7 BUN 15 Creatinine 0.51 L Estim Creat Clear Calc 75.08 Est GFR (MDRD) Af Amer 205 Est GFR (MDRD) Non-Af 169 BUN/Creatinine Ratio 29.4 H Glucose 114 H Calcium 7.2 L Total Bilirubin 0.30 AST 12 L ALT 11 L Alkaline Phosphatase 45 B-Natriuretic Peptide 89.0 Total Protein 5.3 L Albumin 1.4 L Globulin 3.9 Albumin/Globulin Ratio 0.4 L Medical Necessity - Tobacco Use Smoking Status: Never smoker Assessment/Plan All Active Problems (Last Updated 01/31/18 @ 12:14 by Teodoro Suazo DO) SVT (supraventricular tachycardia) (Acute) Sigmoid stricture (Acute) LLQ abdominal pain (Acute) Obstipation (Resolved) Small bowel obstruction (Resolved) Nausea and vomiting (Resolved) Anastomotic leak of intestine (Acute) Acute respiratory failure with hypoxia (Acute) History of coronary artery stent placement (Resolved 03/02/13) Near syncope (Resolved) Hypotension (Resolved) Diverticulitis (Resolved) History of recent pneumonia (Resolved) Septic shock (Resolved) 72-year-old male status post sigmoid colectomy 1. Patient is doing well today. He does have some dizziness. This may be because of his cardiac meds. He is tolerating a diet and having bowel movements. 2. Await cardiology recommendations on medications for discharge. I will also await recommendations for p.o. antibiotic recommendations from pulmonary. 3. DC planning for today or tomorrow. Eder Trinidad MD Pager: [facility] [address] [place] [address], [address] [place] [address] Office:
[2018-02-04] MEDS: Aspirin 81 MG TAB.CHEW PO (09:05)
[2018-02-04] MEDS: 0.9% Normal Saline 1,000 ML 500 ML IV (09:06)
[2018-02-04] MEDS: Ciprofloxacin 500 MG Tablet PO (09:06)
[2018-02-04] MEDS: Pantoprazole Sodium 20 MG Tablet PO (09:06)
[2018-02-04] MEDS: Albumin Human 25% (100 mL) 25 GM/100 ML BAG IV (10:07)
--- NOTE | 2018-02-04 11:13 | CASEMGMT ---
TANA faxed updates to [facility]. TANA received a phone call from surgery PAKendal. She asked if patient would be able to go to the shelter today. TANA told her that he could. Went over d/c paperwork with her. She will talk with other physicians involved and work on d/c. TANA called Khushbu at [facility] and left her a voice mail letting her know patient will likely come today. Plan: [facility] under skilled level of care on a convalescent stay. Josey HOFFMAN MSW
--- NOTE | 2018-02-04 12:35 | PN.CARD_ITS ---
Subjectve: The patient is awake and alert. He denies any ongoing issues with palpitations or rapid rates. There has been no issues with chest discomfort or worsening shortness of breath/dyspnea. Objective: Vital Signs Temp Pulse Resp BP Pulse Ox 98.5 F 76 16 106/53 L 95 02/04/18 09:41 02/04/18 11:00 02/04/18 09:41 02/04/18 09:41 02/04/18 09:41 Oxygen Flow Rate (L/min) 1 Oxygen Delivery Method Room Air Weight: 173 lb 15.115 oz Body Mass Index (BMI) 22.4 Intake and Output for Last 24 Hours 02/02/18 02/03/18 02/04/18 23:59 23:59 23:59 Intake Total 1423.5 / 1423.5 780 / 780 957 / 957 Output Total 3400 / 3400 1175 / 1175 860 / 860 Balance -1976.5 / -1976.5 -395 / -395 97 / 97 General: Awake, Alert, Oriented x 3, Cooperative, No Acute Distress HEENT: Atraumatic, Normocephalic, PERRL, EOMI, Sclera Non Icteric Neck: Supple, Good ROM, No JVD Lungs: Clear to auscultation Cardiovascular: Regular Rhythm, Normal S1, Normal S2 Abdomen: Bowel Sounds Present, Soft Extremities: No edema Neurological: No Focal Motor or Sensory Deficit Psych/Mental Status: Appropriate, Normal Affect 02/03/18 04:40: B-Natriuretic Peptide 89.0 02/04/18 05:00: WBC 12.7 H, RBC 3.26 L, Hgb 9.6 L, Hct 29.9 L, MCV 91.7, MCH 29.4, MCHC 32.1, RDW 15.2 H, RDW Differential 50.9 H, Plt Count 501 H, MPV 8.7, Immature Gran % (Auto) 0.500, Neut % (Auto) 84.5 H, Lymph % (Auto) 7.3 L, Nolan % (Auto) 6.1, Eos % (Auto) 1.4, Baso % (Auto) 0.2, Absolute Neuts (auto) 10.7 H, Total Counted Not Reportable 02/04/18 05:00: Sodium 141, Potassium 3.9, Chloride 106, Carbon Dioxide 28.0, Anion Gap 7, BUN 15, Creatinine 0.51 L, Est GFR (MDRD) Af Amer 205, Est GFR (MDRD) Non-Af 169, BUN/Creatinine Ratio 29.4 H, Glucose 114 H, Calcium 7.2 L, Total Bilirubin 0.30 Rhythm: Sinus rhythm Medical Necessity - Tobacco Use Smoking Status: Never smoker Assessment/Plan 1. PSVT The patient has had episodes of PSVT. He has had both narrow and wide complex tachycardia dysrhythmias. The wide complex tachydysrhythmia appeared compatible with an underlying bundle branch block pattern. Thus there is concern that this may be a rate related bundle branch block pattern. At the present time he appears to be without recurrent acute symptoms or hemodynamic compromise. He appears to be tolerating his low-dose beta-aleida. He does have intermittent low pressures. This may be secondary to multiple reasons at this time. At the present time he will continue beta-blockers. His dose will be decreased. Ideally, based upon the appearance of his PSVT, when he is able, he may need to be considered for EP consultation for EPS/RFA. However, In the interim, there are no immediate plans for additional cardiac diagnostic studies or therapeutic intervention pending the patient's recovering from his recent acute noncardiovascular issue. 2. CAD status post LAD PCI-remote The patient is without acute symptoms. He is without acute enzyme change or elective cardiographic change. Ideally he would continue medications such as aspirin, nitrates as needed, beta- blockers, and lipid-lowering agents. It does not appear he requires further cardiac diagnostic studies or therapeutic intervention, other than medication adjustment, with respect to his CAD status. 3. Hyperlipidemia He should continue risk factor evaluation and care and medical management when able. With respect to medical management this would include his statin therapy. 4. Sigmoid stricture He is status post general surgical evaluation/intervention. He will continue to be followed by internal medicine and general surgery. For all, he will continue his general medical/general surgical care. He will continue low-dose beta-aleida therapy as tolerated. He will need continued outpatient cardiovascular follow-up. He may eventually need EP consultation for additional evaluation and care. In the interim it should be noted that the patient's concern of metoprolol allergy appear to be concerns of related changes in heart rate and blood pressure in and around the time of a previous hospitalization where the patient was reportedly septic, hypotensive, potentially dehydrated, etc. There is been no information found thus far to detail any other type of metoprolol allergy especially with respect to any type of anaphylactic allergic type event. Comment: The above was discussed and reviewed with the patient. This note was generated with [employer] dictation software. It may contain incorrect words, spelling, and punctuation that were not noted in checking the note before signing.
--- NOTE | 2018-02-04 14:13 | PCM.TXEXTCAR ---
- Diet 01/30/18 16:49 Diet: Regular Diet Is pt able to select menu?: Yes Diet Comments: Ensure supplement with each meal - Wound(s) LT GRIFFITH Wound Type: Surgical Incision Dressing Change: Dry Sterile Dressing ABDOMEN Wound Type: Surgical Incision Dressing Change: Dry Sterile Dressing left foot under 5th toe Wound Type: crack LLQ old RODRIGUEZ Wound Type: Surgical Incision RLQ ABD Wound Type: Open Surgical Wound - Therapies Physical Therapy: Eval and Treat Occupational Therapy: Eval and Treat - Allergies/Procedures Done in Hospital Procedures: - - open sigmoid colectomy. 2nd procedure open diagnostic laparotomy with anastomotic leak - Type of Care/Length of Stay Estimated LOS: Convalescent Care Less Than 30 days Type of Care Needed: Acute Rehab Rehab Potential: Good Prognosis: Good - Additional Orders/Day of Discharge Day of Discharge: 02/04/18 - Dietary and Speech Recommendations Dietitian Recommendations/Changes: If TPN, rec 5%AA/20%Dextrose 2L / day with 250 cc 20% Lipids 3x/wk to provide ~ 2000 elsi / 100 gm pro/day. If able to use gut, rec TF - rec Jevity 1.5 at goal rate 60 cc/hr with 150 cc H2O flush every 4 hours to provide ~ 2160 elsi / 92 gm pro / 1994 cc free water per day. Would start tf at 20 cc/hr and increase by 20 cc/hr every 6-8 hrs as pt tolerates until goal rate achieved. Will d/c ONS medpass d/t refusals - Follow Up Care Primary Care Physician: Constantino Davis DO [Primary Care Provider] - Please Follow Up With: Gaston Byers MD - [phone] When: 10 days from discharge
--- NOTE | 2018-02-04 14:18 | TREXTCAR_ITS ---
Addendum entered and electronically signed by Kendal Flores PA-C 02/04/18 14:18: Original Note: - Diet 01/30/18 16:49 Diet: Regular Diet Is pt able to select menu?: Yes Diet Comments: Ensure supplement with each meal - Wound(s) LT GRIFFITH Wound Type: Surgical Incision Dressing Change: Dry Sterile Dressing ABDOMEN Wound Type: Surgical Incision Dressing Change: Dry Sterile Dressing left foot under 5th toe Wound Type: crack LLQ old RODRIGUEZ Wound Type: Surgical Incision RLQ ABD Wound Type: Open Surgical Wound - Therapies Physical Therapy: Eval and Treat Occupational Therapy: Eval and Treat - Allergies/Procedures Done in Hospital Procedures: - - open sigmoid colectomy. 2nd procedure open diagnostic laparotomy with anastomotic leak - Type of Care/Length of Stay Estimated LOS: Convalescent Care Less Than 30 days Type of Care Needed: Acute Rehab Rehab Potential: Good Prognosis: Good - Additional Orders/Day of Discharge Day of Discharge: 02/04/18 - Dietary and Speech Recommendations Dietitian Recommendations/Changes: If TPN, rec 5%AA/20%Dextrose 2L / day with 250 cc 20% Lipids 3x/wk to provide ~ 2000 elsi / 100 gm pro/day. If able to use gut, rec TF - rec Jevity 1.5 at goal rate 60 cc/hr with 150 cc H2O flush every 4 hours to provide ~ 2160 elsi / 92 gm pro / 1994 cc free water per day. Would start tf at 20 cc/hr and increase by 20 cc/hr every 6-8 hrs as pt tolerates until goal rate achieved. Will d/c ONS medpass d/t refusals - Follow Up Care Primary Care Physician: Constantino Davis DO [Primary Care Provider] - Please Follow Up With: Gaston Byers MD - [phone] When: 10 days from discharge
--- NOTE | 2018-02-04 14:19 | DS.PCM_ITS ---
Discharge Date and Diagnosis Date of Admission: 01/25/18 Date of Discharge: 02/04/18 - Primary Discharge Diagnosis Active and Suspected Problems (Last Updated 01/31/18 @ 12:14 by Teodoro Suazo DO) SVT (supraventricular tachycardia) (Acute) Anastomotic leak of intestine (Acute) Acute respiratory failure with hypoxia (Acute) Colonic stricture of the left colon - Secondary Discharge Diagnosis Chronic Problems (Last Updated 01/31/18 @ 12:14 by Teodoro Suazo DO) S/P PTCA (percutaneous transluminal coronary angioplasty) (Chronic) Atherosclerosis of coronary artery of [place] heart without angina pectoris (Chronic) PCI/GAETANO-LAD w/ 3.0 x 28 mm Promus Element Plus Rx 03/02/13 Personal history of skin cancer (Chronic) Neoplasm of unspecified behavior of bone, soft tissue, and skin (Chronic) 15 mm lesion right superomedial chest wall 3 mm lesion left volar distal forearm by wrist 1 cm lesion left mid dorsal ulnar forearm 5 mm pigmented lesion right outer arm 7 mm lesion left middle medial back Actinic keratosis (Chronic) actinic lesion left nasal tip actinic lesion left shoulder Benign keratosis (Chronic) 1 cm benign keratosis left lateral back 5 mm benign keratosis left outer arm 6 mm benign keratosis left lateral forehead 5 mm benign keratosis left outer shoulder Obstructive sleep apnea (Chronic) Left anterior fascicular block (LAFB) (Chronic) Atrial premature contractions (Chronic) HLD (hyperlipidemia) (Chronic) Hospital Course and Treatment Operations: colectomy - Open sigmoid colectomy, - - exploratory laparotomy with redo of anastomosis Procedures: EKG Summary of Care Provided: The patient is a 72 year old M who presented with colonic stricture. Dr. Byers performed an open sigmoid colectomy on 18. Patient tolerated the procedure well. Patient was noted to have stool within his RODRGIUEZ drain on POD #1. He was taken back to surgery with notable anastomotic leak. Dr. Byers repaired the leak. He tolerated the procedure well. Patient developed hypoxia with shortness of breath on POD #4 secondary to fluid overload/CHF. He was transferred to ICU for closer monitoring. Patient was then transferred to a regular floor on POD #6. Patient had a run of SVT's. Patient was placed on Digitalis and Coreg on POD #6. Surgery, Commercial Lease Administrator, cardiology and Hospitalist were all involved in the patient's care. Upon discharge, patient notes very little abdominal discomfort. He denies nausea, vomiting. He is tolerating a diet well. He was having bowel movements and positive flatus. Patient was discharged to [facility] facility in [place]. - Physical Exam General: Alert, Oriented x3, Cooperative HEENT: Atraumatic, PERRLA, EOMI, Normocephalic Neck: Supple, No JVD, Negative Carotid Bruits Lungs: Clear to auscultation, Normal air movement Cardiovascular: Regular rate, No murmurs Abdomen: Bowel Sounds Present, Soft, Non Tender, - - Incision c/d/i. No erythema or infection noted. Dried blood was noted. Judith intact. Extremities: No edema, Capillary Refill Less than 3 Seconds Skin: No rashes, No breakdown Musculoskeletal: Cachexia Neurological: Neuro grossly intact Vital Signs Temp Pulse Resp BP Pulse Ox 98.5 F 76 16 106/53 L 95 02/04/18 09:41 02/04/18 11:00 02/04/18 09:41 02/04/18 09:41 02/04/18 09:41 Oxygen Flow Rate (L/min) 1 Oxygen Delivery Method Room Air Weight: 173 lb 15.115 oz Body Mass Index (BMI) 22.4 Intake and Output for Last 24 Hours 02/02/18 02/03/18 02/04/18 23:59 23:59 23:59 Intake Total 1423.5 / 1423.5 780 / 780 957 / 957 Output Total 3400 / 3400 1175 / 1175 860 / 860 Balance -1976.5 / -1976.5 -395 / -395 97 / 97 Microbiology Past 72 Hours 02/01/18 07:55 Blood Culture - Preliminary Blood Culture (Wb) - Anticubital Left No growth in 48 hours. 02/01/18 08:15 Blood Culture - Preliminary Blood Culture (Wb) - Right Forearm No growth in 48 hours. 02/03/18 08:45 C. difficile DNA Amplification - Final Stool 02/01/18 07:45 Urine Culture - Final Urine Catheter - Hernandez Culture exhibits no growth. 01/31/18 02:35 Blood Culture - Preliminary Blood Culture (Wb) - Right Hand No growth in 48 hours. 01/31/18 02:32 Blood Culture - Preliminary Blood Culture (Wb) - Anticubital Right No growth in 48 hours. Laboratory Tests Past 24 Hrs 02/03/18 02/04/18 02/04/18 04:40 05:00 05:00 WBC 12.7 H RBC 3.26 L Hgb 9.6 L Hct 29.9 L MCV 91.7 MCH 29.4 MCHC 32.1 RDW 15.2 H RDW Differential 50.9 H Plt Count 501 H MPV 8.7 Immature Gran % (Auto) 0.500 Neut % (Auto) 84.5 H Lymph % (Auto) 7.3 L Gregory % (Auto) 6.1 Eos % (Auto) 1.4 Baso % (Auto) 0.2 Absolute Neuts (auto) 10.7 H Absolute Lymphs (auto) 0.93 Total Counted Not Reportable Sodium 141 Potassium 3.9 Chloride 106 Carbon Dioxide 28.0 Anion Gap 7 BUN 15 Creatinine 0.51 L Estim Creat Clear Calc 75.08 Est GFR (MDRD) Af Amer 205 Est GFR (MDRD) Non-Af 169 BUN/Creatinine Ratio 29.4 H Glucose 114 H Calcium 7.2 L Total Bilirubin 0.30 AST 12 L ALT 11 L Alkaline Phosphatase 45 B-Natriuretic Peptide 89.0 Total Protein 5.3 L Albumin 1.4 L Globulin 3.9 Albumin/Globulin Ratio 0.4 L Home Medications: Medications to take at Discharge Nitroglycerin [Nitrostat] 0.4 mg SUBLINGUAL Q5M PRN 04/12/13 Aspirin [Aspirin, Baby] 81 mg PO DAILY 06/26/17 Clopidogrel Bisulfate [Plavix] 75 mg PO DAILY 01/23/18 Cyanocobalamin (Vitamin B-12) [Vitamin B-12] 2,000 mcg PO DAILY 01/25/18 Pravastatin Sodium [Pravachol] 10 mg PO DAILY 01/25/18 Carvedilol [Coreg (Beta Sang)] 3.125 mg PO BID tablet 02/04/18 Lactobacillus Acidophilus [Acidophilus] 1 tablet PO BID tablet 02/04/18 Oxycodone [Oxyir] 5 mg PO Q6H PRN PRN 3 Days #10 tab 02/04/18 Pantoprazole Sodium [Protonix] 20 mg PO DAILY tablet 02/04/18 levoFLOXacin tablet [Levaquin tablet] 750 mg PO DAILY #7 tab 02/04/18 Following Prescrptions Were Given to Patient: Oxycodone [Oxyir] 5 mg PO Q6H PRN PRN 3 Days #10 tab PRN Reason: Severe Pain (-01/21) levoFLOXacin tablet [Levaquin tablet] 750 mg PO DAILY #7 tab Primary Care Physician: Constantino Davis DO [Primary Care Provider] - Please Follow Up With: Gaston Byers MD - [phone] When: 10 days from discharge Disposition: Long-Term facility Minutes spent on discharge:: 35 Patient Condition:: Stable Medical Necessity - Tobacco Use Smoking Status: Never smoker Meaningful Use Info Meaningful Use Diagnoses (Choose all that apply): None applicable Code Visit Inpatient E&M: 73405 Disch Hosp
--- NOTE | 2018-02-04 15:13 | CASEMGMT ---
TANA called [facility] and arranged for patient to get picked up at 4p via [facility]. TANA faxed orders to [place]. Completed convalescent on HENS. TANA notified patient of cook pickled meat time and that it is not covered by insurance. Told him it is approximately $45 base fee and $4.50 per mile. TANA offered to call family and he said his is meeting him there. TANA left a message for Khushbu at [place] with cook pickled meat time. TANA also notified RN and medical office secretary. Plan: d/c to [place] under skilled level of care on a convalescent stay. [facility] transported him via [facility]. Josey HOFFMAN MSW
--- NOTE | 2018-02-04 15:23 | CASEMGMT ---
SW received a call from patient's . She didn't understand why his transport is not covered. SW told her that he is going by wc van and insurance does not pay for this. SW told her it has to be medically necessary to go by cot. SW explained he is able to walk and sit up in a wc so he would not qualify for cot transport. She asked if she could transport him. TANA told her that would be fine. She told SW to just go ahead and do the wc van. TANA told her it is around $45 base fee and either $2.50 per mile or $4.50 per mile. Josey HOFFMAN MSW
--- NOTE | 2018-02-04 15:50 | PCM.PN.HOSP ---
Patient Problems: Active and Suspected Problems (Last Updated 01/31/18 @ 12:14 by Teodoro Suazo DO) SVT (supraventricular tachycardia) (Acute) Anastomotic leak of intestine (Acute) Acute respiratory failure with hypoxia (Acute) Subjective: Patient is a 72-year-old male with a history of CAD, hypertension, dyslipidemia, CHRISTA and remote history of skin cancer who was admitted for intractable nausea and vomiting secondary to sigmoid colon stricture. Patient is status post Low anterior resection sigmoid and rectosigmoid junction and Revision of anastomotic leak of the colorectal junction with a handsewn end-to-end anastomosis (01/26/18, 01/27/18 Respectively). Patient doing well, is poised for discharge to SNF. Earlier today, did have asymptomatic hypotension with systolic blood pressures in the 80s. After fluid bolus this has resolved and patient is without any complaints. Lasix was discontinued. Patient denies any further episodes of shortness of breath. Chest x-ray reviewed today and with significant improvement in infiltrates. Will continue with oral antibiotics for total of 7 days. Has been able to tolerate a regular diet without any problems. Denies any abdominal pain. States that he has been participating with PT/OT and does admit that he gets tired after therapy. Vitals/I&O's: Vital Signs Temp Pulse Resp BP Pulse Ox 98.6 F 70 16 101/56 L 93 02/04/18 15:36 02/04/18 15:36 02/04/18 15:36 02/04/18 15:36 02/04/18 15:36 Oxygen Flow Rate (L/min) 1 Oxygen Delivery Method Room Air Weight: 78.9 kg Body Mass Index (BMI) 22.4 Intake and Output for Last 24 Hours 02/02/18 02/03/18 02/04/18 23:59 23:59 23:59 Intake Total 1423.5 / 1423.5 780 / 780 957 / 957 Output Total 3400 / 3400 1175 / 1175 860 / 860 Balance -1976.5 / -1976.5 -395 / -395 97 / 97 General: Alert, Oriented x3, Cooperative HEENT: Atraumatic, Normocephalic Neck: Supple Lungs: Clear to auscultation, Normal air movement Cardiovascular: Regular rate, No murmurs Abdomen: Bowel Sounds Present, Soft, Non Tender, - - With abdominal dressing in place, no drainage Extremities: No edema, Capillary Refill Less than 3 Seconds Skin: No rashes, No breakdown Musculoskeletal: No Tenderness to Palpation of Joints or Extremities Neurological: Cranial nerves II-XII grossly intact Psych/Mental Status: Normal Affect, Appropriate Microbiology Past 72 Hours 02/01/18 07:55 Blood Culture (Wb) - Anticubital Left Blood Culture - Preliminary No growth in 48 hours. 02/01/18 08:15 Blood Culture (Wb) - Right Forearm Blood Culture - Preliminary No growth in 48 hours. 02/03/18 08:45 Stool C. difficile DNA Amplification - Final 02/01/18 07:45 Urine Catheter - Hernandez Urine Culture - Final Culture exhibits no growth. 01/31/18 02:35 Blood Culture (Wb) - Right Hand Blood Culture - Preliminary No growth in 48 hours. 01/31/18 02:32 Blood Culture (Wb) - Anticubital Right Blood Culture - Preliminary No growth in 48 hours. Laboratory Results 02/03/18 04:40: B-Natriuretic Peptide 89.0 02/04/18 05:00: WBC 12.7 H, RBC 3.26 L, Hgb 9.6 L, Hct 29.9 L, MCV 91.7, MCH 29.4, MCHC 32.1, RDW 15.2 H, RDW Differential 50.9 H, Plt Count 501 H, MPV 8.7, Immature Gran % (Auto) 0.500, Neut % (Auto) 84.5 H, Lymph % (Auto) 7.3 L, [facility] % (Auto) 6.1, Eos % (Auto) 1.4, Baso % (Auto) 0.2, Absolute Neuts (auto) 10.7 H, Absolute Lymphs (auto) 0.93, Total Counted Not Reportable 02/04/18 05:00: Sodium 141, Potassium 3.9, Chloride 106, Carbon Dioxide 28.0, Anion Gap 7, BUN 15, Creatinine 0.51 L, Estim Creat Clear Calc 75.08, Est GFR (MDRD) Af Amer 205, Est GFR (MDRD) Non-Af 169, BUN/Creatinine Ratio 29.4 H, Glucose 114 H, Calcium 7.2 L, Total Bilirubin 0.30, AST 12 L, ALT 11 L, Alkaline Phosphatase 45, Total Protein 5.3 L, Albumin 1.4 L, Globulin 3.9, Albumin/Globulin Ratio 0.4 L Current Medications Al Hydroxide/Mg Hydroxide (Mylanta Ii) 30 ml PO Q6H PRN PRN PRN Reason: DYSPEPSIA Albuterol Sulfate (Ventolin Aerosols) 2.5 mg INHALATION Q2H PRN PRN PRN Reason: sob/wheezing Last Admin: 02/02/18 16:02 Dose: 2.5 mg Albuterol/Ipratropium (Duoneb) 3 ml INHALATION Q6H.RT [facility] Last Admin: 02/04/18 13:17 Dose: 3 ml Aspirin (Aspirin, Baby) 81 mg PO DAILY@0800 [facility] Last Admin: 02/04/18 09:05 Dose: 81 mg Calcium Carbonate (Tums) 1,000 mg PO Q6H PRN PRN PRN Reason: DYSPEPSIA Last Admin: 02/04/18 12:48 Dose: 1,000 mg Carvedilol (Coreg) 3.125 mg PO BID [facility] Diphenhydramine HCl (Benadryl) 12.5 - 25 mg IV Q6H PRN PRN PRN Reason: ITCHING Ketorolac Tromethamine (Toradol) 15 mg IV Q8H PRN PRN PRN Reason: hiccups Stop: 02/06/18 09:42 Last Admin: 02/03/18 14:35 Dose: 15 mg Lactobacillus Acidophilus (Acidophilus) 1 tablet PO BID [facility] Last Admin: 02/04/18 10:07 Dose: 1 tablet Levofloxacin (Levaquin Tablet) 750 mg PO DAILY@2200 [facility] Metoclopramide HCl (Reglan) 2.5 mg IV Q6 [facility] Last Admin: 02/04/18 11:20 Dose: 2.5 mg Morphine Sulfate () 1 mg IV Q3H PRN PRN PRN Reason: SEVERE PAIN (6-10/10) Last Admin: 02/02/18 22:46 Dose: 1 mg Nitroglycerin (Nitrostat) 0.4 mg SUBLINGUAL Q5M PRN PRN Reason: Chest Pain Ondansetron HCl (Zofran) 4 mg IV Q6H PRN PRN PRN Reason: NAUSEA Last Admin: 02/02/18 15:45 Dose: 4 mg Oxycodone HCl (Oxyir) 5 mg PO Q6H PRN PRN PRN Reason: SEVERE PAIN (6-1010) Last Admin: 02/03/18 12:39 Dose: 5 mg Pantoprazole Sodium (Protonix) 20 mg PO DAILY [facility] Last Admin: 02/04/18 09:06 Dose: 20 mg Potassium Chloride (K-Dur) 40 meq PO BIDCM [facility] Last Admin: 02/04/18 09:05 Dose: 40 meq Pravastatin Sodium (Pravachol) 10 mg PO QHS [facility] Last Admin: 02/03/18 21:22 Dose: 10 mg Senna/Docusate Sodium (Senokot-S, Emily-Colace) 2 tablet PO QHS [facility] Last Admin: 02/02/18 20:57 Dose: 2 tablet Sodium Chloride () 5 - 30 ml IV UD PRN PRN Reason: SALINE FLUSH Last Admin: 02/04/18 11:20 Dose: 20 ml Throat Lozenges (Cepacol Sore Throat Lozenge) 1 lozenge MUCOUS MEM Q2H PRN PRN PRN Reason: SORE THROAT Last Admin: 02/01/18 08:35 Dose: 1 lozenge Medical Necessity - Tobacco Use Smoking Status: Never smoker Assessment/Plan All Active Problems (Last Updated 01/31/18 @ 12:14 by Teodoro Suazo DO) SVT (supraventricular tachycardia) (Acute) Sigmoid stricture (Acute) LLQ abdominal pain (Acute) Obstipation (Resolved) Small bowel obstruction (Resolved) Nausea and vomiting (Resolved) Anastomotic leak of intestine (Acute) Acute respiratory failure with hypoxia (Acute) History of coronary artery stent placement (Resolved 03/02/13) Near syncope (Resolved) Hypotension (Resolved) Diverticulitis (Resolved) History of recent pneumonia (Resolved) Septic shock (Resolved) Patient is a 72-year-old male with a history of CAD, hypertension, dyslipidemia, CHRISTA and remote history of skin cancer who was admitted for intractable nausea and vomiting secondary to sigmoid colon stricture. Patient is postop day #8 of low anterior resection sigmoid and rectosigmoid junction, postop day #7 revision of anastomotic leak of colorectal region. 1. Sigmoid stricture status post low anterior resection sigmoid and rectosigmoid junction and revision of anastomotic leak of colorectal region Appears to be tolerating a regular diet. Surgery following. 2. PSVT, postop Resolved. Currently on beta-aleida, in sinus rhythm. 3. Shortness of breath Resolved, transient episodes. Possibly related to episodes of PSVT as well as developing pneumonia. Patient has been on oral antibiotics for pneumonia and will continue this upon discharge (appears to be resolving based on repeat CXR and clinically). No further episodes of shortness of breath, patient has been off of supplemental oxygen for several days now. 4. Hypertension Blood pressure was borderline low earlier today, he is status post 1 L of normal saline. Have discontinued oral Lasix and patient may continue Coreg with parameters (hold for systolic blood pressure less than equal to 110) 5. Dyslipidemia On statin 6. CAD Aware. Currently asymptomatic. Restart his aspirin, nitrates as needed and continue current statin. 7. Remote history of skin cancer Okay to discharge to inpatient rehab today. Code Visit Inpatient E&M: 46931 [facility] Hosp L3
== END 2018-02-04 16:09 | disposition skilled nursing facility (03) | DRG 329 ==
LOC: ED 13:10 → MS3 13:35 → ICU 01-31 08:05 → PCU 02-02 13:31
PROVIDERS: Hospitalist; Internal Medicine; Internal Medicine Critical Care Medicine; Physician Assistant; Surgery; Admitting Provider Surgery; Emergency Provider Emergency Medicine; Family Provider Family Medicine; PCP Family Medicine; Visit Provider Family Medicine
PROC: 0DTN0ZZ Resection of Sigmoid Colon, Open Approach (ICD-10-PCS; CPT 44204; principal; 2018-01-26 10:35)
PROC: 0D1N0ZP Bypass Sigmoid Colon to Rectum, Open Approach (ICD-10-PCS; principal; 2018-01-27 08:45)
DX: K56.699 Other intestinal obstruction unspecified as to partial versus complete obstruction (principal); J96.01 Acute respiratory failure with hypoxia; I50.33 Acute on chronic diastolic (congestive) heart failure; I47.1 Supraventricular tachycardia; K91.89 Other postprocedural complications and disorders of digestive system; E78.5 Hyperlipidemia, unspecified; I25.10 Atherosclerotic heart disease of native coronary artery without angina pectoris; Y83.2 Surgical operation with anastomosis, bypass or graft as the cause of abnormal reaction of the patient, or of later complication, without mention of misadventure at the time of the procedure; I11.0 Hypertensive heart disease with heart failure; Z95.5 Presence of coronary angioplasty implant and graft; Z85.828 Personal history of other malignant neoplasm of skin; E87.6 Hypokalemia
CPT/HCPCS: 36415; 36569; 71045; 71046; 74018; 74022; 80048; 80053; 80202; 81001; 83690; 83735; 83880; 84100; 84484; 85025; 85027; 85610; 85730; 86850; 86900; 87040; 87086; 87493; 87641; 88304; 88307; 93005; 93306; 94640; 94668; 94762; 97110; 97162; 97165; 97530; 99285; J7030; J7040; J7050; J7120; P9047; A4216; J0744; J1170; J1940; J2405; J3490

== ENCOUNTER → 2018-03-09 08:14 | Outpatient (CLI) | payer MEDICARE, OTHER, SELFPAY ==
--- NOTE | 2018-03-09 08:37 | RAD_ITS ---
STUDY: X-RAY - ESOPHAGUS (BARIUM SWALLOW) WITH FLUOROSCOPY REASON FOR EXAM: Male, 72 years old. Lower esophageal pain. TECHNIQUE: 18 spot view(s) of the esophagus were obtained following swallowing of barium. FLUOROSCOPY TIME (if supplied): (0:40) minutes/seconds. COMPARISON: None. FINDINGS: There is no demonstrated esophageal foreign body. There is no demonstrated stricture or mucosal abnormality. Normal gastroesophageal junction, without a demonstrated hiatal hernia. The patient ingested a 12 mm tablet of barium without any difficulty. There is atherosclerotic calcification of the aortic arch with tortuosity of the descending aorta. Normal visualized pulmonary parenchyma. There are diffuse degenerative changes of the visualized thoracic spine. RAD/Esophagus Only IMPRESSION: Normal plain film x-ray examination (barium swallow) of the esophagus. Electronically Signed: Chidi Monroy MD at 14:04 EST Tel [phone], Service support ,
== END ==
PROVIDERS: Family Provider Family Medicine; PCP Family Medicine; Referring Provider Otolaryngology; Visit Provider Otolaryngology
DX: R13.10 Dysphagia, unspecified (principal)
CPT/HCPCS: 74220

== ENCOUNTER → 2018-03-16 16:14 | Outpatient (CLI) | payer MEDICARE, SELFPAY ==
[2018-03-16 14:55] VITALS: BMI 20.7
[2018-03-16 17:06] LABS: Absolute Lymphocyte Count 0.97 X10^3/ul (0.83-4.51); Absolute Neutrophil Count 4.2 X10^3/uL (2.0-7.7); Basophil# 0.01 X10^3/uL; Basophil% 0.2 % (0-1); Eosinophil# 0.05 X10^3/uL; Eosinophils% 0.8 % (0-5); Hematocrit 34.7 % (40-54); Hemoglobin 10.9 g/dl (13.0-16.5); Lymphocyte # 0.97 X10^3/ul (4.0); Lymphocyte % 15.9 % (19-41); Mean Corp Hgb Conc 31.4 g/gl (32-36); Mean Corpuscular Hgb 28.6 pg (27.0-32.0); Mean Corpuscular Volume 91.1 fL (80-94); Monocyte# 0.81 X10^3/uL; Monocyte% 13.3 % (0-10); Neutrophil # 4.24 X10^3/uL (2.7-7.7); Neutrophil % 69.5 % (47-70); Platelet Count 418 K/mm3 (150-450); RBC Distribution Width CV 15.9 % (11.6-14.6); RBC Distribution Width SD 51.3 fl (35.1-43.9); Red Blood Count 3.81 M/mm3 (4.6-6.2); White Blood Count 6.1 K/mm3 (4.4-11.0)
[2018-03-16 17:13] LABS: POSITIVE COUNT NO; POSITIVE DIFFERENTIAL NO; POSITIVE MORPHOLOGY NO
[2018-03-16 17:20] LABS: Anion Gap 9 (5-15); BUN 8 mg/dL (7-18); BUN/Creat Ratio 11.4 RATIO (10-20); Calcium,Total 8.4 mg/dL (8.5-10.1); Chloride 105 mmol/L (98-107); EST Glomerular Filtration Rate 118 mL/min (>60); Est Glom Filt Rate - Afr Amer 142 mL/min (>60); Glucose 92 mg/dL (74-106); Potassium 3.9 mmol/L (3.5-5.1); Sodium Level 141 mmol/L (136-145)
[2018-03-16 17:28] LABS: BNP,B-Type NATRIURETIC PEPTIDE 109.1 pg/mL (0-100)
== END ==
PROVIDERS: Family Provider Family Medicine; PCP Family Medicine; Visit Provider Physician Assistant Medical
DX: R06.09 Other forms of dyspnea (principal); R53.83 Other fatigue; R60.9 Edema, unspecified; E78.5 Hyperlipidemia, unspecified; I47.1 Supraventricular tachycardia; I25.10 Atherosclerotic heart disease of native coronary artery without angina pectoris
CPT/HCPCS: 36415; 80048; 83880; 85025

== ENCOUNTER → 2018-03-18 14:51 | Outpatient (CLI) | payer MEDICARE, OTHER, SELFPAY ==
[2018-03-16 14:55] VITALS: BMI 20.7
--- NOTE | 2018-03-18 14:55 | VDLE_ITS ---
Reason For Study: LEG SWELLING RIGHT LEFT GSV is normal. GSV is normal. CFV is compressible, spontaneous, phasic, CFV is compressible, spontaneous, phasic, competent and demonstrates normal competent, and demonstrates normal augmentation. augmentation. FV is compressible, spontaneous, phasic, FV is compressible, spontaneous, phasic, competent and demonstrates normal competent and demonstrates normal augmentation. augmentation. POP V is compressible, spontaneous, phasic, POP V is compressible, spontaneous, phasic, competent and demonstrates normal competent and demonstrates normal augmentation. augmentation. T/P Trunk is compressible. T/P Trunk is compressible. PTV is compressible. PTV is compressible. RT PerV is compressible. LT PerV is compressible. Procedure Exam performed in department. A preliminary report was called and/or faxed to Aleida Kinsey. <> Interpretation Summary No evidence for acute deep venous thrombosis bilateral lower extremities with patent and compressible bilateral great saphenous veins. Ordering Physician: Georgette Kinsey Referring Physician: Georgette Kinsey Performed By: Kristine Shook RVT
== END ==
PROVIDERS: Family Provider Family Medicine; PCP Family Medicine; Referring Provider Physician Assistant Medical; Visit Provider Physician Assistant Medical
DX: R60.0 Localized edema (principal)
CPT/HCPCS: 93970

== ENCOUNTER 2018-06-26 21:01 | Emergency (ER) | payer MEDICARE, OTHER, SELFPAY ==
[2018-03-31 11:03] VITALS: BMI 20.7
[2018-06-26 21:03] VITALS: BP 143/8; PULSE 90; RESP 24; TEMP 37.8; O2SAT 94; BMI 24.1
[2018-06-26 21:09] VITALS: BP 143/8; PULSE 90; RESP 24; TEMP 37.8; O2SAT 94
--- NOTE | 2018-06-26 21:14 | EKG12_ITS ---
Test Reason : GEN ILLNESS Blood Pressure : / mmHG Vent. Rate : 088 BPM Atrial Rate : 088 BPM P-R Int : 168 ms QRS Dur : 080 ms QT Int : 350 ms P-R-T Axes : 018 -72 056 degrees QTc Int : 423 ms Normal sinus rhythm Left anterior fascicular block Abnormal ECG Confirmed by LUIS MANUEL GAYLE ([id number]), assignment desk editor SHIVAM ABDI ([id number] on 06/29/2018 4:30:51 PM Referred By: OREN Confirmed By:LUIS MANUEL GAYLE
--- NOTE | 2018-06-26 21:14 | RAD_ITS ---
STUDY: X-RAY CHEST REASON FOR EXAM: Male, 73 years old. Cough and fever TECHNIQUE: Portable chest COMPARISON: 02/03/2018 FINDINGS: There is an old right clavicle fracture. There are old bilateral calcified pleural plaques. There are old right rib fractures. There is scattered bilateral pulmonary opacities. Normal size heart. Normal mediastinum and colin. Normal visualized pulmonary arteries. Normal visualized aortic arch and descending thoracic aorta. Normal visualized thoracic spine. There is no demonstrated abnormality of the visualized soft tissue structures of the upper abdomen. RAD/Chest PA and Lateral IMPRESSION: Scattered bilateral pulmonary opacities Old right clavicle fracture Old stable bilateral calcified pleural plaques likely representing prior asbestos exposure Old right rib fractures Electronically Signed: Bryan Bearden, at 23:04 EDT Tel , Service support ,
[2018-06-26 21:19] VITALS: BP 135/72; PULSE 94; O2SAT 92
--- NOTE | 2018-06-26 21:19 | ED.VIS.GEN ---
History of Present Illness Chief Complaint: General Illness Detail of Chief Complaint: Fever, chills and cough Informant: Patient, Family Onset: Days - Onset 3 days ago Context: Sudden Onset Timing: Continuous Quality: Tonight complained of fever and shaking chills Location: Home Current Severity: Mild Maximum Severity: Moderate Worsened by: Nothing Relieved by: Nothing Associated Symptoms: Generalized weakness Narrative: Patient is an elderly male who has never smoked presents with fever, chills and nonproductive cough that started 3-4 days ago. Was seen in urgent care center and placed on Tessalon Perles and dextromethorphan syrup. He presents because of not feeling any better and increased generalized weakness. states he had significant pneumonia in September and apparently had septic shock. He was not immunized for influenza or strep this past fall. He does complain of slight bifrontal headache. Denies photophobia or neck pain. He does complain of mild nasal congestion. He denies earache or sore throat. He does complain of generalized aches. - Past Medical History (1) Acute respiratory failure with hypoxia Status: Resolved (2) SVT (supraventricular tachycardia) Status: Resolved (3) Atherosclerosis of coronary artery of [place] heart without angina pectoris Status: Chronic Comment: PCI/GAETANO-LAD w/ 3.0 x 28 mm Promus Element Plus Rx 03/02/13 (4) Atrial premature contractions Status: Chronic (5) HLD (hyperlipidemia) Status: Chronic (6) Obstructive sleep apnea Status: Chronic (7) Personal history of skin cancer Status: Chronic (8) S/P PTCA (percutaneous transluminal coronary angioplasty) Status: Chronic (9) Diverticulitis Status: Resolved (10) History of coronary artery stent placement Status: Resolved Comment: PCI/GAETANO-LAD w/ 3.0 x 28 mm Promus Element Plus Rx 03/02/13 (11) Small bowel obstruction Status: Resolved Past Medical History - Allergies and Home Meds Allergies/Adverse Reactions: Allergies metoprolol Adverse Reaction (Verified 06/26/18 21:08) Low blood pressure Primary Care Physician: Cnostantino Davis DO [Primary Care Provider] - Prior records reviewed: Yes Surgical History: noncontributory Lives: Spouse/ Significant Other Smoking Status: Never smoker Alcohol: None - Family History Maternal Family History: Family History (Last Reviewed 03/31/18 @ 11:06 by Geovanna Hannah) Father CVA (cerebral vascular accident) Hypertension HLD (hyperlipidemia) Cancer Mother HLD (hyperlipidemia) Hypertension Other Family history of skin cancer Family History: Reports: No pertinent history Review of Systems General: Reports: Chills, Fever, Sweats. Denies: Weight loss Eyes: Denies: Visual changes - bilaterally, Blurred Vision - bilaterally, Diplopia ENT: Reports: Rhinorrhea. Denies: Bilateral ear pain, Sore throat Cardiovascular: Denies: Chest pain, Palpitations Respiratory: Reports: Dyspnea, Cough, Dyspnea on exertion. Denies: Sputum, Orthopnea, Paroxysmal nocturnal dyspnea Gastrointestinal: Denies: Abdominal pain, Nausea, Vomiting, Diarrhea, Melena, Hematochezia Genitourinary: Denies: Dysuria, Hematuria, Frequency Musculoskeletal: Reports: Myalgias. Denies: Arthralgias, Neck pain, Back pain, Extremity Pain Skin: Denies: Rash, Wounds Neurological: Reports: Headache, Weakness. Denies: Numbness Hematologic: Denies: Easy bruising, Easy bleeding Allergy: Denies: Uticaria, Swelling of the mouth Physical Exam Vital Signs/Narrative: Vital Signs Temp Pulse Resp BP Pulse Ox 06/26/18 21:09 100.0 F H 90 24 H 143/8 H 94 06/26/18 21:03 100.0 F H 90 24 H 143/8 H 94 Inital Vital Signs reviewed: Yes General: Well nourished, Well developed, No Acute Distress, - - Patient appears ill but not toxic Head: Normocephalic, Atraumatic Eyes: Perrl, EOMI. Negative for: Pale conjunctiva, Scleral icterus ENT: TM's clear. Negative for: Sinus tenderness Neck: Supple, Nontender, No lymphadenopathy, No JVD Cardiovascular: Regular rate, Regular rhythm, No murmurs, Normal S1, Normal S2 Respiratory: Chest nontender, Rales - Right lower lobe with egophony and increased vocal fremitus, Wheezing Abdomen: Soft, Nontender, Nondistended, Normal bowel sounds, No masses Back: Nontender Extremities: Nontender, No edema. Negative for: Calf Tenderness Skin: Normal color, No rash. Negative for: Cyanosis, Diaphoresis, Jaundice Neurological: Alert, Oriented x3, Cranial nerves II-XII grossly intact, Normal Strength, Normal Sensation Psychological: Normal affect, Normal Mood Diagnostic/Tx/Re-eval Chest X-Ray - ED: 2 View, Normal, Heart, Mediastinum, Bony Structures, Chronic Changes, - - Chronic changes are noted with pleural plaques. There is improvement from prior x-ray obtained on February 03, 2018. Impressions Chest X-Ray 06/26/18 21:14 IMPRESSION: Scattered bilateral pulmonary opacities Old right clavicle fracture Old stable bilateral calcified pleural plaques likely representing prior asbestos exposure Old right rib fractures Electronically Signed: Bryan Bearden, at 23:04 EDT Tel , Service support , 06/26/18 21:14 Chest PA and Lateral [RAD] Stat Laboratory Results 06/26/18 06/26/18 06/26/18 21:11 21:11 21:11 WBC 6.5 RBC 4.92 Hgb 13.3 Hct 43.0 MCV 87.4 MCH 27.0 MCHC 30.9 L RDW 15.9 H RDW Differential 51.1 H Plt Count 261 MPV 9.0 Immature Gran % (Auto) 0.200 Neut % (Auto) 77.4 H Lymph % (Auto) 8.1 L [place] % (Auto) 12.9 H Eos % (Auto) 1.2 Baso % (Auto) 0.2 Absolute Neuts (auto) 5.1 Absolute Lymphs (auto) 0.53 L Total Counted Not Reportable Differential Comment SEE COMMENT Toxic Granulation RARE Platelet Estimate ADEQUATE RBC Morphology NORM C+C PT 13.7 INR 1.1 APTT 30.6 Sodium 134 L Potassium 4.1 Chloride 101 Carbon Dioxide 27.0 Anion Gap 6 BUN 14 Creatinine 0.86 Estim Creat Clear Calc 88.94 Est GFR (MDRD) Af Amer 113 Est GFR (MDRD) Non-Af 93 BUN/Creatinine Ratio 16.4 Glucose 113 H Lactic Acid Calcium 8.1 L Total Bilirubin 0.20 AST 18 ALT 17 Alkaline Phosphatase 84 Total Protein 8.3 H Albumin 3.2 Globulin 5.1 H Albumin/Globulin Ratio 0.6 L 06/26/18 21:11 WBC RBC Hgb Hct MCV MCH MCHC RDW RDW Differential Plt Count MPV Immature Gran % (Auto) Neut % (Auto) Lymph % (Auto) [place] % (Auto) Eos % (Auto) Baso % (Auto) Absolute Neuts (auto) Absolute Lymphs (auto) Total Counted Differential Comment Toxic Granulation Platelet Estimate RBC Morphology PT INR APTT Sodium Potassium Chloride Carbon Dioxide Anion Gap BUN Creatinine Estim Creat Clear Calc Est GFR (MDRD) Af Amer Est GFR (MDRD) Non-Af BUN/Creatinine Ratio Glucose Lactic Acid 1.3 Calcium Total Bilirubin AST ALT Alkaline Phosphatase Total Protein Albumin Globulin Albumin/Globulin Ratio - Rhythm Strip Rhythm Strip: Sinus Rhythm Rate: 85 Ectopy: None - EKG Initial EKG Interpretation: Sinus Rhythm - Ventricular rate 88. [place] to the left. There is a left anterior fascicular block. HI interval is normal. QT interval is normal. - Medical Decision Making Clinically patient has right lower lobe pneumonia. He is tachycardic, tachypneic and temperature is elevated. Sepsis order set was initiated. He was treated with IV levofloxacin. Patient was informed of his results. Patient does not meet criteria for admission. Score is 73 points because of age only. Clinically he has a right lower lobe pneumonia. Since he is not febrile, tachycardic, hypoxic and white count is normal will discharge to home. He did receive a dose of IV antibiotics. states she cannot care for him. She states he cannot walk. I was informed by charge nurse that she observed him getting out of the car. His nurse, Indy, was asked to ambulate patient. If he is able to ambulate successfully he will be discharged home ED Disposition - Plan for ED Patient: Disposition: Home or Assisted Living Diagnosis: Right lower lobe pneumonia, Obstructive sleep apnea, Atherosclerosis of coronary artery of [place] heart without angina pectoris, HLD (hyperlipidemia), S/P PTCA (percutaneous transluminal coronary angioplasty) Instructions: ED Pneumonia Adult Prescriptions: levoFLOXacin tablet [Levaquin] 500 mg PO DAILY #7 tablet Referrals: Constantino Davis DO [Primary Care Provider] - 3-5 Days Additional Instructions: Your prescription was electronically transmitted to [facility] pharmacy on [facility], your designated pharmacy of choice
--- NOTE | 2018-06-26 21:23 | ED.DCSUM_ITS ---
History of Present Illness Chief Complaint: General Illness Detail of Chief Complaint: Fever, chills and cough Informant: Patient, Family Onset: Days - Onset 3 days ago Context: Sudden Onset Timing: Continuous Quality: Tonight complained of fever and shaking chills Location: Home Current Severity: Mild Maximum Severity: Moderate Worsened by: Nothing Relieved by: Nothing Associated Symptoms: Generalized weakness Narrative: Patient is an elderly male who has never smoked presents with fever, chills and nonproductive cough that started 3-4 days ago. Was seen in urgent care center and placed on Tessalon Perles and dextromethorphan syrup. He presents because of not feeling any better and increased generalized weakness. states he had significant pneumonia in September and apparently had septic shock. He was not immunized for influenza or strep this past fall. He does complain of slight bifrontal headache. Denies photophobia or neck pain. He does complain of mild nasal congestion. He denies earache or sore throat. He does complain of generalized aches. - Past Medical History (1) Acute respiratory failure with hypoxia Status: Resolved (2) SVT (supraventricular tachycardia) Status: Resolved (3) Atherosclerosis of coronary artery of [place] heart without angina pectoris Status: Chronic Comment: PCI/GAETANO-LAD w/ 3.0 x 28 mm Promus Element Plus Rx 03/02/13 (4) Atrial premature contractions Status: Chronic (5) HLD (hyperlipidemia) Status: Chronic (6) Obstructive sleep apnea Status: Chronic (7) Personal history of skin cancer Status: Chronic (8) S/P PTCA (percutaneous transluminal coronary angioplasty) Status: Chronic (9) Diverticulitis Status: Resolved (10) History of coronary artery stent placement Status: Resolved Comment: PCI/GAETANO-LAD w/ 3.0 x 28 mm Promus Element Plus Rx 03/02/13 (11) Small bowel obstruction Status: Resolved Past Medical History - Allergies and Home Meds Allergies/Adverse Reactions: Allergies metoprolol Adverse Reaction (Verified 06/26/18 21:08) Low blood pressure Primary Care Physician: Constantino Davis DO [Primary Care Provider] - Prior records reviewed: Yes Surgical History: noncontributory Lives: Spouse/ Significant Other Smoking Status: Never smoker Alcohol: None - Family History Maternal Family History: Family History (Last Reviewed 03/31/18 @ 11:06 by Geovanna Hannah) Father CVA (cerebral vascular accident) Hypertension HLD (hyperlipidemia) Cancer Mother HLD (hyperlipidemia) Hypertension Other Family history of skin cancer Family History: Reports: No pertinent history Review of Systems General: Reports: Chills, Fever, Sweats. Denies: Weight loss Eyes: Denies: Visual changes - bilaterally, Blurred Vision - bilaterally, Diplopia ENT: Reports: Rhinorrhea. Denies: Bilateral ear pain, Sore throat Cardiovascular: Denies: Chest pain, Palpitations Respiratory: Reports: Dyspnea, Cough, Dyspnea on exertion. Denies: Sputum, Orthopnea, Paroxysmal nocturnal dyspnea Gastrointestinal: Denies: Abdominal pain, Nausea, Vomiting, Diarrhea, Melena, Hematochezia Genitourinary: Denies: Dysuria, Hematuria, Frequency Musculoskeletal: Reports: Myalgias. Denies: Arthralgias, Neck pain, Back pain, Extremity Pain Skin: Denies: Rash, Wounds Neurological: Reports: Headache, Weakness. Denies: Numbness Hematologic: Denies: Easy bruising, Easy bleeding Allergy: Denies: Uticaria, Swelling of the mouth Physical Exam Vital Signs/Narrative: Vital Signs Temp Pulse Resp BP Pulse Ox 06/26/18 21:09 100.0 F H 90 24 H 143/8 H 94 06/26/18 21:03 100.0 F H 90 24 H 143/8 H 94 Inital Vital Signs reviewed: Yes General: Well nourished, Well developed, No Acute Distress, - - Patient appears ill but not toxic Head: Normocephalic, Atraumatic Eyes: Perrl, EOMI. Negative for: Pale conjunctiva, Scleral icterus ENT: TM's clear. Negative for: Sinus tenderness Neck: Supple, Nontender, No lymphadenopathy, No JVD Cardiovascular: Regular rate, Regular rhythm, No murmurs, Normal S1, Normal S2 Respiratory: Chest nontender, Rales - Right lower lobe with egophony and increased vocal fremitus, Wheezing Abdomen: Soft, Nontender, Nondistended, Normal bowel sounds, No masses Back: Nontender Extremities: Nontender, No edema. Negative for: Calf Tenderness Skin: Normal color, No rash. Negative for: Cyanosis, Diaphoresis, Jaundice Neurological: Alert, Oriented x3, Cranial nerves II-XII grossly intact, Normal Strength, Normal Sensation Psychological: Normal affect, Normal Mood Diagnostic/Tx/Re-eval Chest X-Ray - ED: 2 View, Normal, Heart, Mediastinum, Bony Structures, Chronic Changes, - - Chronic changes are noted with pleural plaques. There is improvement from prior x-ray obtained on February 03, 2018. Impressions Chest X-Ray 06/26/18 21:14 IMPRESSION: Scattered bilateral pulmonary opacities Old right clavicle fracture Old stable bilateral calcified pleural plaques likely representing prior asbestos exposure Old right rib fractures Electronically Signed: Bryan Bearden, at 23:04 EDT Tel , Service support , 06/26/18 21:14 Chest PA and Lateral [RAD] Stat Laboratory Results 06/26/18 06/26/18 06/26/18 21:11 21:11 21:11 WBC 6.5 RBC 4.92 Hgb 13.3 Hct 43.0 MCV 87.4 MCH 27.0 MCHC 30.9 L RDW 15.9 H RDW Differential 51.1 H Plt Count 261 MPV 9.0 Immature Gran % (Auto) 0.200 Neut % (Auto) 77.4 H Lymph % (Auto) 8.1 L [place] % (Auto) 12.9 H Eos % (Auto) 1.2 Baso % (Auto) 0.2 Absolute Neuts (auto) 5.1 Absolute Lymphs (auto) 0.53 L Total Counted Not Reportable Differential Comment SEE COMMENT Toxic Granulation RARE Platelet Estimate ADEQUATE RBC Morphology NORM C+C PT 13.7 INR 1.1 APTT 30.6 Sodium 134 L Potassium 4.1 Chloride 101 Carbon Dioxide 27.0 Anion Gap 6 BUN 14 Creatinine 0.86 Estim Creat Clear Calc 88.94 Est GFR (MDRD) Af Amer 113 Est GFR (MDRD) Non-Af 93 BUN/Creatinine Ratio 16.4 Glucose 113 H Lactic Acid Calcium 8.1 L Total Bilirubin 0.20 AST 18 ALT 17 Alkaline Phosphatase 84 Total Protein 8.3 H Albumin 3.2 Globulin 5.1 H Albumin/Globulin Ratio 0.6 L 06/26/18 21:11 WBC RBC Hgb Hct MCV MCH MCHC RDW RDW Differential Plt Count MPV Immature Gran % (Auto) Neut % (Auto) Lymph % (Auto) [place] % (Auto) Eos % (Auto) Baso % (Auto) Absolute Neuts (auto) Absolute Lymphs (auto) Total Counted Differential Comment Toxic Granulation Platelet Estimate RBC Morphology PT INR APTT Sodium Potassium Chloride Carbon Dioxide Anion Gap BUN Creatinine Estim Creat Clear Calc Est GFR (MDRD) Af Amer Est GFR (MDRD) Non-Af BUN/Creatinine Ratio Glucose Lactic Acid 1.3 Calcium Total Bilirubin AST ALT Alkaline Phosphatase Total Protein Albumin Globulin Albumin/Globulin Ratio - Rhythm Strip Rhythm Strip: Sinus Rhythm Rate: 85 Ectopy: None - EKG Initial EKG Interpretation: Sinus Rhythm - Ventricular rate 88. [place] to the left. There is a left anterior fascicular block. [place] interval is normal. QT interval is normal. - Medical Decision Making Clinically patient has right lower lobe pneumonia. He is tachycardic, tachypneic and temperature is elevated. Sepsis order set was initiated. He was treated with IV levofloxacin. Patient was informed of his results. Patient does not meet criteria for admission. Score is 73 points because of age only. Clinically he has a right lower lobe pneumonia. Since he is not febrile, tachycardic, hypoxic and white count is normal will discharge to home. He did receive a dose of IV antibiotics. states she cannot care for him. She states he cannot walk. I was informed by charge nurse that she observed him getting out of the car. His nurse, Indy, was asked to ambulate patient. If he is able to ambulate successfully he will be discharged home ED Disposition - Plan for ED Patient: Disposition: Home or Assisted Living Diagnosis: Right lower lobe pneumonia, Obstructive sleep apnea, Atherosclerosis of coronary artery of [place] heart without angina pectoris, HLD (hyperlipidemia), S/P PTCA (percutaneous transluminal coronary angioplasty) Instructions: ED Pneumonia Adult Prescriptions: levoFLOXacin tablet [Levaquin] 500 mg PO DAILY #7 tablet Referrals: Constantino Davis DO [Primary Care Provider] - 3-5 Days Additional Instructions: Your prescription was electronically transmitted to [facility] pharmacy on [facility], your designated pharmacy of choice
[2018-06-26] MEDS: 0.9% Normal Saline 1,000 ML 250 ML IV (21:33)
[2018-06-26] MEDS: levoFLOXacin IV 750 MG/150 ML BAG 100 MG IV (21:33)
[2018-06-26] MEDS: Acetaminophen 325 MG Tablet 650 MG PO (21:33)
[2018-06-26 21:58] LABS: Absolute Lymphocyte Count 0.53 X10^3/ul (0.83-4.51); Absolute Neutrophil Count 5.1 X10^3/uL (2.0-7.7); Basophil# 0.01 X10^3/uL; Basophil% 0.2 % (0-1); Eosinophil# 0.08 X10^3/uL; Eosinophils% 1.2 % (0-5); Hemoglobin 13.3 g/dl (13.0-16.5); Lymphocyte # 0.53 X10^3/ul (4.0); Lymphocyte % 8.1 % (19-41); Mean Corp Hgb Conc 30.9 g/gl (32-36); Mean Corpuscular Volume 87.4 fL (80-94); Monocyte# 0.84 X10^3/uL; Monocyte% 12.9 % (0-10); Neutrophil # 5.05 X10^3/uL (2.7-7.7); Neutrophil % 77.4 % (47-70); Platelet Count 261 K/mm3 (150-450); RBC Distribution Width CV 15.9 % (11.6-14.6); RBC Distribution Width SD 51.1 fl (35.1-43.9); Red Blood Count 4.92 M/mm3 (4.6-6.2); White Blood Count 6.5 K/mm3 (4.4-11.0)
[2018-06-26 21:59] LABS: Differential Indicated SCAN CRITERIA MET; POSITIVE COUNT NO; POSITIVE DIFFERENTIAL YES; POSITIVE MORPHOLOGY NO
[2018-06-26 22:04] LABS: Lactic Acid 1.3 mmol/L (0.4-2.0)
[2018-06-26 22:05] VITALS: BP 138/86; PULSE 88; RESP 27; TEMP 37.8; O2SAT 93
[2018-06-26 22:11] LABS: ALB/GLOB Ratio 0.6 RATIO (0.9-2.4); AST(SGOT) 18 U/L (15-37); Alanine Aminotransfer ALT/SGPT 17 U/L (16-61); Albumin, Serum 3.2 g/dL (3.2-5.0); Alkaline Phosphatase 84 U/L (45-117); Anion Gap 6 (5-15); BUN 14 mg/dL (7-18); BUN/Creat Ratio 16.4 RATIO (10-20); Calcium,Total 8.1 mg/dL (8.5-10.1); Chloride 101 mmol/L (98-107); Creatinine, Serum 0.86 mg/dL (0.70-1.30); EST Glomerular Filtration Rate 93 mL/min (>60); Est Glom Filt Rate - Afr Amer 113 mL/min (>60); Estimated Creatinine Clearance 88.94 ml/min; Globulin 5.1 g/dL (2.2-4.2); Glucose 113 mg/dL (74-106); International Normalized Ratio 1.1; Partial Thromboplast Time 30.6 Seconds (24.1-36.2); Potassium 4.1 mmol/L (3.5-5.1); Protein, Total 8.3 g/dL (6.4-8.2); Prothrombin Time (Protime)PT. 13.7 SECONDS (11.7-14.9); Sodium Level 134 mmol/L (136-145)
[2018-06-26 22:27] LABS: Platelet Estimate ADEQUATE (ADEQ)
[2018-06-26 22:28] LABS: Red Cell Morphology NORM C+C NORMAL (NORM C&C); Toxic Granulation RARE
[2018-06-26 23:00] VITALS: BP 123/77; PULSE 93; RESP 24; TEMP 37.9; O2SAT 93
[2018-06-26 23:24] VITALS: TEMP 37.9
[2018-06-27 00:55] VITALS: BP 121/67; PULSE 82; RESP 17; O2SAT 94
== END 2018-06-27 01:08 | disposition home or self-care (01) ==
PROVIDERS: Emergency Provider Emergency Medicine; Family Provider Family Medicine; PCP Family Medicine
DX: J18.9 Pneumonia, unspecified organism (principal); G47.33 Obstructive sleep apnea (adult) (pediatric); I25.10 Atherosclerotic heart disease of native coronary artery without angina pectoris; E78.5 Hyperlipidemia, unspecified; Z95.5 Presence of coronary angioplasty implant and graft; Z79.899 Other long term (current) drug therapy
CPT/HCPCS: 71046; 80053; 83605; 85025; 85610; 85730; 87040; 87633; 93005; 96365; 96366; 99284; J7030; A4216

== ENCOUNTER → 2018-10-29 | Outpatient (CLI) | payer MEDICARE, OTHER, SELFPAY ==
[2018-10-07 10:47] VITALS: BMI 24.1
== END | disposition home or self-care (01) ==
PROVIDERS: Family Provider Family Medicine; PCP Family Medicine; Referring Provider Internal Medicine Cardiovascular Disease; Visit Provider Internal Medicine Cardiovascular Disease
DX: G47.52 REM sleep behavior disorder (principal); I25.10 Atherosclerotic heart disease of native coronary artery without angina pectoris; E78.00 Pure hypercholesterolemia, unspecified; G47.10 Hypersomnia, unspecified
CPT/HCPCS: 95810

== ENCOUNTER 2018-11-09 15:36 | Inpatient (IN) | payer MEDICARE, OTHER, SELFPAY ==
[2018-10-30 09:54] VITALS: BMI 24.1
[2018-11-09 16:30] VITALS: BP 118/66; PULSE 75; RESP 18; TEMP 36.6; O2SAT 95
[2018-11-09 16:35] VITALS: BMI 24.3
--- NOTE | 2018-11-09 16:56 | PCM.HP.BLA ---
History and Physical Date of Admission: 11/09/18 yanet Cedeno Jr 1945 REFERRING PHYSICIAN: Aristides Marshall MD CHIEF COMPLAINT: Consult (Consult Discuss Abscess from CT) HPI: The patient is a 73 year old male who presents with abnormal finding of sigmoid diverticular abscess on CT. He underwent CT scan for evaluation of increasing size of his abdominal wall hernia. He is s/p sigmoid colectomy with complication of anastomotic leak requiring redo anastomosis in 2018. He has subsequently developed a large ventral hernia with herniation of intestines and loss of abdominal wall integrity. He was scheduled to see hernia specialists at [facility] next week. CT scan was obtained and incidental finding of diverticular abscess. Patient denies abdominal pain. Denies fevers/chills. Denies changes in appetite. PAST MEDICAL HISTORY ? CAD (coronary artery disease) ? Diverticular disease ? Fungal infection pneumonia in Only ? TBI (traumatic brain injury) (HCC) PAST SURGICAL HISTORY ? APPENDECTOMY HX 54 ? BOWEL RESECTION HX had to be reoperated on at [facility] ? CHOLECYSTECTOMY HX 2006 ? COLONOSCOP W/ OR W/O [facility] 10/18/13 Colonoscopy ? HEART CATHETERIZATION 2013 Heart Cath x 2 ? HEART CATHETERIZATION 2014 Heart Cath x 1 ? PAST SURGICAL HISTORY OF 03/02/2013 Stent placement (medicated) LAD ? VASECTOMY Current Outpatient Medications: valACYclovir (VALTREX) 1 gram tab Take 1 tablet by mouth three times daily for 7 days. PARoxetine (PAXIL) 20 mg tablet Take 1 tablet by mouth once daily. pravastatin (PRAVACHOL) 20 mg tablet Take 10 mg by mouth once daily. clopidogrel 75 mg tablet Take 75 mg by mouth once daily. Aspirin 81 mg tab Take 81 mg by mouth once daily. carvedilol (COREG) 3.125 mg tablet Take 1 tablet by mouth twice daily. ALLERGIES: Metoprolol PERSONAL HISTORY: Social History Socioeconomic History Marital status: Number of children: 6 Smoking status: Never Smoker Alcohol use: No Drug use: No FAMILY HISTORY ? Psychiatry Mother ? Stroke Father ? Hypertension Father ? Lipids Mother ? Lipids Father ? Prostate Cancer Father ? Breast Cancer Maternal Grandmother REVIEW OF SYSTEMS: General - denies fevers, denies anorexia, denies weight loss Cardiovascular - denies chest pain, has coronary artery disease with stents placed Pulmonary - denies shortness of breath, denies coughing up blood Gastrointestinal - denies abdominal pain, denies hematemesis, see above Neurological - history of traumatic brain injury Genitourinary - denies burning with urination, denies blood in urine Hematological - denies spontaneous/prolonged bleeding Skin - has herpes zoster, has had SCCa of skin Musculoskeletal - left knee pain Endocrine - denies diabetes, no thyroid problems Psychological ? denies hallucinations PHYSICAL EXAMINATION: General: The patient is 73 year old male, well nourished, well hydrated in no acute distress. The patient is oriented to time, place, and person. VITALS: Head ? Normocephalic. EOM intact with sclera clear and no icterus noted. Mouth with mucus membranes moist. Neck - supple with no jugular venous distention noted. Trachea is midline. Lungs ? clear to auscultation. Normal breath sounds . No rales/rhonchi/wheezing noted. No labored breathing noted, such as retractions. No cough heard. Heart ? normal S1 and S2 auscultated. No rubs/clicks/murmurs noted. Regular rate. Abdomen ? soft and benign. Normal bowel sounds. Rectus diastasis with periumbilical large incisional ventral hernia with bowel herniation and loss of domain . No abdominal bruits noted. Pain only to deep palpation in the left lower quadrant - no peritoneal signs. Extremities ? no calf tenderness noted. No pitting edema noted. . Skin ? herpes zoster rash of anterior abdominal wall - left laterally, otherwise normal skin integrity. Neurological ? gait normal, no focal deficits noted Psych ? calm and appropriate RADIOLOGIC STUDIES: As Noted IMPRESSION: diverticular abscess PLAN: I have discussed the above with the patient and his who is present with him. I have recommended IV antibiotics -given that patient has had multiple bowel surgeries, patient may not exhibit pain symptoms, as area may be loculated. I have therefore recommended admission to hospital. Will obtain CBC with differential. Given that patient is without much pain, will need other clinical parameters to follow patient's status - will check CBC. At the very minimum, will plan on at least 24 hours of IV antibiotics and then discharge on oral antibiotics. This abscess is not amenable to interventional radiology percutaneous drainage as it is too small. The patient agrees with above plan. I have answered all questions to the patient?s satisfaction and the patient has no further questions..
[2018-11-09 17:30] LABS: Absolute Lymphocyte Count 1.26 X10^3/uL (0.83-4.51); Absolute Neutrophil Count 3.2 X10^3/uL (2.0-7.7); Basophil# 0.02 X10^3/uL; Basophil% 0.4 % (0-1); Eosinophil# 0.04 X10^3/uL; Eosinophils% 0.7 % (0-5); Hematocrit 43.4 % (40-54); Hemoglobin 13.7 g/dL (13.0-16.5); Lymphocyte # 1.26 X10^3/ul (4.0); Lymphocyte % 23.4 % (19-41); Mean Corp Hgb Conc 31.6 g/dL (32-36); Mean Corpuscular Hgb 29.1 pg (27.0-32.0); Mean Corpuscular Volume 92.3 fL (80-94); Monocyte# 0.83 X10^3/uL; Monocyte% 15.4 % (0-10); NRBC Flagged by Analyzer 0 % (0-5); Neutrophil % 59.5 % (47-70); Platelet Count 257 K/mm3 (150-450); RBC Distribution Width SD 47.4 fl (35.1-43.9); White Blood Count 5.4 K/mm3 (4.4-11.0)
[2018-11-09] MEDS: Lactated Ringers 1,000 ML 75 ML IV (17:35)
[2018-11-09 18:10] LABS: Anion Gap 6 (5-15); BUN 12 mg/dL (7-18); BUN/Creat Ratio 12.1 RATIO (10-20); Calcium,Total 8.3 mg/dL (8.5-10.1); Chloride 108 mmol/L (98-107); Creatinine, Serum 0.99 mg/dL (0.70-1.30); EST Glomerular Filtration Rate 79 mL/min (>60); Est Glom Filt Rate - Afr Amer 95 mL/min (>60); Estimated Creatinine Clearance 77.26 ml/min; Glucose 74 mg/dL (74-106); Potassium 4.2 mmol/L (3.5-5.1); Sodium Level 142 mmol/L (136-145)
--- NOTE | 2018-11-09 18:30 | PCM.CONS.GEN ---
Reason for Consult Date of Consultation: 11/09/18 Reason for Consultation: Medical management. History of Present Illness: The patient is a 73 year old M with history of coronary artery disease and stenting 2013 is being admitted by Dr. Carla Schulz when CT scan of abdomen pelvis showed small diverticular abscess. Patient has history of diverticulitis and had sigmoid resection in the past complicated with anastomotic leak with revision of surgery. Patient also has ventral hernia and is scheduled to see [facility] hernia specialist next week. Surgeon wanted to consult for medical management. Currently patient does not have abdominal pain. Denies nausea or vomiting. No fever or chills. Tachycardia, tachypnea or hypoxia. Blood pressure is stable. No cyanosis. Patient has history of coronary artery disease stent in LAD in 2012 but currently denies any chest pain, shortness of breath or diaphoresis. Patient also has history of hypersomnia and obstructive sleep apnea. Currently patient is on diet. IV Zosyn. [] Past Medical History Past Medical History (Chronic Problems): Chronic Problems (Last Updated 10/07/18 @ 10:57 by Nanette Gardner) Ventral hernia (Chronic) Hypersomnia, unspecified (Chronic) REM behavioral disorder (Chronic) Diastasis of rectus abdominis (Chronic) Atherosclerosis of coronary artery of [place] heart without angina pectoris (Chronic) PCI/GAETANO-LAD w/ 3.0 x 28 mm Promus Element Plus Rx 03/02/13 HLD (hyperlipidemia) (Chronic) Medical History: Medical History (Last Updated 10/07/18 @ 10:57 by Nanette Gardner) Hypersomnia, unspecified (Chronic) G47.10 REM behavioral disorder (Chronic) G47.52 Diastasis of rectus abdominis (Chronic) M62.08 Atherosclerosis of coronary artery of [place] heart without angina pectoris (Chronic) I25.10 PCI/GAETANO-LAD w/ 3.0 x 28 mm Promus Element Plus Rx 03/02/13 HLD (hyperlipidemia) (Chronic) E78.5 Actinic keratosis L57.0 actinic lesion left nasal tip actinic lesion left shoulder Anastomotic leak of intestine K91.89 Benign keratosis L57.0 1 cm benign keratosis left lateral back 5 mm benign keratosis left outer arm 6 mm benign keratosis left lateral forehead 5 mm benign keratosis left outer shoulder Left anterior fascicular block (LAFB) I44.4 Neoplasm of unspecified behavior of bone, soft tissue, and skin D49.2 15 mm lesion right superomedial chest wall 3 mm lesion left volar distal forearm by wrist 1 cm lesion left mid dorsal ulnar forearm 5 mm pigmented lesion right outer arm 7 mm lesion left middle medial back Neoplasm of unspecified behavior of bone, soft tissue, and skin D49.2 15 mm lesion right superomedial chest wall 3 mm lesion left volar distal forearm by wrist 1 cm lesion left mid dorsal ulnar forearm 5 mm pigmented lesion right outer arm 7 mm lesion left middle medial back Obstructive sleep apnea G47.33 Personal history of skin cancer Z85.828 Small bowel obstruction K56.609 Abdominal pain R10.9 Diverticulitis K57.92 History of recent pneumonia (Resolved) Z87.01 Hypotension (Resolved) I95.9 LLQ abdominal pain (Resolved) R10.32 Near syncope (Resolved) R55 Obstipation (Resolved) K59.00 Paroxysmal supraventricular tachycardia (Resolved) I47.1 Septic shock (Resolved) A41.9, R65.21 Sigmoid stricture (Resolved) K56.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 Atrial premature contractions (Inactive) I49.1 Allergies metoprolol Adverse Reaction (Verified 11/09/18 17:08) Low blood pressure/syncope Home Medications: Ambulatory Orders Medication Instructions Recorded Nitroglycerin (INPATIENT USE) 0.4 mg SUBLINGUAL Q5M PRN 04/12/13 [Nitrostat] Aspirin [Aspirin, Baby] 81 mg PO DAILY@0800 11/09/18 Clopidogrel Bisulfate [Clopidogrel] 75 mg PO DAILY 11/09/18 Paroxetine HCl 20 mg PO DAILY 11/09/18 Pravastatin Sodium [Pravachol] 10 mg PO QHS 11/09/18 Valacyclovir HCl [Valacyclovir] 1,000 mg PO TID 11/09/18 Surgical History: Surgical History (Last Reviewed 10/07/18 @ 10:55 by Thai Amaro MD) History of coronary artery stent placement (Resolved) Onset Date: 03/02/13 Z95.5 PCI/GAETANO-LAD w/ 3.0 x 28 mm Promus Element Plus Rx 03/02/13 History of partial colectomy Z90.49 X 2 01/26/18 and 01/27/18 H/O vasectomy Z98.52 History of appendectomy Z98.890, Z90.49 History of cholecystectomy Z98.890, Z90.49 History of colonoscopy Onset Date: 2013 Z98.890 History of left heart catheterization Onset Date: 04/20/13 Z98.890 Surgical History: noncontributory Smoking Status: Never smoker - *Family History Maternal Family History: Family History (Last Reviewed 10/07/18 @ 10:55 by Thai Amaro MD) Father CVA (cerebral vascular accident) Hypertension HLD (hyperlipidemia) Cancer Mother HLD (hyperlipidemia) Hypertension Other Family history of skin cancer History Items: No pertinent history Review of Systems Constitutional: Denies: Chills, Fever, Weight Change HEENT: Denies: Head Aches, Sinus Congestion, Sinus Drainage Cardiovascular: Denies: Chest Pain, Palpitations Respiratory: Denies: Cough, Shortness of breath at rest, Sputum production Gastrointestinal: Reports: Abdominal Pain. Denies: Nausea, Vomiting Genitourinary: Denies: Dysuria Musculoskeletal: Denies: Joint Pain, Joint Tenderness Skin: Denies: Rash, Wounds Neurological: Denies: Numbness, Tingling, Focal weakness Psychiatric: Denies: Anxiety, Depression, Homicidal Ideations, Suicidal Ideations Hematologic/ Lymphatic: Denies: Easy Bruising, Easy Bleeding Patient Problems: Active and Suspected Problems (Last Updated 10/07/18 @ 10:57 by Nanette Gardner) Colonic diverticular abscess (Acute) - Physical Exam General: Alert, Oriented x3, Cooperative HEENT: Atraumatic, PERRLA, EOMI, Normocephalic Neck: Supple, No JVD, Negative Carotid Bruits Lungs: Clear to auscultation, No rhonchi, No wheeze, No rales, Diminished - Entry is diminished in bilateral lung bases. Cardiovascular: Regular rate, Regular Rhythm, Normal S1, Normal S2, No murmurs Abdomen: Bowel Sounds Present, Soft, Non-Distended, Tender - Mild deep tenderness present on mid abdomen., Hernia - Ventral hernia present but is reducible. Extremities: Capillary Refill Less than 3 Seconds, Edema Skin: No rashes, No breakdown Musculoskeletal: No Tenderness to Palpation of Joints or Extremities, Arthritic Changes Neurological: Cranial nerves II-XII grossly intact Psych/Mental Status: Normal Affect, Appropriate Vital Signs Temp Pulse Resp BP Pulse Ox 97.5 F L 58 L 16 121/65 H 99 11/10/18 16:30 11/10/18 16:30 11/10/18 16:30 11/10/18 16:30 11/10/18 16:30 Oxygen Delivery Method Room Air Weight: 189 lb 13.088 oz Body Mass Index (BMI) 24.3 Intake and Output for Last 24 Hours 11/08/18 11/09/18 11/10/18 23:59 23:59 23:59 Intake Total 120 / 1096 1385 / 1385 Output Total 1575 / 1575 Balance 120 / 1096 -190 / -190 Assessment/Plan All Active Problems (Last Updated 10/07/18 @ 10:57 by Nanette Gardner) Colonic diverticular abscess (Acute) History of coronary artery stent placement (Resolved 03/02/13) Acute respiratory failure with hypoxia (Resolved) History of recent pneumonia (Resolved) Hypotension (Resolved) LLQ abdominal pain (Resolved) Nausea and vomiting (Resolved) Near syncope (Resolved) Obstipation (Resolved) Paroxysmal supraventricular tachycardia (Resolved) Septic shock (Resolved) Sigmoid stricture (Resolved) The patient is a 73 year old M with history of coronary artery disease and stenting 2013 is being admitted by Dr. Carla Schulz when CT scan of abdomen pelvis showed small diverticular abscess. Patient has history of diverticulitis and had sigmoid resection in the past complicated with anastomotic leak with revision of surgery. Patient also has ventral hernia and is scheduled to see [facility] hernia specialist next week. 1. Small diverticular abscess with history of previous diverticulitis status post partial colon resection: Currently patient is on conservative management. Patient does not have fever or chills. Tachycardia, tachypnea or hypoxia. Blood pressure is stable. IV Zosyn. Currently patient is on diet. IV Zosyn. Aspirin and Plavix continued. [] 2. coronary artery disease stent in LAD in 2013 but currently denies any chest pain, shortness of breath or diaphoresis. Stable. 3. obstructive sleep apnea. On CPAP. 4. Patient has history of recent shingles on Valtrex and continued 5. Other chronic comorbidities include anxiety and depression, GERD: Home medication reconciliation done Code Visit Inpatient E&M: 77104 Init Hosp L2
[2018-11-09] MEDS: Acyclovir 800 MG Tablet PO (21:30)
[2018-11-09] MEDS: Pravastatin 20 MG Tablet 10 MG PO (21:31)
[2018-11-09 22:30] VITALS: BP 131/81; PULSE 90; RESP 18; TEMP 36.8; O2SAT 95
[2018-11-10] MEDS: 0.9% NaCl IVPB Med Flush (250 mL) 15 ML IV
[2018-11-10 04:30] VITALS: BP 134/76; PULSE 60; RESP 16; TEMP 36.6; O2SAT 98
[2018-11-10 04:50] VITALS: PULSE 60; RESP 16; O2SAT 98
[2018-11-10] MEDS: Acyclovir 800 MG Tablet PO ×5 (05:55→22:12)
[2018-11-10] MEDS: Lactated Ringers 1,000 ML 75 ML IV ×2 (05:57→17:52)
[2018-11-10] MEDS: Aspirin 81 MG TAB.CHEW PO (08:15)
--- NOTE | 2018-11-10 10:19 | CASEMGMT ---
RN CM Assessment Presentation: Sigmoid diverticular abcess on CT Intro role of CM and purpose of RN CM assessment to patient and his . Demographics, PCP and Pharmacy verified. Pt is awake, alert and oriented. also able to participate. Pt denies any needs, states he is independent, drives and does not use DME. Pt is to have outpt sleep study, but this has not been completed yet. Per , pt will have this done soon. -Pt is to have appt with GI specialist Dr. Noel Contreras in near future @ [facility]. PCP: Dr. Marshall Specialists: Dr. Schulz Preferred [facility]acy: [facility] Insurance: [facility] Prescription Benefit: yes LNOK: Paloma Cedeno, Living Arrangements/DME: Lives independently, no DME used. No care assistance needed for ADL's. Transportation: Drives or can drive. HHC: none Patient DC goals: Home on dc DC PLAN: Home Rissa HILLIARD RN ACM
[2018-11-10] MEDS: Clopidogrel Bisulfate 75 MG Tablet PO (10:20)
[2018-11-10] MEDS: Paroxetine 20 MG Tablet PO (10:21)
--- NOTE | 2018-11-10 10:21 | PCM.CONS.B ---
Problem List (1) Colonic diverticular abscess Status: Acute (2) Ventral hernia Status: Chronic Qualifiers: Obstruction and gangrene presence: without obstruction or gangrene Qualified Code(s): K43.9 - Ventral hernia without obstruction or gangrene (3) Hypersomnia, unspecified Status: Chronic (4) REM behavioral disorder Status: Chronic (5) Atherosclerosis of coronary artery of [place] heart without angina pectoris Status: Chronic Qualifiers: Coronary Disease-Associated Artery/Lesion type: [place] artery Qualified Code(s): I25.10 - Atherosclerotic heart disease of [place] coronary artery without angina pectoris Comment: PCI/GAETANO-LAD w/ 3.0 x 28 mm Promus Element Plus Rx 03/02/13 (6) Diastasis of rectus abdominis Status: Chronic (7) HLD (hyperlipidemia) Status: Chronic Qualifiers: Hyperlipidemia type: pure hypercholesterolemia Qualified Code(s): E78.00 - Pure hypercholesterolemia, unspecified - Consult Date of Consult: 11/10/[address] Carla Schulz for medical management Day #2 Zosyn Patient is a 73-year-old male with a past medical history of coronary artery disease with stent to the LAD in 2012, occasional GERD, recent shingles outbreak (on Valtrex), diverticulosis, suspected anoxic brain injury with abnormal executive processing, anxiety/depression and partial bowel resection due to colonic obstruction secondary to a stricture who was admitted to the hospital by Dr. Carla Schulz on 11/09/[address] scan of the abdomen and pelvis done for a ventral hernia incidentally revealed a small diverticular abscess. Patient denies any fevers, chills, abdominal pain, nausea, vomiting area bowels are moving normally. He was placed on Zosyn at admission. He is scheduled to see a hernia specialist at the [facility] next week for hernia repair evaluation. He tells me that he has had a sleep study and also pulmonary function tests within the past 3 weeks. He tells me he does not have COPD but, he does not know the results of the sleep study. Social history-lifelong non-smoker, to his for the past 26 years. No alcohol use and denies any illicit drug use. Review of systems is negative for chest pain, no shortness of breath at rest but mild shortness of breath with exertion, no palpitations, no peripheral edema, no cough, denies fever or chills, no diarrhea, no constipation. Remainder of the review of systems is negative. PHYSICAL EXAM: GENERAL: alert, oriented X 3, Cooperative, NAD, very pleasant and talkative ORAL: moist mucosa, no mucosal lesions NECK: No JVD, supple, trachea midline, no carotid bruits, carotid had a brisk upstroke and good pulse volume bilaterally LUNGS: CTA, symmetric chest expansion but not tachypneic HEART: RRR, Normal S1 and S2, no rub, no gallop, no murmur ABDOMEN: soft, NT, distended, BS present, no guarding with palpation, he has a large reducible ventral hernia EXTREMITIES: no edema, no cyanosis, no calf tenderness SKIN: He has shingles on the left side of the abdomen and the vesicles have resolved and the rash is decreasing in size and dried up. NEUROLOGIC: no focal neurologic deficits PSYCH: appropriate, normal affect, pleasant Impressions 1. Small diverticular abscess 2. Large ventral hernia obstruction 3. History of partial left colon resection secondary to obstruction due to a stricture 4. Diverticulosis 5. Coronary artery disease with history of a stent to the LAD in 2012. 6. Suspected anoxic brain injury with resultant decline in executive functioning diagnosed at the brain center in [place] 7. Severe obstructive sleep apnea on a sleep study done 3 weeks ago-we will need a titration study 8. Occasional GERD 9. Anxiety/depression on SSRI 10. Subacute shingles on Valtrex Consult Dr. Panchito Easton regarding CHRISTA and follow-up for a titration study and initiation of CPAP Continue Devin Will likely need an outpatient stress test prior to an elective hernia repair since he has not had a stress test since his stent in 2012 - will discuss with Dr. Amaro EKG today Code Visit Inpatient E&M: 88353 Subs Hosp L2
[2018-11-10 10:30] VITALS: BP 122/76; PULSE 58; RESP 16; TEMP 36.6; O2SAT 95
--- NOTE | 2018-11-10 10:42 | EKG12_ITS ---
Test Reason : Blood Pressure : / mmHG Vent. Rate : 057 BPM Atrial Rate : 057 BPM P-R Int : 176 ms QRS Dur : 084 ms QT Int : 442 ms P-R-T Axes : 024 -61 076 degrees QTc Int : 430 ms Sinus bradycardia Pulmonary disease pattern Left anterior fascicular block Abnormal ECG When compared with ECG of 26-JUN-2018 21:41, Vent. rate has decreased BY 31 BPM Confirmed by LUIS MANUEL GAYLE ([id number]), general expeditor KAYLEIGH CHAPIN ([id number]) on 11/13/2018 9:06:02 AM Referred By: Carla Schulz Confirmed By:LUIS MANUEL GAYLE
--- NOTE | 2018-11-10 12:01 | CON.PCM_ITS ---
Reason for Consult Date of Consultation: 11/10/18 Reason for Consultation: Obstructive sleep apnea History of Present Illness: The patient is a 73-year-old male, with a history as outlined below, who was admitted to the hospital on November 09 for IV antibiotics after a recent CT scan of his abdomen/pelvis revealed a small diverticular abscess. The patient does also have a history of coronary artery disease, for which he follows with Dr. Amaro on an outpatient basis. He also reports a history of traumatic brain injury a multitude of years ago. The patient recently underwent a diagnostic polysomnogram in October 2018, which did confirm evidence of severe obstructive sleep apnea with an overall apnea-hypopnea index of 39 events per hour. The patient has yet to undergo a titration study. His , who is present at the bedside, does confirm that the patient does experience audible snoring and she does report that she has witnessed apneic events in the past. The patient does endorse daytime hypersomnolence and frequent daytime napping. The patient is a lifelong non-smoker and recently had pulmonary function studies completed through [facility] [place] which were grossly normal without evidence of obstructive lung disease or restrictive impairments. Past Medical History Past Medical History (Chronic Problems): Chronic Problems (Last Updated 10/07/18 @ 10:57 by Nanette Gardner) Ventral hernia (Chronic) Hypersomnia, unspecified (Chronic) REM behavioral disorder (Chronic) Diastasis of rectus abdominis (Chronic) Atherosclerosis of coronary artery of [place] heart without angina pectoris (Chronic) PCI/GAETANO-LAD w/ 3.0 x 28 mm Promus Element Plus Rx 03/02/13 HLD (hyperlipidemia) (Chronic) Medical History: Medical History (Last Updated 10/07/18 @ 10:57 by Nanette Gardner) Hypersomnia, unspecified (Chronic) G47.10 REM behavioral disorder (Chronic) G47.52 Diastasis of rectus abdominis (Chronic) M62.08 Atherosclerosis of coronary artery of [place] heart without angina pectoris (Chronic) I25.10 PCI/GAETANO-LAD w/ 3.0 x 28 mm Promus Element Plus Rx 03/02/13 HLD (hyperlipidemia) (Chronic) E78.5 Actinic keratosis L57.0 actinic lesion left nasal tip actinic lesion left shoulder Anastomotic leak of intestine K91.89 Benign keratosis L57.0 1 cm benign keratosis left lateral back 5 mm benign keratosis left outer arm 6 mm benign keratosis left lateral forehead 5 mm benign keratosis left outer shoulder Left anterior fascicular block (LAFB) I44.4 Neoplasm of unspecified behavior of bone, soft tissue, and skin D49.2 15 mm lesion right superomedial chest wall 3 mm lesion left volar distal forearm by wrist 1 cm lesion left mid dorsal ulnar forearm 5 mm pigmented lesion right outer arm 7 mm lesion left middle medial back Neoplasm of unspecified behavior of bone, soft tissue, and skin D49.2 15 mm lesion right superomedial chest wall 3 mm lesion left volar distal forearm by wrist 1 cm lesion left mid dorsal ulnar forearm 5 mm pigmented lesion right outer arm 7 mm lesion left middle medial back Obstructive sleep apnea G47.33 Personal history of skin cancer Z85.828 Small bowel obstruction K56.609 Abdominal pain R10.9 Diverticulitis K57.92 History of recent pneumonia (Resolved) Z87.01 Hypotension (Resolved) I95.9 LLQ abdominal pain (Resolved) R10.32 Near syncope (Resolved) R55 Obstipation (Resolved) K59.00 Paroxysmal supraventricular tachycardia (Resolved) I47.1 Septic shock (Resolved) A41.9, R65.21 Sigmoid stricture (Resolved) K56.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 Atrial premature contractions (Inactive) I49.1 Allergies metoprolol Adverse Reaction (Verified 11/09/18 17:08) Low blood pressure/syncope Home Medications: Ambulatory Orders Medication Instructions Recorded Nitroglycerin (INPATIENT USE) 0.4 mg SUBLINGUAL Q5M PRN 04/12/13 [Nitrostat] Aspirin [Aspirin, Baby] 81 mg PO DAILY@0800 11/09/18 Clopidogrel Bisulfate [Clopidogrel] 75 mg PO DAILY 11/09/18 Paroxetine HCl 20 mg PO DAILY 11/09/18 Pravastatin Sodium [Pravachol] 10 mg PO QHS 11/09/18 Valacyclovir HCl [Valacyclovir] 1,000 mg PO TID 11/09/18 Surgical History: Surgical History (Last Reviewed 10/07/18 @ 10:55 by Thai Amaro MD) History of coronary artery stent placement (Resolved) Onset Date: 03/02/13 Z95.5 PCI/GAETANO-LAD w/ 3.0 x 28 mm Promus Element Plus Rx 03/02/13 History of partial colectomy Z90.49 X 2 01/26/18 and 01/27/18 H/O vasectomy Z98.52 History of appendectomy Z98.890, Z90.49 History of cholecystectomy Z98.890, Z90.49 History of colonoscopy Onset Date: 2013 Z98.890 History of left heart catheterization Onset Date: 04/20/13 Z98.890 Surgical History: noncontributory Smoking Status: Never smoker - *Family History Maternal Family History: Family History (Last Reviewed 10/07/18 @ 10:55 by Thai Amaro MD) Father CVA (cerebral vascular accident) Hypertension HLD (hyperlipidemia) Cancer Mother HLD (hyperlipidemia) Hypertension Other Family history of skin cancer History Items: No pertinent history Review of Systems Constitutional: Denies: Chills, Fever, Weight Change HEENT: Denies: Head Aches, Sinus Congestion, Sinus Drainage Cardiovascular: Denies: Chest Pain, Palpitations Respiratory: Denies: Cough, Shortness of breath at rest, Sputum production Gastrointestinal: Denies: Abdominal Pain, Nausea, Vomiting Genitourinary: Denies: Dysuria Musculoskeletal: Denies: Joint Pain, Joint Tenderness Skin: Denies: Rash, Wounds Neurological: Reports: - - +CHRISTA Psychiatric: Denies: Anxiety, Depression, Homicidal Ideations, Suicidal Ideations Hematologic/ Lymphatic: Denies: Easy Bruising, Easy Bleeding Patient Problems: Active and Suspected Problems (Last Updated 10/07/18 @ 10:57 by Nanette Gardner) Colonic diverticular abscess (Acute) Objective: The patient's most recent lab work, culture data and imaging studies have all been personally reviewed. - Physical Exam General: Alert, Oriented x3, Cooperative, No apparent distress HEENT: Atraumatic, PERRLA, Normocephalic Oral: No Gingival or Mucosal Lesions/ Ulcerations Neck: Supple, No Nodes, Trachea Midline Lungs: Normal air movement, No rhonchi, No wheeze, No rales Cardiovascular: Regular rate, Regular Rhythm, Normal S1, Normal S2, No murmurs Abdomen: Bowel Sounds Present, Soft, Non Tender, Hernia Extremities: No clubbing, No cyanosis, No edema Musculoskeletal: No Tenderness to Palpation of Joints or Extremities Neurological: Cranial nerves II-XII grossly intact, Neuro grossly intact Psych/Mental Status: Normal Affect, Appropriate Vital Signs Temp Pulse Resp BP Pulse Ox 97.9 F 60 16 134/76 H 98 11/10/18 04:30 11/10/18 04:50 11/10/18 04:50 11/10/18 04:30 11/10/18 04:50 Oxygen Delivery Method Room Air Weight: 189 lb 13.088 oz Body Mass Index (BMI) 24.3 Intake and Output for Last 24 Hours 11/08/18 11/09/18 11/10/18 23:59 23:59 23:59 Intake Total 120 / 1096 1385 / 1385 Output Total 375 / 375 Balance 120 / 1096 1010 / 1010 Laboratory Tests Past 24 Hrs 11/09/18 11/09/18 17:05 17:05 WBC 5.4 RBC 4.70 Hgb 13.7 Hct 43.4 MCV 92.3 MCH 29.1 MCHC 31.6 L RDW Std Deviation 47.4 H RDW Coeff of Shelly 14.0 Plt Count 257 MPV 9.0 Immature Gran % (Auto) 0.600 Neut % (Auto) 59.5 Lymph % (Auto) 23.4 Nance % (Auto) 15.4 H Eos % (Auto) 0.7 Baso % (Auto) 0.4 Absolute Neuts (auto) 3.2 Absolute Lymphs (auto) 1.26 Nucleated RBC % 0 Sodium 142 Potassium 4.2 Chloride 108 H Carbon Dioxide 28.0 Anion Gap 6 BUN 12 Creatinine 0.99 Estim Creat Clear Calc 77.26 Est GFR (MDRD) Af Amer 95 Est GFR (MDRD) Non-Af 79 BUN/Creatinine Ratio 12.1 Glucose 74 Calcium 8.3 L Assessment/Plan All Active Problems (Last Updated 10/07/18 @ 10:57 by Nanette Gardner) Colonic diverticular abscess (Acute) History of coronary artery stent placement (Resolved 03/02/13) Acute respiratory failure with hypoxia (Resolved) History of recent pneumonia (Resolved) Hypotension (Resolved) LLQ abdominal pain (Resolved) Nausea and vomiting (Resolved) Near syncope (Resolved) Obstipation (Resolved) Paroxysmal supraventricular tachycardia (Resolved) Septic shock (Resolved) Sigmoid stricture (Resolved) RECOMMENDATIONS: 1. Proceed with outpatient titration polysomnogram and subsequent initiation of nocturnal Pap therapy, as indicated. 2. I will help arrange the patient's titration polysomnogram once discharge planning is underway. 3. He will need to follow-up in the pulmonary medicine clinic upon completion of his titration polysomnogram. IMPRESSIONS: 1. Severe obstructive sleep apnea The patient recently completed a diagnostic polysomnogram in October 2018, which did reveal evidence of severe obstructive sleep apnea. His does report the presence of audible snoring along with witnessed apneic events. In addition, the patient confirms the presence of daytime hypersomnolence and frequent daytime napping. Upon completion of his titration polysomnogram, the patient can be scheduled to follow-up in the pulmonary medicine clinic, at which time, orders for DME equipment can be placed. This note was generated with [employer] dictation software. It may contain incorrect words, spelling, and punctuation that were not noted in checking the note before signing. Code Visit Inpatient E&M: 29812 Init Hosp L2
--- NOTE | 2018-11-10 15:10 | PCM.PN.SRG ---
Patient Problems: Active and Suspected Problems (Last Updated 10/07/18 @ 10:57 by Nanette Gardner) Colonic diverticular abscess (Acute) Subjective: patient relates pain in the left lower quadrant at a leve 2 on a scale of 1-10 with 10 being the worst, this is essentially unchanged from yesterday has been afebrile and findings of normal WBC with normal differential - Physical Exam General: Alert, Oriented x3 Oral: Moist Mucosa Neck: Supple Abdomen: Soft, - - no guarding or peritoneal signs noted Vital Signs Temp Pulse Resp BP Pulse Ox 97.9 F 58 L 16 122/76 H 95 11/10/18 10:30 11/10/18 10:30 11/10/18 10:30 11/10/18 10:30 11/10/18 10:30 Oxygen Delivery Method Room Air Weight: 86.1 kg Body Mass Index (BMI) 24.3 Intake and Output for Last 24 Hours 11/08/18 11/09/18 11/10/18 23:59 23:59 23:59 Intake Total 120 / 1096 1385 / 1385 Output Total 975 / 975 Balance 120 / 1096 410 / 410 Laboratory Tests Past 24 Hrs 11/09/18 11/09/18 17:05 17:05 WBC 5.4 RBC 4.70 Hgb 13.7 Hct 43.4 MCV 92.3 MCH 29.1 MCHC 31.6 L RDW Std Deviation 47.4 H RDW Coeff of Shelly 14.0 Plt Count 257 MPV 9.0 Immature Gran % (Auto) 0.600 Neut % (Auto) 59.5 Lymph % (Auto) 23.4 [place] % (Auto) 15.4 H Eos % (Auto) 0.7 Baso % (Auto) 0.4 Absolute Neuts (auto) 3.2 Absolute Lymphs (auto) 1.26 Nucleated RBC % 0 Sodium 142 Potassium 4.2 Chloride 108 H Carbon Dioxide 28.0 Anion Gap 6 BUN 12 Creatinine 0.99 Estim Creat Clear Calc 77.26 Est GFR (MDRD) Af Amer 95 Est GFR (MDRD) Non-Af 79 BUN/Creatinine Ratio 12.1 Glucose 74 Calcium 8.3 L Medical Necessity - Tobacco Use Smoking Status: Never smoker Assessment/Plan All Active Problems (Last Updated 10/07/18 @ 10:57 by Nanette Gardner) CHRISTA (obstructive sleep apnea) (Acute) Colonic diverticular abscess (Acute) History of coronary artery stent placement (Resolved 03/02/13) Acute respiratory failure with hypoxia (Resolved) History of recent pneumonia (Resolved) Hypotension (Resolved) LLQ abdominal pain (Resolved) Nausea and vomiting (Resolved) Near syncope (Resolved) Obstipation (Resolved) Paroxysmal supraventricular tachycardia (Resolved) Septic shock (Resolved) Sigmoid stricture (Resolved) Impression: sigmoid diverticular abscess Plan: continue IV antibiotics Will plan additional night of IV antibiotics appreciate Dr. Easton's and Dr. Mckeon's evaluation of patient, he will require preoperative internal medicine assessment as he plans on ventral hernia repair at [facility] in near future
[2018-11-10 16:30] VITALS: BP 121/65; PULSE 58; RESP 16; TEMP 36.4; O2SAT 99
[2018-11-10] MEDS: Pravastatin 20 MG Tablet 10 MG PO (22:12)
[2018-11-10 22:30] VITALS: BP 116/70; PULSE 60; RESP 19; TEMP 36.5; O2SAT 98
[2018-11-11 03:30] VITALS: BP 116/70; PULSE 60; RESP 19; TEMP 36.5; O2SAT 98
[2018-11-11] MEDS: Lactated Ringers 1,000 ML 75 ML IV (06:20)
[2018-11-11] MEDS: Acyclovir 800 MG Tablet PO ×2 (06:20→09:22)
--- NOTE | 2018-11-11 07:06 | PCM.PN.PUL ---
Patient Problems: Active and Suspected Problems (Last Updated 10/07/18 @ 10:57 by Nanette Gardner) Colonic diverticular abscess (Acute) Subjective: The patient was seen and examined at the bedside this morning. Events from the last 24 hours have been reviewed. The patient is currently afebrile, hemodynamically stable and maintaining appropriate oxygen saturations on room air. Orders were placed in ambulatory [facility] for titration polysomnogram. I did speak with the sleep lab this morning who indicated that they may have an appointment available for the patient this evening. Objective: The patient's most recent lab work, culture data and imaging studies have all been personally reviewed. The patient recently underwent a diagnostic polysomnogram in October 2018, which did confirm evidence of severe obstructive sleep apnea with an overall apnea-hypopnea index of 39 events per hour. - Physical Exam General: Alert, Cooperative, No apparent distress HEENT: Atraumatic, PERRLA, Normocephalic Oral: Moist Mucosa, No Gingival or Mucosal Lesions/ Ulcerations Neck: Supple, No Nodes, Trachea Midline Lungs: Normal air movement, No rhonchi, No wheeze, No rales Cardiovascular: Regular rate, Regular Rhythm, Normal S1, Normal S2 Abdomen: Bowel Sounds Present, Soft, Non Tender, Hernia Extremities: No clubbing, No cyanosis, No edema Skin: No breakdown Musculoskeletal: No Tenderness to Palpation of Joints or Extremities Lymphatic: No Cervical, Supraclavicular, or Inguinal Adenopathy Neurological: Cranial nerves II-XII grossly intact, Neuro grossly intact Psych/Mental Status: Alert and oriented to time, place, person, mood and affect Vital Signs Temp Pulse Resp BP Pulse Ox 97.7 F L 60 19 H 116/70 98 11/11/18 03:30 11/11/18 03:30 11/11/18 03:30 11/11/18 03:30 11/11/18 03:30 Oxygen Delivery Method Room Air Weight: 189 lb 13.088 oz Body Mass Index (BMI) 24.3 Intake and Output for Last 24 Hours 11/09/18 11/10/18 11/11/18 23:59 23:59 23:59 Intake Total 120 / 1096 1385 / 2277 1454 / 1454 Output Total 1575 / 2275 2100 / 2100 Balance 120 / 1096 -190 / 2 -646 / -646 Labs (Last 48 Hours) 11/09/18 11/09/18 17:05 17:05 WBC 5.4 RBC 4.70 Hgb 13.7 Hct 43.4 MCV 92.3 MCH 29.1 MCHC 31.6 L RDW Std Deviation 47.4 H RDW Coeff of Shelly 14.0 Plt Count 257 MPV 9.0 Immature Gran % (Auto) 0.600 Neut % (Auto) 59.5 Lymph % (Auto) 23.4 [place] % (Auto) 15.4 H Eos % (Auto) 0.7 Baso % (Auto) 0.4 Absolute Neuts (auto) 3.2 Absolute Lymphs (auto) 1.26 Nucleated RBC % 0 Sodium 142 Potassium 4.2 Chloride 108 H Carbon Dioxide 28.0 Anion Gap 6 BUN 12 Creatinine 0.99 Estim Creat Clear Calc 77.26 Est GFR (MDRD) Af Amer 95 Est GFR (MDRD) Non-Af 79 BUN/Creatinine Ratio 12.1 Glucose 74 Calcium 8.3 L Medical Necessity - Tobacco Use Smoking Status: Never smoker Assessment/Plan All Active Problems (Last Updated 10/07/18 @ 10:57 by Nanette Gardner) CHRISTA (obstructive sleep apnea) (Acute) Colonic diverticular abscess (Acute) History of coronary artery stent placement (Resolved 03/02/13) Acute respiratory failure with hypoxia (Resolved) History of recent pneumonia (Resolved) Hypotension (Resolved) LLQ abdominal pain (Resolved) Nausea and vomiting (Resolved) Near syncope (Resolved) Obstipation (Resolved) Paroxysmal supraventricular tachycardia (Resolved) Septic shock (Resolved) Sigmoid stricture (Resolved) RECOMMENDATIONS: 1. Proceed with Titration PSG this evening. We will place orders for DME equipment once the study has been completed. 2. He is now scheduled to follow up in the pulmonary medicine clinic on 12/18/18 at 11:15 am. IMPRESSIONS: 1. Severe obstructive sleep apnea The patient recently completed a diagnostic polysomnogram in October 2018, which did reveal evidence of severe obstructive sleep apnea. His does report the presence of audible snoring along with witnessed apneic events. In addition, the patient confirms the presence of daytime hypersomnolence and frequent daytime napping. Upon completion of his titration polysomnogram, the patient can be scheduled to follow-up in the pulmonary medicine clinic, at which time, orders for DME equipment can be placed. This note was generated with [email or web address] software. It may contain incorrect words, spelling, and punctuation that were not noted in checking the note before signing. Code Visit Inpatient E&M: 30770 Subs Hosp L2
--- NOTE | 2018-11-11 07:30 | PCM.PN.SRG ---
Patient Problems: Active and Suspected Problems (Last Updated 10/07/18 @ 10:57 by Nanette Gardner) Colonic diverticular abscess (Acute) Subjective: Patient essentially unchanged, states abdominal pain to deep palpation is 2, on a scale of 1-10 with 10 being the worst He is tolerated diet, has been afebrile since admission - Physical Exam General: Alert, Oriented x3 HEENT: Atraumatic Oral: Moist Mucosa Neck: Supple Lungs: Normal air movement Abdomen: Soft, - - tender to deep palpation in the left lower quadrant - 2 Vital Signs Temp Pulse Resp BP Pulse Ox 97.7 F L 60 19 H 116/70 98 11/11/18 03:30 11/11/18 03:30 11/11/18 03:30 11/11/18 03:30 11/11/18 03:30 Oxygen Delivery Method Room Air Weight: 86.1 kg Body Mass Index (BMI) 24.3 Intake and Output for Last 24 Hours 11/09/18 11/10/18 11/11/18 23:59 23:59 23:59 Intake Total 120 / 1096 1385 / 2277 1454 / 1454 Output Total 1575 / 2275 2100 / 2100 Balance 120 / 1096 -190 / 2 -646 / -646 Medical Necessity - Tobacco Use Smoking Status: Never smoker Assessment/Plan All Active Problems (Last Updated 10/07/18 @ 10:57 by Nanette Gardner) CHRISTA (obstructive sleep apnea) (Acute) Colonic diverticular abscess (Acute) History of coronary artery stent placement (Resolved 03/02/13) Acute respiratory failure with hypoxia (Resolved) History of recent pneumonia (Resolved) Hypotension (Resolved) LLQ abdominal pain (Resolved) Nausea and vomiting (Resolved) Near syncope (Resolved) Obstipation (Resolved) Paroxysmal supraventricular tachycardia (Resolved) Septic shock (Resolved) Sigmoid stricture (Resolved) Impression: sigmoid diverticular abscess Plan: he has rec'd IV antibiotics for at least two days, will discharge to home on oral antibiotics continue follow up with pulmonary and cardiology as patient will require full preoperative workup, he will be undergoing ventral hernia surgery in the near future
--- NOTE | 2018-11-11 07:34 | DCINST_ITS ---
Discharge Diet: - - low residue diet/low fiber diet Discharge Activity: Return to Normal Activity Call your doctor if you observe: Fever of 101 or Higher, Uncontrolled pain Allergies/Adverse Reactions: Allergies metoprolol Adverse Reaction (Verified 11/09/18 17:08) Low blood pressure/syncope Medications to take at Discharge Nitroglycerin (INPATIENT USE) [Nitrostat] 0.4 mg SUBLINGUAL Q5M PRN 04/12/13 Aspirin [Aspirin, Baby] 81 mg PO DAILY@0800 11/09/18 Clopidogrel Bisulfate [Clopidogrel] 75 mg PO DAILY 11/09/18 Paroxetine HCl 20 mg PO DAILY 11/09/18 Pravastatin Sodium [Pravachol] 10 mg PO QHS 11/09/18 Valacyclovir HCl [Valacyclovir] 1,000 mg PO TID 11/09/18 Amoxicillin/Potassium Clav [Augmentin 875-125 Tablet] 1 ea PO BID 7 Days #14 tab 11/11/18 The following prescriptions were given: Amoxicillin/Potassium Clav [Augmentin 875-125 Tablet] 1 ea PO BID 7 Days #14 tab Prescription Printed Primary Care Physician: Constantino Davis DO [Primary Care Provider] - Test Results: Test results from this visit will be discussed in further detail at your follow- up appointment, if applicable. Please Follow Up With: Carla Schulz MD - When: as per needed, patient will be seeing surgeon at [facility] next week
[2018-11-11] MEDS: Paroxetine 20 MG Tablet PO (09:22)
[2018-11-11] MEDS: Aspirin 81 MG TAB.CHEW PO (09:22)
[2018-11-11] MEDS: Clopidogrel Bisulfate 75 MG Tablet PO (09:22)
[2018-11-11 10:00] VITALS: BP 122/68; PULSE 66; RESP 16; TEMP 36.7; O2SAT 95
[2018-11-11 12:35] LABS: Bedside Glucose 112 mg/dL (70-110)
--- NOTE | 2018-11-11 12:56 | PCM.PN.BLA ---
Progress Note All events of the past 24 hours He has been afebrile since admission and vital signs have been stable. The left lower quadrant abdominal pain that he complained of yesterday has completely resolved. He denies nausea/vomiting. He was seen in consultation by Dr. Easton who has arranged a titration study for severe sleep apnea for tonight. The patient knows that he will need to be at the sleep lab at [address] Easton has also given him an appt card for follow up after the second part of the sleep study is done. I spoke with Dr. Amaro and he will schedule a stress test in the near future in preparation for upcoming ventral hernia repair. He will likely need cardiac clearance prior to an elective abdominal surgery. He has not had a stress test since his LAD stent in 2012. Denies CP, SOB with exertion, palpitations, ankle swelling. PHYSICAL EXAM: GENERAL: alert, oriented X 3, Cooperative, NAD ORAL: moist mucosa, no mucosal lesions NECK: No JVD, supple, trachea midline LUNGS: CTA, symmetric chest expansion HEART: RRR, Normal S1 and S2, no rub, no gallop ABDOMEN: soft, NT, distended due to large ventral hernia which is reducible, BS present, no guarding with palpation EXTREMITIES: no edema, no cyanosis, no calf tenderness SKIN: Shingles of the left abdomen - drying up NEUROLOGIC: no focal neurologic deficits PSYCH: appropriate, normal affect, pleasant Impressions 1. Small diverticular abscess 2. Large ventral hernia obstruction 3. History of partial left colon resection secondary to obstruction due to a stricture 4. Diverticulosis 5. Coronary artery disease with history of a stent to the LAD in 2012. 6. Suspected anoxic brain injury with resultant decline in executive functioning diagnosed at the brain center in [place] 7. Severe obstructive sleep apnea on a sleep study done 3 weeks ago-we will need a titration study 8. Occasional GERD 9. Anxiety/depression on SSRI 10. Subacute shingles on Valtrex He is being discharged today on Augmentin. All his questions were answered. Code Visit Inpatient E&M: 04610 [facility] Hosp L1
[2018-11-11 13:46] VITALS: BP 125/68; PULSE 65; RESP 16; TEMP 37; O2SAT 94
== END 2018-11-11 13:54 | disposition home or self-care (01) | DRG 392 ==
PROVIDERS: Admitting Provider Surgery; Family Provider Family Medicine; PCP Family Medicine; Referring Provider Surgery; Visit Provider Internal Medicine
DX: K57.20 Diverticulitis of large intestine with perforation and abscess without bleeding (principal); I25.10 Atherosclerotic heart disease of native coronary artery without angina pectoris; K43.9 Ventral hernia without obstruction or gangrene; B02.9 Zoster without complications; G47.33 Obstructive sleep apnea (adult) (pediatric); G47.10 Hypersomnia, unspecified; K21.9 Gastro-esophageal reflux disease without esophagitis; F32.9 Major depressive disorder, single episode, unspecified; F41.9 Anxiety disorder, unspecified; E78.5 Hyperlipidemia, unspecified; M62.08 Separation of muscle (nontraumatic), other site; Z95.5 Presence of coronary angioplasty implant and graft; Z87.820 Personal history of traumatic brain injury; Z90.49 Acquired absence of other specified parts of digestive tract
CPT/HCPCS: 36415; 80048; 82962; 85025; 93005; J7050; J7120

== ENCOUNTER → 2018-11-11 | Outpatient (CLI) | payer MEDICARE, OTHER, SELFPAY ==
[2018-11-09 16:35] VITALS: BMI 24.3
== END | disposition home or self-care (01) ==
LOC: SL 20:07
PROVIDERS: Family Provider Family Medicine; PCP Family Medicine; Referring Provider Internal Medicine Critical Care Medicine; Visit Provider Internal Medicine Critical Care Medicine
DX: G47.33 Obstructive sleep apnea (adult) (pediatric) (principal)
CPT/HCPCS: 95811

== ENCOUNTER → 2018-11-23 | Outpatient (CLI) | payer MEDICARE, OTHER, SELFPAY ==
[2018-11-09 16:35] VITALS: BMI 24.3
--- NOTE | 2018-11-23 09:58 | STRESSREP ---
Stress Test Report Date: 11/23/2018 Procedure: Exercise tolerance test/imaging study Indications: [Coronary artery disease, preop evaluation] Consent: Per the patient Procedure: The patient exercised on a Damon protocol for 6 minutes achieving a peak heart rate of 142 bpm (96 % predicted maximal heart rate) with a peak blood pressure 150/64 mmHg and a peak MET capacity of 7 METs. Resting blood pressure was 108/68, resting heart rate was 54 bpm. The baseline ECG demonstrated sinus bradycardia, left anterior fascicular block. The peak exercise ECG demonstrated sinus tachycardia with no significant ischemic EKG changes. EKG during recovery revealed sinus tachycardia with less than half millimeter upsloping ST depressions in the lateral leads followed by normal sinus rhythm. [There were no cardiac dysrhythmias pretest, during exercise, or recovery]. The functional capacity was considered normal for age. There was [no complaint of chest discomfort during exercise or recovery]. The examination was discontinued secondary to dyspnea. Impression: 1. Technically adequate (percent predicted maximal heart rate greater than 85%) exercise tolerance test 2. Stress test is negative for exercise-induced EKG changes of ischemia 3. The test test is negative for exercise-induced chest pain 4. Functional capacity is normal for age 5. Nuclear images pending Myocardial perfusion imaging study: Technique: The patient was injected with technetium 99m Cardiolite and subsequently rest SPECT Cardiolite nuclear imaging was obtained in the horizontal long, vertical long, and short axis views. The patient exercised on a Damon protocol. Please see above for details. The patient was injected with technetium 99m Cardiolite and subsequently stress SPECT Cardiolite nuclear imaging was obtained in the horizontal long, vertical long, and short axis views. A gated Cardiolite study at peak stress was obtained. Interpretation: Rest and stress SPECT Cardiolite nuclear imaging status post realignment, normalization, and attenuation correction, demonstrates [normal myocardial radioisotope uptake on both the rest and stress images]. The gated Cardiolite study demonstrates no significant regional wall motion abnormalities. The reported LVEF is greater than 70 %. Impression: 1. There is no evidence of significant ischemia or infarction. 2. The gated Cardiolite study reports an LVEF of greater than 70 %. This note was generated with [employer] software. It may contain incorrect words, spelling, and punctuation that were not noted in checking the note before signing.
== END | disposition home or self-care (01) ==
LOC: CVS 06:31
PROVIDERS: Family Provider Family Medicine; PCP Family Medicine; Referring Provider Internal Medicine Cardiovascular Disease; Visit Provider Internal Medicine Cardiovascular Disease
DX: I25.10 Atherosclerotic heart disease of native coronary artery without angina pectoris (principal); E78.5 Hyperlipidemia, unspecified; Z95.5 Presence of coronary angioplasty implant and graft
CPT/HCPCS: 78452; 93017; A9500; A4216

== ENCOUNTER 2019-01-20 22:38 | Emergency (ER) | payer MEDICARE, OTHER, SELFPAY ==
[2018-12-18 11:09] VITALS: BMI 24.3
[2019-01-20 22:41] VITALS: BP 121/68; PULSE 82; RESP 18; TEMP 37.6; O2SAT 100; BMI 25.5
--- NOTE | 2019-01-20 22:54 | EKG12_ITS ---
Test Reason : SYNCOPE Blood Pressure : / mmHG Vent. Rate : 076 BPM Atrial Rate : 076 BPM P-R Int : 176 ms QRS Dur : 076 ms QT Int : 400 ms P-R-T Axes : -03 -48 062 degrees QTc Int : 450 ms Normal sinus rhythm Left anterior fascicular block Abnormal ECG Confirmed by BASIL العراقي, AB ([id number]), editor continuity and script KAYLEIGH CHAPIN ([id number]) on 01/27/2019 9:29:34 A M Referred By: KARI Confirmed By:JAMI GRACIA MD
--- NOTE | 2019-01-20 22:54 | CT_ITS ---
STUDY: CT BRAIN WITHOUT CONTRAST REASON FOR EXAM: Male, 73 years old. Dizziness. Fall. RADIATION DOSAGE (If Supplied By Facility): CTDIvol = ( 44.99 ) mGy, DLP = ( 863.60 ) mGycm TECHNIQUE: Transaxial CT imaging of the brain was performed without administration of intravenous contrast material. Individualized dose optimization techniques were used for this CT. COMPARISON: 04/05/2015 FINDINGS: Normal soft tissue structures. Normal calvarium. Stable encephalomalacia in the left frontal lobe from previous infarct. There is mild cerebral atrophy with widening of the extra-axial spaces and ventricular dilatation. There are areas of decreased attenuation within the white matter tracts of the supratentorial brain, consistent with microvascular disease changes. Normal basal ganglia and thalami. Normal brainstem. There is mild cerebellar atrophy. There is no intracranial hemorrhage. There are no findings of an acute ischemic infarction. Normal visualized paranasal sinuses. CT/Brain/Head without Contrast IMPRESSION: No change and no acute abnormality. 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 Electronically Signed: Harry Chamorro MD at 23:32 EDT , Service support ,
--- NOTE | 2019-01-20 22:55 | ED.DCSUM_ITS ---
History of Present Illness Chief Complaint: Syncope Informant: Patient, Family Onset: Today Narrative: Patient brought by EMS from home reported syncopal episode, however he reports he did not lose consciousness. Discharge from [facility] got home 3 hours ago after a 12-day stay for elective ventral hernia repair with lysis of adhesions. Reported there was infection found during surgery ended up with colostomy. He is currently primary TPN feeds with small oral intakes. States on his easy chair stood up felt lightheaded, fell back hitting the back of his head. There is no loss of conscious. No neck or back pain. No chest or abdominal pain. No cough. No urinary symptoms. He is currently using a walker for ambulation from his recovery. Mild headache 4 out of 10. Patient was restarted back on Plavix prior to discharge. Prior similar symptoms: No Past Medical History - Allergies and Home Meds Allergies/Adverse Reactions: Allergies metoprolol Adverse Reaction (Verified 01/20/19 22:41) Low blood pressure/syncope Primary Care Physician: Aristides Marshall MD [Primary Care Provider] - Surgical History: noncontributory Smoking Status: Never smoker - Family History Maternal Family History: Family History (Last Reviewed 12/18/18 @ 12:49 by Nevaeh Tracey NP-C) Father CVA (cerebral vascular accident) Hypertension HLD (hyperlipidemia) Cancer Mother HLD (hyperlipidemia) Hypertension Other Family history of skin cancer Family History: Reports: No pertinent history Review of Systems General: Denies: Chills, Fever, Sweats Eyes: Denies: Visual changes - bilaterally, Diplopia ENT: Denies: Rhinorrhea, Sore throat Cardiovascular: Denies: Chest pain, Palpitations Respiratory: Denies: Dyspnea, Cough, Dyspnea on exertion Gastrointestinal: Denies: Abdominal pain, Nausea, Vomiting, Diarrhea, Melena, Hematochezia Genitourinary: Denies: Dysuria, Hematuria, Frequency Musculoskeletal: Denies: Back pain, Extremity Pain Skin: Denies: Rash, Wounds Neurological: Reports: Headache. Denies: Weakness, Numbness Physical Exam Vital Signs/Narrative: Vital Signs Temp Pulse Resp BP Pulse Ox 01/20/19 22:41 99.6 F H 82 18 121/68 H 100 Inital Vital Signs reviewed: Yes General: Well nourished, Well developed, No Acute Distress Head: Normocephalic, Atraumatic Eyes: Perrl, EOMI ENT: Moist mucous membranes, No rhinorrhea Neck: Supple, Nontender Cardiovascular: Regular rate, Regular rhythm, No murmurs Respiratory: No distress, CTA bilaterally, Chest nontender Abdomen: Soft, Nontender, Nondistended, Normal bowel sounds, - - Midline abdominal incision clean, dry, intact. Right lower quadrant colostomy brown stools. Back: Nontender, Normal Inspection Extremities: Nontender, No edema Skin: Normal color, No rash Neurological: Alert, Oriented x3, Cranial nerves II-XII grossly intact, Normal Strength, Normal Sensation Psychological: Normal affect, Normal Mood Diagnostic/Tx/Re-eval Clinical Impression(s) from Imaging Studies Brain CT 01/20/19 22:54 IMPRESSION: No change and no acute abnormality. 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 Electronically Signed: Harry Chamorro MD at 23:32 EDT , Service support , Abnormal Lab Results 01/20/19 01/20/19 22:50 22:50 WBC 10.8 RBC 3.16 L Hgb 9.5 L Hct 29.7 L MCV 94.0 MCH 30.1 MCHC 32.0 RDW Std Deviation 51.5 H RDW Coeff of Shelly 14.9 H Plt Count 659 H MPV 8.6 Immature Gran % (Auto) 1.500 H Neut % (Auto) 74.0 H Lymph % (Auto) 10.2 L [place] % (Auto) 9.6 Eos % (Auto) 4.5 Baso % (Auto) 0.2 Absolute Neuts (auto) 8.0 H Absolute Lymphs (auto) 1.10 Nucleated RBC % 0 Sodium 136 Potassium 4.1 Chloride 106 Carbon Dioxide 25.0 Anion Gap 5 BUN 22 H Creatinine 0.78 Estim Creat Clear Calc 76.49 Est GFR (MDRD) Af Amer 126 Est GFR (MDRD) Non-Af 104 BUN/Creatinine Ratio 28.4 H Glucose 98 Calcium 8.0 L - EKG Initial EKG Interpretation: Sinus Rhythm - Sinus rate of 76, no ST or T wave changes. QTc 450. - Medical Decision Making Patient nontoxic, vital signs stable. Head injury with no focal deficits he is on Plavix. CT obtained negative. EKG sinus rhythm. Labs stable with no hemoglobin 9.5 was 13 in October however he is postop from major surgery there is no blood from his ostomy. He was given IV fluids. History concern for or thostasis, there is been no syncopal episodes. Continue oral fluids at home. He is able to ambulate with his walker with no return of symptoms. Discharge with outpatient follow-up. ED Disposition - Plan for ED Patient: Disposition: Home or Assisted Living Diagnosis: Closed head injury, Orthostasis Instructions: HYPOTENSION, Orthostatic, HEAD INJURY, No Wake-Up (Adult) Referrals: Aristides Marshall MD [Primary Care Provider] - 3-5 Days
[2019-01-20] MEDS: 0.9% Normal Saline 1,000 ML 1000 ML IV (23:00)
[2019-01-20 23:02] LABS: Basophil# 0.02 X10^3/uL; Basophil% 0.2 % (0-1); Eosinophil# 0.48 X10^3/uL; Eosinophils% 4.5 % (0-5); Hematocrit 29.7 % (40-54); Hemoglobin 9.5 g/dL (13.0-16.5); Lymphocyte % 10.2 % (19-41); Mean Corpuscular Hgb 30.1 pg (27.0-32.0); Mean Platelet Vol. 8.6 fl (6.2-12.0); Monocyte# 1.03 X10^3/uL; Monocyte% 9.6 % (0-10); NRBC Flagged by Analyzer 0 % (0-5); Neutrophil # 7.97 X10^3/uL (2.7-7.7); Platelet Count 659 K/mm3 (150-450); RBC Distribution Width CV 14.9 % (11.6-14.6); RBC Distribution Width SD 51.5 fl (35.1-43.9); Red Blood Count 3.16 M/mm3 (4.6-6.2); White Blood Count 10.8 K/mm3 (4.4-11.0)
[2019-01-20] MEDS: Acetaminophen 500 MG Tablet 1000 MG PO (23:02)
[2019-01-20 23:19] LABS: Anion Gap 5 (5-15); BUN 22 mg/dL (7-18); BUN/Creat Ratio 28.4 RATIO (10-20); Chloride 106 mmol/L (98-107); Creatinine, Serum 0.78 mg/dL (0.70-1.30); EST Glomerular Filtration Rate 104 mL/min (>60); Est Glom Filt Rate - Afr Amer 126 mL/min (>60); Estimated Creatinine Clearance 76.49 ml/min; Glucose 98 mg/dL (74-106); Potassium 4.1 mmol/L (3.5-5.1); Sodium Level 136 mmol/L (136-145)
[2019-01-20 23:33] VITALS: BP 111/53; PULSE 71; RESP 20; O2SAT 99
[2019-01-21 00:17] VITALS: BP 110/52; PULSE 76; RESP 18; O2SAT 97
--- NOTE | 2019-01-21 00:46 | ED.RN ---
colostomy emptied while in ED.
== END 2019-01-21 00:46 | disposition home or self-care (01) ==
PROVIDERS: Emergency Provider Emergency Medicine; Family Provider Family Medicine; PCP Family Medicine
DX: S09.90XA Unspecified injury of head, initial encounter (principal); I95.1 Orthostatic hypotension; W19.XXXA Unspecified fall, initial encounter; Y93.9 Activity, unspecified; Y92.9 Unspecified place or not applicable; Z86.73 Personal history of transient ischemic attack (TIA), and cerebral infarction without residual deficits; Z93.3 Colostomy status; Z98.890 Other specified postprocedural states; Z79.02 Long term (current) use of antithrombotics/antiplatelets; Z79.82 Long term (current) use of aspirin; Z79.899 Other long term (current) drug therapy
CPT/HCPCS: 36592; 70450; 80048; 85025; 93005; 96360; 99285; J7030; A4216

== ENCOUNTER 2019-02-08 15:36 | Outpatient (RCR) | payer MEDICARE, OTHER, SELFPAY ==
[2019-02-08 17:08] LABS: BUN 19 mg/dL (7-18); Creatinine, Serum 0.72 mg/dL (0.70-1.30); EST Glomerular Filtration Rate 114 mL/min (>60); Glucose 144 mg/dL (74-106); Hematocrit 31.1 % (40-54); Hemoglobin 9.6 g/dL (13.0-16.5); Mean Corp Hgb Conc 30.9 g/dL (32-36); Mean Corpuscular Hgb 27.7 pg (27.0-32.0); Mean Corpuscular Volume 89.9 fL (80-94); Mean Platelet Vol. 9.7 fl (6.2-12.0); Platelet Count 407 K/mm3 (150-450); RBC Distribution Width CV 15.1 % (11.6-14.6); RBC Distribution Width SD 49.1 fl (35.1-43.9); Red Blood Count 3.46 M/mm3 (4.6-6.2); White Blood Count 5.3 K/mm3 (4.4-11.0)
[2019-02-08 17:09] LABS: ALB/GLOB Ratio 0.5 RATIO (0.9-2.4); AST(SGOT) 40 U/L (15-37); Alanine Aminotransfer ALT/SGPT 85 U/L (16-61); Albumin, Serum 2.5 g/dL (3.2-5.0); Alkaline Phosphatase 111 U/L (45-117); Anion Gap 7 (5-15); BUN/Creat Ratio 26.5 RATIO (10-20); Calcium,Total 7.8 mg/dL (8.5-10.1); Chloride 104 mmol/L (98-107); Est Glom Filt Rate - Afr Amer 138 mL/min (>60); Globulin 4.7 g/dL (2.2-4.2); Potassium 3.7 mmol/L (3.5-5.1); Protein, Total 7.2 g/dL (6.4-8.2); Sodium Level 136 mmol/L (136-145)
[2019-02-09 08:10] LABS: Absolute Lymphocyte Count 1.04 X10^3/uL (0.83-4.51); Absolute Neutrophil Count 3.6 X10^3/uL (2.0-7.7); Basophil# 0.02 X10^3/uL; Basophil% 0.4 % (0-1); Eosinophil# 0.19 X10^3/uL; Eosinophils% 3.4 % (0-5); Hematocrit 31.1 % (40-54); Hemoglobin 9.8 g/dL (13.0-16.5); Lymphocyte # 1.04 X10^3/ul (4.0); Lymphocyte % 18.8 % (19-41); Mean Corp Hgb Conc 31.5 g/dL (32-36); Mean Corpuscular Hgb 28.5 pg (27.0-32.0); Mean Corpuscular Volume 90.4 fL (80-94); Mean Platelet Vol. 9.9 fl (6.2-12.0); Monocyte# 0.62 X10^3/uL; Monocyte% 11.2 % (0-10); NRBC Flagged by Analyzer 0 % (0-5); Neutrophil # 3.64 X10^3/uL (2.7-7.7); Neutrophil % 65.7 % (47-70); Platelet Count 417 K/mm3 (150-450); RBC Distribution Width SD 49.4 fl (35.1-43.9); Red Blood Count 3.44 M/mm3 (4.6-6.2); White Blood Count 5.5 K/mm3 (4.4-11.0)
[2019-02-09 08:21] LABS: Magnesium 1.9 mg/dL (1.6-2.6); Phosphorus 2.6 mg/dL (2.5-4.9)
== END 2019-02-11 23:59 ==
LOC: HHLAB 15:36
PROVIDERS: Family Provider Family Medicine; PCP Family Medicine
DX: E87.8 Other disorders of electrolyte and fluid balance, not elsewhere classified (principal); E83.39 Other disorders of phosphorus metabolism; Z78.9 Other specified health status; Z91.89 Other specified personal risk factors, not elsewhere classified
CPT/HCPCS: 80053; 83735; 84100; 85025; 85027

== ENCOUNTER 2019-02-15 15:34 | Outpatient (RCR) | payer MEDICARE, OTHER, SELFPAY ==
[2019-02-15 16:15] LABS: Hematocrit 29.7 % (40-54); Hemoglobin 9.4 g/dL (13.0-16.5); Mean Corp Hgb Conc 31.6 g/dL (32-36); Mean Corpuscular Hgb 27.8 pg (27.0-32.0); Mean Corpuscular Volume 87.9 fL (80-94); Mean Platelet Vol. 9.5 fl (6.2-12.0); Platelet Count 432 K/mm3 (150-450); RBC Distribution Width CV 15.6 % (11.6-14.6); RBC Distribution Width SD 50.4 fl (35.1-43.9); Red Blood Count 3.38 M/mm3 (4.6-6.2); White Blood Count 5.2 K/mm3 (4.4-11.0)
[2019-02-15 16:39] LABS: ALB/GLOB Ratio 0.5 RATIO (0.9-2.4); AST(SGOT) 31 U/L (15-37); Alanine Aminotransfer ALT/SGPT 59 U/L (16-61); Albumin, Serum 2.5 g/dL (3.2-5.0); Alkaline Phosphatase 95 U/L (45-117); Anion Gap 4 (5-15); BUN 17 mg/dL (7-18); BUN/Creat Ratio 28.3 RATIO (10-20); Calcium,Total 7.8 mg/dL (8.5-10.1); Chloride 104 mmol/L (98-107); EST Glomerular Filtration Rate 140 mL/min (>60); Est Glom Filt Rate - Afr Amer 170 mL/min (>60); Globulin 4.9 g/dL (2.2-4.2); Glucose 107 mg/dL (74-106); Magnesium 1.9 mg/dL (1.6-2.6); Potassium 4.2 mmol/L (3.5-5.1); Protein, Total 7.4 g/dL (6.4-8.2); Sodium Level 134 mmol/L (136-145)
[2019-02-22 13:50] LABS: Hematocrit 31.6 % (40-54); Hemoglobin 9.4 g/dL (13.0-16.5); Mean Corp Hgb Conc 29.7 g/dL (32-36); Mean Corpuscular Hgb 26.1 pg (27.0-32.0); Mean Corpuscular Volume 87.8 fL (80-94); Mean Platelet Vol. 9.6 fl (6.2-12.0); Platelet Count 459 K/mm3 (150-450); RBC Distribution Width CV 15.8 % (11.6-14.6); RBC Distribution Width SD 50.7 fl (35.1-43.9); White Blood Count 5.5 K/mm3 (4.4-11.0)
[2019-02-22 14:02] LABS: ALB/GLOB Ratio 0.5 RATIO (0.9-2.4); AST(SGOT) 35 U/L (15-37); Alanine Aminotransfer ALT/SGPT 67 U/L (16-61); Albumin, Serum 2.5 g/dL (3.2-5.0); Alkaline Phosphatase 97 U/L (45-117); Anion Gap 7 (5-15); BUN 21 mg/dL (7-18); BUN/Creat Ratio 30.6 RATIO (10-20); Calcium,Total 7.6 mg/dL (8.5-10.1); Chloride 106 mmol/L (98-107); Creatinine, Serum 0.69 mg/dL (0.70-1.30); EST Glomerular Filtration Rate 120 mL/min (>60); Est Glom Filt Rate - Afr Amer 145 mL/min (>60); Globulin 5.3 g/dL (2.2-4.2); Glucose 119 mg/dL (74-106); Magnesium 2.1 mg/dL (1.6-2.6); Phosphorus 2.8 mg/dL (2.5-4.9); Potassium 4.1 mmol/L (3.5-5.1); Protein, Total 7.8 g/dL (6.4-8.2); Sodium Level 139 mmol/L (136-145)
== END 2019-02-15 18:00 | disposition home or self-care (01) ==
LOC: HHLAB 15:34
PROVIDERS: Family Provider Family Medicine; PCP Family Medicine
DX: E87.8 Other disorders of electrolyte and fluid balance, not elsewhere classified (principal); E83.39 Other disorders of phosphorus metabolism; E83.40 Disorders of magnesium metabolism, unspecified; R63.3 Feeding difficulties; Z78.9 Other specified health status; Z91.89 Other specified personal risk factors, not elsewhere classified
CPT/HCPCS: 80053; 83735; 84100; 85027; 85049

== ENCOUNTER 2019-05-10 11:54 | Outpatient (RCR) | payer MEDICARE, OTHER, SELFPAY ==
[2019-04-01 14:42] VITALS: BMI 23.7
[2019-05-03 13:52] LABS: International Normalized Ratio 1.5; Prothrombin Time (Protime)PT. 17.6 SECONDS (11.7-14.9)
[2019-05-10 12:59] LABS: International Normalized Ratio 1.3; Prothrombin Time (Protime)PT. 16.1 SECONDS (11.7-14.9)
== END 2019-05-10 18:00 | disposition home or self-care (01) ==
LOC: LAB 11:54
PROVIDERS: PCP Family Medicine; Referring Provider Physician Assistant Medical; Visit Provider Physician Assistant Medical
DX: I48.91 Unspecified atrial fibrillation (principal)
CPT/HCPCS: 36415; 85610

== ENCOUNTER 2019-05-28 08:30 | Day surgery (SDC) | payer MEDICARE, OTHER, SELFPAY ==
[2019-05-13 11:14] VITALS: BMI 23.7
--- NOTE | 2019-05-27 23:57 | HP.PCM_ITS ---
History and Physical Date of Admission: 05/28/19 HISTORY OF PRESENT ILLNESS Patient comes in today for evaluation for TBSE. From his last visit in October, there were concerns about lesions on his right superomedial chest wall, right mid dorsal ulnar forearm, right outer arm, right middle medial back, right outer arm, left ear at triangular fossa, dorsum right hand by index finger, and left medial proximal leg. These lesions were treated with Aldara. He tolerated it. The lesions right middle medial back, left ear at triangular fossa, and dorsum right hand by index finger have resolved. He also has concerns about lesions right mid volar radial forearm, left upper chest wall, left upper chest wall by clavicle, and left upper medial chest wall that have increased in size over the last several months and have developed irregular borders. The lesions left upper medial chest wall and left medial proximal leg have a cutaneous horn component. He hasn't noticed any changes in the lesions on his left outer arm, left lateral forehead, left outer shoulder, and left lateral back. Denies any trauma or bleeding. He also hasn't noticed any changes in the actinic lesions on his left nasal tip and left shoulder that were treated with Aldara and remain healed. 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 He denies any problems. He presents at this time for further evaluation and treatment. He also has a large ventral hernia that he states needs to be repaired over the next few months. It is a staged repair. The first stage is completed. The second stage is scheduled in the Spring. PAST MEDICAL HISTORY Personal history of skin cancer CHRISTA (obstructive sleep apnea) Colonic diverticular abscess Ventral hernia Hypersomnia, unspecified REM behavioral disorder Diastasis of rectus abdominis Atherosclerosis of coronary artery of [place] heart without angina pectoris HLD (hyperlipidemia) Actinic keratosis Anastomotic leak of intestine Benign keratosis Left anterior fascicular block (LAFB) Obstructive sleep apnea Small bowel obstruction Abdominal pain Diverticulitis History of recent pneumonia Hypotension LLQ abdominal pain Near syncope Obstipation Paroxysmal supraventricular tachycardia Septic shock Sigmoid stricture Atrial premature contractions PAST SURGICAL HISTORY coronary artery stent placement partial colectomy vasectomy appendectomy cholecystectomy colonoscopy left heart catheterization ALLERGIES metoprolol MEDICATIONS Nitroglycerin (INPATIENT USE) [Nitrostat] Aspirin [Aspirin, Baby] Paroxetine Pravastatin Sodium [Pravachol] Diphenoxylate HCl/Atropine Loperamide HCl [Anti-Diarrheal] Sertraline carvedilol warfarin FAMILY HISTORY Father - CVA (cerebral vascular accident), Hypertension, HLD (hyperlipidemia), prostate cancer Mother - HLD (hyperlipidemia), Hypertension Other - Family history of skin cancer SOCIAL HISTORY Smoking Status: Never smoker alcohol intake: never substance use type: does not use caffeine: No REVIEW OF SYSTEMS General - Denies fever, fatigue and weight loss. Eyes - Denies eye pain. denies cataracts. denies glaucoma. ENT - Denies nasal congestion and sore throat. CV - Denies chest pain or discomfort, fatigue, lightheadedness, shortness of breath with exertion and palpitations. Resp - Denies cough and shortness of breath. GI - Denies nausea, vomiting, diarrhea and constipation. - Denies hematuria and urinary frequency. had vasectomy. MS - Denies joint pain, back pain, stiffness, muscle weakness and arthritis. Derm - has lesions right superomedial chest wall, right mid dorsal ulnar forearm, right outer arm, left medial proximal leg that were treated with Aldara and are still present. The lesions right middle medial back, dorsum right hand by ring finger, and left ear at triangular fossa were treated with Aldara and appear healed at this time. Has enlarging lesions right mid volar radial forearm, left upper chest wall, left upper chest wall by clavicle, and left upper medial chest wall. had excision squamous cell carcinoma in situ left postauricular area and excision squamous cell carcinoma in situ in middle midback in 12/27. had Aldara placed on left nasal tip actinic lesion and left shoulder actinic lesion and has healed. has personal history of skin cancer. has family history of skin cancer. Neuro - Denies headaches, seizures and tremors. Psych - Denies anxiety and depression. Endo - Denies cold intolerance, heat intolerance, excessive urination and excessive thirst. Heme - Complains of abnormal bruising. Denies bleeding. has abnormal bruising as he is on Plavix. PHYSICAL EXAMINATION General - well developed, well nourished, in no acute distress. Head - normocephalic and atraumatic. on the left lateral forehead is a 6 mm benign keratosis. Stable and unchanged. Eyes - PERRL/EOM intact, conjunctiva and sclera clear. Ears - healed incision from excision squamous cell carcinoma in situ left postauricular area. Had lesion left ear in the triangular fossa that was treated with Aldara and appears smooth and healed at this time without evidence of recurrence. Nose - has actinic lesion left nasal tip that appears smooth and healed at this time without evidence of recurrence. Mouth - No suspicious lesions noted Neck - no masses, thyromegaly, or abnormal cervical nodes. No suspicious lesions noted. Chest Wall - On the right superomedial chest wall is a 15 mm lesion that has irregular borders and is slightly raised in configuration. No ulceration. Lesion is nontender. On the left upper chest wall is an erythematous lesion that measures 6 mm. Slightly raised in configuration. Has irregular borders. No ulceration. Lesion is nontender. On the left upper chest wall by clavicle is a lesion that measures 7 mm. Slightly raised in configuration. Has regular borders. No ulceration. Lesion is slightly irritated. On the left upper medial chest wall is a cutaneous horn lesion that measures 4 mm. Raised in configuration. Has irregular borders. No ulceration. Lesion is nontender. Lungs - clear bilaterally to auscultation. Heart -regular rate and rhythm Abdomen - No suspicious lesions noted. Has large ventral hernia. Back - healed incision from excision squamous cell carcinoma in situ middle midback. on the left lateral back is a 1 cm benign keratosis. Stable and unchanged. On the right middle medial back was a lesion that was treated with Aldara and appears smooth and healed at this time without evidence of recurrence. Pulses - radial pulses are palpable. Extremities - no clubbing, cyanosis, edema, or deformity noted with normal full range of motion of all joints On the left outer arm is a 5 mm benign keratosis. No changes seen. On the left outer shoulder is a 5 mm benign keratosis. No changes seen. has actinic lesion left shoulder that appears smooth and healed at this time without evidence of recurrence. On the right mid dorsal ulnar forearm is a 1 cm lesion that is slightly raised in configuration. Has irregular borders. No ulceration. Lesion is nontender. On the right outer arm is 6 mm erythematous lesion that has irregular borders. No ulceration. Lesion is nontender. On the right mid volar radial forearm is a 8 mm lesion that is raised in configuration. It is crusty. Has irregular borders. No ulceration. Lesion is nontender. On the left medial proximal leg is a scabby lesion that measures 1 cm. Slightly raised in configuration. Has irregular borders. No ulceration. Lesion is nontender. Has a cutaneous horn component. On the dorsum right hand by ring finger was a lesion that was treated with Aldara and appears smooth and healed at this time without evidence of recurrence. Neurologic - cranial nerves II-XII grossly intact. Skin - no rashes. Cervical Nodes - no significant adenopathy. Axillary Nodes - no significant adenopathy. Inguinal Nodes - no significant adenopathy. Psych - alert and cooperative; normal mood and affect; normal attention span and concentration. ASSESSMENT 1. 1 cm cutaneous horn lesion left medial proximal leg. 2. 4 mm cutaneous horn lesion left upper medial chest wall. 3. 6 mm erythematous pigmented lesion right outer arm. 4. 11 mm lesion right superomedial chest wall. 5. 6 mm lesion left upper chest wall. 6. 1 cm lesion right mid dorsal ulnar forearm. 7. 8 mm lesion right mid volar radial forearm. 8. 7 mm lesion left upper chest wall by clavicle. 9. Lesion right middle medial back, healed with Aldara. 10. Actinic damage left ear at triangular fossa, healed with Aldara. 11. Lesion dorsum right hand by ring finger, healed with Aldara. 12. 1 cm benign keratosis left lateral back. 13. 5 mm benign keratosis left outer arm. 14. 6 mm benign keratosis left lateral forehead. 15. 5 mm benign keratosis left outer shoulder. 16. Actinic lesion left nasal tip, healed with Aldara. 17. Actinic lesion left shoulder, healed with Aldara. 18. Personal history of skin cancer. 19. Family history of skin cancer. PLAN Recommend excision of these lesions on his right superomedial chest wall, right mid dorsal ulnar forearm, right outer arm, left medial proximal leg, left upper chest wall, right mid volar radial forearm, left upper chest wall by clavicle, and left upper medial chest wall and send them to Pathology for analysis to rule out carcinoma. If carcinoma is present, then further excision will be done with skin graft or skin flap reconstruction. The lesions left medial proximal leg and left upper medial chest wall have a cutaneous horn component and will have a full thickness excision. The others will be in an intradermal fashion. He completed the first stage of his abdominal ventral hernia repair. The second stage is scheduled for the Spring. Will schedule the surgery next month before his ventral hernia surgery. Has benign lesions on his left outer arm, left lateral forehead, left outer shoulder, and left lateral back that are clinically consistent with benign keratoses. Will observe at this time. If changes occur in the future, then can excise at that time and send to Pathology for analysis to rule out carcinoma. The actinic lesions on his left nasal tip and left shoulder appear healed at this time without evidence of recurrence after using Aldara. Surgery will be done under general anesthesia on an outpatient basis. Patient was informed of the risks and complications of the procedure including alternatives to surgery. These were discussed with the patient personally. Patient voices understanding and wishes to proceed. Some of the risks and complications were included in a form from the [facility]. Will excise and reconstruct what we can within 2 hours. Depending on how many of these lesions need reconstruction with skin flaps or skin grafts, staged surgery will be necessary. Patient understands that the surgery may be in stages and wishes to proceed.
[2019-05-28] VITALS (8 sets, daily range): BP systolic 109–144; BP diastolic 65–87; PULSE 60–81; RESP 15–18; TEMP 36.6–37.1; O2SAT 92–99; BMI 24.5
--- NOTE | 2019-05-28 | LES_PTH ---
PATIENT: CAMRON OBRIEN LOC: [facility] [place] U#:[id number] AGE/SX: 74/M ROOM: RE05/28/[address]: Dr. Ozzie Sol MD : [id number] BED: DIS: 05/28/2019 SPEC #: [id number] RECD: 05/28/19 10:35 STATUS: GERONIMO REHaile #: [id number] PEMA: 05/28/19 00:[address]: Ozzie Sol DEPT: SURGICAL PATHOLOGY RECD BY: Anne Kirk ENTERED: 05/28/19 11:21 SP TYPE: Lesion OTHR DR: Dr. Aristides Marshall MD Tissues: A - Skin of chest B - Skin of leg, NOS C - Skin of chest D - Skin of chest E - Skin of chest F - Skin of chest G - Skin of forearm, NOS H - Skin of forearm, NOS I - Skin of arm Procedures: Frozen Section (charge) Surgery Specimen Level IV HEADER OPERATION: Excision cutaneous horn lesion left upper medial chest wall PRE-OP DIAGNOSIS: 15 mm lesion right supermedial chest wall; 1 cm lesion right mid dorsal ulnar forearm; 6 mm erythematous pigmented lesion right outer arm; 1 cm cutaneous horn lesion left medial proximal leg; 6 mm erythematous lesion left upper chest wall; 8 mm lesion right mid volar radial forearm; 7 mm lesion left upper chest wall by clavicle; 4 mm cutaneous horn lesion left upper medial chest wall TISSUE SUBMITTED: A - 4 mm cutaneous horn lesion left upper medial chest wall, suture at 12 o'clock, frozen, B - 1 cm cutaneous horn lesion left medial proximal leg, suture at 12 o'clock, frozen, C - 6 mm erythematous lesion left upper chest wall, frozen, D - 11 mm lesion right superomedial chest wall, frozen, E - Actinic keratosis left upper medial chest wall, suture at 12 o'clock, F - 7 mm lesion left upper chest wall by clavicle, G - 8 mm lesion right mid volar radial forearm, H - 1 cm lesion right mid dorsal ulnar forearm, I - 6 mm erythematous pigmented lesion right outer arm, suture at 12 o'clock FROZEN SECTION DIAGNOSIS A. Skin lesion left chest wall, biopsy: Actinic keratosis with cutaneous horn. B. Left medial leg lesion, biopsy: Actinic keratosis with cutaneous horn. C. Skin lesion, left upper chest wall, shave biopsy: Actinic keratosis. D. Skin lesion, right chest wall, shave biopsy: Actinic keratosis. AM:destiney 05/28/19 MICROSCOPIC DIAGNOSIS A. Skin lesion of left chest wall, biopsy: Actinic keratosis. Solar elastosis. Cutaneous horn. B. Skin lesion of left medial leg lesion, biopsy: Actinic keratosis, mildly inflamed. C. Skin lesion, left upper chest wall, shave biopsy: Actinic keratosis, inflamed. D. Skin lesion, right chest wall, shave biopsy: Actinic keratosis, inflamed. Solar elastosis. E. Left upper medial chest wall, excision: Actinic keratosis and solar elastosis. F. Left upper chest wall by clavicle skin lesion, biopsy: Actinic keratosis with focal moderate atypia, completely excised. Solar elastosis. G. Skin lesion, right mid volar radial arm, shave biopsy: Actinic keratosis, inflamed. Solar elastosis. H. Right medial dorsal ulnar forearm lesion, shave biopsy: Actinic keratosis with associated cutaneous horn, inflamed. Solar elastosis. I. Skin lesion, right outer arm, excision: Actinic keratosis, inflamed. Solar elastosis. AM:destiney 05/31/19 MICROSCOPIC DESCRIPTION Slides are reviewed. GROSS DESCRIPTION A - Received fresh for frozen section consultation labeled with the patient's name is a specimen designated left upper medial chest wall. The specimen consists of an irregular fragment of mccullough skin measuring 1 x 0.7 x 0.6 cm. The area with suture is inked in black ink. The remainder of the specimen is inked in blue ink. The specimen is bisected and totally submitted for frozen section consultation in one cassette. B - Received fresh for frozen section consultation labeled with the patient's name is a specimen designated lesion left lateral medial proximal leg. The specimen consists of an irregular fragment of mccullough skin measuring 1 x 1 x 0.7 cm. The area with suture is inked in black ink. The remainder of the specimen is inked in blue ink. The specimen is bisected and totally submitted for frozen section consultation in one cassette. C - Received fresh for frozen section consultation labeled with the patient's name is a specimen designated lesion left upper chest wall. The specimen consists of a light mccullough shave biopsy of skin measuring 0.6 x 0.5 x <0.1 cm. The specimen is submitted in its entirety for frozen section consultation in one cassette. D - Received fresh for frozen section consultation labeled with the patient's name is a specimen designated right superior medial chest wall. The specimen consists of a light mccullough shave biopsy of skin measuring 1 x 0.5 x <0.1 cm. The specimen is totally submitted for frozen section consultation in one cassette. E - Received in fixative is one container labeled with the patient's name and designated actinic keratosis left upper medial chest wall. The specimen consists of a triangular fragment of skin with attached yellow fatty tissue measuring 1.5 x 1 x 0.2 cm. The area of the suture is inked in black ink. The remainder of the specimen is inked in blue ink. The specimen is sectioned and totally submitted in one cassette. F - Received in fixative is one container labeled with the patient's name and designated 7 mm lesion left upper chest wall by clavicle. The specimen consists of a light mccullough shave biopsy of skin measuring 1 x 0.5 x 0.1 cm. The specimen is inked, bisected and totally submitted in one cassette. G - Received in fixative is one container labeled with the patient's name and designated 8 mm lesion right mid volar radial arm. The specimen consists of a discoid fragment of mccullough tissue measuring 0.7 x 0.5 x 0.1 cm. The specimen is inked, bisected and totally submitted in one cassette. H - Received in fixative is one container labeled with the patient's name and designated lesion right medial dorsal ulnar forearm shave biopsy. The specimen consists of a light mccullough shave biopsy of skin measuring 1 x 0.8 x 0.2 cm. The specimen is inked, bisected and totally submitted in one cassette. I - Received in fixative is one container labeled with the patient's name and designated lesion right outer arm. The specimen consists of an ellipse of light mccullough skin with attached reddish-mccullough soft tissue measuring 1.5 x 0.3 x 0.2 cm. The tip of the suture and approximately half is inked in blue ink. The opposite half is inked in black ink. The specimen is bisected and totally submitted in one cassette. / AM:destiney 05/28/19 TC:5 CPT: 27042 x9, 45547 x4
[2019-05-28 08:56] LABS: Prothrombin Time Fingerstick 13.9 SEC (11.9-14.4)
[2019-05-28] MEDS: Lactated Ringers 1,000 ML 100 ML IV (09:15)
[2019-05-28] MEDS: Cefazolin 2 GM in 0.9% Normal Saline 100 ML IV (09:55)
[2019-05-28] MEDS: Mupirocin Ointment 22gm Tube 1 APPLIC (11:05)
[2019-05-28] MEDS: Silver Nitrate (BKC) 1 EACH (11:17)
--- NOTE | 2019-05-28 11:42 | OP.PCM_ITS ---
Report of Operation Date of Procedure: 05/28/19 Pre-Operative Diagnosis: 1. 1 cm cutaneous horn lesion left medial proximal leg. 2. 4 mm cutaneous horn lesion left upper medial chest wall. 3. 6 mm erythematous pigmented lesion right outer arm. 4. 11 mm lesion right superomedial chest wall. 5. 6 mm lesion left upper chest wall. 6. 1 cm lesion right mid dorsal ulnar forearm. 7. 8 mm lesion right mid volar radial forearm. 8. 7 mm lesion left upper chest wall by clavicle. 9. Personal history of skin cancer. 10. Family history of skin cancer. Post-Operative Diagnosis: 1. 1 cm actinic keratosis left medial proximal leg. 2. 4 mm actinic keratosis left upper medial chest wall. 3. 6 mm erythematous pigmented lesion right outer arm. 4. 11 mm actinic keratosis right superomedial chest wall. 5. 6 mm actinic keratosis left upper chest wall. 6. 1 cm lesion right mid dorsal ulnar forearm. 7. 8 mm lesion right mid volar radial forearm. 8. 7 mm lesion left upper chest wall by clavicle. 9. Personal history of skin cancer. 10. Family history of skin cancer. Surgery/Procedure Performed:: 1. Excision 1 cm actinic keratosis left medial proximal leg with rhomboid transposition skin flap reconstruction (3.92 cm2). 2. Excision 4 mm actinic keratosis left upper medial chest wall with 2.5 cm layered closure. 3. Excision 6 mm erythematous pigmented lesion right outer arm with 2.5 cm layered closure. 4. Intradermal excision 11 mm actinic keratosis right superomedial chest wall. 5. Intradermal excision 6 mm actinic keratosis left upper chest wall. 6. Intradermal excision 1 cm lesion right mid dorsal ulnar forearm. 7. Intradermal excision 8 mm lesion right mid volar radial forearm. 8. Intradermal excision 7 mm lesion left upper chest wall by clavicle. Description of Surgical Findings:: Patient comes in today for evaluation for TBSE. From his last visit in October, there were concerns about lesions on his right superomedial chest wall, right mid dorsal ulnar forearm, right outer arm, right middle medial back, right outer arm, left ear at triangular fossa, dorsum right hand by index finger, and left medial proximal leg. These lesions were treated with Aldara. He tolerated it. The lesions right middle medial back, left ear at triangular fossa, and dorsum right hand by index finger have resolved. He also has concerns about lesions right mid volar radial forearm, left upper chest wall, left upper chest wall by clavicle, and left upper medial chest wall that have increased in size over the last several months and have developed irregular borders. The lesions left upper medial chest wall and left medial proximal leg have a cutaneous horn component. He hasn't noticed any changes in the lesions on his left outer arm, left lateral forehead, left outer shoulder, and left lateral back. Denies any trauma or bleeding. He also hasn't noticed any changes in the actinic lesions on his left nasal tip and left shoulder that were treated with Aldara and remain healed. 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 He denies any problems. He also has a large ventral hernia that he states needs to be repaired over the next few months. It is a staged repair. The first stage is completed. The second stage is scheduled in the Spring. Patient was informed of the risks and complications of the procedure including a lternatives to surgery. These were discussed with the patient personally. Patient voices understanding and wishes to proceed. Some of the risks and complications were included in a form from the [employer]. Frozen section - left medial leg - actinic keratosis and no carcinoma seen. Frozen section - left upper medial chest wall - actinic keratosis and no carcinoma seen. Frozen section - left upper chest wall - actinic keratosis and no carcinoma seen. Frozen section - right superomedial chest wall - actinic keratosis and no carcinoma seen. advertising dispatch clerks supervisor: Evelio Morejon. Type of Anesthesia:: General Specimen's removed: 1. Cutaneous horn lesion left medial proximal leg to Pathology as a frozen section. 2. Cutaneous horn lesion left upper medial chest wall to Pathology as a frozen section. 3. Erythematous pigmented lesion right outer arm to Pathology. 4. Lesion right superomedial chest wall to Pathology as a frozen section. 5. Lesion left upper chest wall to Pathology as a frozen section. 6. Lesion right mid dorsal ulnar forearm to Pathology. 7. Lesion right mid volar radial forearm to Pathology. 8. Lesion left upper chest wall by clavicle to Pathology. 9. Actinic keratosis left upper medial chest wall to Pathology. Drains: None. Estimated Blood Loss (mL): 10 ml. Description of Procedure: Patient was taken to OR in supine position and was placed under general anesthesia. The chest wall, left leg, and right arm and right forearm areas were prepped and draped in the usual fashion. SCD's were placed for DVT prophylaxis. Perioperative antibiotics were given intravenously. Using xylocaine with epinephrine, the lesions were infiltrated. After waiting 5 minutes for the anesthetic to take effect, I excised the cutaneous horns on the left medial leg and left upper medial chest wall as a full thickness excision with a couple mm margin in all directions making it a 1.4 cm excision for the left medial leg and a 0.8 cm excision for the left upper medial chest wall. Sutures were marked at 12 oclock position for pathology orientation. The lesions were sent to Pathology for analysis as a frozen section. Frozen section showed both cutaneous horn lesions were actinic keratoses with no carcinoma seen. The left medial leg wound was closed with a rhomboid transposition skin flap. The rhomboid flap was designed adjacent to the defect and incisions were made down into the subcutaneous tissue. The rhomboid flap was easily transposed into the defect with minimal tension and minimal distortion. Hemostasis was obtained with electrocautery. The flap was closed in a layered fashion with 4-0 Monocryl interrupted sutures for the deep dermis and subcutaneous tissue. The skin was approximated with 4-0 Prolene simple interrupted sutures. Antibiotic ointment was applied followed by a gauze dressing and a compression fernandez wrap. The size of the defect and the size of the flap needed to close the defect was 3.92 cm2. The left upper medial chest wall wound was closed with an additional horizontal elliptical excision. A suture was marked at 12 oclock position for pathology orientation. The added tissue was sent to Pathology for analysis to rule out carcinoma. Hemostasis was obtained with electrocautery. The length of the wound closure was 2.5 cm. The wound was closed in a layered fashion with 4-0 Monocryl interrupted sutures for deep dermis and subcutaneous tissue. The skin was approximated with 4-0 Prolene simple interrupted sutures. Antibiotic ointment was applied to the suture line followed by an Op-Site dressing. The lesion right outer arm was excised in a longitudinal elliptical fashion down into the subcutaneous tissue with a 1 mm margin in all directions thus making it an 8 mm excision with a 2.5 cm layered closure. A suture was marked at 12 oclock position for pathology orientation. The lesion was sent to Pathology for analysis to rule out carcinoma. Hemostasis was obtained with electrocautery. The wound was closed in a layered fashion with 4-0 Monocryl interrupted sutures for the deep dermis and subcutaneous tissue. The skin was approximated with 4-0 Prolene simple interrupted sutures. Antibiotic ointment was applied to the s uture line followed by Op-Site dressing. The lesions left upper chest wall and right superomedial chest wall were excised in an intradermal fashion and sent to Pathology for analysis as a frozen section to rule out carcinoma. Frozen section showed both lesions were actinic keratoses and no carcinoma seen. Hemostasis was obtained with silver nitrate chemical cauterization. Antibiotic ointment was applied followed by Op-Site dressings. The lesions left upper chest wall by clavicle, right mid volar radial forearm, and right mid dorsal ulnar forearm were excised in an intradermal fashion and sent to Pathology for analysis to rule out carcinoma. If carcinoma is present then further excision will be done with skin flap or skin graft reconstruction. Hemostasis was obtained with silver nitrate chemical cauterization. Antibiotic ointment was applied followed by Op-Site dressings. Patient tolerated the procedure well and was sent to PACU in satisfactory condition. Patient will be sent home on antibiotics and pain medication. Patient will followup in a week for a wound check and for discussion of the pathology report. The sutures will be removed in two weeks. He will keep his l eft leg and right arm elevated during the initial postoperative period. Grafts/Implants Used: None. - Complications None. - Admit VTE Documentation VTE Present on Admission: No VTE Mechan Device Prophylaxis: SCD's VTE Pharm Prophylaxis ordered?: No Code Visit Surgery Charges CPT - 02248 ICD-10 - L57.0, Z85.828, Z80.8, D49.2 91606 L57.0, Z85.828, Z80.8, D49.2 88474 D49.2, Z85.828, Z80.8, L57.0 55599 L57.0, D49.2, Z85.828, Z80.8 12282 L57.0, Z85.828, Z80.8, D49.2 49176 L57.0, Z85.828, Z80.8, D49.2 45268 D49.2, Z85.828, Z80.8, L57.0 55035 D49.2, Z85.828, Z80.8, L57.0 49475 D49.2, Z85.828, Z80.8, L57.0
--- NOTE | 2019-05-28 11:58 | PCM.DC ---
You will use the following diet at home:: No restrictions Discharge Activity: May not drive while taking narcotic pain medications., May Shower - in two days., - - elevate left leg when sitting. elevate right arm. May shower in (days): 2 May resume sexual activity in: No Restrictions Weight Bearing Status: Weight bearing as tolerated Keep extremity elevated above heart level: Right Arm, Left Leg Call your doctor if your incision/area has: Continuous Slow Oozing, Sudden Increased Bleeding, Increased Pain/ Swelling, Increased Redness, Foul Smelling Discharge, Swelling at the incision site Call your doctor if you observe: Fever of 101 or Higher, Coldness, Increased Pain, Shortness of breath, Chest pain, Calf discomfort, Uncontrolled pain Suture Line Care: - - after operative dressings removed in two days, apply antibiotic ointment to suture lines and wounds daily. Remove Dressing in (days):: 2 - reapply fernandez wrap left leg daily. Cleanse incision/area with: - - may get incisions wet in the shower in two days. Additional Instructions: May resume Coumadin tomorrow 05/29/19. Allergies/Adverse Reactions: Allergies metoprolol Adverse Reaction (Verified 05/28/19 08:53) Low blood pressure/syncope Medications to take at Discharge Nitroglycerin (INPATIENT USE) [Nitrostat] 0.4 mg SUBLINGUAL Q5M PRN 04/12/13 Paroxetine HCl 20 mg PO DAILY 11/09/18 Pravastatin Sodium [Pravachol] 10 mg PO QHS 11/09/18 warfarin 2 mg tablet See Rx Instructions PO DAILY tab 05/13/19 Cefadroxil [Duricef] 500 mg PO BID #10 cap 05/28/19 Lactobacillus Acidophilus/Fos [Acidophilus Probiotic Tablet] 1 ea PO BID #10 tab 05/28/19 Oxycodone HCl/Acetaminophen [Percocet 5/325] 1 tab PO Q6H PRN PRN 7 Days #30 tab 05/28/19 The following prescriptions were given: Lactobacillus Acidophilus/Fos [Acidophilus Probiotic Tablet] 1 ea PO BID #10 tab Transmission Status: Received by [id number] Cefadroxil [Duricef] 500 mg PO BID #10 cap Transmission Status: Received by [id number] Oxycodone HCl/Acetaminophen [Percocet 5/325] 1 tab PO Q6H PRN PRN 7 Days #30 tab PRN Reason: Pain Score 4-5/10 Transmission Status: Received by [id number] Primary Care Physician: Aristides Marshall MD [Primary Care Provider] - Test Results: Test results from this visit will be discussed in further detail at your follow-up appointment, if applicable. Please Follow Up With: Ozzie Sol MD When: one week. call [phone] for appt. Proposed Discharge Date: 05/28/19
== END 2019-05-28 14:20 | disposition home or self-care (01) ==
LOC: SDC 08:31 → AC 08:32
PROVIDERS: PCP Family Medicine; Referring Provider Surgery; Visit Provider Surgery
PROC: (CPT 11303; principal; 2019-05-28 09:40)
DX: L57.0 Actinic keratosis (principal); L85.8 Other specified epidermal thickening; Z80.8 Family history of malignant neoplasm of other organs or systems; Z85.828 Personal history of other malignant neoplasm of skin; D64.9 Anemia, unspecified; F32.9 Major depressive disorder, single episode, unspecified; I48.91 Unspecified atrial fibrillation; G47.33 Obstructive sleep apnea (adult) (pediatric); E78.00 Pure hypercholesterolemia, unspecified; I25.10 Atherosclerotic heart disease of native coronary artery without angina pectoris; K43.9 Ventral hernia without obstruction or gangrene; I47.1 Supraventricular tachycardia; Z87.19 Personal history of other diseases of the digestive system; Z87.01 Personal history of pneumonia (recurrent); Z95.5 Presence of coronary angioplasty implant and graft; Z79.82 Long term (current) use of aspirin; Z79.01 Long term (current) use of anticoagulants; Z79.899 Other long term (current) drug therapy
CPT/HCPCS: 00400; 11303; 12032; 14020; 36416; 85610; 88305; 88331; J7120; J2405

== ENCOUNTER 2019-06-07 11:19 | Outpatient (RCR) | payer MEDICARE, OTHER, SELFPAY ==
[2019-05-13 11:14] VITALS: BMI 23.7
[2019-05-17 13:21] LABS: International Normalized Ratio 1.5; Prothrombin Time (Protime)PT. 18.4 SECONDS (11.7-14.9)
[2019-05-24 12:26] LABS: International Normalized Ratio 1.5; Prothrombin Time (Protime)PT. 17.8 SECONDS (11.7-14.9)
[2019-06-02 13:58] LABS: International Normalized Ratio 1.1; Prothrombin Time (Protime)PT. 13.7 SECONDS (11.7-14.9)
[2019-06-07 13:57] LABS: International Normalized Ratio 1.4; Prothrombin Time (Protime)PT. 16.8 SECONDS (11.7-14.9)
== END 2019-06-07 18:00 | disposition home or self-care (01) ==
LOC: LAB 11:19
PROVIDERS: Internal Medicine Cardiovascular Disease; PCP Family Medicine; Referring Provider Physician Assistant Medical; Visit Provider Physician Assistant Medical
DX: I48.0 Paroxysmal atrial fibrillation (principal); I47.1 Supraventricular tachycardia; Z79.01 Long term (current) use of anticoagulants
CPT/HCPCS: 36415; 85610

== ENCOUNTER → 2019-06-17 | Outpatient (CLI) | payer MEDICARE, OTHER, SELFPAY ==
[2019-06-17 15:07] VITALS: BMI 25.8
== END | disposition home or self-care (01) ==
LOC: LABSPEC 18:53
PROVIDERS: PCP Family Medicine; Visit Provider Nurse Practitioner Family
DX: L82.1 Other seborrheic keratosis (principal); D49.2 Neoplasm of unspecified behavior of bone, soft tissue, and skin; L57.0 Actinic keratosis
CPT/HCPCS: 87070; 87075; 87077; 87186; 87205

== ENCOUNTER 2019-06-21 13:54 | Outpatient (RCR) | payer MEDICARE, OTHER, SELFPAY ==
[2019-06-10 15:27] VITALS: BMI 24.5
[2019-06-14 14:28] LABS: International Normalized Ratio 1.7; Prothrombin Time (Protime)PT. 19.6 SECONDS (11.7-14.9)
[2019-06-14 14:38] LABS: BNP,B-Type NATRIURETIC PEPTIDE 33.9 pg/mL (0-100)
[2019-06-21 16:26] LABS: International Normalized Ratio 1.9; Prothrombin Time (Protime)PT. 21.4 SECONDS (11.7-14.9)
== END 2019-06-21 18:00 | disposition home or self-care (01) ==
LOC: LAB 13:54
PROVIDERS: Internal Medicine Cardiovascular Disease; PCP Family Medicine; Referring Provider Physician Assistant Medical; Visit Provider Physician Assistant Medical
DX: I48.0 Paroxysmal atrial fibrillation (principal); I47.1 Supraventricular tachycardia; Z79.01 Long term (current) use of anticoagulants; R63.5 Abnormal weight gain; I50.22 Chronic systolic (congestive) heart failure
CPT/HCPCS: 36415; 83880; 85610

== ENCOUNTER 2020-01-21 11:51 | Inpatient (IN) | payer MEDICARE, OTHER, SELFPAY ==
[2019-06-17 15:07] VITALS: BMI 25.8
[2020-01-21] VITALS (7 sets, daily range): BP systolic 144–181; BP diastolic 69–93; PULSE 50–56; RESP 16–19; TEMP 36.6–37.1; O2SAT 94–98; BMI 25.9; BMI 26.0; BMI 24.2
--- NOTE | 2020-01-21 12:19 | CT_ITS ---
STUDY: CT BRAIN WITHOUT CONTRAST REASON FOR EXAM: Male, 74 years old. WEAKNESS AND DIZZY X 1 WEEK. PRIOR TRAUMATIC BRAIN INJURY RADIATION DOSAGE (If Supplied By Facility): CTDIvol = ( 44.99 ) mGy, DLP = ( 846.73 ) mGycm TECHNIQUE: Transaxial CT imaging of the brain was performed without administration of intravenous contrast material. Individualized dose optimization techniques were used for this CT. COMPARISON: 01/20/2019 FINDINGS: Normal soft tissue structures. Normal calvarium. There is mild cerebral atrophy with widening of the extra-axial spaces and ventricular dilatation. There are areas of decreased attenuation within the white matter tracts of the supratentorial brain, consistent with microvascular disease changes. Normal basal ganglia and thalami. Normal brainstem. 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 Encephalomalacia in the anterior left parietal lobe consistent with prior infarct. There is no intracranial hemorrhage. There are no findings of an acute ischemic infarction. Normal visualized paranasal sinuses. CT/Brain/Head without Contrast IMPRESSION: Chronic involutional changes of the brain. Electronically Signed: Jaleel Squires MD at 12:57 EDT Tel , Service support ,
--- NOTE | 2020-01-21 12:20 | EKG12_ITS ---
Test Reason : Blood Pressure : / mmHG Vent. Rate : 048 BPM Atrial Rate : 048 BPM P-R Int : 208 ms QRS Dur : 082 ms QT Int : 550 ms P-R-T Axes : 000 -60 068 degrees QTc Int : 491 ms Sinus bradycardia Left anterior fascicular block Prolonged QT Abnormal ECG When compared with ECG of 21-JAN-2020 12:03, MANUAL COMPARISON REQUIRED, DATA IS UNCONFIRMED Confirmed by BASIL العراقي, AB ([id number]), editor at large KAYLEIGH CHAPIN ([id number]) on 01/26/2020 11:30:13 AM Referred By: JO ANN Confirmed By:JAMI GRACIA MD
--- NOTE | 2020-01-21 12:20 | RAD_ITS ---
STUDY: X-RAY CHEST REASON FOR EXAM: Male, 74 years old. WEAKNESS AND DIZZINESS TECHNIQUE: Single AP portable view of the chest. COMPARISON: 06/26/2018 FINDINGS: The lungs are clear and expanded. There is no demonstrated pleural abnormality. There is moderate cardiac enlargement. Normal mediastinum and colin. Normal visualized pulmonary arteries. Normal visualized aortic arch and descending thoracic aorta. Normal visualized thoracic spine. Multiple healed right rib fractures and fracture the right clavicle. There is no demonstrated abnormality of the visualized soft tissue structures of the upper abdomen. RAD/Chest 1 View (Portable) IMPRESSION: No active disease. Electronically Signed: Jaleel Squires MD at 13:04 EDT Tel , Service support ,
--- NOTE | 2020-01-21 12:22 | ED.DCSUM_ITS ---
- ER Visit Summary Date of Service: 01/21/20 Chief Complaint: Dizziness and weakness History of Present Illness: The patient is a 74 M who presents with dizziness and weakness that is been getting worse over the past 2 weeks. Patient states it is gradually gotten worse. Patient states he is having difficulty walking a straight line. Patient states he feels like he is off balance. Patient states that he feels weak when he walks. Patient states this gets worse after prolonged standing and walking. Patient states it is also worse whenever he moves too rapidly. Patient states nothing seems to help with this. Family states patient has fallen frequently over the past 2 weeks. Physical Examination: Vital signs are stable. Patient is afebrile. Patient is in no acute distress. Tympanic membranes are clear bilaterally. Pupils are equal, round, and reactive to light bilaterally. Extraocular muscles are intact. There is no nystagmus noted. Oral mucosa is pink and moist. Neck is supple. Trachea is midline. There is no JVD noted. Heart was regular rate and rhythm. Lungs are clear and equal bilaterally. Abdomen is soft. Bowel sounds are normal. There is no tenderness. There is no rebound or guarding noted. Skin is warm dry. Cranial nerves II through XII are intact. There are no focal motor or sensory deficits noted. [id number] and [id number] were intact. Extremities are intact. There is no calf tenderness or edema. Test Results: EKG shows sinus rhythm with a first-degree AV block with a rate of 50. There are no acute ST or T wave changes noted. This is unchanged compared to previous EKG dated 11/10/2018. CBC and comprehensive metabolic profile were within normal limits. Troponin was normal. Urinalysis was obtained and does not show any evidence of urinary tract infection. CT scan of the brain was obtained. There are chronic changes but no acute intracranial abnormality. Portable chest x-ray was obtained. There is no acute cardiopulmonary process. This was interpreted by the radiologist and reviewed by myself. Emergency Department Course and Treatment: Patient attempted ambulation but was ambulating to his right. Patient was able to walk straight. Patient became weaker as he ambulated. Case was discussed with the hospitalist. Patient does not want to stay in the hospital. Family contacted patient's primary care physician's office who told him that it would take 2 weeks to get an MRI. They told the patient that he would be better served to stay in the hospital. Patient is agreeable to admission. Patient will be admitted for observation. P atient and family understood and were agreeable with the plan. All questions were answered. Disposition: Admit for observation Impression: 1. Ataxia This note was generated with [email or web address] dictation software. It may contain incorrect words, spelling, and punctuation that were not noted in review of the chart prior to signing ED Disposition - Plan for ED Patient: Disposition: Home or Assisted Living Diagnosis: Ataxia Instructions: ED Weakness [facility] Prescriptions: Clopidogrel Bisulfate [Plavix] 75 mg PO DAILY #21 tab Prescription Printed Referrals: Aristides Marshall MD [Primary Care Provider] - 2 Days Additional Instructions: Decrease your baby aspirin to 1 tablet daily. Follow-up with your primary care physician in 2 to 3 days.
[2020-01-21 12:28] LABS: Absolute Neutrophil Count 2.7 X10^3/uL (2.0-7.7); Basophil# 0.02 X10^3/uL; Basophil% 0.4 % (0-1); Eosinophil# 0.06 X10^3/uL; Eosinophils% 1.3 % (0-5); Hematocrit 43.6 % (40-54); Hemoglobin 13.6 g/dL (13.0-16.5); Lymphocyte % 19.4 % (19-41); Mean Corp Hgb Conc 31.2 g/dL (32-36); Mean Corpuscular Volume 96.2 fL (80-94); Mean Platelet Vol. 9.8 fl (6.2-12.0); Monocyte# 0.91 X10^3/uL; Monocyte% 19.7 % (0-10); NRBC Flagged by Analyzer 0 % (0-5); Neutrophil # 2.72 X10^3/uL (2.7-7.7); Neutrophil % 58.8 % (47-70); Platelet Count 254 K/mm3 (150-450); RBC Distribution Width CV 14.6 % (11.6-14.6); RBC Distribution Width SD 51.7 fl (35.1-43.9); Red Blood Count 4.53 M/mm3 (4.6-6.2); White Blood Count 4.6 K/mm3 (4.4-11.0)
[2020-01-21 12:56] LABS: ALB/GLOB Ratio 0.6 RATIO (0.9-2.4); AST(SGOT) 25 U/L (15-37); Alanine Aminotransfer ALT/SGPT 18 U/L (16-61); Albumin, Serum 3.1 g/dL (3.2-5.0); Alkaline Phosphatase 69 U/L (45-117); Anion Gap 5 (5-15); BUN 13 mg/dL (7-18); BUN/Creat Ratio 15.2 RATIO (10-20); Calcium,Total 8.2 mg/dL (8.5-10.1); Chloride 109 mmol/L (98-107); Creatinine, Serum 0.85 mg/dL (0.70-1.30); EST Glomerular Filtration Rate 93 mL/min (>60); Est Glom Filt Rate - Afr Amer 113 mL/min (>60); Estimated Creatinine Clearance 88.65 ml/min; Globulin 4.9 g/dL (2.2-4.2); Glucose 86 mg/dL (74-106); Sodium Level 140 mmol/L (136-145)
[2020-01-21 12:59] LABS: Bacteria 0 SEEN /hpf (None Seen); Mucous, Urine 0 SEEN /hpf (<or=2+); Red Blood Cells-Urine 0 SEEN /hpf (0-5); Squamous Epithelial Cells - UA 0 SEEN /hpf (0-5); White Blood Cells 0 SEEN /hpf (0-5)
[2020-01-21 13:01] LABS: Color, Urine Yellow (Yellow); Glucose, Dipstick Normal (Normal); Ketone-Dipstick Negative (Negative); Leukocyte Esterase-Dipstick Negative /ul (Negative); Nitrite-Dipstick Negative (Negative); Occult Blood-Urine Negative /ul (Negative); Protein-Dipstick Negative (Negative); Urine Bilirubin Dipstick Negative (Negative); Urine Clarity Clear (Clear); Urine Urobilinogen Normal (Normal); Urine pH 6.5 (5.0 - 8.0)
--- NOTE | 2020-01-21 14:10 | ED.RN ---
PATIENT DEVIATES TO RIGHT WHEN WALKING, DR. MUNOZ MADE AWARE.
--- NOTE | 2020-01-21 14:35 | NURSING ---
DR CHERRY IN ER
--- NOTE | 2020-01-21 14:40 | PCM.HP.STD ---
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 (6) Paroxysmal supraventricular tachycardia Status: Chronic (7) Paroxysmal atrial fibrillation Status: Chronic (8) Family history of skin cancer Status: Chronic (9) Personal history of skin cancer Status: Chronic (10) Actinic keratosis Status: Chronic Comment: left medial proximal leg left upper medial chest wall right outer arm right superomedial chest wall left upper chest wall right mid dorsal ulnar forearm right mid volar radial forearm left upper chest wall by clavicle (with focal moderate atypia) left nasal tip, healed with Aldara left shoulder, healed with Aldara (11) CHRISTA (obstructive sleep apnea) Status: Chronic (12) Colonic diverticular abscess Status: Chronic (13) Ventral hernia Status: Chronic Qualifiers: (14) Hypersomnia, unspecified Status: Chronic (15) REM behavioral disorder Status: Chronic (16) Diastasis of rectus abdominis Status: Chronic (17) Atherosclerosis of coronary artery of [place] heart without angina pectoris Status: Chronic Qualifiers: Comment: PCI/GAETANO-LAD w/ 3.0 x 28 mm Promus Element Plus Rx 03/02/13 (18) History of coronary artery stent placement Status: Chronic Comment: PCI/GAETANO-LAD w/ 3.0 x 28 mm Promus Element Plus Rx 03/02/13 (19) HLD (hyperlipidemia) Status: Chronic Qualifiers: History of Present Illness Date of Admission: 01/21/20 Chief Complaint: Weakness, ataxia. The patient is a 74 year old M who presents emergency room due to weakness and ataxia. Past Medical History Past Medical History (Chronic Problems): Chronic Problems (Last Reviewed 06/19/19 @ 15:[address] 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 (Chronic) Paroxysmal supraventricular tachycardia (Chronic) Paroxysmal atrial fibrillation (Chronic) Family history of skin cancer (Chronic) Personal history of skin cancer (Chronic) Actinic keratosis (Chronic) left medial proximal leg left upper medial chest wall right outer arm right superomedial chest wall left upper chest wall right mid dorsal ulnar forearm right mid volar radial forearm left upper chest wall by clavicle (with focal moderate atypia) left nasal tip, healed with Aldara left shoulder, healed with Aldara CHRISTA (obstructive sleep apnea) (Chronic) Colonic diverticular abscess (Chronic) Ventral hernia (Chronic) Hypersomnia, unspecified (Chronic) REM behavioral disorder (Chronic) Diastasis of rectus abdominis (Chronic) Atherosclerosis of coronary artery of [place] heart without angina pectoris (Chronic) PCI/GAETANO-LAD w/ 3.0 x 28 mm Promus Element Plus Rx 03/02/13 History of coronary artery stent placement (Chronic 03/02/13) PCI/GAETANO-LAD w/ 3.0 x 28 mm Promus Element Plus Rx 03/02/13 HLD (hyperlipidemia) (Chronic) Medical History: Medical History (Last Reviewed 06/19/19 @ 15:[address] 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 (Acute) Z79.01 Family history of skin cancer (Chronic) Z80.8 Personal history of skin cancer (Chronic) Z85.828 Actinic keratosis (Chronic) L57.0 left medial proximal leg left upper medial chest wall right outer arm right superomedial chest wall left upper chest wall right mid dorsal ulnar forearm right mid volar radial forearm left upper chest wall by clavicle (with focal moderate atypia) left nasal tip, healed with Aldara left shoulder, healed with Aldara CHRISTA (obstructive sleep apnea) (Chronic) G47.33 Colonic diverticular abscess (Chronic) K57.20 Ventral hernia (Chronic) K43.9 Hypersomnia, unspecified (Chronic) G47.10 REM behavioral disorder (Chronic) G47.52 Diastasis of rectus abdominis (Chronic) M62.08 Atherosclerosis of coronary artery of [place] heart without angina pectoris (Chronic) I25.10 PCI/GAETANO-LAD w/ 3.0 x 28 mm Promus Element Plus Rx 03/02/13 HLD (hyperlipidemia) (Chronic) E78.5 Actinic keratosis L57.0 actinic lesion left nasal tip actinic lesion left shoulder Anastomotic leak of intestine K91.89 Benign keratosis L57.0 1 cm benign keratosis left lateral back 5 mm benign keratosis left outer arm 6 mm benign keratosis left lateral forehead 5 mm benign keratosis left outer shoulder Left anterior fascicular block (LAFB) I44.4 Neoplasm of unspecified behavior of bone, soft tissue, and skin D49.2 15 mm lesion right superomedial chest wall 3 mm lesion left volar distal forearm by wrist 1 cm lesion left mid dorsal ulnar forearm 5 mm pigmented lesion right outer arm 7 mm lesion left middle medial back Neoplasm of unspecified behavior of bone, soft tissue, and skin D49.2 15 mm lesion right superomedial chest wall 3 mm lesion left volar distal forearm by wrist 1 cm lesion left mid dorsal ulnar forearm 5 mm pigmented lesion right outer arm 7 mm lesion left middle medial back Obstructive sleep apnea G47.33 Personal history of skin cancer Z85.828 Small bowel obstruction K56.609 Abdominal pain R10.9 Diverticulitis K57.92 History of recent pneumonia (Resolved) Z87.01 Hypotension (Resolved) I95.9 LLQ abdominal pain (Resolved) R10.32 Near syncope (Resolved) R55 Obstipation (Resolved) K59.00 Paroxysmal supraventricular tachycardia (Resolved) I47.1 Septic shock (Resolved) A41.9, R65.21 Sigmoid stricture (Resolved) K56.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 Atrial premature contractions (Inactive) I49.1 Allergies metoprolol Adverse Reaction (Verified 01/21/20 11:58) Low blood pressure/syncope Home Medications: Ambulatory Orders Medication Instructions Recorded Amiodarone HCl [Pacerone] 200 mg PO DAILY 01/21/20 Aspirin [Aspirin EC] 162 mg PO DAILY 01/21/20 Clonazepam 0.5 mg PO TID 01/21/20 Clopidogrel Bisulfate [Plavix] 75 mg PO DAILY #21 tab 01/21/20 Fludrocortisone Acetate [Florinef] 0.1 mg PO DAILY@0800 01/21/20 Midodrine HCl 10 mg PO TID 01/21/20 Rosuvastatin Calcium [Crestor] 50 mg PO QHS 01/21/20 Sertraline HCl 50 mg PO DAILY 01/21/20 Surgical History: Surgical History (Last Reviewed 01/21/20 @ 14:42 by Meg Jaramillo NP, TAXATION AGENT-C) Paroxysmal supraventricular tachycardia (Chronic) I47.1 Paroxysmal atrial fibrillation (Chronic) I48.0 History of coronary artery stent placement (Resolved) Onset Date: 03/02/13 Z95.5 PCI/GAETANO-LAD w/ 3.0 x 28 mm Promus Element Plus Rx 03/02/13 History of local excision of skin lesion Z98.890 1. Excision 1 cm actinic keratosis left medial proximal leg with rhomboid transposition skin flap reconstruction (3.92 cm2). 2. Excision 4 mm actinic keratosis left upper medial chest wall with 2.5 cm layered closure. 3. Excision 6 mm erythematous pigmented lesion right outer arm with 2.5 cm layered closure. 4. Intradermal excision 11 mm actinic keratosis right superomedial chest wall. 5. Intradermal excision 6 mm actinic keratosis left upper chest wall. 6. Intradermal excision 1 cm lesion right mid dorsal ulnar forearm. 7. Intradermal excision 8 mm lesion right mid volar radial forearm. 8. Intradermal excision 7 mm lesion left upper chest wall by clavicle - 05/28/19 History of partial colectomy Z90.49 X 2 01/26/18 and 01/27/18 H/O vasectomy Z98.52 History of appendectomy Z98.890, Z90.49 History of cholecystectomy Z98.890, Z90.49 History of colonoscopy Onset Date: 2013 Z98.890 History of left heart catheterization Onset Date: 04/20/13 Z98.890 S/P colon resection Z90.49 Psychiatric History: No pertinent psych hx Lives: Spouse/ Significant Other Smoking Status: Never smoker Alcohol: None Drugs: None - *Family History Maternal Family History: Family History (Last Reviewed 01/21/20 @ 14:42 by Meg Jaramillo NP, TAXATION AGENT-C) Father CVA (cerebral vascular accident) Hypertension HLD (hyperlipidemia) Cancer Mother HLD (hyperlipidemia) Hypertension Other Family history of skin cancer Paternal Family History: Family History (Last Reviewed 01/21/20 @ 14:42 by Meg Jaramillo TAXATION AGENT, TAXATION AGENT-C) Father CVA (cerebral vascular accident) Hypertension HLD (hyperlipidemia) Cancer Mother HLD (hyperlipidemia) Hypertension Other Family history of skin cancer Review of Systems Constitutional: Reports: Weakness. Denies: Chills, Fever, Weight Change HEENT: Denies: Head Aches, Sinus Congestion, Sinus Drainage Cardiovascular: Denies: Chest Pain, Palpitations Respiratory: Denies: Cough, Shortness of breath at rest, Sputum production Gastrointestinal: Denies: Abdominal Pain, Nausea, Vomiting Genitourinary: Denies: Dysuria Musculoskeletal: Denies: Joint Pain, Joint Tenderness Skin: Denies: Rash, Wounds Neurological: Reports: - - Unsteady gait. Denies: Focal weakness, Numbness, Tingling Psychiatric: Denies: Anxiety, Depression, Homicidal Ideations, Suicidal Ideations Hematologic/ Lymphatic: Denies: Easy Bruising, Easy Bleeding VTE Information - Inpt Only VTE Present on Admission: No VTE Mechan Device Prophylaxis: None VTE Pharm Prophylaxis ordered?: Yes Patient Problems: Active and Suspected Problems (Last Reviewed 06/19/19 @ 15:[address] Ozzie Sol MD) Ataxia (Acute) - Physical Exam Vitals/I&O's: Vital Signs Temp Pulse Resp BP Pulse Ox 98.3 F 53 L 16 181/92 H 96 01/21/20 11:53 01/21/20 14:00 01/21/20 14:00 01/21/20 14:00 01/21/20 14:00 Oxygen Delivery Method Room Air Weight: 202 lb 2.622 oz Body Mass Index (BMI) 25.9 General: Alert, Oriented x3, Cooperative HEENT: Atraumatic, PERRLA, EOMI, Normocephalic Neck: Supple, No JVD, Negative Carotid Bruits Lungs: Clear to auscultation, Normal air movement Cardiovascular: Regular rate, No murmurs Abdomen: Bowel Sounds Present, Soft, Non Tender Extremities: No clubbing, No cyanosis, No edema, Capillary Refill Less than 3 Seconds Skin: No rashes, No breakdown Musculoskeletal: No Tenderness to Palpation of Joints or Extremities Neurological: Cranial nerves II-XII grossly intact, Neuro grossly intact Psych/Mental Status: Normal Affect, Appropriate Laboratory Results 01/21/20 12:00: WBC 4.6, RBC 4.53 L, Hgb 13.6, Hct 43.6, MCV 96.2 H, MCH 30.0, MCHC 31.2 L, RDW Std Deviation 51.7 H, RDW Coeff of [place] 14.6, Plt Count 254, MPV 9.8, Immature Gran % (Auto) 0.400, Neut % (Auto) 58.8, Lymph % (Auto) 19.4, [place] % (Auto) 19.7 H, Eos % (Auto) 1.3, Baso % (Auto) 0.4, Absolute Neuts (auto) 2.7, Absolute Lymphs (auto) 0.90, Nucleated RBC % 0 01/21/20 12:00: Sodium 140, Potassium 4.0, Chloride 109 H, Carbon Dioxide 26.0, Anion Gap 5, BUN 13, Creatinine 0.85, Estim Creat Clear Calc 88.65, Est GFR (MDRD) Af Amer 113, Est GFR (MDRD) Non-Af 93, BUN/Creatinine Ratio 15.2, Glucose 86, Calcium 8.2 L, Total Bilirubin 0.40, AST 25, ALT 18, Alkaline Phosphatase 69, Troponin I < 0.015, Total Protein 8.0, Albumin 3.1 L, Globulin 4.9 H, Albumin/Globulin Ratio 0.6 L 01/21/20 12:50: Urine Color Yellow, Urine Clarity Clear, Urine pH 6.5, Ur Specific [place] 1.010, Urine Protein Negative, Urine Glucose (UA) Normal, Urine Ketones Negative, Urine Occult Blood Negative, Urine Nitrite Negative, Urine Bilirubin Negative, Urine Urobilinogen Normal, Ur Leukocyte Esterase Negative, Urine RBC 0 SEEN, Urine WBC 0 SEEN, Ur Squamous Epith Cells 0 SEEN, Urine Bacteria 0 SEEN, Urine Mucus 0 SEEN Assessment/Plan All Active Problems (Last Reviewed 06/19/19 @ 15:[address] Ozzie Sol MD) Ataxia (Acute) Acute respiratory failure with hypoxia (Resolved) History of recent pneumonia (Resolved) Hypotension (Resolved) LLQ abdominal pain (Resolved) Nausea and vomiting (Resolved) Near syncope (Resolved) Nonhealing surgical wound (Resolved) Obstipation (Resolved) Paroxysmal supraventricular tachycardia (Resolved) Septic shock (Resolved) Sigmoid stricture (Resolved) Neoplasm of skin of chest (Ruled-out) Neoplasm of skin of forearm (Ruled-out) Neoplasm of skin of lower leg (Ruled-out) Neoplasm of skin of upper arm (Ruled-out)
--- NOTE | 2020-01-21 15:04 | NURSING ---
PCU OBS TERELETSKY ATAXIA
--- NOTE | 2020-01-21 15:13 | HP.PCM_ITS ---
Problem List (1) Ataxia Status: Acute (2) Nonhealing surgical wound Status: Resolved Comment: left medial proximal leg (3) Chronic systolic congestive heart failure Status: Chronic (4) Other seborrheic keratosis Status: Chronic Comment: 1 cm benign keratosis left lateral back 5 mm benign keratosis left outer arm 6 mm benign keratosis left lateral forehead 5 mm benign keratosis left outer shoulder (5) manager terminal current use of anticoagulant Status: Chronic (6) Paroxysmal supraventricular tachycardia Status: Chronic (7) Paroxysmal atrial fibrillation Status: Chronic (8) Family history of skin cancer Status: Chronic (9) Personal history of skin cancer Status: Chronic (10) Actinic keratosis Status: Chronic Comment: left medial proximal leg left upper medial chest wall right outer arm right superomedial chest wall left upper chest wall right mid dorsal ulnar forearm right mid volar radial forearm left upper chest wall by clavicle (with focal moderate atypia) left nasal tip, healed with Aldara left shoulder, healed with Aldara (11) CHRISTA (obstructive sleep apnea) Status: Chronic (12) Colonic diverticular abscess Status: Chronic (13) Ventral hernia Status: Chronic Qualifiers: (14) Hypersomnia, unspecified Status: Chronic (15) REM behavioral disorder Status: Chronic (16) Diastasis of rectus abdominis Status: Chronic (17) Atherosclerosis of coronary artery of [place] heart without angina pectoris Status: Chronic Qualifiers: Comment: PCI/GAETANO-LAD w/ 3.0 x 28 mm Promus Element Plus Rx 03/02/13 (18) History of coronary artery stent placement Status: Chronic Comment: PCI/GAETANO-LAD w/ 3.0 x 28 mm Promus Element Plus Rx 03/02/13 (19) HLD (hyperlipidemia) Status: Chronic Qualifiers: History of Present Illness Date of Admission: 01/21/20 Chief Complaint: Ataxia, weakness with falls. The patient is a 74 year old M who presents to the emergency room due to ataxia, weakness and recurrent falls. Patient reports this is been ongoing for 3 weeks. He denies unilateral weakness or focal deficits. Patient states he has had upper extremity tremors for the past year. reports a few nights ago patient was sitting on the swing and was noted to be confused. This continued throughout the evening and then resolved. He denies injury related to falls. Denies recent illness. states they are in the process of moving and he has been unable to help due to being very unsteady on his feet. He has a past medical history of paroxysmal atrial fibrillation, CHRISTA, CAD, hyperlipidemia, short gut syndrome, essential tremors, depression/anxiety, history of squamous cell skin cancer. Past Medical History Past Medical History (Chronic Problems): Chronic Problems (Last Reviewed 06/19/19 @ 15:[address] Ozzie Sol MD) Chronic systolic congestive heart failure (Chronic) Other seborrheic keratosis (Chronic) 1 cm benign keratosis left lateral back 5 mm benign keratosis left outer arm 6 mm benign keratosis left lateral forehead 5 mm benign keratosis left outer shoulder care home current use of anticoagulant (Chronic) Paroxysmal supraventricular tachycardia (Chronic) Paroxysmal atrial fibrillation (Chronic) Family history of skin cancer (Chronic) Personal history of skin cancer (Chronic) Actinic keratosis (Chronic) left medial proximal leg left upper medial chest wall right outer arm right superomedial chest wall left upper chest wall right mid dorsal ulnar forearm right mid volar radial forearm left upper chest wall by clavicle (with focal moderate atypia) left nasal tip, healed with Aldara left shoulder, healed with Aldara CHRISTA (obstructive sleep apnea) (Chronic) Colonic diverticular abscess (Chronic) Ventral hernia (Chronic) Hypersomnia, unspecified (Chronic) REM behavioral disorder (Chronic) Diastasis of rectus abdominis (Chronic) Atherosclerosis of coronary artery of [place] heart without angina pectoris (Chronic) PCI/GAETANO-LAD w/ 3.0 x 28 mm Promus Element Plus Rx 03/02/13 History of coronary artery stent placement (Chronic 03/02/13) PCI/GAETANO-LAD w/ 3.0 x 28 mm Promus Element Plus Rx 03/02/13 HLD (hyperlipidemia) (Chronic) Medical History: Medical History (Last Reviewed 06/19/19 @ 15:[address] Ozzie Sol MD) Chronic systolic congestive heart failure (Chronic) I50.22 Other seborrheic keratosis (Chronic) L82.1 1 cm benign keratosis left lateral back 5 mm benign keratosis left outer arm 6 mm benign keratosis left lateral forehead 5 mm benign keratosis left outer shoulder manager terminal current use of anticoagulant (Chronic) Z79.01 Family history of skin cancer (Chronic) Z80.8 Personal history of skin cancer (Chronic) Z85.828 Actinic keratosis (Chronic) L57.0 left medial proximal leg left upper medial chest wall right outer arm right superomedial chest wall left upper chest wall right mid dorsal ulnar forearm right mid volar radial forearm left upper chest wall by clavicle (with focal moderate atypia) left nasal tip, healed with Aldara left shoulder, healed with Aldara CHRISTA (obstructive sleep apnea) (Chronic) G47.33 Colonic diverticular abscess (Chronic) K57.20 Ventral hernia (Chronic) K43.9 Hypersomnia, unspecified (Chronic) G47.10 REM behavioral disorder (Chronic) G47.52 Diastasis of rectus abdominis (Chronic) M62.08 Atherosclerosis of coronary artery of [place] heart without angina pectoris (Chronic) I25.10 PCI/GAETANO-LAD w/ 3.0 x 28 mm Promus Element Plus Rx 03/02/13 HLD (hyperlipidemia) (Chronic) E78.5 Actinic keratosis L57.0 actinic lesion left nasal tip actinic lesion left shoulder Anastomotic leak of intestine K91.89 Benign keratosis L57.0 1 cm benign keratosis left lateral back 5 mm benign keratosis left outer arm 6 mm benign keratosis left lateral forehead 5 mm benign keratosis left outer shoulder Left anterior fascicular block (LAFB) I44.4 Neoplasm of unspecified behavior of bone, soft tissue, and skin D49.2 15 mm lesion right superomedial chest wall 3 mm lesion left volar distal forearm by wrist 1 cm lesion left mid dorsal ulnar forearm 5 mm pigmented lesion right outer arm 7 mm lesion left middle medial back Neoplasm of unspecified behavior of bone, soft tissue, and skin D49.2 15 mm lesion right superomedial chest wall 3 mm lesion left volar distal forearm by wrist 1 cm lesion left mid dorsal ulnar forearm 5 mm pigmented lesion right outer arm 7 mm lesion left middle medial back Obstructive sleep apnea G47.33 Personal history of skin cancer Z85.828 Small bowel obstruction K56.609 Abdominal pain R10.9 Diverticulitis K57.92 History of recent pneumonia (Resolved) Z87.01 Hypotension (Resolved) I95.9 LLQ abdominal pain (Resolved) R10.32 Near syncope (Resolved) R55 Obstipation (Resolved) K59.00 Paroxysmal supraventricular tachycardia (Resolved) I47.1 Septic shock (Resolved) A41.9, R65.21 Sigmoid stricture (Resolved) K56.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 Atrial premature contractions (Inactive) I49.1 Allergies metoprolol Adverse Reaction (Verified 01/21/20 11:58) Low blood pressure/syncope Home Medications: Ambulatory Orders Medication Instructions Recorded Amiodarone HCl [Pacerone] 200 mg PO DAILY 01/21/20 Aspirin [Aspirin EC] 162 mg PO DAILY 01/21/20 Clonazepam 0.5 mg PO TID 01/21/20 Fludrocortisone Acetate [Florinef] 0.1 mg PO DAILY@0800 01/21/20 Midodrine HCl 10 mg PO TID 01/21/20 Rosuvastatin Calcium [Crestor] 50 mg PO QHS 01/21/20 Sertraline HCl 50 mg PO DAILY 01/21/20 Surgical History: Surgical History (Last Reviewed 01/21/20 @ 14:42 by Meg Jaramillo NP, IN STORE MARKETING REPRESENTATIVE-C) Paroxysmal supraventricular tachycardia (Chronic) I47.1 Paroxysmal atrial fibrillation (Chronic) I48.0 History of coronary artery stent placement (Chronic) Onset Date: 03/02/13 Z95.5 PCI/GAETANO-LAD w/ 3.0 x 28 mm Promus Element Plus Rx 03/02/13 History of local excision of skin lesion Z98.890 1. Excision 1 cm actinic keratosis left medial proximal leg with rhomboid transposition skin flap reconstruction (3.92 cm2). 2. Excision 4 mm actinic keratosis left upper medial chest wall with 2.5 cm layered closure. 3. Excision 6 mm erythematous pigmented lesion right outer arm with 2.5 cm layered closure. 4. Intradermal excision 11 mm actinic keratosis right superomedial chest wall. 5. Intradermal excision 6 mm actinic keratosis left upper chest wall. 6. Intradermal excision 1 cm lesion right mid dorsal ulnar forearm. 7. Intradermal excision 8 mm lesion right mid volar radial forearm. 8. Intradermal excision 7 mm lesion left upper chest wall by clavicle - 05/28/19 History of partial colectomy Z90.49 X 2 01/26/18 and 01/27/18 H/O vasectomy Z98.52 History of appendectomy Z98.890, Z90.49 History of cholecystectomy Z98.890, Z90.49 History of colonoscopy Onset Date: 2013 Z98.890 History of left heart catheterization Onset Date: 04/20/13 Z98.890 S/P colon resection Z90.49 Psychiatric History: No pertinent psych hx Lives: Spouse/ Significant Other Smoking Status: Never smoker Alcohol: None Drugs: None - *Family History Maternal Family History: Family History (Last Reviewed 01/21/20 @ 15:18 by Meg Jaramillo IN STORE MARKETING REPRESENTATIVE, IN STORE MARKETING REPRESENTATIVE-C) Father CVA (cerebral vascular accident) Hypertension HLD (hyperlipidemia) Cancer Mother HLD (hyperlipidemia) Hypertension Other Family history of skin cancer History Items: No pertinent history Paternal Family History: Family History (Last Reviewed 01/21/20 @ 15:18 by Meg Jaramillo IN STORE MARKETING REPRESENTATIVE, IN STORE MARKETING REPRESENTATIVE-C) Father CVA (cerebral vascular accident) Hypertension HLD (hyperlipidemia) Cancer Mother HLD (hyperlipidemia) Hypertension Other Family history of skin cancer Review of Systems Constitutional: Reports: Weakness. Denies: Chills, Fever HEENT: Denies: Head Aches, Sinus Congestion, Sinus Drainage Cardiovascular: Denies: Chest Pain, Palpitations Respiratory: Denies: Cough, Shortness of breath at rest, Sputum production Gastrointestinal: Denies: Abdominal Pain, Nausea, Vomiting Genitourinary: Denies: Dysuria Musculoskeletal: Denies: Joint Pain, Joint Tenderness Skin: Denies: Rash, Wounds Neurological: Reports: - - Unsteady gait, ataxia, - - Upper extremity tremors. Denies: Focal weakness, Numbness, Tingling Psychiatric: Denies: Anxiety, Depression, Homicidal Ideations, Suicidal Ideations Hematologic/ Lymphatic: Denies: Easy Bruising, Easy Bleeding VTE Information - Inpt Only VTE Present on Admission: No VTE Mechan Device Prophylaxis: None VTE Pharm Prophylaxis ordered?: Yes Patient Problems: Active and Suspected Problems (Last Reviewed 06/19/19 @ 15:[address] Ozzie Sol MD) Ataxia (Acute) - Physical Exam Vitals/I&O's: Vital Signs Temp Pulse Resp BP Pulse Ox 98.3 F 53 L 16 181/92 H 96 01/21/20 11:53 01/21/20 14:00 01/21/20 14:00 01/21/20 14:00 01/21/20 14:00 Oxygen Delivery Method Room Air Weight: 202 lb 2.622 oz Body Mass Index (BMI) 25.9 General: Alert, Oriented x3, Cooperative, - - Upper extremity tremors HEENT: Atraumatic, PERRLA, EOMI, Normocephalic Neck: Supple, No JVD, Negative Carotid Bruits Lungs: Clear to auscultation, Normal air movement Cardiovascular: Regular rate, No murmurs Abdomen: Bowel Sounds Present, Soft, Non Tender, Non-Distended Extremities: No clubbing, No cyanosis, No edema, Capillary Refill Less than 3 Seconds Skin: No rashes, No breakdown Musculoskeletal: No Tenderness to Palpation of Joints or Extremities Neurological: Cranial nerves II-XII grossly intact, Neuro grossly intact Psych/Mental Status: Normal Affect, Appropriate Laboratory Results 01/21/20 12:00: WBC 4.6, RBC 4.53 L, Hgb 13.6, Hct 43.6, MCV 96.2 H, MCH 30.0, MCHC 31.2 L, RDW Std Deviation 51.7 H, RDW Coeff of Shel[place] 14.6, Plt Count 254, MPV 9.8, Immature Gran % (Auto) 0.400, Neut % (Auto) 58.8, Lymph % (Auto) 19.4, [place] % (Auto) 19.7 H, Eos % (Auto) 1.3, Baso % (Auto) 0.4, Absolute Neuts (auto) 2.7, Absolute Lymphs (auto) 0.90, Nucleated RBC % 0 01/21/20 12:00: Sodium 140, Potassium 4.0, Chloride 109 H, Carbon Dioxide 26.0, Anion Gap 5, BUN 13, Creatinine 0.85, Estim Creat Clear Calc 88.65, Est GFR (MDRD) Af Amer 113, Est GFR (MDRD) Non-Af 93, BUN/Creatinine Ratio 15.2, Glucose 86, Calcium 8.2 L, Total Bilirubin 0.40, AST 25, ALT 18, Alkaline Phosphatase 69, Troponin I < 0.015, Total Protein 8.0, Albumin 3.1 L, Globulin 4.9 H, Albumin/Globulin Ratio 0.6 L 01/21/20 12:50: Urine Color Yellow, Urine Clarity Clear, Urine pH 6.5, Ur Specific [place] 1.010, Urine Protein Negative, Urine Glucose (UA) Normal, Urine Ketones Negative, Urine Occult Blood Negative, Urine Nitrite Negative, Urine Bilirubin Negative, Urine Urobilinogen Normal, Ur Leukocyte Esterase Negative, Urine RBC 0 SEEN, Urine WBC 0 SEEN, Ur Squamous Epith Cells 0 SEEN, Urine Bacteria 0 SEEN, Urine Mucus 0 SEEN Assessment/Plan All Active Problems (Last Reviewed 06/19/19 @ 15:[address] Ozzie Sol MD) Ataxia (Acute) Acute respiratory failure with hypoxia (Resolved) History of recent pneumonia (Resolved) Hypotension (Resolved) LLQ abdominal pain (Resolved) Nausea and vomiting (Resolved) Near syncope (Resolved) Nonhealing surgical wound (Resolved) Obstipation (Resolved) Paroxysmal supraventricular tachycardia (Resolved) Septic shock (Resolved) Sigmoid stricture (Resolved) Neoplasm of skin of chest (Ruled-out) Neoplasm of skin of forearm (Ruled-out) Neoplasm of skin of lower leg (Ruled-out) Neoplasm of skin of upper arm (Ruled-out) 1. Ataxia, weakness-rule out CVA. Brain CT with chronic changes. Aspirin, statin. Obtain MRI of brain. PT/OT/ST. 2. Essential tremors-patient reports this was diagnosed a year ago by PCP. He has never been on a medication regimen. Initiated on propanolol. 3. Suspected orthostatic hypotension? On Florinef, midodrine. Unclear etiology. 4. CAD with history of stent- Follows with Dr. Amaro. Continue aspirin, statin. 5. CHRISTA-on CPAP. 6. Short gut syndrome-history of colon resection and jejunostomy tube placement. 7. Paroxysmal atrial fibrillation-previously on Xarelto. Patient reports cardiology in [place] took him off and replaced with twice daily aspirin. Continue amiodarone. 8. History of squamous cell skin skin cancer-status post excision by Dr. Sol. 9. Depression/anxiety-continue clonazepam, sertraline. DVT prophylaxis-heparin subcu This patient was seen by DAMIR Elam under the supervision of Dr. Suazo.
--- NOTE | 2020-01-21 16:18 | NURSING ---
Unable to verify pt's home medication list as pt unsure of meds and not here. Attempted to reach at [phone], no answer message left.
[2020-01-21] MEDS: Propranolol LA 60 MG Capsule PO (16:39)
[2020-01-21] MEDS: Clopidogrel Bisulfate 75 MG Tablet PO (16:39)
--- NOTE | 2020-01-21 17:21 | MRI_ITS ---
STUDY: MRI BRAIN WITHOUT CONTRAST REASON FOR EXAM: Male, 74 years old. Ataxia fall dizziness TECHNIQUE: Standardized multiplanar fat and water weighted pulse sequences were obtained. COMPARISON: 21 January 2020 earlier same day FINDINGS: There is no acute infarct. There is moderate extent remote left anterolateral and inferior frontal lobe infarct and moderate extent right posterior lateral cerebellar infarct. There is mild global brain atrophy. Appearance is stable since prior. MRI/Brain without Contrast IMPRESSION: 1. No acute findings. 2. 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 Electronically Signed: Linnette Munoz, at 19:26 EDT Tel , Service support ,
--- NOTE | 2020-01-21 17:23 | MRI_ITS ---
STUDY: MRA NECK WITH AND WITHOUT CONTRAST REASON FOR EXAM: Male, 74 years old. cva vascular assessment. TECHNIQUE: 3-D suiq-kj-uidelx (TOF) imaging was performed in an 1.5 T MRI scanner. DOTAREM 17ML was administered for the contrast enhanced images. COMPARISON: None. FINDINGS: RIGHT CAROTID ARTERIES: Normal right common carotid artery (CCA). Normal right common carotid bulb. Normal origin of the right internal carotid (ICA) artery without a hemodynamically significant stenosis. Normal visualized cervical portion of the right internal carotid artery. Normal origin of the right external carotid artery (ECA). LEFT CAROTID ARTERIES: Normal left common carotid artery (CCA). Normal left common carotid bulb. Normal origin of the left internal carotid (ICA) artery without a hemodynamically significant stenosis. Normal visualized cervical portion of the left internal carotid artery. Normal origin of the left external carotid artery (ECA). VERTEBRAL ARTERIES: Normal antegrade flow within the bilateral vertebral artery without a hemodynamically significant stenosis. MRI/MRA Neck WITH and W/O Contrast IMPRESSION: Normal bilateral cervical carotid and vertebral arteries. Electronically Signed: Linnette Munoz, at 19:59 EDT Tel , Service support ,
--- NOTE | 2020-01-21 18:53 | MRI_ITS ---
STUDY: MRA OF THE HEAD WITHOUT CONTRAST REASON FOR EXAM: Male, 74 years old. Stroke evaluation vascular assessment TECHNIQUE: 3-D njve-cp-owylek (TOF) imaging was performed with MIPs. The study was performed unenhanced. COMPARISON: None. FINDINGS: Bilateral base of skull carotids, bifurcations, anterior and middle cerebral arteries and proximal branches are patent. Posterior communicating arteries are large in the left and not seen on the right Posterior cerebral arteries and superior cerebellar arteries and proximal branches are patent. Vertebral arteries, basilar arteries are patent. There are remote left frontal and right cerebellar infarcts. MRI/MRA Head ONLY without Contrast IMPRESSION: 1. Unremarkable morongo of Rod and proximal branches. Electronically Signed: Linnette Munoz, at 20:01 EDT Tel , Service support ,
[2020-01-21] MEDS: Heparin Injection (Vial) 5,000 UNIT/ML VIAL 5000 UNIT SC (22:46)
[2020-01-21] MEDS: Midodrine HCl 5 MG Tablet 10 MG PO (22:46)
[2020-01-21] MEDS: clonazePAM 0.5 MG Tablet PO (22:51)
[2020-01-22] VITALS (9 sets, daily range): BP systolic 79–148; BP diastolic 54–74; PULSE 43–68; RESP 16–18; TEMP 36.5–37.3; O2SAT 94–98; BMI 24.2
[2020-01-22] MEDS: clonazePAM 0.5 MG Tablet PO ×3 (06:14→21:52)
[2020-01-22] MEDS: Midodrine HCl 5 MG Tablet 10 MG PO ×3 (06:14→21:45)
[2020-01-22] MEDS: 0.9% Saline Lock 10 ML Syringe IV ×2 (06:14→14:21)
[2020-01-22 06:34] LABS: Absolute Neutrophil Count 3.1 X10^3/uL (2.0-7.7); Basophil# 0.02 X10^3/uL; Basophil% 0.4 % (0-1); Eosinophil# 0.08 X10^3/uL; Eosinophils% 1.6 % (0-5); Hematocrit 45.8 % (40-54); Hemoglobin 14.3 g/dL (13.0-16.5); Lymphocyte % 17.7 % (19-41); Mean Corp Hgb Conc 31.2 g/dL (32-36); Mean Corpuscular Hgb 29.5 pg (27.0-32.0); Mean Corpuscular Volume 94.6 fL (80-94); Mean Platelet Vol. 9.5 fl (6.2-12.0); Monocyte# 0.93 X10^3/uL; Monocyte% 18.3 % (0-10); NRBC Flagged by Analyzer 0 % (0-5); Neutrophil # 3.14 X10^3/uL (2.7-7.7); Neutrophil % 61.8 % (47-70); Platelet Count 231 K/mm3 (150-450); RBC Distribution Width CV 14.5 % (11.6-14.6); RBC Distribution Width SD 50.5 fl (35.1-43.9); Red Blood Count 4.84 M/mm3 (4.6-6.2); White Blood Count 5.1 K/mm3 (4.4-11.0)
[2020-01-22 07:08] LABS: ALB/GLOB Ratio 0.7 RATIO (0.9-2.4); AST(SGOT) 20 U/L (15-37); Alanine Aminotransfer ALT/SGPT 21 U/L (16-61); Albumin, Serum 3.2 g/dL (3.2-5.0); Alkaline Phosphatase 69 U/L (45-117); Anion Gap 3 (5-15); BUN 10 mg/dL (7-18); Chloride 104 mmol/L (98-107); Cholesterol 148 mg/dL (200); Creatinine, Serum 0.91 mg/dL (0.70-1.30); EST Glomerular Filtration Rate 87 mL/min (>60); Est Glom Filt Rate - Afr Amer 105 mL/min (>60); Globulin 4.8 g/dL (2.2-4.2); Glucose 91 mg/dL (74-106); High Density Lipoprotein 36 mg/dL; Potassium 3.8 mmol/L (3.5-5.1); Sodium Level 138 mmol/L (136-145); Triglycerides 136 mg/dL; Very Low Density Lipoprotein 27 mg/dL (5-40)
--- NOTE | 2020-01-22 08:07 | EKG12_ITS ---
Test Reason : DIZZINESS Blood Pressure : / mmHG Vent. Rate : 050 BPM Atrial Rate : 050 BPM P-R Int : 210 ms QRS Dur : 084 ms QT Int : 526 ms P-R-T Axes : 000 -60 075 degrees QTc Int : 479 ms Sinus bradycardia with 1st degree A-V block Pulmonary disease pattern Left anterior fascicular block Abnormal ECG Confirmed by BASIL العراقي, AB ([id number]), website/blog editor KAYLEIGH CHAPIN ([id number]) on 01/26/2020 11:15:23 AM Referred By: JOSE F Confirmed By:JAMI GRACIA MD
--- NOTE | 2020-01-22 09:47 | TELEMED_ITS ---
[facility] has confirmed receipt of a request for visit. This document confirms receipt of the order initiating the consult. To find the results of the consultation, please view the patient's reports for the scanned Telemed Consult.
[2020-01-22] MEDS: Sertraline 50 MG Tablet PO (09:56)
[2020-01-22] MEDS: Clopidogrel Bisulfate 75 MG Tablet PO (09:56)
[2020-01-22] MEDS: Fludrocortisone Acetate 0.1 MG Tablet PO (09:57)
[2020-01-22] MEDS: Aspirin 81 MG TAB.CHEW PO (09:58)
[2020-01-22] MEDS: Heparin Injection (Vial) 5,000 UNIT/ML VIAL 5000 UNIT SC (10:05)
--- NOTE | 2020-01-22 12:00 | PN_ITS ---
<Meg Jaramillo ENGINE REPAIRER SERVICE - Last Filed: 01/22/20 12:14> Patient Problems: Active and Suspected Problems (Last Reviewed 06/19/19 @ 15:[address] Ozzie franks MD) Ataxia (Acute) Subjective: Patient seen and examined. at bedside. Patient denies dizziness, lightheadedness. Discussed plan of care. Denies questions or concerns at this time. - Physical Exam Vitals/I&O's: Vital Signs Temp Pulse Resp BP Pulse Ox 99.1 F 49 L 16 134/69 H 94 01/22/20 09:51 01/22/20 09:51 01/22/20 09:51 01/22/20 09:51 01/22/20 09:51 Oxygen Delivery Method Room Air Weight: 188 lb 7.924 oz Body Mass Index (BMI) 24.2 Intake and Output for Last 24 Hours 01/20/20 01/21/20 01/22/20 23:59 23:59 23:59 Intake Total 680 / 680 120 / 120 Output Total 1350 / 1350 425 / 425 Balance -670 / -670 -305 / -305 General: Alert, Oriented x3, Cooperative, - - Upper extremity tremors HEENT: Atraumatic, PERRLA, EOMI, Normocephalic Neck: Supple, No JVD, Negative Carotid Bruits Lungs: Clear to auscultation, Normal air movement Cardiovascular: Regular rate, No murmurs Abdomen: Bowel Sounds Present, Soft, Non Tender, Non-Distended Extremities: No clubbing, No cyanosis, No edema, Capillary Refill Less than 3 Seconds Skin: No rashes, No breakdown Musculoskeletal: No Tenderness to Palpation of Joints or Extremities, Cachexia, Muscle Wasting Neurological: Cranial nerves II-XII grossly intact, Neuro grossly intact Psych/Mental Status: Normal Affect, Appropriate Laboratory Results 01/21/20 12:00: WBC 4.6, RBC 4.53 L, Hgb 13.6, Hct 43.6, MCV 96.2 H, MCH 30.0, MCHC 31.2 L, RDW Std Deviation 51.7 H, RDW Coeff of Shelly 14.6, Plt Count 254, MPV 9.8, Immature Gran % (Auto) 0.400, Neut % (Auto) 58.8, Lymph % (Auto) 19.4, [place] % (Auto) 19.7 H, Eos % (Auto) 1.3, Baso % (Auto) 0.4, Absolute Neuts (auto) 2.7, Absolute Lymphs (auto) 0.90, Nucleated RBC % 0 01/21/20 12:00: Sodium 140, Potassium 4.0, Chloride 109 H, Carbon Dioxide 26.0, Anion Gap 5, BUN 13, Creatinine 0.85, Estim Creat Clear Calc 88.65, Est GFR (MDRD) Af Amer 113, Est GFR (MDRD) Non-Af 93, BUN/Creatinine Ratio 15.2, Glucose 86, Calcium 8.2 L, Total Bilirubin 0.40, AST 25, ALT 18, Alkaline Phosphatase 69, Troponin I < 0.015, Total Protein 8.0, Albumin 3.1 L, Globulin 4.9 H, Albumin/Globulin Ratio 0.6 L 01/21/20 12:50: Urine Color Yellow, Urine Clarity Clear, Urine pH 6.5, Ur Specific Duck 1.010, Urine Protein Negative, Urine Glucose (UA) Normal, Urine Ketones Negative, Urine Occult Blood Negative, Urine Nitrite Negative, Urine Bilirubin Negative, Urine Urobilinogen Normal, Ur Leukocyte Esterase Negative, Urine RBC 0 SEEN, Urine WBC 0 SEEN, Ur Squamous Epith Cells 0 SEEN, Urine Bacteria 0 SEEN, Urine Mucus 0 SEEN 01/22/20 06:12: Sodium 138, Potassium 3.8, Chloride 104, Carbon Dioxide 31.0, Anion Gap 3 L, BUN 10, Creatinine 0.91, Estim Creat Clear Calc 82.80, Est GFR (MDRD) Af Amer 105, Est GFR (MDRD) Non-Af 87, BUN/Creatinine Ratio 11.0, Glucose 91, Calcium 8.0 L, Total Bilirubin 0.40, AST 20, ALT 21, Alkaline Phosphatase 69, Total Protein 8.0, Albumin 3.2, Globulin 4.8 H, Albumin/Globulin Ratio 0.7 L , Triglycerides 136, Cholesterol 148, LDL Cholesterol 85, VLDL Cholesterol 27, HDL Cholesterol 36 L 01/22/20 06:12: WBC 5.1, RBC 4.84, Hgb 14.3, Hct 45.8, MCV 94.6 H, MCH 29.5, MCHC 31.2 L, RDW Std Deviation 50.5 H, RDW Coeff of Shelly 14.5, Plt Count 231, MPV 9.5, Immature Gran % (Auto) 0.200, Neut % (Auto) 61.8, Lymph % (Auto) 17.7 L, [place] % (Auto) 18.3 H, Eos % (Auto) 1.6, Baso % (Auto) 0.4, Absolute Neuts (auto) 3.1, Absolute Lymphs (auto) 0.90, Nucleated RBC % 0 Current Medications Amiodarone HCl (Cordarone) 200 mg PO DAILY [facility] Last Admin: 01/22/20 09:57 Dose: Not Given Documented by: Aspirin (Aspirin, Baby) 81 mg PO DAILY@0800 [facility] Last Admin: 01/22/20 09:58 Dose: 81 mg Documented by: Clonazepam (Klonopin) 0.5 mg PO TID [facility] Last Admin: 01/22/20 06:14 Dose: 0.5 mg Documented by: Clopidogrel Bisulfate (Plavix) 75 mg PO DAILY [facility] Last Admin: 01/22/20 09:56 Dose: 75 mg Documented by: Fludrocortisone Acetate (Florinef) 0.1 mg PO DAILY@0800 [facility] Last Admin: 01/22/20 09:57 Dose: 0.1 mg Documented by: Heparin Sodium (Porcine) (Heparin Na) 5,000 unit SC Q12 [facility] Last Admin: 01/22/20 10:05 Dose: 5,000 unit Documented by: Midodrine (Proamatine) 10 mg PO TID [facility] Last Admin: 01/22/20 09:56 Dose: 10 mg Documented by: Sertraline HCl (Zoloft) 50 mg PO DAILY [facility] Last Admin: 01/22/20 09:56 Dose: 50 mg Documented by: Sodium Chloride () 10 - 40 ml IV UD PRN PRN Reason: SALINE FLUSH Last Admin: 01/22/20 06:14 Dose: 10 ml Documented by: Medical Necessity - Tobacco Use Smoking Status: Never smoker Tobacco Use: Non-smoker Assessment/Plan All Active Problems (Last Reviewed 06/19/19 @ 15:[address] Ozzie Sol MD) Ataxia (Acute) Acute respiratory failure with hypoxia (Resolved) History of recent pneumonia (Resolved) Hypotension (Resolved) LLQ abdominal pain (Resolved) Nausea and vomiting (Resolved) Near syncope (Resolved) Nonhealing surgical wound (Resolved) Obstipation (Resolved) Paroxysmal supraventricular tachycardia (Resolved) Septic shock (Resolved) Sigmoid stricture (Resolved) Neoplasm of skin of chest (Ruled-out) Neoplasm of skin of forearm (Ruled-out) Neoplasm of skin of lower leg (Ruled-out) Neoplasm of skin of upper arm (Ruled-out) 1. Worsening ataxia, weakness, ongoing essential tremors-CVA ruled out. Neck MRA unremarkable. UA, chest x-ray unremarkable. 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 Initially started on propanolol however discontinued due to bradycardia. Will begin low-dose Mysoline 50 mg daily per neurology recommendations. PT/OT. 2. Bradycardia-heart rate 50s on admission. Dropped to 40s with initiation of propanolol. DC propanolol as noted above. Hold amiodarone. Monitor telemetry overnight. 3. History of anoxic brain injury with resultant decline in executive functioning-previously diagnosed at brain center in [place]. Complicates #1. 4. Orthostatic hypotension- On Florinef, midodrine. Obtain orthostatic vitals. 5. CAD with history of stent- Follows with Dr. Amaro. Continue aspirin, statin. 6. CHRISTA-on CPAP. 7. Short gut syndrome-history of colon resection and jejunostomy tube placement. 8. Paroxysmal atrial fibrillation-plan to restart Xarelto. Patient had been taken off of this by cardiology in [place] and placed on twice daily aspirin. If Xarelto is not improved by insurance, will consider Coumadin which patient was on in the past as well. 9. History of squamous cell skin skin cancer-status post excision by Dr. Sol. 10. Depression/anxiety-continue clonazepam, sertraline. DVT prophylaxis-xarelto This patient was seen by DAMIR Elam under the supervision of Dr. Gardner. <Veronica Gardner - Last Filed: 01/22/20 13:13> - Physical Exam Vitals/I&O's: Vital Signs Temp Pulse Resp BP Pulse Ox 99.1 F 49 L 16 134/69 H 94 01/22/20 09:51 01/22/20 09:51 01/22/20 09:51 01/22/20 09:51 01/22/20 09:51 Oxygen Delivery Method Room Air Weight: 188 lb 7.924 oz Body Mass Index (BMI) 24.2 Intake and Output for Last 24 Hours 01/20/20 01/21/20 01/22/20 23:59 23:59 23:59 Intake Total 680 / 680 120 / 120 Output Total 1350 / 1350 425 / 425 Balance -670 / -670 -305 / -305 Laboratory Results 01/21/20 12:50: Urine Color Yellow, Urine Clarity Clear, Urine pH 6.5, Ur Specific Duck 1.010, Urine Protein Negative, Urine Glucose (UA) Normal, Urine Ketones Negative, Urine Occult Blood Negative, Urine Nitrite Negative, Urine Bilirubin Negative, Urine Urobilinogen Normal, Ur Leukocyte Esterase Negative, Urine RBC 0 SEEN, Urine WBC 0 SEEN, Ur Squamous Epith Cells 0 SEEN, Urine Bacteria 0 SEEN, Urine Mucus 0 SEEN 01/22/20 06:12: Sodium 138, Potassium 3.8, Chloride 104, Carbon Dioxide 31.0, Anion Gap 3 L, BUN 10, Creatinine 0.91, Estim Creat Clear Calc 82.80, Est GFR (MDRD) Af Amer 105, Est GFR (MDRD) Non-Af 87, BUN/Creatinine Ratio 11.0, Glucose 91, Calcium 8.0 L, Total Bilirubin 0.40, AST 20, ALT 21, Alkaline Phosphatase 69, Total Protein 8.0, Albumin 3.2, Globulin 4.8 H, Albumin/Globulin Ratio 0.7 L , Triglycerides 136, Cholesterol 148, LDL Cholesterol 85, VLDL Cholesterol 27, HDL Cholesterol 36 L 01/22/20 06:12: WBC 5.1, RBC 4.84, Hgb 14.3, Hct 45.8, MCV 94.6 H, MCH 29.5, MCHC 31.2 L, RDW Std Deviation 50.5 H, RDW Coeff of Shelly 14.5, Plt Count 231, MPV 9.5, Immature Gran % (Auto) 0.200, Neut % (Auto) 61.8, Lymph % (Auto) 17.7 L, [place] % (Auto) 18.3 H, Eos % (Auto) 1.6, Baso % (Auto) 0.4, Absolute Neuts (auto) 3.1, Absolute Lymphs (auto) 0.90, Nucleated RBC % 0 Current Medications Amiodarone HCl (Cordarone) 200 mg PO DAILY [facility] Last Admin: 01/22/20 09:57 Dose: Not Given Documented by: Aspirin (Aspirin, Baby) 81 mg PO DAILY@0800 [facility] Last Admin: 01/22/20 09:58 Dose: 81 mg Documented by: Clonazepam (Klonopin) 0.5 mg PO TID [facility] Last Admin: 01/22/20 06:14 Dose: 0.5 mg Documented by: Fludrocortisone Acetate (Florinef) 0.1 mg PO DAILY@0800 [facility] Last Admin: 01/22/20 09:57 Dose: 0.1 mg Documented by: Midodrine (Proamatine) 10 mg PO TID [facility] Last Admin: 01/22/20 09:56 Dose: 10 mg Documented by: Primidone (Mysoline) 50 mg PO DAILY [facility] Rivaroxaban (Xarelto) 20 mg PO DINNER [facility] Sertraline HCl (Zoloft) 50 mg PO DAILY [facility] Last Admin: 01/22/20 09:56 Dose: 50 mg Documented by: Sodium Chloride () 10 - 40 ml IV UD PRN PRN Reason: SALINE FLUSH Last Admin: 01/22/20 06:14 Dose: 10 ml Documented by: Assessment/Plan Patient seen by Meg REICH under my supervision Patient seen and examined. He was admitted with a complaint of ataxia and essential tremors. MRI negative for stroke and MRA of the head and neck was also negative. He does have a history of familial tremors. He was started on propranolol yesterday. Patient has however been bradycardic since admission and heart rate went as low as 43. He has no complaints this morning. Review systems otherwise negative. O/E; Vital Signs Temp Pulse Resp BP Pulse Ox 99.1 F 49 L 16 134/69 H 94 01/22/20 09:51 01/22/20 09:51 01/22/20 09:51 01/22/20 09:51 01/22/20 09:51 General: Alert, Oriented x3, Cooperative, HEENT: Atraumatic, PERRLA, EOMI, Normocephalic Neck: Supple, No JVD, Negative Carotid Bruits Lungs: Clear to auscultation, Normal air movement Cardiovascular: Regular rate, No murmurs Abdomen: Bowel Sounds Present, Soft, Non Tender, Non-Distended Extremities: No clubbing, No cyanosis, No edema, Capillary Refill Less than 3 Seconds Skin: No rashes, No breakdown Musculoskeletal: No Tenderness to Palpation of Joints or Extremities, Cachexia, Muscle Wasting, intentional tremors of upper extremities Neurological: Cranial nerves II-XII grossly intact, Neuro grossly intact Psych/Mental Status: Normal Affect, Appropriate Plan is to hold both amiodarone and propranolol for now. EKG done showed sinus bradycardia. Will check TSH. Neurology consulted and per their recommendations, to start patient on Mysoline 50 mg daily. PT OT on board. Patient also has a history of paroxysmal A. fib and was on Xarelto but states he was taken off of this by cardiology in [place] and placed on aspirin twice daily due to the cost of xarelto. Will check for insurance coverage of xarelto and resume it if it is covered. Rest as per Meg Jaramillo ENGINE REPAIRER SERVICE-C's note, which I have reviewed and endorsed. Inpatient E&M: 54199 Subs Hosp L2
--- NOTE | 2020-01-22 13:19 | CM.UR ---
This patient previously on Xarelto. One of his notes it says he stopped Xarelto d/t cost. Dax Jaramillo NP sent rx for Xarelto to patient's preferred pharmacy. This RN contacted pharmacy and the cost is $179.69 per month after coverage. Attempted to find formulary but all the doacs are considered the same. Alerted Dax Jaramillo NP. States they'll probably leave him on coumadin then. Dax Bianchi RN, CCM.
[2020-01-22] MEDS: 0.9% Normal Saline 1,000 ML 125 ML IV ×2 (14:18→21:52)
[2020-01-22 15:03] LABS: International Normalized Ratio 1.1; Prothrombin Time (Protime)PT. 13.5 SECONDS (11.7-14.9)
[2020-01-22] MEDS: Atorvastatin Calcium 10 MG Tablet PO (21:52)
[2020-01-23 03:00] VITALS: PULSE 44
[2020-01-23 03:45] VITALS: BP 129/65; PULSE 48; RESP 17; TEMP 36.9; O2SAT 98
[2020-01-23 03:47] VITALS: BP 116/70; BP 129/65; BP 142/66; PULSE 48; PULSE 51; PULSE 61
[2020-01-23 05:55] LABS: International Normalized Ratio 1.1; Prothrombin Time (Protime)PT. 13.5 SECONDS (11.7-14.9)
[2020-01-23] MEDS: clonazePAM 0.5 MG Tablet PO (06:00)
[2020-01-23] MEDS: 0.9% Normal Saline 1,000 ML 125 ML IV (06:00)
[2020-01-23] MEDS: Midodrine HCl 5 MG Tablet 10 MG PO (06:00)
[2020-01-23 07:00] VITALS: PULSE 47
[2020-01-23 08:59] VITALS: BP 149/76; PULSE 52; RESP 16; TEMP 36.6; O2SAT 97
[2020-01-23] MEDS: Sertraline 50 MG Tablet PO (09:07)
[2020-01-23] MEDS: Primidone 50 MG Tablet PO (09:07)
[2020-01-23] MEDS: Aspirin 81 MG TAB.CHEW PO (09:07)
[2020-01-23] MEDS: Fludrocortisone Acetate 0.1 MG Tablet PO (09:08)
--- NOTE | 2020-01-23 10:26 | CON.PCM_ITS ---
Reason for Consult Date of Consultation: 01/23/20 Reason for Consultation: sinus bradycardia with orthostatic Hypotension History of Present Illness: The patient is a 74 year old M [] Patient seen and evaluated at bedside along with the nursing staff Cardiac consultation requested for evaluation of sinus bradycardia and orthostatic hypotension. Patient denied any prior history of coronary artery atherosclerosis in particular he does not have any history of coronary artery stent or aortocoronary bypass surgery. Symptoms his longstanding history of for orthostatic hypotension and dizziness when he stands up. Noted he is on mididrone on review of the laboratory monitor and EKG he had underlying sinus with sinus bradycardia. Also on review of the record he had transthoracic echocardiogram 2 years ago which showed LV function is preserved Cardiac examination essentially normal. Past Medical History Allergies/Adverse Reactions: Allergies metoprolol Adverse Reaction (Verified 01/21/20 11:58) Low blood pressure/syncope Home Medications: Ambulatory Orders Medication Instructions Recorded Amiodarone HCl [Pacerone] 200 mg PO DAILY 01/21/20 Clonazepam 0.5 mg PO TID 01/21/20 Fludrocortisone Acetate [Florinef] 0.1 mg PO DAILY@0800 01/21/20 Midodrine HCl 10 mg PO TID 01/21/20 Rosuvastatin Calcium [Crestor] 5 mg PO QHS 01/21/20 Sertraline HCl 50 mg PO DAILY 01/21/20 Aspirin [Aspirin, Baby] 81 mg PO DAILY@0800 tab.chew 01/22/20 Primidone [Mysoline] 50 mg PO DAILY #30 tab 01/22/20 Rivaroxaban [Xarelto] 20 mg PO DAILY #30 tab 01/22/20 Triamcinolone 0.1% Cream [Kenalog] 1 applic TOPICAL TID PRN 01/22/20 Past Medical History (Chronic Problems): Chronic Problems (Last Reviewed 06/19/19 @ 15:[address] Ozzie Sol MD) Chronic systolic congestive heart failure (Chronic) Other seborrheic keratosis (Chronic) 1 cm benign keratosis left lateral back 5 mm benign keratosis left outer arm 6 mm benign keratosis left lateral forehead 5 mm benign keratosis left outer shoulder ramp lead current use of anticoagulant (Chronic) Paroxysmal supraventricular tachycardia (Chronic) Paroxysmal atrial fibrillation (Chronic) Family history of skin cancer (Chronic) Personal history of skin cancer (Chronic) Actinic keratosis (Chronic) left medial proximal leg left upper medial chest wall right outer arm right superomedial chest wall left upper chest wall right mid dorsal ulnar forearm right mid volar radial forearm left upper chest wall by clavicle (with focal moderate atypia) left nasal tip, healed with Aldara left shoulder, healed with Aldara CHRISTA (obstructive sleep apnea) (Chronic) Colonic diverticular abscess (Chronic) Ventral hernia (Chronic) Hypersomnia, unspecified (Chronic) REM behavioral disorder (Chronic) Diastasis of rectus abdominis (Chronic) Atherosclerosis of coronary artery of jamul heart without angina pectoris (Chronic) PCI/GAETANO-LAD w/ 3.0 x 28 mm Promus Element Plus Rx 03/02/13 History of coronary artery stent placement (Chronic 03/02/13) PCI/GAETANO-LAD w/ 3.0 x 28 mm Promus Element Plus Rx 03/02/13 HLD (hyperlipidemia) (Chronic) Surgical History: noncontributory Psychiatric History: No pertinent psych hx - *Family History Maternal Family History: Family History (Last Reviewed 01/21/20 @ 15:18 by Meg Jaramillo NP, AGRICULTURAL PLOW OPERATOR-C) Father CVA (cerebral vascular accident) Hypertension HLD (hyperlipidemia) Cancer Mother HLD (hyperlipidemia) Hypertension Other Family history of skin cancer History Items: No pertinent history Paternal Family History: Family History (Last Reviewed 01/21/20 @ 15:18 by Meg Jaramillo NP, AGRICULTURAL PLOW OPERATOR-C) Father CVA (cerebral vascular accident) Hypertension HLD (hyperlipidemia) Cancer Mother HLD (hyperlipidemia) Hypertension Other Family history of skin cancer Lives: Spouse/ Significant Other Smoking Status: Never smoker Tobacco Use: Non-smoker Alcohol: None Drugs: None Review of Systems - Review of Systems General: Denies: Fever, Night Sweats, Fatigue Cardiovascular: Reports: Dizziness, Near Syncope Respiratory: Denies: Cough, Sputum Production, Hemoptysis Gastrointestinal: Denies: Hematemesis, Hematochezia, Melena Genitourinary: Denies: Dysuria, Hematuria Skin: Denies: Rash Objective: Vital Signs Temp Pulse Resp BP Pulse Ox 97.8 F 52 L 16 149/76 H 97 01/23/20 08:59 01/23/20 08:59 01/23/20 08:59 01/23/20 08:59 01/23/20 08:59 Oxygen Delivery Method Room Air Weight: 188 lb 7.924 oz Body Mass Index (BMI) 24.2 Orthostatic Vital Signs Start: 01/22/20 13:07 Freq: q24h Status: Active Protocol: Activity Type Activity Date Activity User E-Sign Co-Sign Detail Recorded Client Recorded Date Recorded By Document 01/23/20 03:47 CS [id number] 01/23/20 03:53 CS 01/23/20 03:47 Orthostatic Vitals Standing -Blood Pressure (90/60-120/80) 116/70 -Extremity Use Right Arm -Pulse Rate (60-100) 61 Sitting -Blood Pressure (90/60-120/80) 142/66 H -Extremity Use Right Arm -Pulse Rate (60-100) 51 L Lying -Blood Pressure (90/60-120/80) 129/65 H -Extremity Use Right Arm -Pulse Rate (60-100) 48 L Intake and Output for Last 24 Hours 01/21/20 01/22/20 01/23/20 23:59 23:59 23:59 Intake Total 680 / 680 1561.67 / 1561.67 814.58 / 814.58 Output Total 1350 / 1350 975 / 975 Balance -670 / -670 586.67 / 586.67 814.58 / 814.58 General: Awake, Alert, Oriented x 3 HEENT: PERRL, EOMI, Sclera Non Icteric Neck: Supple, Good ROM, No Lymph Node Enlargement Lungs: Clear to auscultation Cardiovascular: Regular Rhythm, Normal S1, Normal S2, No Murmurs, No Rubs, No Gallops Vascular: No Carotid Bruits, Normal Femoral Pulses, Normal Radial Pulses, Normal Dorsalis Pedal Pulse, Normal Posterior Tibial Pulses Abdomen: Bowel Sounds Present, Soft, Non Tender, No HSM, No Organomegaly Extremities: No Cyanosis, No Clubbing, No edema Neurological: No Focal Motor or Sensory Deficit 01/22/20 14:45: PT 13.5, INR 1.1 01/23/20 05:26: PT 13.5, INR 1.1 Rhythm: EKG: ECHO: Stress Test: Cardiac Cath: PCI: CT Surgery: Holter monitor: EPS: PPM: CXR: Chest CT Scan: Assessment/Plan 74-year-old patient, with history of orthostatic hypotension and has history of tremor was on a beta-aleida propanolol which he discontinued as well has been on treatment with midodrine. No active chest pain no syncopal episodes reported. Cardiac examination essentially normal and the EKG revealed underlying sinus rhythm Cardiac care plan discussed with the patient and nursing staff patient will need further evaluation with possible event monitor versus loop recorder and 2D echocardiogram and a nuclear stress test which can be set up as an outpatient. Patient is planning to move out of state to [facility] for settlement Advised to be seen by sanding machine operator or tender in his new location for further cardiac care and continuation of cardiac care. From cardiac standpoint if he remains stable clinically he can be discharged with no further work-up Thank you for the consultation
--- NOTE | 2020-01-23 11:06 | PCM.DC ---
- Discharge Diagnoses Current Active Problems: Current Active and Chronic Problems (Last Reviewed 06/19/19 @ 15:[address] Ozzie Sol MD) Ataxia (Acute) You will use the following diet at home:: Cardiac Discharge Activity: Return to Normal Activity Call your doctor if you observe: Shortness of breath, Dizziness, Fainting spells, Chest pain Instructions: ED Weakness [facility] Additional Instructions: You will need your INR checked in 2 days which can be completed by her primary care provider. Take Coumadin 5 mg daily for 2 days then plan for transition to 2.5 mg daily pending INR results. Allergies/Adverse Reactions: Allergies metoprolol Adverse Reaction (Verified 01/21/20 11:58) Low blood pressure/syncope Medications to take at Discharge Clonazepam 0.5 mg PO TID 01/21/20 Fludrocortisone Acetate [Florinef] 0.1 mg PO DAILY@0800 01/21/20 Midodrine HCl 10 mg PO TID 01/21/20 Rosuvastatin Calcium [Crestor] 5 mg PO QHS 01/21/20 Sertraline HCl 50 mg PO DAILY 01/21/20 Aspirin [Aspirin, Baby] 81 mg PO DAILY@0800 tab.chew 01/22/20 Primidone [Mysoline] 50 mg PO DAILY #30 tab 01/22/20 Warfarin [Coumadin] 2.5 mg PO DAILY #30 tab 01/23/20 The following prescriptions were given: Warfarin [Coumadin] 2.5 mg PO DAILY #30 tab Transmission Status: Pending to [id number] Primidone [Mysoline] 50 mg PO DAILY #30 tab Transmission Status: Received by [id number] Primary Care Physician: Aristides Marshall MD [Primary Care Provider] - 2 Days Please follow up with your Primary Care Physician in: 1 Week Test Results: Test results from this visit will be discussed in further detail at your follow-up appointment, if applicable. Please Follow Up With: Primary Belling Machine Operator When: 2 Weeks Please Follow Up With: Neurology When: Establish following move to [place] Proposed Discharge Date: 01/23/20
--- NOTE | 2020-01-23 11:21 | PCM.DC.SUM ---
<Meg Jaramillo DERRICK BOAT CAPTAIN - Last Filed: 01/23/20 11:30> Discharge Date and Diagnosis Date of Admission: 01/21/20 Date of Discharge: 01/23/20 - Primary Discharge Diagnosis Acute Problems: Active Problems (Last Reviewed 06/19/19 @ 15:[address] Ozzie Sol MD) 1. Worsening ataxia, weakness, ongoing essential tremors-CVA ruled out. 2. Sinus bradycardia 3. 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 Orthostatic hypotension, chronic 5. CAD with history of stent 6. CHRISTA 7. Short gut syndrome-history of colon resection and jejunostomy tube placement. 8. Paroxysmal atrial fibrillation 9. History of squamous cell skin skin cancer 10. Depression/anxiety - Secondary Discharge Diagnosis Chronic Problems: Chronic Problems (Last Reviewed 06/19/19 @ 15:[address] 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) Paroxysmal supraventricular tachycardia (Chronic) Paroxysmal atrial fibrillation (Chronic) Family history of skin cancer (Chronic) Personal history of skin cancer (Chronic) Actinic keratosis (Chronic) left medial proximal leg left upper medial chest wall right outer arm right superomedial chest wall left upper chest wall right mid dorsal ulnar forearm right mid volar radial forearm left upper chest wall by clavicle (with focal moderate atypia) left nasal tip, healed with Aldara left shoulder, healed with Aldara CHRISTA (obstructive sleep apnea) (Chronic) Colonic diverticular abscess (Chronic) Ventral hernia (Chronic) Hypersomnia, unspecified (Chronic) REM behavioral disorder (Chronic) Diastasis of rectus abdominis (Chronic) Atherosclerosis of coronary artery of hoh heart without angina pectoris (Chronic) PCI/GAETANO-LAD w/ 3.0 x 28 mm Promus Element Plus Rx 03/02/13 History of coronary artery stent placement (Chronic 03/02/13) PCI/GAETANO-LAD w/ 3.0 x 28 mm Promus Element Plus Rx 03/02/13 HLD (hyperlipidemia) (Chronic) Hospital Course and Treatment Imaging Results: Diagnostic Data Brain CT 01/21/20 12:19 IMPRESSION: Chronic involutional changes of the brain. Electronically Signed: Jaleel Squires MD at 12:57 EDT Tel , Service support , Chest X-Ray 01/21/20 12:20 IMPRESSION: No active disease. Electronically Signed: Jaleel Squires MD at 13:04 EDT Tel , Service support , Brain MRI 01/21/20 17:21 IMPRESSION: 1. No acute findings. 2. 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 Electronically Signed: Linnette Munoz at 19:26 EDT Tel , Service support , Neck MRA 01/21/20 17:23 IMPRESSION: Normal bilateral cervical carotid and vertebral arteries. Electronically Signed: Linnette Munoz at 19:59 EDT Tel , Service support , Head MRA 01/21/20 18:53 IMPRESSION: 1. Unremarkable stillaguamish of Rod and proximal branches. Electronically Signed: Linnette Munoz at 20:01 EDT Tel , Service support , Dr. Shaikh- Cardiology SOC neurology Operations: None Procedures: None Summary of Care Provided: The patient is a 74 year old M admitted 01/21/2020 due to ataxia and weakness with falls. 1. Worsening ataxia, weakness, ongoing essential tremors-CVA ruled out. Neck MRA unremarkable. UA, chest x-ray unremarkable. 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 Patient states he has had tremors for at least 1 year which have been worsening. Initially started on propanolol however discontinued due to bradycardia. Will begin low-dose Mysoline 50 mg daily per neurology recommendations. Patient agreeable to outpatient physical therapy. Follow-up with primary care physician in 1 week. Recommend establishing with neurology upon return to [place]. 2. Sinus bradycardia-cardiology consulted. Cardiology recommended event monitor versus loop recorder and 2D echo/stress test which can be arranged as outpatient upon return to [place]. Amiodarone discontinued at discharge. 3. 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 Complicates #1. 4. Orthostatic hypotension-chronic. On Florinef, midodrine. 5. CAD with history of stent- Continue aspirin, statin. 6. CHRISTA-on CPAP. 7. Short gut syndrome-history of colon resection and jejunostomy tube placement. 8. Paroxysmal atrial fibrillation-patient's insurance does not cover Xarelto or Eliquis. Patient has been on Coumadin in the past. Restarted on Coumadin 5 mg daily for 3 days then repeat INR. Pending INR, plan to reduce to 2.5 mg daily. Patient will need close follow-up with PCP regarding Coumadin dosing and trending INR. 9. History of squamous cell skin skin cancer-status post excision by Dr. Sol. 10. Depression/anxiety-continue clonazepam, sertraline. General: Alert, Oriented x3, Cooperative, - - Upper extremity tremors HEENT: Atraumatic, PERRLA, EOMI, Normocephalic Neck: Supple, No JVD, Negative Carotid Bruits Lungs: Clear to auscultation, Normal air movement Cardiovascular: Regular rate, No murmurs Abdomen: Bowel Sounds Present, Soft, Non Tender, Non-Distended Extremities: No clubbing, No cyanosis, No edema, Capillary Refill Less than 3 Seconds Skin: No rashes, No breakdown Musculoskeletal: No Tenderness to Palpation of Joints or Extremities, Cachexia, Muscle Wasting Neurological: Cranial nerves II-XII grossly intact, Neuro grossly intact Psych/Mental Status: Normal Affect, Appropriate Patient seen and examined prior to discharge. Physical assessment as noted above. Patient is stable for discharge with follow up recommendations as noted above. This patient was seen by DAMIR Elam under the supervision of Dr. Gardner. - Physical Exam Vitals/I&O's: Vital Signs Temp Pulse Resp BP Pulse Ox 97.8 F 52 L 16 149/76 H 97 01/23/20 08:59 01/23/20 08:59 01/23/20 08:59 01/23/20 08:59 01/23/20 08:59 Oxygen Delivery Method Room Air Weight: 188 lb 7.924 oz Body Mass Index (BMI) 24.2 Orthostatic Vital Signs Start: 01/22/20 13:07 Freq: q24h Status: Active Protocol: Activity Type Activity Date Activity User E-Sign Co-Sign Detail Recorded Client Recorded Date Recorded By Document 01/23/20 03:47 CS [id number] 01/23/20 03:53 CS 01/23/20 03:47 Orthostatic Vitals Standing -Blood Pressure (90/60-120/80) 116/70 -Extremity Use Right Arm -Pulse Rate (60-100) 61 Sitting -Blood Pressure (90/60-120/80) 142/66 H -Extremity Use Right Arm -Pulse Rate (60-100) 51 L Lying -Blood Pressure (90/60-120/80) 129/65 H -Extremity Use Right Arm -Pulse Rate (60-100) 48 L Intake and Output for Last 24 Hours 01/21/20 01/22/20 01/23/20 23:59 23:59 23:59 Intake Total 680 / 680 1561.67 / 1561.67 814.58 / 814.58 Output Total 1350 / 1350 975 / 975 Balance -670 / -670 586.67 / 586.67 814.58 / 814.58 Laboratory Results 01/22/20 06:12: TSH 3.10 01/22/20 14:45: PT 13.5, INR 1.1 01/23/20 05:26: PT 13.5, INR 1.1 Current Medications Amiodarone HCl (Cordarone) 200 mg PO DAILY [facility] Last Admin: 01/22/20 09:57 Dose: Not Given Documented by: Aspirin (Aspirin, Baby) 81 mg PO DAILY@0800 [facility] Last Admin: 01/23/20 09:07 Dose: 81 mg Documented by: Atorvastatin Calcium (Lipitor) 10 mg PO QHS [facility] Last Admin: 01/22/20 21:52 Dose: 10 mg Documented by: Betamethasone Valerate (Valisone 0.1% Cream (Bkc)) 1 applic TOPICAL TID PRN PRN Reason: subuctaneous lupus Last Admin: 01/23/20 09:08 Dose: 1 applicatio Documented by: Clonazepam (Klonopin) 0.5 mg PO TID [facility] Last Admin: 01/23/20 06:00 Dose: 0.5 mg Documented by: Fludrocortisone Acetate (Florinef) 0.1 mg PO DAILY@0800 [facility] Last Admin: 01/23/20 09:08 Dose: 0.1 mg Documented by: Sodium Chloride () 1,000 mls @ 125 mls/hr IV .Q8H [facility] Last Admin: 01/23/20 06:00 Dose: 125 mls/hr Documented by: Midodrine (Proamatine) 10 mg PO TID [facility] Last Admin: 01/23/20 06:00 Dose: 10 mg Documented by: Primidone (Mysoline) 50 mg PO DAILY [facility] Last Admin: 01/23/20 09:07 Dose: 50 mg Documented by: Sertraline HCl (Zoloft) 50 mg PO DAILY [facility] Last Admin: 01/23/20 09:07 Dose: 50 mg Documented by: Sodium Chloride () 10 - 40 ml IV UD PRN PRN Reason: SALINE FLUSH Last Admin: 01/22/20 14:21 Dose: 10 ml Documented by: Warfarin Sodium (Jantoven) 5 mg PO DAILY@1700 [facility] Last Admin: 01/22/20 18:00 Dose: 5 mg Documented by: Discharge Diet: Low fat/ Low Cholesterol Discharge Activity: Return to Normal Activity Call your doctor if you observe: Shortness of breath, Dizziness, Fainting spells, Chest pain Home Medications: Medications to take at Discharge Clonazepam 0.5 mg PO TID 01/21/20 Fludrocortisone Acetate [Florinef] 0.1 mg PO DAILY@0800 01/21/20 Midodrine HCl 10 mg PO TID 01/21/20 Rosuvastatin Calcium [Crestor] 5 mg PO QHS 01/21/20 Sertraline HCl 50 mg PO DAILY 01/21/20 Aspirin [Aspirin, Baby] 81 mg PO DAILY@0800 tab.chew 01/22/20 Primidone [Mysoline] 50 mg PO DAILY #30 tab 01/22/20 Warfarin [Coumadin] 2.5 mg PO DAILY #30 tab 01/23/20 Following Prescriptions Were Given to Patient: Warfarin [Coumadin] 2.5 mg PO DAILY #30 tab Transmission Status: Received by [id number] Primidone [Mysoline] 50 mg PO DAILY #30 tab Transmission Status: Received by [id number] Primary Care Physician: Aristides Marshall MD [Primary Care Provider] - 2 Days Please follow up with your Primary Care Physician in: 1 Week Please Follow Up With: Primary Career Services Assistant When: 2 Weeks Please Follow Up With: Neurology When: Establish following move to [place] Patient Instructions: ED Weakness UKO Disposition: Home Minutes spent on discharge:: 35 Patient Condition:: Stable Medical Necessity - Tobacco Use Smoking Status: Never smoker Tobacco Use: Non-smoker Meaningful Use Info Meaningful Use Diagnoses (Choose all that apply): None applicable <Veronica Gardner - Last Filed: 01/23/20 13:16> Discharge Date and Diagnosis - Secondary Discharge Diagnosis Chronic Problems: Chronic Problems (Last Reviewed 06/19/19 @ 15:[address] 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) Paroxysmal supraventricular tachycardia (Chronic) Paroxysmal atrial fibrillation (Chronic) Family history of skin cancer (Chronic) Personal history of skin cancer (Chronic) Actinic keratosis (Chronic) left medial proximal leg left upper medial chest wall right outer arm right superomedial chest wall left upper chest wall right mid dorsal ulnar forearm right mid volar radial forearm left upper chest wall by clavicle (with focal moderate atypia) left nasal tip, healed with Aldara left shoulder, healed with Aldara CHRISTA (obstructive sleep apnea) (Chronic) Colonic diverticular abscess (Chronic) Ventral hernia (Chronic) Hypersomnia, unspecified (Chronic) REM behavioral disorder (Chronic) Diastasis of rectus abdominis (Chronic) Atherosclerosis of coronary artery of hoh heart without angina pectoris (Chronic) PCI/GAETANO-LAD w/ 3.0 x 28 mm Promus Element Plus Rx 03/02/13 History of coronary artery stent placement (Chronic 03/02/13) PCI/GAETANO-LAD w/ 3.0 x 28 mm Promus Element Plus Rx 03/02/13 HLD (hyperlipidemia) (Chronic) Hospital Course and Treatment Summary of Care Provided: Patient seen by Meg REICH under my supervision Patient is a 74 male with a PMH as outlined who was admitted via the Ed on 01/21/2020 with a complaint of ataxia and weakness with mechanical falls. he also had upper extremity tremors for the past year. His also noted that patient had brief episodes of confusion on some evenings prior to admission. He was admitted and managed for ataxia to rule out CVA. Brain CT was negative for any acute intracranial pathology. MRI of the brain was also negative for any intracranial pathology. MRA of the head and neck was also unremarkable. PT/OT worked with patient and did very well. Patient was noted to be bradycardic, and EKG showed sinus bradycardia. She had been started on propranolol for essential tremors, but this was stopped. His amiodarone was also stopped. Cardiology was consulted o/a of persistent bradycardia. Per cardiology, patient was to stop amiodarone and to follow up with cardiology on outpatient basis. He was also started on coumadin for afib thromboprophylaxis, and his aspirin discontinued. He remained stable and is to follow up with his PCP and cardiology in 1-2 weeks. He is to have INR check on outpatient basis to ensure INR is within the therapeutic level of 2-3. Patient seen and examined prior to discharge. He had no complaints and felt well. Review of systems otherwise negative. Labs and vitals reviewed. Home medications reviewed and reconciled. O/E: Vital Signs Temp Pulse Resp BP Pulse Ox 97.8 F 52 L 16 149/76 H 97 01/23/20 08:59 01/23/20 08:59 01/23/20 08:59 01/23/20 08:59 01/23/20 08:59 General: Alert, Oriented x3, Cooperative, HEENT: Atraumatic, PERRLA, EOMI, Normocephalic Neck: Supple, No JVD, Negative Carotid Bruits Lungs: Clear to auscultation, Normal air movement Cardiovascular: Regular rate, No murmurs Abdomen: Bowel Sounds Present, Soft, Non Tender, Non-Distended Extremities: No clubbing, No cyanosis, No edema, Capillary Refill Less than 3 Seconds Skin: No rashes, No breakdown Musculoskeletal: No Tenderness to Palpation of Joints or Extremities, Cachexia, Muscle Wasting, mild intentional tremors of upper extremities Neurological: Cranial nerves II-XII grossly intact, Neuro grossly intact Psych/Mental Status: Normal Affect, Appropriate Plan is for discharge home today as above. Rest as per Meg Jaramillo DERRICK BOAT CAPTAIN-C under my supervision. - Physical Exam Vitals/I&O's: Vital Signs Temp Pulse Resp BP Pulse Ox 97.8 F 52 L 16 149/76 H 97 01/23/20 08:59 01/23/20 08:59 01/23/20 08:59 01/23/20 08:59 01/23/20 08:59 Oxygen Delivery Method Room Air Weight: 188 lb 7.924 oz Body Mass Index (BMI) 24.2 Orthostatic Vital Signs Start: 01/22/20 13:07 Freq: q24h Status: Active Protocol: Activity Type Activity Date Activity User E-Sign Co-Sign Detail Recorded Client Recorded Date Recorded By Document 01/23/20 03:47 CS [id number] 01/23/20 03:53 CS 01/23/20 03:47 Orthostatic Vitals Standing -Blood Pressure (90/60-120/80) 116/70 -Extremity Use Right Arm -Pulse Rate (60-100) 61 Sitting -Blood Pressure (90/60-120/80) 142/66 H -Extremity Use Right Arm -Pulse Rate (60-100) 51 L Lying -Blood Pressure (90/60-120/80) 129/65 H -Extremity Use Right Arm -Pulse Rate (60-100) 48 L Intake and Output for Last 24 Hours 01/21/20 01/22/20 01/23/20 23:59 23:59 23:59 Intake Total 680 / 680 1561.67 / 1561.67 814.58 / 814.58 Output Total 1350 / 1350 975 / 975 675 / 675 Balance -670 / -670 586.67 / 586.67 139.58 / 139.58 Laboratory Results 01/22/20 06:12: TSH 3.10 01/22/20 14:45: PT 13.5, INR 1.1 01/23/20 05:26: PT 13.5, INR 1.1 Current Medications Amiodarone HCl (Cordarone) 200 mg PO DAILY [facility] Last Admin: 01/22/20 09:57 Dose: Not Given Documented by: Aspirin (Aspirin, Baby) 81 mg PO DAILY@0800 [facility] Last Admin: 01/23/20 09:07 Dose: 81 mg Documented by: Atorvastatin Calcium (Lipitor) 10 mg PO QHS [facility] Last Admin: 01/22/20 21:52 Dose: 10 mg Documented by: Betamethasone Valerate (Valisone 0.1% Cream (Bkc)) 1 applic TOPICAL TID PRN PRN Reason: subuctaneous lupus Last Admin: 01/23/20 09:08 Dose: 1 applicatio Documented by: Clonazepam (Klonopin) 0.5 mg PO TID [facility] Last Admin: 01/23/20 06:00 Dose: 0.5 mg Documented by: Fludrocortisone Acetate (Florinef) 0.1 mg PO DAILY@0800 [facility] Last Admin: 01/23/20 09:08 Dose: 0.1 mg Documented by: Sodium Chloride () 1,000 mls @ 125 mls/hr IV .Q8H [facility] Last Admin: 01/23/20 06:00 Dose: 125 mls/hr Documented by: Midodrine (Proamatine) 10 mg PO TID [facility] Last Admin: 01/23/20 06:00 Dose: 10 mg Documented by: Primidone (Mysoline) 50 mg PO DAILY [facility] Last Admin: 01/23/20 09:07 Dose: 50 mg Documented by: Sertraline HCl (Zoloft) 50 mg PO DAILY [facility] Last Admin: 01/23/20 09:07 Dose: 50 mg Documented by: Sodium Chloride () 10 - 40 ml IV UD PRN PRN Reason: SALINE FLUSH Last Admin: 01/22/20 14:21 Dose: 10 ml Documented by: Warfarin Sodium (Jantoven) 5 mg PO DAILY@1700 [facility] Last Admin: 01/22/20 18:00 Dose: 5 mg Documented by: Inpatient E&M: [id number] Disch Hosp
--- NOTE | 2020-01-24 10:30 | CASEMGMT ---
YUN JACKSON Discharge Follow-up Phone Call: JOANNA: 9 Strata:2 Call Date: 01/24/2020 Discharge Date: 01/23/2020 Time of Call: 1025 Admitting Diagnosis: Ataxia Discharge follow-up call placed. Pt's answered the phone and stated she keeps track of all of patient's medical care/needs. She states pt is tired and weak but otherwise has been doing well since discharge. Pt was able to shower and shave after returning home but this left him very tired. Discussed need for further physical therapy. Pt's states they are in the process of moving and that pt by the time we would get it all arranged we will be gone. States they have friends coming up from [place] this weekend to help them move. States pt has two walkers and the one he prefers does not have wheels. Pt's states they got the walker [place] [facility] [place]. Instructed her that [employer] could apply wheels if desired/needed. Pt's asked about Medicaid application. Explained that this is state specific and that she would need to apply once she has established residency in [place] but to call their Medicaid office to find out specific requirements once they are moved. She states she understands. Pt's denied any further questions or concerns. Harry Doss RN CM
== END 2020-01-23 13:41 | disposition home or self-care (01) | DRG 93 ==
LOC: ED 14:39 → PCU 15:40
PROVIDERS: Family Medicine; Nurse Practitioner Family; Admitting Provider Internal Medicine; Emergency Provider Emergency Medicine; PCP Family Medicine; Visit Provider Student in an Organized Health Care Education/Training Program
DX: R27.0 Ataxia, unspecified (principal); G25.0 Essential tremor; R00.1 Bradycardia, unspecified; I95.1 Orthostatic hypotension; Z87.820 Personal history of traumatic brain injury; R29.6 Repeated falls; I44.0 Atrioventricular block, first degree; I25.10 Atherosclerotic heart disease of native coronary artery without angina pectoris; L82.1 Other seborrheic keratosis; L57.0 Actinic keratosis; G47.33 Obstructive sleep apnea (adult) (pediatric); F32.9 Major depressive disorder, single episode, unspecified; F41.9 Anxiety disorder, unspecified; I48.0 Paroxysmal atrial fibrillation; Z85.828 Personal history of other malignant neoplasm of skin; G47.52 REM sleep behavior disorder; Z95.5 Presence of coronary angioplasty implant and graft; E78.5 Hyperlipidemia, unspecified; Z79.02 Long term (current) use of antithrombotics/antiplatelets; Z79.82 Long term (current) use of aspirin; Z79.899 Other long term (current) drug therapy; Z87.01 Personal history of pneumonia (recurrent); K43.9 Ventral hernia without obstruction or gangrene; Z87.19 Personal history of other diseases of the digestive system; M62.08 Separation of muscle (nontraumatic), other site; I44.4 Left anterior fascicular block; Z86.19 Personal history of other infectious and parasitic diseases; Z90.49 Acquired absence of other specified parts of digestive tract
CPT/HCPCS: 36415; 70450; 70544; 70549; 70551; 71045; 80053; 80061; 81001; 84443; 84484; 85025; 85610; 93005; 97116; 97161; 97166; 97530; 97535; 99285; A9575; J7030; A4216

== ENCOUNTER 2020-01-28 13:05 | Outpatient (RCR) | payer MEDICARE, OTHER, SELFPAY ==
[2019-06-17 15:07] VITALS: BMI 25.8
[2020-01-22 16:25] VITALS: BMI 24.2
[2020-01-28 15:20] LABS: International Normalized Ratio 2.3; Prothrombin Time (Protime)PT. 25.1 SECONDS (11.7-14.9)
== END 2020-01-28 18:00 | disposition home or self-care (01) ==
LOC: LAB 13:05
PROVIDERS: Internal Medicine Cardiovascular Disease; PCP Family Medicine; Referring Provider Physician Assistant Medical; Visit Provider Physician Assistant Medical
DX: I48.0 Paroxysmal atrial fibrillation (principal); I47.1 Supraventricular tachycardia; Z79.01 Long term (current) use of anticoagulants
CPT/HCPCS: 36415; 85610

== ENCOUNTER 2020-01-31 13:04 | Observation (INO) | payer MEDICARE, OTHER, SELFPAY ==
[2020-01-22 16:25] VITALS: BMI 24.2
[2020-01-31 13:06] VITALS: BP 135/86; PULSE 57; RESP 16; TEMP 36.8; O2SAT 96; BMI 24.3
[2020-01-31 14:27] LABS: Absolute Lymphocyte Count 0.74 X10^3/uL (0.83-4.51); Absolute Neutrophil Count 3.6 X10^3/uL (2.0-7.7); Basophil# 0.01 X10^3/uL; Basophil% 0.2 % (0-1); Eosinophil# 0.05 X10^3/uL; Hemoglobin 14.2 g/dL (13.0-16.5); Lymphocyte # 0.74 X10^3/ul (4.0); Mean Corp Hgb Conc 31.6 g/dL (32-36); Mean Corpuscular Hgb 30.1 pg (27.0-32.0); Mean Corpuscular Volume 95.3 fL (80-94); Monocyte# 0.57 X10^3/uL; Monocyte% 11.5 % (0-10); NRBC Flagged by Analyzer 0 % (0-5); Neutrophil # 3.55 X10^3/uL (2.7-7.7); Neutrophil % 71.9 % (47-70); Platelet Count 239 K/mm3 (150-450); RBC Distribution Width CV 14.6 % (11.6-14.6); RBC Distribution Width SD 50.8 fl (35.1-43.9); Red Blood Count 4.72 M/mm3 (4.6-6.2); White Blood Count 4.9 K/mm3 (4.4-11.0)
[2020-01-31 14:40] LABS: ALB/GLOB Ratio 0.7 RATIO (0.9-2.4); AST(SGOT) 24 U/L (15-37); Alanine Aminotransfer ALT/SGPT 22 U/L (16-61); Albumin, Serum 3.2 g/dL (3.2-5.0); Alkaline Phosphatase 72 U/L (45-117); Anion Gap 4 (5-15); BUN 13 mg/dL (7-18); BUN/Creat Ratio 13.1 RATIO (10-20); Calcium,Total 8.5 mg/dL (8.5-10.1); Chloride 105 mmol/L (98-107); Creatinine, Serum 0.99 mg/dL (0.70-1.30); EST Glomerular Filtration Rate 78 mL/min (>60); Est Glom Filt Rate - Afr Amer 94 mL/min (>60); Estimated Creatinine Clearance 76.11 ml/min; Globulin 4.8 g/dL (2.2-4.2); Glucose 119 mg/dL (74-106); Magnesium 2.3 mg/dL (1.6-2.6); Potassium 3.7 mmol/L (3.5-5.1); Sodium Level 140 mmol/L (136-145)
[2020-01-31 14:52] LABS: Bacteria 0 SEEN /hpf (None Seen); Mucous, Urine 0 SEEN /hpf (<or=2+); Red Blood Cells-Urine 0 SEEN /hpf (0-5); Squamous Epithelial Cells - UA 0 SEEN /hpf (0-5); White Blood Cells 0 SEEN /hpf (0-5)
[2020-01-31 14:55] LABS: Color, Urine Yellow (Yellow); Glucose, Dipstick Normal (Normal); Ketone-Dipstick Negative (Negative); Leukocyte Esterase-Dipstick Negative /ul (Negative); Nitrite-Dipstick Negative (Negative); Occult Blood-Urine Negative /ul (Negative); Protein-Dipstick Negative (Negative); Urine Bilirubin Dipstick Negative (Negative); Urine Clarity Sl. Cloudy (Clear); Urine Urobilinogen Normal (Normal)
--- NOTE | 2020-01-31 14:58 | ED.DCSUM_ITS ---
History of Present Illness Chief Complaint: Weakness Informant: Patient, Family Narrative: Patient presents to the emergency department difficulty walking. Is been progressive over several weeks. He states that he was admitted to the hospital recently and underwent MRI of the brain. This showed infarct frontal lobe and cerebellum that was old. Had a neurology consult. He was in the process of moving to [place] was discharged home and they were going to set up home care and rehab down in [place] but over the next week he is got progressively weaker. He is now using a walker to basically get up out of a chair. He states that when he is sitting he cannot cross his legs. His proximal legs the hips seem extremely weak to him. He is able to use his feet normally. He has normal sensation. He denies any back pain. Normal bowel and bladder control. No fevers. Recently started on Coumadin for A. fib. Family is now getting unable to get him into a vehicle. Symptoms do not seem to worsen or improve with exertion. Past Medical History - Allergies and Home Meds Allergies/Adverse Reactions: Allergies rivaroxaban [From Xarelto] Allergy (Verified 01/31/20 13:08) Rash metoprolol Adverse Reaction (Verified 01/21/20 11:58) Low blood pressure/syncope Primary Care Physician: Aristides Marshall MD [Primary Care Provider] - Prior records reviewed: Yes Surgical History: noncontributory Lives: Spouse/ Significant Other Smoking Status: Never smoker Drugs: None Review of Systems General: Denies: Chills, Fever, Sweats Eyes: Denies: Visual changes - bilaterally, Diplopia ENT: Denies: Rhinorrhea, Sore throat Cardiovascular: Denies: Chest pain, Palpitations Respiratory: Denies: Dyspnea, Cough, Dyspnea on exertion Gastrointestinal: Denies: Abdominal pain, Nausea, Vomiting, Diarrhea, Melena, Hematochezia Genitourinary: Denies: Dysuria, Hematuria, Frequency Musculoskeletal: Denies: Back pain, Extremity Pain Skin: Denies: Rash, Wounds Neurological: Reports: Weakness. Denies: Headache, Parasthesia, Numbness Physical Exam Vital Signs/Narrative: Vital Signs Temp Pulse Resp BP Pulse Ox 01/31/20 13:06 98.3 F 57 L 16 135/86 H 96 Inital Vital Signs reviewed: Yes General: Well nourished, Well developed, No Acute Distress Head: Normocephalic, Atraumatic Eyes: Perrl, EOMI ENT: Moist mucous membranes, No rhinorrhea Neck: Supple, Nontender Cardiovascular: Regular rate, Regular rhythm, No murmurs Respiratory: No distress, CTA bilaterally, Chest nontender Abdomen: Soft, Nontender, Nondistended, Normal bowel sounds Back: Nontender, Normal Inspection Extremities: Nontender, No edema Skin: Normal color, No rash Neurological: Alert, Oriented x3, Cranial nerves II-XII grossly intact, Normal Sensation, - - Patient is able to the lift each leg up off the bed about 6 inches. It is noticeably weaker and he cannot get any higher. He is able to flex and extend at the knee and the ankle joints. Sensation is preserved. I do not see any back rashes or swelling or concerning exam findings for abscess. He Psychological: Normal affect, Normal Mood Diagnostic/Tx/Re-eval Laboratory Last Values WBC 4.9 K/mm3 (4.4-11.0) 01/31/20 12:50 RBC 4.72 M/mm3 (4.6-6.2) 01/31/20 12:50 Hgb 14.2 g/dL (13.0-16.5) 01/31/20 12:50 Hct 45.0 % (40-54) 01/31/20 12:50 MCV 95.3 fL (80-94) H 01/31/20 12:50 MCH 30.1 pg (27.0-32.0) 01/31/20 12:50 MCHC 31.6 g/dL (32-36) L 01/31/20 12:50 RDW Std Deviation 50.8 fl (35.1-43.9) H 01/31/20 12:50 RDW Coeff of Shelly 14.6 % (11.6-14.6) 01/31/20 12:50 Plt Count 239 K/mm3 (150-450) 01/31/20 12:50 MPV 10.0 fl (6.2-12.0) 01/31/20 12:50 Immature Gran % (Auto) 0.400 % (0.0-0.9) 01/31/20 12:50 Neut % (Auto) 71.9 % (47-70) H 01/31/20 12:50 Lymph % (Auto) 15.0 % (19-41) L 01/31/20 12:50 [place] % (Auto) 11.5 % (0-10) H 01/31/20 12:50 Eos % (Auto) 1.0 % (0-5) 01/31/20 12:50 Baso % (Auto) 0.2 % (0-1) 01/31/20 12:50 Absolute Neuts (auto) 3.6 X10^3/uL (2.0-7.7) 01/31/20 12:50 Absolute Lymphs (auto) 0.74 X10^3/uL (0.83-4.51) L 01/31/20 12:50 Nucleated RBC % 0 % (0-5) 01/31/20 12:50 Sodium 140 mmol/L (136-145) 01/31/20 12:50 Potassium 3.7 mmol/L (3.5-5.1) 01/31/20 12:50 Chloride 105 mmol/L (98-107) 01/31/20 12:50 Carbon Dioxide 31.0 mmol/L (21.0-32.0) 01/31/20 12:50 Anion Gap 4 (5-15) L 01/31/20 12:50 BUN 13 mg/dL (7-18) 01/31/20 12:50 Creatinine 0.99 mg/dL (0.70-1.30) 01/31/20 12:50 Estim Creat Clear Calc 76.11 ml/min 01/31/20 12:50 Est GFR (MDRD) Af Amer 94 mL/min (>60) 01/31/20 12:50 Est GFR (MDRD) Non-Af 78 mL/min (>60) 01/31/20 12:50 BUN/Creatinine Ratio 13.1 RATIO (-20) 01/31/20 12:50 Glucose 119 mg/dL (74-106) H 01/31/20 12:50 Calcium 8.5 mg/dL (8.5-10.1) 01/31/20 12:50 Magnesium 2.3 mg/dL (1.6-2.6) 01/31/20 12:50 Total Bilirubin 0.40 mg/dL (0.20-1.00) 01/31/20 12:50 AST 24 U/L (15-37) 01/31/20 12:50 ALT 22 U/L (16-61) 01/31/20 12:50 Alkaline Phosphatase 72 U/L (45-117) 01/31/20 12:50 Troponin I < 0.015 ng/mL (<0.045) 01/31/20 12:50 Total Protein 8.0 g/dL (6.4-8.2) 01/31/20 12:50 Albumin 3.2 g/dL (3.2-5.0) 01/31/20 12:50 Globulin 4.8 g/dL (2.2-4.2) H 01/31/20 12:50 Albumin/Globulin Ratio 0.7 RATIO (0.9-2.4) L 01/31/20 12:50 Urine Color Yellow (Yellow) 01/31/20 14:45 Urine Clarity Sl. Cloudy (Clear) 01/31/20 14:45 Urine pH 7.0 (5.0 - 8.0) 01/31/20 14:45 Ur Specific [place] 1.010 (1.002-1.030) 01/31/20 14:45 Urine Protein Negative mg/dl (Negative) 01/31/20 14:45 Urine Glucose (UA) Normal mg/dl (Normal) 01/31/20 14:45 Urine Ketones Negative mg/dl (Negative) 01/31/20 14:45 Urine Occult Blood Negative /ul (Negative) 01/31/20 14:45 Urine Nitrite Negative (Negative) 01/31/20 14:45 Urine Bilirubin Negative mg/dL (Negative) 01/31/20 14:45 Urine Urobilinogen Normal mg/dl (Normal) 01/31/20 14:45 Ur Leukocyte Esterase Negative /ul (Negative) 01/31/20 14:45 - Medical Decision Making Patient is an obvious fall risk. I think this is more to be proximal muscle weakness than an ataxic issue. I think it is reasonable that we admit him for further evaluation. I have asked our hospitalist to evaluate the patient for admission. ED Disposition - Plan for ED Patient: Disposition: Acute Care Hospital [facility] Diagnosis: Proximal limb muscle weakness Referrals: Aristides Marshall MD [Primary Care Provider] -
--- NOTE | 2020-01-31 15:00 | HP.PCM_ITS ---
Problem List (1) Proximal limb muscle weakness Status: Acute (2) Orthostatic hypotension Status: Chronic (3) Anxiety and depression Status: Chronic (4) Iron deficiency anemia Status: Chronic Qualifiers: Iron deficiency anemia type: unspecified iron deficiency Qualified Code(s): D50.9 - Iron deficiency anemia, unspecified (5) Chronic systolic congestive heart failure Status: Chronic (6) Paroxysmal atrial fibrillation Status: Chronic (7) CHRISTA (obstructive sleep apnea) Status: Chronic (8) Atherosclerosis of coronary artery of [place] heart without angina pectoris Status: Chronic Qualifiers: Coronary Disease-Associated Artery/Lesion type: unspecified vessel or lesion type Qualified Code(s): I25.10 - Atherosclerotic heart disease of [place] coronary artery without angina pectoris Comment: PCI/GAETANO-LAD w/ 3.0 x 28 mm Promus Element Plus Rx 03/02/13 (9) History of coronary artery stent placement Status: Chronic Comment: PCI/GAETANO-LAD w/ 3.0 x 28 mm Promus Element Plus Rx 03/02/13 (10) HLD (hyperlipidemia) Status: Chronic Qualifiers: Hyperlipidemia type: unspecified Qualified Code(s): E78.5 - Hyperlipidemia, unspecified History of Present Illness Date of Admission: 01/31/20 Chief Complaint: Debility, weakness The patient is a 74 y/o M w/ PMHx: Hx anoxic brain injury/TBI, Hx Diverticulitis with multiple surgeries with resulting Short gut syndrome (colon resection and jejunostomy tube placement), Chronic Orthostatic Hypotension, Chronic sinus wan ycardia, PAF recently placed on Coumadin, Systolic CHF, CAD s/p PCI LAD, HTN, HLD, CHRISTA who re-presents to the [facility] ED on 01/31/20 following recent discharge secondary to ataxia with CVA ruled out at that time with no marked findings on MRI brain with ongoing worsening proximal lower extremity weakness, unable to get up from a seated position, unable to even get in the car prompting ED return. From discussions with patient and spouse he primarily has proximal muscle weakness and he notes being able to walk once up but still with difficulty and weaving, but getting up as become more difficulty, taking ~ 2 hours to try to get out of his chair on the day of ED presentation. He was supposed to move to [place] this coming Friday and noted having home health and outpatient rehab set up. Work-up in the ED included T 98.3, heart 57, BP 135/86, respiratory rate 16, 96% room air, CBC with WC 4.9, hemoglobin 14.2, h platelets 239 with no significant left shift with noted lymphopenia, CMP not marked appearing aside glucose 119, troponin less than 0.015, urinalysis unremarkable. Past Medical History Past Medical History (Chronic Problems): Chronic Problems (Last Reviewed 06/19/19 @ 15:[address] Ozzie Sol MD) Orthostatic hypotension (Chronic) Anxiety and depression (Chronic) Iron deficiency anemia (Chronic) Chronic systolic congestive heart failure (Chronic) Other seborrheic keratosis (Chronic) 1 cm benign keratosis left lateral back 5 mm benign keratosis left outer arm 6 mm benign keratosis left lateral forehead 5 mm benign keratosis left outer shoulder skilled nursing current use of anticoagulant (Chronic) Paroxysmal supraventricular tachycardia (Chronic) Paroxysmal atrial fibrillation (Chronic) Family history of skin cancer (Chronic) Personal history of skin cancer (Chronic) Actinic keratosis (Chronic) left medial proximal leg left upper medial chest wall right outer arm right superomedial chest wall left upper chest wall right mid dorsal ulnar forearm right mid volar radial forearm left upper chest wall by clavicle (with focal moderate atypia) left nasal tip, healed with Aldara left shoulder, healed with Aldara CHRISTA (obstructive sleep apnea) (Chronic) Colonic diverticular abscess (Chronic) Ventral hernia (Chronic) Hypersomnia, unspecified (Chronic) REM behavioral disorder (Chronic) Diastasis of rectus abdominis (Chronic) Atherosclerosis of coronary artery of [place] heart without angina pectoris (Chronic) PCI/GAETANO-LAD w/ 3.0 x 28 mm Promus Element Plus Rx 03/02/13 History of coronary artery stent placement (Chronic 03/02/13) PCI/GAETANO-LAD w/ 3.0 x 28 mm Promus Element Plus Rx 03/02/13 HLD (hyperlipidemia) (Chronic) Medical History: Medical History (Last Reviewed 06/19/19 @ 15:[address] Ozzie Sol MD) Chronic systolic congestive heart failure (Chronic) I50.22 Other seborrheic keratosis (Chronic) L82.1 1 cm benign keratosis left lateral back 5 mm benign keratosis left outer arm 6 mm benign keratosis left lateral forehead 5 mm benign keratosis left outer shoulder skilled nursing current use of anticoagulant (Chronic) Z79.01 Family history of skin cancer (Chronic) Z80.8 Personal history of skin cancer (Chronic) Z85.828 Actinic keratosis (Chronic) L57.0 left medial proximal leg left upper medial chest wall right outer arm right superomedial chest wall left upper chest wall right mid dorsal ulnar forearm right mid volar radial forearm left upper chest wall by clavicle (with focal moderate atypia) left nasal tip, healed with Aldara left shoulder, healed with Aldara CHRISTA (obstructive sleep apnea) (Chronic) G47.33 Colonic diverticular abscess (Chronic) K57.20 Ventral hernia (Chronic) K43.9 Hypersomnia, unspecified (Chronic) G47.10 REM behavioral disorder (Chronic) G47.52 Diastasis of rectus abdominis (Chronic) M62.08 Atherosclerosis of coronary artery of [place] heart without angina pectoris (Chronic) I25.10 PCI/GAETANO-LAD w/ 3.0 x 28 mm Promus Element Plus Rx 03/02/13 HLD (hyperlipidemia) (Chronic) E78.5 Actinic keratosis L57.0 actinic lesion left nasal tip actinic lesion left shoulder Anastomotic leak of intestine K91.89 Benign keratosis L57.0 1 cm benign keratosis left lateral back 5 mm benign keratosis left outer arm 6 mm benign keratosis left lateral forehead 5 mm benign keratosis left outer shoulder Left anterior fascicular block (LAFB) I44.4 Neoplasm of unspecified behavior of bone, soft tissue, and skin D49.2 15 mm lesion right superomedial chest wall 3 mm lesion left volar distal forearm by wrist 1 cm lesion left mid dorsal ulnar forearm 5 mm pigmented lesion right outer arm 7 mm lesion left middle medial back Neoplasm of unspecified behavior of bone, soft tissue, and skin D49.2 15 mm lesion right superomedial chest wall 3 mm lesion left volar distal forearm by wrist 1 cm lesion left mid dorsal ulnar forearm 5 mm pigmented lesion right outer arm 7 mm lesion left middle medial back Obstructive sleep apnea G47.33 Personal history of skin cancer Z85.828 Small bowel obstruction K56.609 Abdominal pain R10.9 Diverticulitis K57.92 History of recent pneumonia (Resolved) Z87.01 Hypotension (Resolved) I95.9 LLQ abdominal pain (Resolved) R10.32 Near syncope (Resolved) R55 Obstipation (Resolved) K59.00 Paroxysmal supraventricular tachycardia (Resolved) I47.1 Septic shock (Resolved) A41.9, R65.21 Sigmoid stricture (Resolved) K56.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 Atrial premature contractions (Inactive) I49.1 Allergies rivaroxaban [From Xarelto] Allergy (Verified 01/31/20 13:08) Rash metoprolol Adverse Reaction (Verified 01/21/20 11:58) Low blood pressure/syncope Home Medications: Ambulatory Orders Medication Instructions Recorded Clonazepam 0.5 mg PO TID 01/21/20 Fludrocortisone Acetate [Florinef] 0.1 mg PO DAILY@0800 01/21/20 Midodrine HCl 10 mg PO TID 01/21/20 Rosuvastatin Calcium [Crestor] 5 mg PO QHS 01/21/20 Sertraline HCl 50 mg PO DAILY 01/21/20 Primidone [Mysoline] 50 mg PO DAILY #30 tab 01/22/20 Warfarin [Coumadin] 2.5 mg PO DAILY #30 tab 01/23/20 Aspirin E.C. [Ecotrin] 81 mg PO DAILY@0800 01/31/20 Ferrous Sulfate 325 mg PO DAILY 01/31/20 Multivitamin with Minerals 1 tab PO DAILY 01/31/20 [Multiple Vitamin] Surgical History: Surgical History (Last Reviewed 01/21/20 @ 14:42 by Meg Jaramillo NP, SOCIAL SCIENCE TEACHER-C) Paroxysmal supraventricular tachycardia (Chronic) I47.1 Paroxysmal atrial fibrillation (Chronic) I48.0 History of coronary artery stent placement (Chronic) Onset Date: 03/02/13 Z95.5 PCI/GAETANO-LAD w/ 3.0 x 28 mm Promus Element Plus Rx 03/02/13 History of local excision of skin lesion Z98.890 1. Excision 1 cm actinic keratosis left medial proximal leg with rhomboid transposition skin flap reconstruction (3.92 cm2). 2. Excision 4 mm actinic keratosis left upper medial chest wall with 2.5 cm layered closure. 3. Excision 6 mm erythematous pigmented lesion right outer arm with 2.5 cm layered closure. 4. Intradermal excision 11 mm actinic keratosis right superomedial chest wall. 5. Intradermal excision 6 mm actinic keratosis left upper chest wall. 6. Intradermal excision 1 cm lesion right mid dorsal ulnar forearm. 7. Intradermal excision 8 mm lesion right mid volar radial forearm. 8. Intradermal excision 7 mm lesion left upper chest wall by clavicle - 05/28/19 History of partial colectomy Z90.49 X 2 01/26/18 and 01/27/18 H/O vasectomy Z98.52 History of appendectomy Z98.890, Z90.49 History of cholecystectomy Z98.890, Z90.49 History of colonoscopy Onset Date: 2013 Z98.89 History of left heart catheterization Onset Date: 04/20/13 Z98.890 S/P colon resection Z90.49 Surgical History: - - Skin lesion resections, multiple colon surgeries x5 for diverticulitis, PCI LAD x1, cholecystectomy, appendectomy, vasectomy, umbilical hernia repair. Psychiatric History: Anxiety, Depression Lives: Spouse/ Significant Other Smoking Status: Never smoker Tobacco Use: Non-smoker Alcohol: None Drugs: None - *Family History Maternal Family History: Family History (Last Reviewed 01/21/20 @ 15:18 by Meg Jaramillo SOCIAL SCIENCE TEACHER, SOCIAL SCIENCE TEACHER-C) Father CVA (cerebral vascular accident) Hypertension HLD (hyperlipidemia) Cancer Mother HLD (hyperlipidemia) Hypertension Other Family history of skin cancer History Items: High Cholesterol, Hypertension Paternal Family History: Family History (Last Reviewed 01/21/20 @ 15:18 by Meg Jaramillo SOCIAL SCIENCE TEACHER, SOCIAL SCIENCE TEACHER-C) Father CVA (cerebral vascular accident) Hypertension HLD (hyperlipidemia) Cancer Mother HLD (hyperlipidemia) Hypertension Other Family history of skin cancer History Items: Cancer, High Cholesterol, Hypertension, Stroke Review of Systems Constitutional: Reports: Malaise, Weakness, Fatigue. Denies: Anorexia, Chills, Fever, Weight Change HEENT: Denies: Head Aches, Sinus Congestion, Sinus Drainage Cardiovascular: Denies: Chest Pain, Palpitations Respiratory: Denies: Cough, Shortness of breath at rest, Sputum production Gastrointestinal: Denies: Abdominal Pain, Nausea, Vomiting Genitourinary: Denies: Dysuria Musculoskeletal: Denies: Joint Pain, Joint Tenderness Skin: Denies: Rash, Wounds Neurological: Reports: Balance problems, Focal weakness. Denies: Numbness, Tingling Psychiatric: Reports: Anxiety, Depression. Denies: Homicidal Ideations, [place] icidal Ideations Hematologic/ Lymphatic: Reports: Anemia, Easy Bruising, Easy Bleeding VTE Information - Inpt Only VTE Present on Admission: No VTE Mechan Device Prophylaxis: SCD's VTE Pharm Prophylaxis ordered?: No Reason prophylaxis not ordered:: Medical Contraindication - Continue coumadin w/ INR trending. Patient Problems: Active and Suspected Problems (Last Reviewed 06/19/19 @ 15:[address] Ozzie Sol MD) Proximal limb muscle weakness (Acute) Subjective: Patient seated upright in the ED bed, mildly 50 appearance otherwise no acute distress. Objective: Physical Examination: General: awake, alert, oriented x 3 and cooperative, seated upright in the ED bed in no apparent distress. Skin: normal color, turgor, no icterus, cyanosis. HEENT: AT/NC, EOMI, PERRLA, MMM, no carotid bruits or JVD noted. Lungs: CTA bilaterally, moderate effort, mild decrease BL bases, no rales, ronchi or wheezing. Heart: Bradycardic with regular rhythm; no gallop, rub audible. Abdomen: soft, NTTP, ND, normal BS, no HSM. Extremities: no cyanosis, clubbing, or edema. Neurological: patient awake, alert, oriented as noted; cognitive function appears baseline intact; pupils equally reactive to light and accomodation; cranial nerves II-XII grossly normal, sensation intact, moving all 4 extremities, however able to move more so when seated upright in the ED bed, able to lift leg but significantly weak and cannot do so prolonged, significant difficulty when attempted to sit upright off edge with significant proximal muscle weakness and difficulty even flexing, negative Babinski bilaterally. Psychiatric: affect appears fatigued otherwise normal, no acute evidence of depressive or anxiety feelings. - Physical Exam Vitals/I&O's: Vital Signs Temp Pulse Resp BP Pulse Ox 98.3 F 57 L 16 135/86 H 96 01/31/20 13:06 01/31/20 13:06 01/31/20 13:06 01/31/20 13:06 01/31/20 13:06 Oxygen Delivery Method Room Air Weight: 189 lb Body Mass Index (BMI) 24.3 Laboratory Results 01/31/20 12:50: WBC 4.9, RBC 4.72, Hgb 14.2, Hct 45.0, MCV 95.3 H, MCH 30.1, MCHC 31.6 L, RDW Std Deviation 50.8 H, RDW Coeff of [place] 14.6, Plt Count 239, MPV 10.0, Immature Gran % (Auto) 0.400, Neut % (Auto) 71.9 H, Lymph % (Auto) 15.0 L, [place] % (Auto) 11.5 H, Eos % (Auto) 1.0, Baso % (Auto) 0.2, Absolute Neuts (auto) 3.6, Absolute Lymphs (auto) 0.74 L, Nucleated RBC % 0 01/31/20 12:50: Sodium 140, Potassium 3.7, Chloride 105, Carbon Dioxide 31.0, Anion Gap 4 L, BUN 13, Creatinine 0.99, Estim Creat Clear Calc 76.11, Est GFR (MDRD) Af Amer 94, Est GFR (MDRD) Non-Af 78, BUN/Creatinine Ratio 13.1, Glucose 119 H, Calcium 8.5, Magnesium 2.3, Total Bilirubin 0.40, AST 24, ALT 22, Alkaline Phosphatase 72, Troponin I < 0.015, Total Protein 8.0, Albumin 3.2, Globulin 4.8 H, Albumin/Globulin Ratio 0.7 L 01/31/20 14:45: Urine Color Yellow, Urine Clarity Sl. Cloudy, Urine pH 7.0, Ur Specific [place] 1.010, Urine Protein Negative, Urine Glucose (UA) Normal, Urine Ketones Negative, Urine Occult Blood Negative, Urine Nitrite Negative, Urine Bilirubin Negative, Urine Urobilinogen Normal, Ur Leukocyte Esterase Negative, Urine RBC Pending, Urine WBC Pending, Ur Squamous Epith Cells Pending, Urine Bacteria Pending, Urine Mucus Pending Assessment/Plan All Active Problems (Last Reviewed 06/19/19 @ 15:[address] Ozzie Sol MD) Proximal limb muscle weakness (Acute) Ataxia (Acute) Acute respiratory failure with hypoxia (Resolved) History of recent pneumonia (Resolved) Hypotension (Resolved) LLQ abdominal pain (Resolved) Nausea and vomiting (Resolved) Near syncope (Resolved) Nonhealing surgical wound (Resolved) Obstipation (Resolved) Paroxysmal supraventricular tachycardia (Resolved) Septic shock (Resolved) Sigmoid stricture (Resolved) Neoplasm of skin of chest (Ruled-out) Neoplasm of skin of forearm (Ruled-out) Neoplasm of skin of lower leg (Ruled-out) Neoplasm of skin of upper arm (Ruled-out) The patient is a 74 y/o M w/ PMHx: Hx anoxic brain injury/TBI, Hx Diverticulitis with multiple surgeries with resulting Short gut syndrome (colon resection and jejunostomy tube placement), Chronic Orthostatic Hypotension, Chronic sinus bradycardia, PAF recently placed on Coumadin, Systolic CHF, CAD s/p PCI LAD, HTN, HLD, CHRISTA who re-presents to the [facility] ED on 01/31/20 following recent discharge secondary to ataxia with CVA ruled out at that time with no marked findings on MRI brain with ongoing worsening proximal lower extremity weakness, unable to get up from a seated position. 1. Acute Lower Extremity Weakness, proximal muscles, unclear etiology, progressively worsening: Will admit to PCU, maintain on fall precautions, PRN pain regimen denies any pain at this time, obtain MRI thoracic and lumbar spine without contrast, obtain CPK to assess for myopathy, monitor electrolytes, although denies intake will obtain EtOH level, CBC w hemoglobin 14.2 with mild MCV elevation, if necessary may further assess, PT/OT evaluation and treatment, obtain Neuropathy labs including ESR, DARLENE, SPEP, if work-up unremarkable consider outpatient EMG/NCV. Additionally, will obtain BOOGIE/PVRs. Pending these evaluations will need to request follow-up Neurology consultation once more results obtained. 2. Iron deficiency anemia: Admission CBC with globin 14.2, normal level, will continue iron supplementation, further evaluation as noted #1 if necessary. 3. Chronic orthostatic hypotension: We will continue patient home Florinef and midodrine regimens, fall precautions, 4. Anxiety and depression: We will continue patient home sertraline regimen. 5. History of diverticulitis with resulting short gut syndrome status post intervention: Several colon resections including intervention x5 per patient report, resulting short gut, encourage continued outpatient follow-up and diet alterations as needed. 6. CAD: Status post PCI LAD 2012, will continue Coumadin with INR trending, not on DMITRY inhibitor/ARB, beta-aleida therapy given orthostatic hypotension and bradycardia, holding statin given #1. 7. ? Systolic CHF: Noted in history but not in previous admission, most recent echocardiogram 01/31/2018 noting normal LV systolic function, EF 55%, mild MVI, mild TBI, trivial DAVID, trivial PVI, borderline enlarged aortic root, RVSP 34 mmHg, indeterminate diastolic function. We will continue Coumadin with INR trending as noted, not on DMITRY inhibitor/ARB, beta-aleida given orthostatic hypotension and bradycardia, holding statin given #1. 8. PAF: We will continue recently initiated Coumadin with INR trending, pending ED initial INR, given bradycardia and orthostatic hypotension not on rate agent. 9. Hyperlipidemia: We will hold patient statin given #1 presentation. 10. 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 11. CHRISTA: We will continue home BiPAP nightly. 12. DVT prophylaxis: SCDs, Lovenox. 13. CODE status: Patient HCPOA is who is present and living will is currently in place. Discussed CODE status at length including difference between FULL code, DNR-CCA and DNR-CC status. Following discussions about the differences in these status, requested Full Code status. Advanced Care Planning Face to Face Time: 16 minutes. OBSV E&M: 04512 Initial observation care L3 Procedures: 90078 Advncd Care Plan 30 Min
[2020-01-31 15:56] VITALS: BP 149/90; PULSE 52; RESP 18; TEMP 36.7; O2SAT 93; O2SAT 94
[2020-01-31 16:18] VITALS: BMI 24.3
--- NOTE | 2020-01-31 16:41 | MRI_ITS ---
HISTORY: weakness bilat legs EXAMINATION: MR Spine Thoracic W/O Contrast TECHNIQUE: Multiplanar and multisequence MR images of the thoracic spine. IV Contrast dosage and agent: None. 179 COMPARISON: A single view frontal chest x-ray is available from January 21, 2020. CT scan of the abdomen and pelvis is from January 18, 2018. 179 images. FINDINGS: VERTEBRAE: No fracture. Normal vertebral bodies and posterior elements. VERTEBRAL ALIGNMENT: Accentuated thoracic kyphosis No scoliosis. DISCS: Disc height is narrowed at almost every level. Disc are desiccated. Normal spinal canal and neuroforamina. CORD: Unremarkable in signal and morphology. Normal conus medularis. SOFT TISSUES: Benign cyst exophytic to the superior pole of the left kidney. The adrenal glands are not enlarged. Mild biliary ductal dilatation. 6 some tortuosity to the thoracic aorta without aneurysm or dissection. No pleural effusions. MRI/Spine Thoracic (Routine) IMPRESSION: Mild kyphosis with multilevel degenerative disc disease but with normal spinal canal diameter and without cord disease. at 2015 Reported and signed by: Cam Navarro MD Electronically Signed: Cam Navarro MD at 20:13 EDT Tel , Service support ,
--- NOTE | 2020-01-31 16:41 | ART_ITS ---
Reason For Study: Monty LE weakness Procedure A bilateral lower extremity continuous wave Doppler with analog waveform analysis and ankle brachial indexes. Left Segmental Pressures Left posterior tibial artery = 164mmHg. Left dorsalis pedis artery = 166mmHg. The left dorsalis pedis waveforms are triphasic. The left posterior tibial artery waveforms are triphasic. Right Segmental Pressures Right brachial= 158mmHg. Right posterior tibial artery = 177mmHg. Right dorsalis pedis artery = 176mmHg. The right dorsalis pedis waveforms are triphasic. The right posterior tibial artery waveforms are triphasic. Indices The right ankle brachial index by the dorsalis pedis is 1.11. The right ankle brachial index by the posterior tibial artery is 1.12. The left ankle brachial index by the dorsalis pedis is 1.05. The left ankle brachial index by the posterior tibial artery is 1.04. Interpretation Summary Normal bilateral lower extremity ankle-brachial indices at rest with normal bilateral posterior tibial and dorsalis pedis triphasic Doppler waveforms Ordering Physician: Cris Smith Performed By: Jose Champagne RVT
--- NOTE | 2020-01-31 16:41 | MRI_ITS ---
STUDY: MRI LUMBAR SPINE WITHOUT CONTRAST REASON FOR EXAM: Male, 74 years old. increasing leg weakness TECHNIQUE: Standardized fat and water weighted pulse sequences were obtained in the sagittal and axial planes. COMPARISON: None FINDINGS: T12-L1: Normal endplates. Normal disc height, desiccation and normal morphology. Normal bilateral facet joints. Normal central canal and bilateral lateral recesses. Normal bilateral intervertebral neural foramina. Normal lumbar lordosis. There is mild dextro scoliosis. Normal conus medullaris that terminates at T12-L1 L1-2: Normal endplates. Normal disc height, desiccation and minimal annular bulge.. Normal bilateral facet joints. Normal central canal and bilateral lateral recesses. Normal bilateral intervertebral neural foramina. L2-3: Normal endplates. Normal disc height, desiccation and normal morphology. Normal bilateral facet joints. Normal central canal and bilateral lateral recesses. Normal bilateral intervertebral neural foramina. L3-4: Normal endplates. Normal disc height, desiccation and minimal annular bulge.. Normal bilateral facet joints. Normal central canal and bilateral lateral recesses. Normal bilateral intervertebral neural foramina. L4-5: Narrowed disc space with desiccation of disc and mild annular bulge.. Bilateral facet arthropathy.. Normal central canal and bilateral lateral recesses. Moderate bilateral neuroforaminal stenosis.. L5-S1: Normal endplates. Normal disc height, desiccation and minimal annular bulge.. Mild facet arthropathy.. Normal central canal and bilateral lateral recesses. Normal bilateral intervertebral neural foramina. Normal visualized sacral ala. Normal visualized paraspinous soft tissue structures. MRI/Spine Lumbar (Routine) IMPRESSION: Mild scoliosis and degenerative changes.. Mild spondylosis and multilevel disc degeneration. Spinal stenosis at L4-5 secondary to annular bulge and facet arthropathy. Minimal annular bulge at L3-4 and L5-S1 without t spinal stenosis Electronically Signed: Chencho José MD at 22:54 EDT , Service support ,
[2020-01-31 16:42] VITALS: BMI 24.2
[2020-01-31 16:43] VITALS: BP 140/86; PULSE 52; RESP 18; TEMP 36.6; O2SAT 96
[2020-01-31 17:12] LABS: International Normalized Ratio 3.1; Prothrombin Time (Protime)PT. 31.9 SECONDS (11.7-14.9)
[2020-01-31 17:54] LABS: Magnesium 2.2 mg/dL (1.6-2.6); Phosphorus 2.2 mg/dL (2.5-4.9); T4 Free Direct 1.08 ng/dL (0.76-1.46); Thyroid Stim Hormone (TSH) 1.79 uIU/mL (0.358-3.74)
[2020-01-31 17:58] LABS: Erythrocyte Sedimentation Rate 14 mm/hr (0-20)
[2020-01-31 18:27] VITALS: PULSE 52
[2020-01-31] MEDS: 0.9% Normal Saline 1,000 ML 100 ML IV (18:38)
[2020-01-31 19:00] VITALS: PULSE 63
--- NOTE | 2020-01-31 19:59 | CPS ---
pt states he has a bipap unit at home but does not wear it.
[2020-01-31 20:54] LABS: Alcohol, Blood (Medical)-Serum < 3.0 mg/dL
[2020-01-31] MEDS: Midodrine HCl 5 MG Tablet 10 MG PO (21:34)
[2020-01-31] MEDS: clonazePAM 0.5 MG Tablet PO (21:34)
[2020-01-31 21:35] VITALS: BP 145/80; PULSE 61; RESP 16; TEMP 37.3; O2SAT 94
[2020-02-01] VITALS (8 sets, daily range): BP systolic 116–142; BP diastolic 65–79; PULSE 52–63; RESP 14–18; TEMP 36.5–37.4; O2SAT 91–96
[2020-02-01] MEDS: 0.9% Normal Saline 1,000 ML 100 ML IV ×2 (05:01→14:47)
[2020-02-01] MEDS: clonazePAM 0.5 MG Tablet PO ×2 (05:53→15:26)
[2020-02-01] MEDS: Midodrine HCl 5 MG Tablet 10 MG PO ×2 (05:53→15:26)
[2020-02-01 06:49] LABS: Absolute Lymphocyte Count 0.98 X10^3/uL (0.83-4.51); Absolute Neutrophil Count 3.3 X10^3/uL (2.0-7.7); Basophil# 0.02 X10^3/uL; Basophil% 0.4 % (0-1); Eosinophil# 0.07 X10^3/uL; Eosinophils% 1.3 % (0-5); Hemoglobin 13.6 g/dL (13.0-16.5); Lymphocyte # 0.98 X10^3/ul (4.0); Lymphocyte % 18.8 % (19-41); Mean Corp Hgb Conc 31.6 g/dL (32-36); Mean Corpuscular Hgb 29.6 pg (27.0-32.0); Mean Corpuscular Volume 93.7 fL (80-94); Mean Platelet Vol. 9.5 fl (6.2-12.0); Monocyte# 0.84 X10^3/uL; Monocyte% 16.1 % (0-10); NRBC Flagged by Analyzer 0 % (0-5); Neutrophil # 3.29 X10^3/uL (2.7-7.7); Platelet Count 241 K/mm3 (150-450); RBC Distribution Width CV 14.4 % (11.6-14.6); RBC Distribution Width SD 49.3 fl (35.1-43.9); Red Blood Count 4.59 M/mm3 (4.6-6.2); White Blood Count 5.2 K/mm3 (4.4-11.0)
[2020-02-01 07:10] LABS: International Normalized Ratio 3.1; Prothrombin Time (Protime)PT. 31.9 SECONDS (11.7-14.9)
[2020-02-01 07:25] LABS: ALB/GLOB Ratio 0.7 RATIO (0.9-2.4); AST(SGOT) 19 U/L (15-37); Alanine Aminotransfer ALT/SGPT 22 U/L (16-61); Albumin, Serum 2.9 g/dL (3.2-5.0); Alkaline Phosphatase 67 U/L (45-117); Anion Gap 4 (5-15); BUN 10 mg/dL (7-18); BUN/Creat Ratio 11.6 RATIO (10-20); Chloride 108 mmol/L (98-107); Creatinine, Serum 0.86 mg/dL (0.70-1.30); EST Glomerular Filtration Rate 92 mL/min (>60); Est Glom Filt Rate - Afr Amer 111 mL/min (>60); Estimated Creatinine Clearance 87.62 ml/min; Globulin 4.4 g/dL (2.2-4.2); Glucose 99 mg/dL (74-106); Potassium 3.7 mmol/L (3.5-5.1); Protein, Total 7.3 g/dL (6.4-8.2); Sodium Level 139 mmol/L (136-145)
[2020-02-01] MEDS: Fludrocortisone Acetate 0.1 MG Tablet PO (08:05)
[2020-02-01] MEDS: Sertraline 50 MG Tablet PO (08:05)
[2020-02-01] MEDS: Primidone 50 MG Tablet PO (08:05)
[2020-02-01] MEDS: Aspirin 81 MG TAB.CHEW PO (08:05)
[2020-02-01 08:36] LABS: CPK Total, Creatine Kinase 39 U/L (39-308)
--- NOTE | 2020-02-01 12:37 | PCM.PN.HOSP ---
<Jeevan Duran - Last Filed: 02/01/20 13:21> Patient Problems: Active and Suspected Problems (Last Reviewed 06/19/19 @ 15:[address] Ozzie Sol MD) Proximal limb muscle weakness (Acute) Reason for Visit: LE weakness Subjective: Pt resting comfortably in chair at bedside NAD. He reports BL proximal leg weakness. He was able to walk with therapy in the halls with a walker today. He has no numbness or tingling in the lower extremities. He has had no change in bowel/bladder habits. He has no lower back pain at this time. Vitals/I&O's: Vital Signs Temp Pulse Resp BP Pulse Ox 98.7 F 63 18 116/65 95 02/01/20 11:50 02/01/20 11:50 02/01/20 11:50 02/01/20 11:50 02/01/20 11:50 Oxygen Delivery Method Room Air Weight: 188 lb 7.924 oz Body Mass Index (BMI) 24.2 Intake and Output for Last 24 Hours 01/30/20 01/31/20 02/01/20 23:59 23:59 23:59 Intake Total 875 / 875 925 / 925 Output Total 1050 / 1050 1025 / 1025 Balance -175 / -175 -100 / -100 General: Alert, Oriented x3, Cooperative HEENT: Atraumatic, PERRLA, EOMI, Normocephalic Neck: Supple, No JVD, Negative Carotid Bruits Lungs: Clear to auscultation, Normal air movement Cardiovascular: Regular rate, No murmurs Abdomen: Bowel Sounds Present, Soft, Non Tender Extremities: No edema, Capillary Refill Less than 3 Seconds Skin: No rashes, No breakdown Musculoskeletal: No Tenderness to Palpation of Joints or Extremities Neurological: Cranial nerves II-XII grossly intact Psych/Mental Status: Normal Affect, Appropriate, Alert and oriented to time, place, person, mood and affect Laboratory Results 01/31/20 12:50: WBC 4.9, RBC 4.72, Hgb 14.2, Hct 45.0, MCV 95.3 H, MCH 30.1, MCHC 31.6 L, RDW Std Deviation 50.8 H, RDW Coeff of Shelly 14.6, Plt Count 239, MPV 10.0, Immature Gran % (Auto) 0.400, Neut % (Auto) 71.9 H, Lymph % (Auto) 15.0 L, Preston % (Auto) 11.5 H, Eos % (Auto) 1.0, Baso % (Auto) 0.2, Absolute Neuts (auto) 3.6, Absolute Lymphs (auto) 0.74 L, Nucleated RBC % 0 01/31/20 12:50: Sodium 140, Potassium 3.7, Chloride 105, Carbon Dioxide 31.0, Anion Gap 4 L, BUN 13, Creatinine 0.99, Estim Creat Clear Calc 76.11, Est GFR (MDRD) Af Amer 94, Est GFR (MDRD) Non-Af 78, BUN/Creatinine Ratio 13.1, Glucose 119 H, Calcium 8.5, Magnesium 2.3, Total Bilirubin 0.40, AST 24, ALT 22, Alkaline Phosphatase 72, Troponin I < 0.015, Total Protein 8.0, Albumin 3.2, Globulin 4.8 H, Albumin/Globulin Ratio 0.7 L 01/31/20 12:50: Phosphorus 2.2 L, Magnesium 2.2, TSH 1.79, Free T4 1.08 01/31/20 14:45: Urine Color Yellow, Urine Clarity Sl. Cloudy, Urine pH 7.0, Ur Specific Newcomb 1.010, Urine Protein Negative, Urine Glucose (UA) Normal, Urine Ketones Negative, Urine Occult Blood Negative, Urine Nitrite Negative, Urine Bilirubin Negative, Urine Urobilinogen Normal, Ur Leukocyte Esterase Negative, Urine RBC 0 SEEN, Urine WBC 0 SEEN, Ur Squamous Epith Cells 0 SEEN, Urine Bacteria 0 SEEN, Urine Mucus 0 SEEN 01/31/20 16:11: CK Isoenzymes Pending, CK-MM (CK-3) Pending, CK-MB (CK-2) Pending, CK-BB (CK-1) Pending 01/31/20 16:41: ESR 14 01/31/20 19:20: Ethyl Alcohol < 3.0 01/31/20 : PT 31.9 H, INR 3.1 02/01/20 06:38: DARLENE Screen Pending, JAY-1 Antibody Pending, SS-A/Ro IgG Antibody Pending, SS-B/La IgG Antibody Pending, Sm (Duggan) Antibody Pending, MOTOR BRAKEMAN Antibody Pending, Scl-70 Scleroderma Ab Pending, Double Strand DNA Ab Pending, Centromere B Antibody Pending 02/01/20 06:38: WBC 5.2, RBC 4.59 L, Hgb 13.6, Hct 43.0, MCV 93.7, MCH 29.6, MCHC 31.6 L, RDW Std Deviation 49.3 H, RDW Coeff of Shelly 14.4, Plt Count 241, MPV 9.5, Immature Gran % (Auto) 0.400, Neut % (Auto) 63.0, Lymph % (Auto) 18.8 L, Preston % (Auto) 16.1 H, Eos % (Auto) 1.3, Baso % (Auto) 0.4, Absolute Neuts (auto) 3.3, Absolute Lymphs (auto) 0.98, Nucleated RBC % 0 02/01/20 06:38: PT 31.9 H, INR 3.1 02/01/20 06:38: Sodium 139, Potassium 3.7, Chloride 108 H, Carbon Dioxide 27.0, Anion Gap 4 L, BUN 10, Creatinine 0.86, Estim Creat Clear Calc 87.62, Est GFR (MDRD) Af Amer 111, Est GFR (MDRD) Non-Af 92, BUN/Creatinine Ratio 11.6, Glucose 99, Calcium 8.0 L, Total Bilirubin 0.30, AST 19, ALT 22, Alkaline Phosphatase 67, Total Protein 7.3, Albumin 2.9 L, Globulin 4.4 H, Albumin/Globulin Ratio 0.7 L 02/01/20 06:38: Total Creatine Kinase 39 Current Medications Acetaminophen (Acetaminophen 325 Mg Tablet) 650 mg PO Q6H PRN PRN PRN Reason: Pain Score 1-10/Temp > 100.7 F Al Hydroxide/Mg Hydroxide (Mag Hydrox/Al Hydrox/Simeth 30 Ml Udc) 30 ml PO Q6H PRN PRN PRN Reason: Gastric Burning Albuterol Sulfate (Albuterol 2.5 Mg/3 Ml Vial.Neb.) 2.5 mg INHALATION Q2H PRN PRN PRN Reason: Dyspnea, wheezing Aspirin (Aspirin 81 Mg Tab.Chew) 81 mg PO DAILY@0800 [facility] Last Admin: 02/01/20 08:05 Dose: 81 mg Documented by: Clonazepam (Clonazepam 0.5 Mg Tablet) 0.5 mg PO TID [facility] Last Admin: 02/01/20 05:53 Dose: 0.5 mg Documented by: Fludrocortisone Acetate (Fludrocortisone Acetate 0.1 Mg Tablet) 0.1 mg PO DAILY@0800 [facility] Last Admin: 02/01/20 08:05 Dose: 0.1 mg Documented by: Guaifenesin (Guaifenesin 10 Ml Udc (200mg/10ml)) 20 ml PO Q4H PRN PRN PRN Reason: COUGH Sodium Chloride () 1,000 mls @ 100 mls/hr IV .Q10H [facility] Last Admin: 02/01/20 05:01 Dose: 100 mls/hr Documented by: Magnesium Hydroxide (Magnesium Hydroxide 30 Ml Udc) 30 ml PO DAILY PRN PRN PRN Reason: Constipation Melatonin (Melatonin 3 Mg Tablet) 3 mg PO QHS PRN PRN PRN Reason: INSOMNIA Midodrine (Midodrine Hcl 5 Mg Tablet) 10 mg PO TID [facility] Last Admin: 02/01/20 05:53 Dose: 10 mg Documented by: Morphine Sulfate (Morphine 2 Mg/Ml Syringe) 2 mg IV Q3H PRN PRN PRN Reason: Pain Score 6-10 Nitroglycerin (Nitroglycerin (Inpatient Use) 0.4 Mg Tab.Subl) 0.4 mg SUBLINGUAL Q5M PRN PRN Reason: CARDIAC/CHEST PAIN Ondansetron HCl (Ondansetron 4 Mg/2 Ml Vial) 4 mg IV Q8H PRN PRN PRN Reason: NAUSEA/VOMITING Oxycodone HCl (Oxycodone 5 Mg Tablet) 5 mg PO Q4H PRN PRN PRN Reason: Pain Score 4-5 Primidone (Primidone 50 Mg Tablet) 50 mg PO DAILY [facility] Last Admin: 02/01/20 08:05 Dose: 50 mg Documented by: Prochlorperazine Edisylate (Prochlorperazine 10 Mg/2 Ml Vial) 5 mg IV Q4H PRN PRN PRN Reason: Breakthrough Nausea/Vomiting Psyllium Hydrophilic Mucilloid (Psyllium 1 Packet) 1 packet PO DAILY PRN PRN PRN Reason: Constipation Senna/Docusate Sodium (Senna/Docusate Sodium 1 Tablet) 2 tablet PO BID PRN PRN PRN Reason: Constipation Sertraline HCl (Sertraline 50 Mg Tablet) 50 mg PO DAILY [facility] Last Admin: 02/01/20 08:05 Dose: 50 mg Documented by: Sodium Chloride (0.9% Saline Lock 10 Ml Syringe) 10 - 40 ml IV UD PRN PRN Reason: SALINE FLUSH Throat Lozenges (Benzocaine/Menthol 1 Lozenge) 1 lozenge MUCOUS MEM Q2H PRN PRN PRN Reason: SORE THROAT Warfarin Sodium (Warfarin 2.5 Mg Tablet) 2.5 mg PO DAILY@1700 [facility] STROKE Vital Signs/Narrative: Vital Signs Temp Pulse Resp BP Pulse Ox 02/01/20 11:50 98.7 F 63 18 116/65 95 Medical Necessity - Tobacco Use Smoking Status: Never smoker Tobacco Use: Non-smoker Assessment/Plan All Active Problems (Last Reviewed 06/19/19 @ 15:[address] Ozzie Sol MD) Proximal limb muscle weakness (Acute) Ataxia (Acute) Acute respiratory failure with hypoxia (Resolved) History of recent pneumonia (Resolved) Hypotension (Resolved) LLQ abdominal pain (Resolved) Nausea and vomiting (Resolved) Near syncope (Resolved) Nonhealing surgical wound (Resolved) Obstipation (Resolved) Paroxysmal supraventricular tachycardia (Resolved) Septic shock (Resolved) Sigmoid stricture (Resolved) Neoplasm of skin of chest (Ruled-out) Neoplasm of skin of forearm (Ruled-out) Neoplasm of skin of lower leg (Ruled-out) Neoplasm of skin of upper arm (Ruled-out) 1. Proximal BL LE weakness - PTOT evals. MRI T spine shows mild kyphosis with multilevel degenerative disc disease with normal spinal canal diameter without cord disease. MRI of the lumbar spine demonstrates spinal stenosis at L4, L5 secondary to annular bulge and facet arthropathy and minimal annular bulge at L3/L4 and L5/S1 without spinal stenosis. Neuro consulted. Arterial study of the lower extremities is negative for PAD. Prior stroke work-up negative. 2. CHRISTA - non compliant with home bipap 3. Hx CAD - prior stent 4. Chronic systolic CHF - no exacerbation. warfarin 5. Hx Iron def anemia 6. Hx pAfib - in sinus rhyhtm 7. Hx orthostatic hypotension - on midodrine, florinef DVT ppx: warfarin DC planning: PTOT evals This patient was seen by Jeevan Duran PA-C under the supervision of Ignacio Schuster - Last Filed: 02/01/20 16:14> Vitals/I&O's: Vital Signs Temp Pulse Resp BP Pulse Ox 97.7 F L 52 L 18 142/74 H 96 02/01/20 15:27 02/01/20 15:27 02/01/20 15:27 02/01/20 15:27 02/01/20 15:27 Oxygen Delivery Method Room Air Weight: 188 lb 7.924 oz Body Mass Index (BMI) 24.2 Intake and Output for Last 24 Hours 01/30/20 01/31/20 02/01/20 23:59 23:59 23:59 Intake Total 875 / 875 1901.67 / 1901.67 Output Total 1050 / 1050 1025 / 1025 Balance -175 / -175 876.67 / 876.67 Laboratory Results 01/31/20 12:50: Phosphorus 2.2 L, Magnesium 2.2, TSH 1.79, Free T4 1.08 01/31/20 16:11: CK Isoenzymes Pending, CK-MM (CK-3) Pending, CK-MB (CK-2) Pending, CK-BB (CK-1) Pending 01/31/20 16:41: ESR 14 01/31/20 19:20: Ethyl Alcohol < 3.0 01/31/20 : PT 31.9 H, INR 3.1 02/01/20 06:38: DARLENE Screen Pending, JAY-1 Antibody Pending, SS-A/Ro IgG Antibody Pending, SS-B/La IgG Antibody Pending, Sm (Duggan) Antibody Pending, MOTOR BRAKEMAN Antibody Pending, Scl-70 Scleroderma Ab Pending, Double Strand DNA Ab Pending, Centromere B Antibody Pending 02/01/20 06:38: WBC 5.2, RBC 4.59 L, Hgb 13.6, Hct 43.0, MCV 93.7, MCH 29.6, MCHC 31.6 L, RDW Std Deviation 49.3 H, RDW Coeff of Shelly 14.4, Plt Count 241, MPV 9.5, Immature Gran % (Auto) 0.400, Neut % (Auto) 63.0, Lymph % (Auto) 18.8 L, Preston % (Auto) 16.1 H, Eos % (Auto) 1.3, Baso % (Auto) 0.4, Absolute Neuts (auto) 3.3, Absolute Lymphs (auto) 0.98, Nucleated RBC % 0 02/01/20 06:38: PT 31.9 H, INR 3.1 02/01/20 06:38: Sodium 139, Potassium 3.7, Chloride 108 H, Carbon Dioxide 27.0, Anion Gap 4 L, BUN 10, Creatinine 0.86, Estim Creat Clear Calc 87.62, Est GFR (MDRD) Af Amer 111, Est GFR (MDRD) Non-Af 92, BUN/Creatinine Ratio 11.6, Glucose 99, Calcium 8.0 L, Total Bilirubin 0.30, AST 19, ALT 22, Alkaline Phosphatase 67, Total Protein 7.3, Albumin 2.9 L, Globulin 4.4 H, Albumin/Globulin Ratio 0.7 L 02/01/20 06:38: Total Creatine Kinase 39 Current Medications Acetaminophen (Acetaminophen 325 Mg Tablet) 650 mg PO Q6H PRN PRN PRN Reason: Pain Score 1-10/Temp > 100.7 F Al Hydroxide/Mg Hydroxide (Mag Hydrox/Al Hydrox/Simeth 30 Ml Udc) 30 ml PO Q6H PRN PRN PRN Reason: Gastric Burning Albuterol Sulfate (Albuterol 2.5 Mg/3 Ml Vial.Neb.) 2.5 mg INHALATION Q2H PRN PRN PRN Reason: Dyspnea, wheezing Aspirin (Aspirin 81 Mg Tab.Chew) 81 mg PO DAILY@0800 [facility] Last Admin: 02/01/20 08:05 Dose: 81 mg Documented by: Clonazepam (Clonazepam 0.5 Mg Tablet) 0.5 mg PO TID [facility] Last Admin: 02/01/20 15:26 Dose: 0.5 mg Documented by: Fludrocortisone Acetate (Fludrocortisone Acetate 0.1 Mg Tablet) 0.1 mg PO DAILY@0800 [facility] Last Admin: 02/01/20 08:05 Dose: 0.1 mg Documented by: Guaifenesin (Guaifenesin 10 Ml Udc (200mg/10ml)) 20 ml PO Q4H PRN PRN PRN Reason: COUGH Sodium Chloride () 1,000 mls @ 100 mls/hr IV .Q10H [facility] Last Admin: 02/01/20 14:47 Dose: 100 mls/hr Documented by: Magnesium Hydroxide (Magnesium Hydroxide 30 Ml Udc) 30 ml PO DAILY PRN PRN PRN Reason: Constipation Melatonin (Melatonin 3 Mg Tablet) 3 mg PO QHS PRN PRN PRN Reason: INSOMNIA Midodrine (Midodrine Hcl 5 Mg Tablet) 10 mg PO TID [facility] Last Admin: 02/01/20 15:26 Dose: 10 mg Documented by: Morphine Sulfate (Morphine 2 Mg/Ml Syringe) 2 mg IV Q3H PRN PRN PRN Reason: Pain Score 6-10 Nitroglycerin (Nitroglycerin (Inpatient Use) 0.4 Mg Tab.Subl) 0.4 mg SUBLINGUAL Q5M PRN PRN Reason: CARDIAC/CHEST PAIN Ondansetron HCl (Ondansetron 4 Mg/2 Ml Vial) 4 mg IV Q8H PRN PRN PRN Reason: NAUSEA/VOMITING Oxycodone HCl (Oxycodone 5 Mg Tablet) 5 mg PO Q4H PRN PRN PRN Reason: Pain Score 4-5 Primidone (Primidone 50 Mg Tablet) 50 mg PO DAILY [facility] Last Admin: 02/01/20 08:05 Dose: 50 mg Documented by: Prochlorperazine Edisylate (Prochlorperazine 10 Mg/2 Ml Vial) 5 mg IV Q4H PRN PRN PRN Reason: Breakthrough Nausea/Vomiting Psyllium Hydrophilic Mucilloid (Psyllium 1 Packet) 1 packet PO DAILY PRN PRN PRN Reason: Constipation Senna/Docusate Sodium (Senna/Docusate Sodium 1 Tablet) 2 tablet PO BID PRN PRN PRN Reason: Constipation Sertraline HCl (Sertraline 50 Mg Tablet) 50 mg PO DAILY [facility] Last Admin: 02/01/20 08:05 Dose: 50 mg Documented by: Sodium Chloride (0.9% Saline Lock 10 Ml Syringe) 10 - 40 ml IV UD PRN PRN Reason: SALINE FLUSH Throat Lozenges (Benzocaine/Menthol 1 Lozenge) 1 lozenge MUCOUS MEM Q2H PRN PRN PRN Reason: SORE THROAT Warfarin Sodium (Warfarin 2.5 Mg Tablet) 2.5 mg PO DAILY@1700 [facility] STROKE Vital Signs/Narrative: Vital Signs Temp Pulse Resp BP Pulse Ox 02/01/20 15:27 97.7 F L 52 L 18 142/74 H 96 02/01/20 14:57 56 L Assessment/Plan Please see the discharge summary for complete detail including physical exam.
--- NOTE | 2020-02-01 13:42 | CT_ITS ---
STUDY: CT ABDOMEN AND PELVIS WITHOUT CONTRAST REASON FOR EXAM: Male, 74 years old. Bilateral leg weakness, anoxic brain injury, ? retroperitoneal bleed. Hx hypertension, appendectomy, cholecystectomy, colon resection. RADIATION DOSAGE (If Supplied By Facility): CTDIvol = ( 8.62 ) mGy, DLP = ( 432.83 ) mGycm TECHNIQUE: Transaxial images were obtained from the dome of the diaphragm to the symphysis pubis without oral contrast, and without intravenous contrast. Sagittal and coronal images were reconstructed. Individualized dose optimization techniques were used for this CT. COMPARISON: 01/18/2018 FINDINGS: There is minor interstitial thickening at the lung bases and calcific pleural plaquing possibly due to asbestos exposure... The visualized portions of the heart are within normal limits. Normal liver. Gallbladder has been removed surgically.. Normal spleen. Normal pancreas. Normal bilateral adrenal glands. No evidence for renal obstruction or ureteral calculus. There is a simple cyst in the upper pole of the left kidney Normal visualized stomach. Normal small intestine. Diverticular disease of the colon without evidence for acute diverticulitis. Postsurgical change status post resection of sigmoid. Normal appendix not visualized. No evidence for acute appendicitis. Atherosclerotic changes of the aorta without evidence for aneurysm. Normal inferior vena cava. Normal retroperitoneum. Completely distended thick-walled bladder containing tiny focal calcification Small left periumbilical hernia containing portion of bowel loop. Lumbar spine demonstrates mild spondylosis CT/Abdomen/Pelvis without Cont IMPRESSION: Postsurgical changes status post cholecystectomy and resection of the rectosigmoid.. Diverticular disease of colon without evidence for acute diverticulitis Simple cyst in the upper pole of the left kidney No acute abnormality Electronically Signed: Chencho José MD at 15:56 EDT , Service support ,
--- NOTE | 2020-02-01 14:51 | DCINST_ITS ---
- Discharge Diagnoses Current Active Problems: Current Active and Chronic Problems (Last Reviewed 06/19/19 @ 15:[address] Ozzie Sol MD) Proximal limb muscle weakness (Acute) Orthostatic hypotension (Chronic) Anxiety and depression (Chronic) Iron deficiency anemia (Chronic) Chronic systolic congestive heart failure (Chronic) Paroxysmal atrial fibrillation (Chronic) CHRISTA (obstructive sleep apnea) (Chronic) Atherosclerosis of coronary artery of [place] heart without angina pectoris (Chronic) PCI/GAETANO-LAD w/ 3.0 x 28 mm Promus Element Plus Rx 03/02/13 History of coronary artery stent placement (Chronic 03/02/13) PCI/GAETANO-LAD w/ 3.0 x 28 mm Promus Element Plus Rx 03/02/13 HLD (hyperlipidemia) (Chronic) You will use the following diet at home:: Cardiac Your food should be the consistency of: Regular Your liquids should be the consistency of: Regular/Thin Discharge Activity: Return to Normal Activity, May Not Drive, Use Walker Additional Instructions: You will need to have a nerve conduction study after you are discharged from the hospital. You will need to arrange this with your neurologist. You also still have blood tests that have pending results. You will need to review the results of these tests with your primary care physician when they are available. Allergies/Adverse Reactions: Allergies rivaroxaban [From Xarelto] Allergy (Verified 01/31/20 13:08) Rash metoprolol Adverse Reaction (Verified 01/21/20 11:58) Low blood pressure/syncope Medications to take at Discharge Clonazepam 0.5 mg PO TID 01/21/20 Fludrocortisone Acetate [Florinef] 0.1 mg PO DAILY@0800 01/21/20 Midodrine HCl 10 mg PO TID 01/21/20 Rosuvastatin Calcium [Crestor] 5 mg PO QHS 01/21/20 Sertraline HCl 50 mg PO DAILY 01/21/20 Primidone [Mysoline] 50 mg PO DAILY #30 tab 01/22/20 Warfarin [Coumadin] 2.5 mg PO DAILY #30 tab 01/23/20 Aspirin E.C. [Ecotrin] 81 mg PO DAILY@0800 01/31/20 Ferrous Sulfate 325 mg PO DAILY 01/31/20 Multivitamin with Minerals [Multiple Vitamin] 1 tab PO DAILY 01/31/20 Primary Care Physician: Aristides Marshall MD [Primary Care Provider] - Please follow up with your Primary Care Physician in: 1-2 weeks Test Results: Test results from this visit will be discussed in further detail at your follow- up appointment, if applicable. Please Follow Up With: Neurology When: 2 weeks Proposed Discharge Date: 02/01/20
--- NOTE | 2020-02-01 14:54 | PCM.DC.SUM ---
<Jeevan Duran - Last Filed: 02/01/20 15:43> Discharge Date and Diagnosis - Problem List Patient Problems: Active and Suspected Problems (Last Reviewed 06/19/19 @ 15:[address] Ozzie Sol MD) Proximal limb muscle weakness (Acute) Date of Admission: 01/31/20 Date of Discharge: 02/01/20 - Primary Discharge Diagnosis Acute Problems: Active Problems (Last Reviewed 06/19/19 @ 15:[address] Ozzie Sol MD) Proximal limb muscle weakness (Acute) - Secondary Discharge Diagnosis Chronic Problems: Chronic Problems (Last Reviewed 06/19/19 @ 15:[address] Ozzie Sol MD) Orthostatic hypotension (Chronic) Anxiety and depression (Chronic) Iron deficiency anemia (Chronic) Chronic systolic congestive heart failure (Chronic) Other seborrheic keratosis (Chronic) 1 cm benign keratosis left lateral back 5 mm benign keratosis left outer arm 6 mm benign keratosis left lateral forehead 5 mm benign keratosis left outer shoulder [facility] current use of anticoagulant (Chronic) Paroxysmal supraventricular tachycardia (Chronic) Paroxysmal atrial fibrillation (Chronic) Family history of skin cancer (Chronic) Personal history of skin cancer (Chronic) Actinic keratosis (Chronic) left medial proximal leg left upper medial chest wall right outer arm right superomedial chest wall left upper chest wall right mid dorsal ulnar forearm right mid volar radial forearm left upper chest wall by clavicle (with focal moderate atypia) left nasal tip, healed with Aldara left shoulder, healed with Aldara CHRISTA (obstructive sleep apnea) (Chronic) Colonic diverticular abscess (Chronic) Ventral hernia (Chronic) Hypersomnia, unspecified (Chronic) REM behavioral disorder (Chronic) Diastasis of rectus abdominis (Chronic) Atherosclerosis of coronary artery of [place] heart without angina pectoris (Chronic) PCI/GAETANO-LAD w/ 3.0 x 28 mm Promus Element Plus Rx 03/02/13 History of coronary artery stent placement (Chronic 03/02/13) PCI/GAETANO-LAD w/ 3.0 x 28 mm Promus Element Plus Rx 03/02/13 HLD (hyperlipidemia) (Chronic) Hospital Course and Treatment Imaging Results: DIAGNOSTICS: 02/01/20 13:42 Abdomen/Pelvis without Cont [CT] Urgent BOOGIE: Interpretation Summary Normal bilateral lower extremity ankle-brachial indices at rest with normal bilateral posterior tibial and dorsalis pedis triphasic Doppler waveforms MRI/Spine Thoracic (Routine) IMPRESSION: Mild kyphosis with multilevel degenerative disc disease but with normal spinal canal diameter and without cord disease. MRI/Spine Lumbar (Routine) IMPRESSION: Mild scoliosis and degenerative changes.. Mild spondylosis and multilevel disc degeneration. Spinal stenosis at L4-5 secondary to annular bulge and facet arthropathy. Minimal annular bulge at L3-4 and L5-S1 without t spinal stenosis Consults: Neuro - SOC Operations: None Procedures: None Summary of Care Provided: Hospital Course: The patient is a 74 year old M with pmhx as above notably recent admission with stroke workup negative for acute infarct who presented to the ER with bilateral proximal leg weakness. He was having difficulty ambulating at home. He was admitted to PCU and MRIs of the thoracic and lumbar spines were obtained which showed some spinal stenosis at L4/L5. BOOGIE was obtained which were negative. The patient worked with PT and OT and was able to ambulate around the unit with a walker well. Rheumatoid panel was sent and is pending. Neurology was consulted and noted his symptoms began around the time that he started warfarin and recommended a CT of the pelvis to rule out a retroperitoneal bleed. Neuro recommended he follow up with a neurologist and have an outpatient EMG/Nerve study. Outpatient physical therapy and occupational therapy were ordered for him at discharge. He was discharged home in stable condition. He will need follow up with neurology in 2 weeks and PCP in 1-2 weeks. He plans to move to [place] at the end of the week. This patient was seen by Jeevan Duran PA-C under the supervision of Dr. Scales [] Patient Problems: Active and Suspected Problems (Last Reviewed 06/19/19 @ 15:[address] Ozzie Sol MD) Proximal limb muscle weakness (Acute) - Physical Exam Vitals/I&O's: Vital Signs Temp Pulse Resp BP Pulse Ox 98.7 F 63 18 116/65 95 02/01/20 11:50 02/01/20 11:50 02/01/20 11:50 02/01/20 11:50 02/01/20 11:50 Oxygen Delivery Method Room Air Weight: 188 lb 7.924 oz Body Mass Index (BMI) 24.2 Intake and Output for Last 24 Hours 01/30/20 01/31/20 02/01/20 23:59 23:59 23:59 Intake Total 875 / 875 1901.67 / 1901.67 Output Total 1050 / 1050 1025 / 1025 Balance -175 / -175 876.67 / 876.67 General: Alert, Oriented x3, Cooperative HEENT: Atraumatic, PERRLA, EOMI, Normocephalic Neck: Supple, No JVD, Negative Carotid Bruits Lungs: Clear to auscultation, Normal air movement Cardiovascular: Regular rate, No murmurs Abdomen: Bowel Sounds Present, Soft, Non Tender Extremities: No edema, Capillary Refill Less than 3 Seconds Skin: No rashes, No breakdown Musculoskeletal: No Tenderness to Palpation of Joints or Extremities Neurological: Cranial nerves II-XII grossly intact Psych/Mental Status: Normal Affect, Appropriate, Alert and oriented to time, place, person, mood and affect Laboratory Results 01/31/20 12:50: Phosphorus 2.2 L, Magnesium 2.2, TSH 1.79, Free T4 1.08 01/31/20 14:45: Urine Color Yellow, Urine Clarity Sl. Cloudy, Urine pH 7.0, Ur Specific [place] 1.010, Urine Protein Negative, Urine Glucose (UA) Normal, Urine Ketones Negative, Urine Occult Blood Negative, Urine Nitrite Negative, Urine Bilirubin Negative, Urine Urobilinogen Normal, Ur Leukocyte Esterase Negative, Urine RBC 0 SEEN, Urine WBC 0 SEEN, Ur Squamous Epith Cells 0 SEEN, Urine Bacteria 0 SEEN, Urine Mucus 0 SEEN 01/31/20 16:11: CK Isoenzymes Pending, CK-MM (CK-3) Pending, CK-MB (CK-2) Pending, CK-BB (CK-1) Pending 01/31/20 16:41: ESR 14 01/31/20 19:20: Ethyl Alcohol < 3.0 01/31/20 : PT 31.9 H, INR 3.1 02/01/20 06:38: DARLENE Screen Pending, JAY-1 Antibody Pending, SS-A/Ro IgG Antibody Pending, SS-B/La IgG Antibody Pending, Sm (Duggan) Antibody Pending, GRAPHIC DESIGN PROFESSOR Antibody Pending, Scl-70 Scleroderma Ab Pending, Double Strand DNA Ab Pending, Centromere B Antibody Pending 02/01/20 06:38: WBC 5.2, RBC 4.59 L, Hgb 13.6, Hct 43.0, MCV 93.7, MCH 29.6, MCHC 31.6 L, RDW Std Deviation 49.3 H, RDW Coeff of Shelly 14.4, Plt Count 241, MPV 9.5, Immature Gran % (Auto) 0.400, Neut % (Auto) 63.0, Lymph % (Auto) 18.8 L, Mcpherson % (Auto) 16.1 H, Eos % (Auto) 1.3, Baso % (Auto) 0.4, Absolute Neuts (auto) 3.3, Absolute Lymphs (auto) 0.98, Nucleated RBC % 0 02/01/20 06:38: PT 31.9 H, INR 3.1 02/01/20 06:38: Sodium 139, Potassium 3.7, Chloride 108 H, Carbon Dioxide 27.0, Anion Gap 4 L, BUN 10, Creatinine 0.86, Estim Creat Clear Calc 87.62, Est GFR (MDRD) Af Amer 111, Est GFR (MDRD) Non-Af 92, BUN/Creatinine Ratio 11.6, Glucose 99, Calcium 8.0 L, Total Bilirubin 0.30, AST 19, ALT 22, Alkaline Phosphatase 67, Total Protein 7.3, Albumin 2.9 L, Globulin 4.4 H, Albumin/Globulin Ratio 0.7 L 02/01/20 06:38: Total Creatine Kinase 39 Current Medications Acetaminophen (Acetaminophen 325 Mg Tablet) 650 mg PO Q6H PRN PRN PRN Reason: Pain Score 1-10/Temp > 100.7 F Al Hydroxide/Mg Hydroxide (Mag Hydrox/Al Hydrox/Simeth 30 Ml Udc) 30 ml PO Q6H PRN PRN PRN Reason: Gastric Burning Albuterol Sulfate (Albuterol 2.5 Mg/3 Ml Vial.Neb.) 2.5 mg INHALATION Q2H PRN PRN PRN Reason: Dyspnea, wheezing Aspirin (Aspirin 81 Mg Tab.Chew) 81 mg PO DAILY@0800 [facility] Last Admin: 02/01/20 08:05 Dose: 81 mg Documented by: Clonazepam (Clonazepam 0.5 Mg Tablet) 0.5 mg PO TID [facility] Last Admin: 02/01/20 05:53 Dose: 0.5 mg Documented by: Fludrocortisone Acetate (Fludrocortisone Acetate 0.1 Mg Tablet) 0.1 mg PO DAILY@0800 [facility] Last Admin: 02/01/20 08:05 Dose: 0.1 mg Documented by: Guaifenesin (Guaifenesin 10 Ml Udc (200mg/10ml)) 20 ml PO Q4H PRN PRN PRN Reason: COUGH Sodium Chloride () 1,000 mls @ 100 mls/hr IV .Q10H [facility] Last Admin: 02/01/20 14:47 Dose: 100 mls/hr Documented by: Magnesium Hydroxide (Magnesium Hydroxide 30 Ml Udc) 30 ml PO DAILY PRN PRN PRN Reason: Constipation Melatonin (Melatonin 3 Mg Tablet) 3 mg PO QHS PRN PRN PRN Reason: INSOMNIA Midodrine (Midodrine Hcl 5 Mg Tablet) 10 mg PO TID [facility] Last Admin: 02/01/20 05:53 Dose: 10 mg Documented by: Morphine Sulfate (Morphine 2 Mg/Ml Syringe) 2 mg IV Q3H PRN PRN PRN Reason: Pain Score 6-10 Nitroglycerin (Nitroglycerin (Inpatient Use) 0.4 Mg Tab.Subl) 0.4 mg SUBLINGUAL Q5M PRN PRN Reason: CARDIAC/CHEST PAIN Ondansetron HCl (Ondansetron 4 Mg/2 Ml Vial) 4 mg IV Q8H PRN PRN PRN Reason: NAUSEA/VOMITING Oxycodone HCl (Oxycodone 5 Mg Tablet) 5 mg PO Q4H PRN PRN PRN Reason: Pain Score 4-5 Primidone (Primidone 50 Mg Tablet) 50 mg PO DAILY [facility] Last Admin: 02/01/20 08:05 Dose: 50 mg Documented by: Prochlorperazine Edisylate (Prochlorperazine 10 Mg/2 Ml Vial) 5 mg IV Q4H PRN PRN PRN Reason: Breakthrough Nausea/Vomiting Psyllium Hydrophilic Mucilloid (Psyllium 1 Packet) 1 packet PO DAILY PRN PRN PRN Reason: Constipation Senna/Docusate Sodium (Senna/Docusate Sodium 1 Tablet) 2 tablet PO BID PRN PRN PRN Reason: Constipation Sertraline HCl (Sertraline 50 Mg Tablet) 50 mg PO DAILY [facility] Last Admin: 02/01/20 08:05 Dose: 50 mg Documented by: Sodium Chloride (0.9% Saline Lock 10 Ml Syringe) 10 - 40 ml IV UD PRN PRN Reason: SALINE FLUSH Throat Lozenges (Benzocaine/Menthol 1 Lozenge) 1 lozenge MUCOUS MEM Q2H PRN PRN PRN Reason: SORE THROAT Warfarin Sodium (Warfarin 2.5 Mg Tablet) 2.5 mg PO DAILY@1700 [facility] Discharge Diet: Low fat/ Low Cholesterol, 2000 mg Sodium Diet Discharge Activity: Return to Normal Activity, May Not Drive, Use Walker Home Medications: Medications to take at Discharge Clonazepam 0.5 mg PO TID 01/21/20 Fludrocortisone Acetate [Florinef] 0.1 mg PO DAILY@0800 01/21/20 Midodrine HCl 10 mg PO TID 01/21/20 Rosuvastatin Calcium [Crestor] 5 mg PO QHS 01/21/20 Sertraline HCl 50 mg PO DAILY 01/21/20 Primidone [Mysoline] 50 mg PO DAILY #30 tab 01/22/20 Warfarin [Coumadin] 2.5 mg PO DAILY #30 tab 01/23/20 Aspirin E.C. [Ecotrin] 81 mg PO DAILY@0800 01/31/20 Ferrous Sulfate 325 mg PO DAILY 01/31/20 Multivitamin with Minerals [Multiple Vitamin] 1 tab PO DAILY 01/31/20 Primary Care Physician: Aristides Marshall MD [Primary Care Provider] - Please follow up with your Primary Care Physician in: 1-2 weeks Please Follow Up With: Neurology When: 2 weeks Disposition: Home Minutes spent on discharge:: 40 Patient Condition:: Stable Medical Necessity - Tobacco Use Smoking Status: Never smoker Tobacco Use: Non-smoker Meaningful Use Info Meaningful Use Diagnoses (Choose all that apply): None applicable <Ignacio Scales - Last Filed: 02/01/20 16:24> Discharge Date and Diagnosis - Primary Discharge Diagnosis Acute Problems: Active Problems (Last Reviewed 06/19/19 @ 15:[address] Ozzie Sol MD) Proximal limb muscle weakness (Acute) - Secondary Discharge Diagnosis Chronic Problems: Chronic Problems (Last Reviewed 06/19/19 @ 15:[address] Ozzie Sol MD) Orthostatic hypotension (Chronic) Anxiety and depression (Chronic) Iron deficiency anemia (Chronic) Chronic systolic congestive heart failure (Chronic) Other seborrheic keratosis (Chronic) 1 cm benign keratosis left lateral back 5 mm benign keratosis left outer arm 6 mm benign keratosis left lateral forehead 5 mm benign keratosis left outer shoulder [facility] current use of anticoagulant (Chronic) Paroxysmal supraventricular tachycardia (Chronic) Paroxysmal atrial fibrillation (Chronic) Family history of skin cancer (Chronic) Personal history of skin cancer (Chronic) Actinic keratosis (Chronic) left medial proximal leg left upper medial chest wall right outer arm right superomedial chest wall left upper chest wall right mid dorsal ulnar forearm right mid volar radial forearm left upper chest wall by clavicle (with focal moderate atypia) left nasal tip, healed with Aldara left shoulder, healed with Aldara CHRISTA (obstructive sleep apnea) (Chronic) Colonic diverticular abscess (Chronic) Ventral hernia (Chronic) Hypersomnia, unspecified (Chronic) REM behavioral disorder (Chronic) Diastasis of rectus abdominis (Chronic) Atherosclerosis of coronary artery of [place] heart without angina pectoris (Chronic) PCI/GAETANO-LAD w/ 3.0 x 28 mm Promus Element Plus Rx 03/02/13 History of coronary artery stent placement (Chronic 03/02/13) PCI/GAETANO-LAD w/ 3.0 x 28 mm Promus Element Plus Rx 03/02/13 HLD (hyperlipidemia) (Chronic) Hospital Course and Treatment Imaging Results: 02/01/20 13:42 Abdomen/Pelvis without Cont [CT] Urgent Summary of Care Provided: This patient was seen in conjunction with Jeevan VENTURA. I have independently interviewed and examined the patient and reviewed pertinent history, examination findings, laboratory and plan of management. I have reviewed the note and agree with the documented findings with the few additional points. In brief, patient is admitted for bilateral lower extremity. Patient was recently admitted for stroke of work-up was negative for acute infarct. Total CK normal. Alkaline phosphatase normal. Creatinine kinase isoenzymes are pending. TSH and free T4 normal. Magnesium level 2.2. UA negative. Lumbar spine shows mild kyphosis and multilevel degenerative disease but with normal spinal canal diameter and without cord disease. Lumbar MRI shows spinal stenosis at L4-5 secondary to annular bulge and facet arthropathy and chronic degenerative disc changes. Tele-Neurologist was consulted and he recommended outpatient EMG/nerve conduction test and follow-up with neurologist. Patient is on warfarin for PAFIB and there was suspicion of retroperitoneal bleed therefore CT of pelvis was done and reported no acute abnormality. Outpatient PT and Occupational Therapy recommended. BOOGIE right side 1.12, left 1.05, triphasic wave. Discharge medication reconciliation done. Discharge follow-up instructions completed. Discharge process discussed with the patient and all questions were answered to patient's satisfaction. Total time spent, exact 35 minutes on discharge meds reconciliation, examination, coordination of care with nurses and ancillary staff, review of imaging and blood test and discussion with the patient on follow-up instructions I have discussed my assessment with Jeevan VENTURA and orders have been reviewed. [] Objective: Patient was admitted between 01/20-01/22 for worsening ataxia, sinus bradycardia. Patient has history of anoxic brain injury. This time patient came back with worsening of bilateral lower extremity weakness, inability to ambulate. Heart rate and blood pressure are controlled. Heart rate and 50s to 60s per minute Patient denies on a steroid or hydroxychloroquine or other myopathic medication Physical exam General: Alert, Oriented x3, Cooperative HEENT: Atraumatic, PERRLA, EOMI, Normocephalic Oral: No Gingival or Mucosal Lesions/ Ulcerations Neck: Supple, No JVD, Negative Carotid Bruits Lungs: Air entry diminished in bilateral lung bases. No crepitation/rhonchi Cardiovascular: sinus bradycardia, Normal S1, Normal S2, No murmurs Abdomen: Bowel Sounds Present, Soft, Non Tender, Non-Distended : No renal angle tenderness. No suprapubic tenderness. Extremities: mild dependant ankle edema, Capillary Refill Less than 3 Seconds Skin: No rashes, No breakdown Musculoskeletal: No Tenderness to Palpation of Joints or Extremities. power 4/5 at major joints of hips and knee joints. Neurological: Cranial nerves II-XII grossly intact, Deep Tendon Reflexes 2+/4 and Symmetrical, Neuro grossly intact. gross sensation B/L symmetrical Psych/Mental Status: Normal Affect, Appropriate. - Physical Exam Vitals/I&O's: Vital Signs Temp Pulse Resp BP Pulse Ox 97.7 F L 52 L 18 142/74 H 96 02/01/20 15:27 02/01/20 15:27 02/01/20 15:27 02/01/20 15:27 02/01/20 15:27 Oxygen Delivery Method Room Air Weight: 188 lb 7.924 oz Body Mass Index (BMI) 24.2 Intake and Output for Last 24 Hours 10/01/31/20 02/01/20 23:59 23:59 23:59 Intake Total 875 / 875 1901.67 / 1901.67 Output Total 1050 / 1050 1025 / 1025 Balance -175 / -175 876.67 / 876.67 Laboratory Results 01/31/20 12:50: Phosphorus 2.2 L, Magnesium 2.2, TSH 1.79, Free T4 1.08 01/31/20 16:11: CK Isoenzymes Pending, CK-MM (CK-3) Pending, CK-MB (CK-2) Pending, CK-BB (CK-1) Pending 01/31/20 16:41: ESR 14 01/31/20 19:20: Ethyl Alcohol < 3.0 01/31/20 : PT 31.9 H, INR 3.1 02/01/20 06:38: DARLENE Screen Pending, JAY-1 Antibody Pending, SS-A/Ro IgG Antibody Pending, SS-B/La IgG Antibody Pending, Sm (Duggan) Antibody Pending, GRAPHIC DESIGN PROFESSOR Antibody Pending, Scl-70 Scleroderma Ab Pending, Double Strand DNA Ab Pending, Centromere B Antibody Pending 02/01/20 06:38: WBC 5.2, RBC 4.59 L, Hgb 13.6, Hct 43.0, MCV 93.7, MCH 29.6, MCHC 31.6 L, RDW Std Deviation 49.3 H, RDW Coeff of Shelly 14.4, Plt Count 241, MPV 9.5, Immature Gran % (Auto) 0.400, Neut % (Auto) 63.0, Lymph % (Auto) 18.8 L, Mcpherson % (Auto) 16.1 H, Eos % (Auto) 1.3, Baso % (Auto) 0.4, Absolute Neuts (auto) 3.3, Absolute Lymphs (auto) 0.98, Nucleated RBC % 0 02/01/20 06:38: PT 31.9 H, INR 3.1 02/01/20 06:38: Sodium 139, Potassium 3.7, Chloride 108 H, Carbon Dioxide 27.0, Anion Gap 4 L, BUN 10, Creatinine 0.86, Estim Creat Clear Calc 87.62, Est GFR (MDRD) Af Amer 111, Est GFR (MDRD) Non-Af 92, BUN/Creatinine Ratio 11.6, Glucose 99, Calcium 8.0 L, Total Bilirubin 0.30, AST 19, ALT 22, Alkaline Phosphatase 67, Total Protein 7.3, Albumin 2.9 L, Globulin 4.4 H, Albumin/Globulin Ratio 0.7 L 02/01/20 06:38: Total Creatine Kinase 39 Current Medications Acetaminophen (Acetaminophen 325 Mg Tablet) 650 mg PO Q6H PRN PRN PRN Reason: Pain Score 1-10/Temp > 100.7 F Al Hydroxide/Mg Hydroxide (Mag Hydrox/Al Hydrox/Simeth 30 Ml Udc) 30 ml PO Q6H PRN PRN PRN Reason: Gastric Burning Albuterol Sulfate (Albuterol 2.5 Mg/3 Ml Vial.Neb.) 2.5 mg INHALATION Q2H PRN PRN PRN Reason: Dyspnea, wheezing Aspirin (Aspirin 81 Mg Tab.Chew) 81 mg PO DAILY@0800 [facility] Last Admin: 02/01/20 08:05 Dose: 81 mg Documented by: Clonazepam (Clonazepam 0.5 Mg Tablet) 0.5 mg PO TID [facility] Last Admin: 02/01/20 15:26 Dose: 0.5 mg Documented by: Fludrocortisone Acetate (Fludrocortisone Acetate 0.1 Mg Tablet) 0.1 mg PO DAILY@0800 [facility] Last Admin: 02/01/20 08:05 Dose: 0.1 mg Documented by: Guaifenesin (Guaifenesin 10 Ml Udc (200mg/10ml)) 20 ml PO Q4H PRN PRN PRN Reason: COUGH Sodium Chloride () 1,000 mls @ 100 mls/hr IV .Q10H [facility] Last Admin: 02/01/20 14:47 Dose: 100 mls/hr Documented by: Magnesium Hydroxide (Magnesium Hydroxide 30 Ml Udc) 30 ml PO DAILY PRN PRN PRN Reason: Constipation Melatonin (Melatonin 3 Mg Tablet) 3 mg PO QHS PRN PRN PRN Reason: INSOMNIA Midodrine (Midodrine Hcl 5 Mg Tablet) 10 mg PO TID [facility] Last Admin: 02/01/20 15:26 Dose: 10 mg Documented by: Morphine Sulfate (Morphine 2 Mg/Ml Syringe) 2 mg IV Q3H PRN PRN PRN Reason: Pain Score 6-10 Nitroglycerin (Nitroglycerin (Inpatient Use) 0.4 Mg Tab.Subl) 0.4 mg SUBLINGUAL Q5M PRN PRN Reason: CARDIAC/CHEST PAIN Ondansetron HCl (Ondansetron 4 Mg/2 Ml Vial) 4 mg IV Q8H PRN PRN PRN Reason: NAUSEA/VOMITING Oxycodone HCl (Oxycodone 5 Mg Tablet) 5 mg PO Q4H PRN PRN PRN Reason: Pain Score 4-5 Primidone (Primidone 50 Mg Tablet) 50 mg PO DAILY [facility] Last Admin: 02/01/20 08:05 Dose: 50 mg Documented by: Prochlorperazine Edisylate (Prochlorperazine 10 Mg/2 Ml Vial) 5 mg IV Q4H PRN PRN PRN Reason: Breakthrough Nausea/Vomiting Psyllium Hydrophilic Mucilloid (Psyllium 1 Packet) 1 packet PO DAILY PRN PRN PRN Reason: Constipation Senna/Docusate Sodium (Senna/Docusate Sodium 1 Tablet) 2 tablet PO BID PRN PRN PRN Reason: Constipation Sertraline HCl (Sertraline 50 Mg Tablet) 50 mg PO DAILY [facility] Last Admin: 02/01/20 08:05 Dose: 50 mg Documented by: Sodium Chloride (0.9% Saline Lock 10 Ml Syringe) 10 - 40 ml IV UD PRN PRN Reason: SALINE FLUSH Throat Lozenges (Benzocaine/Menthol 1 Lozenge) 1 lozenge MUCOUS MEM Q2H PRN PRN PRN Reason: SORE THROAT Warfarin Sodium (Warfarin 2.5 Mg Tablet) 2.5 mg PO DAILY@1700 [facility] OBSV E&M: [id number] Observation care discharge
[2020-02-02 14:09] LABS: ANTINUCLEAR ANTIBODIES DIRECT Positive (Negative); Anti-Centromere B Ab <0.2 AI (0.0-0.9); Anti-Chromatin 0.3 AI (0.0-0.9); Anti-Jo <0.2 AI (0.0-0.9); Anti-Scleroderma-70 AB <0.2 AI (0.0-0.9); RNP Ab <0.2 AI (0.0-0.9); SJOGREN'S Anti-SS-A test > 8.0 AI (0.0-0.9); SJOGREN'S Anti-SS-B test > 8.0 AI (0.0-0.9); Smith Ab 0.4 AI (0.0-0.9)
[2020-02-02 15:16] LABS: Anti-dsDNA Ab <1 IU/mL (0-9)
[2020-02-02 16:08] LABS: Creatine Kinase MB 0 % (0-3); Creatine Kinase MM 100 % (97-100); Creatine Kinase,Total,Serum 36 U/L (41-331); Macro I 0 % (Not Observed); Macro II 0 % (Not Observed)
[2020-02-02 16:39] LABS: Creatine Kinase BB 0 % (0)
== END 2020-02-01 14:53 | disposition home or self-care (01) ==
LOC: ED 15:11 → PCU 15:47
PROVIDERS: Admitting Provider Family Medicine; Emergency Provider Emergency Medicine; PCP Family Medicine; Visit Provider Internal Medicine
DX: M62.81 Muscle weakness (generalized) (principal); I48.0 Paroxysmal atrial fibrillation; G47.33 Obstructive sleep apnea (adult) (pediatric); I50.22 Chronic systolic (congestive) heart failure; I11.0 Hypertensive heart disease with heart failure; I25.10 Atherosclerotic heart disease of native coronary artery without angina pectoris; F41.9 Anxiety disorder, unspecified; F32.9 Major depressive disorder, single episode, unspecified; D50.9 Iron deficiency anemia, unspecified; E78.5 Hyperlipidemia, unspecified; Z79.01 Long term (current) use of anticoagulants; Z79.899 Other long term (current) drug therapy; Z79.82 Long term (current) use of aspirin; Z87.820 Personal history of traumatic brain injury; Z91.19 Patient's noncompliance with other medical treatment and regimen; I95.1 Orthostatic hypotension; R27.0 Ataxia, unspecified; R00.1 Bradycardia, unspecified; M48.061 Spinal stenosis, lumbar region without neurogenic claudication; M51.26 Other intervertebral disc displacement, lumbar region; G62.9 Polyneuropathy, unspecified; M40.204 Unspecified kyphosis, thoracic region
CPT/HCPCS: 36415; 72146; 72148; 74176; 80053; 80320; 81001; 82550; 82552; 83735; 84100; 84439; 84443; 84484; 85025; 85610; 85652; 86038; 86225; 86235; 93922; 96360; 96361; 97162; 97166; 99218; 99251; 99285; J7030; G0378; G0463; G0480